=== PATIENT | male | born 1945 | race Caucasian/White ===

== ENCOUNTER → 2017-01-26 | Outpatient (CLI) | payer OTHER ==
--- NOTE | 2017-01-26 08:25 | DIAGNOSTIC IMAGING REPORT ---
(BARIUM SWALLOW) ESOPHAGUS CLINICAL HISTORY: Dysphagia. COMPARISON STUDY: None. FLUOROSCOPY TIME: 0.6 minutes. FINDINGS: 14 fluoroscopic images were obtained. This study was not completed due to a small amount of silent tracheal aspiration during this exam. No barium tablet was administered. Evaluation of the esophagus was mildly compromised but no esophageal mass or stricture was identified. No hiatal hernia was identified. Gastroesophageal reflux could not be evaluated for on this examination. IMPRESSION: 1. Incomplete exam due to a small amount of silent tracheal aspiration. A modified barium swallow could be obtained to evaluate the swallowing mechanism. 2. Suboptimal evaluation of the esophagus but no significant abnormality identified. Electronically signed by: Javad Rubalcava M.D. 01/26/2017 8:24 AM Dictated Date/Time: 01/26/2017 8:20 AM
== END | disposition home or self-care (01) ==
LOC: C.RAD 07:35
PROVIDERS: ATTEND Physician Assistant Medical
DX: R13.10 Dysphagia, unspecified (principal)

== ENCOUNTER → 2017-01-29 | Outpatient (CLI) | payer OTHER ==
--- NOTE | 2017-01-29 13:27 | DIAGNOSTIC IMAGING REPORT ---
MODIFIED BARIUM SWALLOW CLINICAL HISTORY: Dyspnea. COMPARISON STUDY: Barium swallow January 26, 2017. Fluoroscopy time: 2 minutes. FINDINGS: No tracheal aspiration was identified within liquids, nectar thick liquids, pudding or crackers with paste. There were residuals within the vallecula and piriform sinuses. IMPRESSION: 1. Intact swallowing mechanism. No tracheal aspiration identified. 2. Mild residuals within the vallecula and piriform sinuses. 3. Full recommendations by speech pathology to follow. Electronically signed by: Javad Rubalcava M.D. 01/29/2017 1:26 PM Dictated Date/Time: 01/29/2017 1:20 PM
--- NOTE | 2017-01-29 18:43 | SWALLOWING EVALUATION ---
REFERRING SPEECH PATHOLOGIST: n/a HISTORY: This 71 year-old man was referred for a VFSS at [facility] in order to follow-up after an episode of aspiration during a Barium Swallow Study on 01/26/17. The patient has a PMH significant for acoustic schwannoma, decreased balance, and cardiac stent placement. He denies GERD, but reports globus sensation and increased mucous production occurring at night when he is reclined. He also reports increased hoarseness/dysphonia. Currently the patient's diet level is regular. PROCEDURE: The patient was seen in the Radiology Department of [facility] for the VFSS. Cursory examination of the oral cavity revealed adequate dentition. Movement of the articulators was WNL. The patient was seated on a stool and was viewed in both the Anterior-Posterior (A-P) and Lateral planes. Volitional phonation exercises completed in the A-P plane revealed bilateral vocal fold movement and vocal intensity within functional limits, but with raspy quality. In the lateral plane, the patient was given the following boluses: 1 tsp. thin liquid barium x 2, single swallow thin liquid barium self-presented from a cup, sequential swallows of thin liquid barium self-presented from a cup, 1 tsp. nectar-thick liquid barium, single swallow nectar-thick liquid barium self-presented from a cup, 1 tsp. barium pudding, and 1 club cracker with barium pudding. The patient was then repositioned into the A-P plane and given 1 tsp. barium pudding. RESULTS: Oral Stage: Labial seal was complete. Cohesive bolus between tongue and palate during oral bolus hold. Timely and efficient mastication. Brisk tongue motion for bolus transport. Majority of solid bolus remaining after initial swallow and cleared with a second swallow. Initiation of pharyngeal swallow when bolus head in the valleculae. The patient demonstrates piecemeal bolus transport of solids to the pharynx. Otherwise, oral stage is WNL. Pharyngeal Stage: No bolus between soft palate and pharyngeal wall. Lingual elevation, anterior hyoid excursion, epiglottic inversion and laryngeal vestibular closure were complete. Diminished pharyngeal stripping wave. Incomplete pharyngeal contraction with presence of bilateral pseudodiverticulae. Minimal distention and duration of PES opening with marked obstruction of bolus flow. Wide column of contrast between tongue base and pharyngeal wall. Majority of solid bolus remained in valleculae and pyriform sinuses after initial swallow. There was no penetration or aspiration during this study. The patient demonstrated pharyngeal weakness and c-spine curvature that minimized pharyngeal clearance and PES opening. Multiple swallows were needed to clear solids from the pharynx. Esophageal Stage: A pudding bolus transited the esophagus without retention. SUMMARY/RECOMMENDATIONS: This patient presents with mild-moderate oral-pharyngeal dysphagia. He has several s/s LPR (laryngo-pharyngeal reflux). The following is recommended: 1. Diet as tolerated 2. Compensatory Strategies: avoid icy cold liquids, alternate solids and liquids frequently during meals, use fully upright positioning for all oral intake, keep head of bed elevated at least 30-degrees at all times 3. Pt already has f/u scheduled with ENT. 4. 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 A summary of the results and recommendations was discussed with the patient and his immediately following the study. They are anticipating f/u with ENT next week. Thank you for referral of this patient. Please contact me at if any additional information is needed.
== END | disposition home or self-care (01) ==
LOC: C.RAD 12:25
PROVIDERS: ATTEND Physician Assistant Medical
DX: R13.10 Dysphagia, unspecified (principal)

== ENCOUNTER 2022-01-26 09:21 | Inpatient (IN) ==
--- NOTE | 2022-01-26 09:41 | Emergency Department Note ---
Impression & Plan Syncope, Presence of indwelling Ferro catheter, Elevated troponin ED Provider Note Name: DANIEL HO Age: 76 Sex: M Arrives Via: Ambulance Informant: Patient, , ems ED Provider: Aly Nguyen MD Chief Complaint: syncope Impression: As per impressions above Medical Decision Makin-year-old gentleman with a history of CAD status post stent placement last week since BPH, hypertension and Parkinson's. Patient had an episode yesterday of lightheadedness and near syncope was evaluated in the ER had a cardiac rule out in the ER and was discharged home in good condition. Today patient was noted to have blood pressure in the 60s at home with an irregular heartbeat which was followed by a 15-minute episode of syncope and unresponsiveness. Thro ughout this he apparently was breathing and did have a pulse. EMS had arrived and found him unresponsive did not require CPR and he eventually came to. On arrival patient states he feels fine with no complaints. EKG is similar to yesterday's. Chest x-ray is unremarkable. He did have signs of legs yesterday which are negative, CT abdomen pelvis which is negative, and a CT of the head which is negative. He has no evidence of stroke on examination and he has no current complaints. His arrived to confirm the story. He has had an indwelling Ferro which had a little bit of blood in it sometimes is cleared and it clear yellow urine in the Ferro. His abdomen is soft nontender and repeat CT is not indicated. Labs revealed mildly elevated troponin which is trending down from yesterday. He has no shortness of breath, chest pain and I feel repeat he at this time is unnecessary and there is no clear indication of a CTA being required at this time either. His prolonged syncope a recent cardiac procedure and is multiple comorbidities hospitalization is indicated at this time. He and are on board with this plan. Prior Medical Record and Triage/Nursing Notes reviewed by Me Additional history obtained from chart Differentials:Vasovagal event, dehydration, infection, hypoglycemia, electrolyte abnormalities, cardiac sources, intracerebral event, pulmonary embolism, seizure, toxicologic, neurologic, as well as other pathologies. Vital Signs: reviewed and remarkable for no significant abnormalities Labs:Reviewed and remarkable for mildly elevated troponin improving from yesterday Imagin view chest x-ray unremarkable EKG:Per My Interpretation: Indication Syncope: NSR 78 bpm, qtc 497. No Ectopy. There are deep T wave inversions ant/lat mildly improved form EKG yesterday.. Compared to EKG 01/25/22, no significant changes. Cardiac/Tele Monitoring: Cardiac Monitoring: An Order was placed for continuous cardiac monitoring. The monitor shows a rate of 70 with a normal sinus rhythm. Consults:Dr Charis Segura Hospitalist Plan: Disposition:Hospitalization. Condition: Fair History of Present Illness: 76-year-old male arrives for evaluation following syncope. Patient with a cardiac stent placed 5 days ago at [facility]. He notes he has been tired after that and had some urinary issues thus Ferro was placed. He states has had some blood in it but denies any significant pain. He is also had some bloody noses on and off without any issues. Yesterday he had an episode of lightheadedness and near syncope and was evaluated in ER feeling well after several hours and went home. Today he went to the bathroom started getting lightheaded and called his . She got him out of the bathroom and to the kitchen. He was sitting. He became diaphoretic and decreased breathing and then went unresponsive. EMS they arrived and found patient unresponsive pale diaphoretic with a weak pulse. He was breathing some with some wheezing/crackles. No CPR was administered and after about 5 minutes patient started to come to. It was believed the patient was unresponsive for somewhere between 10 to 15 minutes. Patient was slightly confused as he came to and is now returned to baseline. Patient states he feels well and is in no distress. He denies headache, neck pain, chest pain, shortness of breath, [place] pain, back pain, leg pain or other symptoms. He has bruising on his right wrist from the catheter placement. He notes some blood in his urine. Patient had no med ications prior to arrival. He states he is on a blood thinner but does not recall what it is. Per his chart it appears he is on 81 mg of aspirin and Brilinta daily. ROS: See above HPI for pertinent positives & negatives. A total of 10 systems reviewed and were otherwise negative. Past Medical History:Parkinson's, CAD, BPH Past Surgical History:Cardiac cath with stenting Family History:See Below Social History:See Below Home Medications:See Below Allergies:See Below Vitals:Blood Pressure: 183/89, Pulse 76, RR 20, T 36.9C, O2 93% on RA Physical Exam: GENERAL: Patient is elderly and unwell appearing and in minimal distress. EYES: No scleral icterus, unremarkable pupils. Pale conjunctiva ENT: Mucous membranes moist, no nasal congestion. NECK: No masses appreciated, nomeningismus, trachea is midline. RESPIRATORY: No dyspnea. Clear to auscultation and equal bilaterally. No wheeze, no rhonchi. CARDIOVASCULAR: Regular rate and rhythm.No murmurs, rubs, gallops appreciated. GASTROINTESTINAL: Abdomen soft, non-tender, no peritonitis.Bowel sounds positive.No masses appreciated. BACK: No midline tenderness, no CVA tenderness EXTREMITIES: Normal motion all extremities, no cyanosis, no edema. NEUROLOGIC: Alert and oriented, no acute motor or sensory deficits, no focal weakness, cranial nerves grossly intact. SKIN: Bruising right wrist with good pulse. No rash, no jaundice, no diaphoresis. PSYCH: Appropriate GCS: 15 ED Course: Times/Reassessments: Patient stable admit multiple repeat evaluations no complaints. No further abnormalities on cardiac rn Aly Nguyen MD Past Med/Surg History Medical History BPH (benign prostatic hyperplasia) Coronary artery disease Hypertension Parkinsons disease Surgical History S/P coronary artery stent placement Family History Other Heart disease Social History Smoking Status: Never smoker Hx Alcohol Use: No Preferred Language: Armenian Communication Ability: Effective Small Products I Assembler Required: No Beliefs That Will Affect Care: None Current Living Situation: Spouse Other Information That Helps Us Care for You: No Feels Safe at Home: Yes Safety Concerns: Feels Safe At This Time Assistive Devices: Cane and Walker Allergies Allergies Allergy/AdvReac Type Severity Reaction Status Date / Time adhesive tape Allergy Intermediate red welps Unverified 01/26/22 10:41 codeine Allergy Intermediate shortness Unverified 01/26/22 10:41 of breath ~ nervous bacitracin AdvReac Intermediate blisters Unverified 01/26/22 10:41 [From Neosporin ([id number])] neomycin AdvReac Intermediate blisters Unverified 01/26/22 10:41 [From Neosporin ([id number])] polymyxin B AdvReac Intermediate blisters Unverified 01/26/22 10:41 [From Neosporin ([id number])] Home Meds Home Medications Medication Instructions Recorded Confirmed aspirin 81 mg tablet,delayed 81 mg PO HS 01/25/22 01/26/22 release atenolol 25 mg tablet 25 mg PO HS 01/25/22 01/26/22 carbidopa 25 mg-levodopa 100 mg 1 tab PO TID 01/25/22 01/26/22 tablet (Sinemet) carboxymethylcellulose sodium 1 % 1 drp OPHTHALMIC (EYE) QID 01/25/22 01/26/22 eye liquid gel drops desonide 0.05 % topical gel 1 applic TOPICAL 01/25/22 01/26/22 doxazosin 8 mg tablet 8 mg PO HS 01/25/22 01/26/22 gemfibrozil 600 mg tablet (Lopid) 600 mg PO BID 01/25/22 01/26/22 losartan 25 mg tablet 25 mg PO [facility] 01/25/22 01/26/22 metronidazole 0.75 % topical cream 1 applic TOPICAL [facility] 01/25/22 01/26/22 (MetroCream) multivitamin 1 tab PO QAM 01/25/22 01/26/22 ticagrelor 90 mg tablet (Brilinta) 90 mg PO BID 01/25/22 01/26/22 vit C 250 mg-vit E 90 mg-zinc 40 1 tab PO BID 01/25/22 01/26/22 mg-copper 1 [id number]-[id number]-ygylic capsule (PreserVision AREDS-2) atorvastatin 40 mg tablet 40 mg PO DAILY 01/26/22 01/26/22 inulin 2 gram chewable tablet 6 g PO DAILY 01/26/22 01/26/22 (Fiber Gummies) ketotifen fumarate 0.025 % (0.035 1 drp OPHTHALMIC (EYE) BID PRN 01/26/22 01/26/22 %) eye drops (Zaditor) loteprednol etabonate 0.2 % eye 1 drp OPHTHALMIC (EYE) QID PRN 01/26/22 01/26/22 drops,suspension (Alrex) Results & Data (ED) Vital Signs Vital Signs - 24 hr 01/26/22 09:21 01/26/22 09:30 01/26/22 10:00 Temperature 36.6 C Temperature Source Oral Pulse Rate 81 90 65 Pulse Rate from SpO2 Sensor 63 65 Respiratory Rate 18 20 20 Respiratory Effort / Characteristics Non-Labored Respiratory Depth Normal Respiratory Pattern Regular Blood Pressure 168/77 H 168/77 H Blood Pressure Mean 107 107 Pulse Oximetry 97 97 90 Oxygen Delivery Method Room Air Sepsis Recent Fever Within 48 Hours No Sepsis New/Unexplained Change in Mental Status No Sepsis Action Taken by Nursing No Action Required 01/26/22 10:30 01/26/22 11:00 Temperature Temperature Source Pulse Rate 66 68 Pulse Rate from SpO2 Sensor 58 L 65 Respiratory Rate 20 19 Respiratory Effort / Characteristics Respiratory Depth Respiratory Pattern Blood Pressure 172/82 H Blood Pressure Mean 112 Pulse Oximetry 95 95 Oxygen Delivery Method Sepsis Recent Fever Within 48 Hours Sepsis New/Unexplained Change in Mental Status Sepsis Action Taken by Nursing Laboratory Data Result diagrams: 01/26/22 09:39 01/26/22 09:39 Lab Results 01/26/22 01/26/22 01/26/22 Range/Units 09:39 09:39 09:39 WBC 4.58 L (4.8-10.8) K/uL RBC 4.02 L (4.7-6.1) M/uL Hgb 12.2 L (14.0-18.0) g/dL Hct 36.8 L (42-52) % MCV 91.5 (80-100) fL MCH 30.3 (25-34) pg MCHC 33.2 (32-36) g/dL RDW Std Deviation 44.2 (36.4-46.3) fL RDW Coeff of Boaz 13.4 (11.5-14.5) % Plt Count 212 (130-400) K/uL MPV 10.6 H (7.4-10.4) fL Immature Gran % (Auto) 0.2 % Neut % (Auto) 77.8 % Lymph % (Auto) 12.0 % [place]oke % (Auto) 7.0 % Eos % (Auto) 2.8 % Baso % (Auto) 0.2 % Neut # (Auto) 3.56 (1.4-6.5) K/uL Lymph # (Auto) 0.55 L (1.2-3.4) K/uL [place] # (Auto) 0.32 (0.11-0.59) K/uL Eos # (Auto) 0.13 (0-0.5) K/uL Baso # (Auto) 0.01 (0-0.2) K/uL Immature Gran # (Auto) 0.01 (0.00-0.02) K/uL PT 11.6 (9.0-12.0) Seconds INR 1.1 (0.9-1.1) APTT 28.1 (21.0-31.0) Seconds PTT Ratio 1.0 Sodium 140 (136-145) mmol/L Potassium 3.3 L (3.5-5.1) mmol/L Chloride 111 H (98-107) mmol/L Carbon Dioxide 21 (21-32) mmol/L Anion Gap 8 (3-11) BUN 21 (6-23) mg/dl Creatinine 1.11 (0.6-1.4) mg/dl Est Cr Clr Drug Dosing 47.7 ml/min Est GFR ( Amer) 73.3 ml/min Est GFR (Non-Af Amer) 63.3 ml/min BUN/Creatinine Ratio 18.9 (10-20) Glucose 90 (70-99(Fasting)) mg/dl Calcium 8.5 (8.5-10.1) mg/dl Magnesium 1.8 (1.7-2.4) mg/dl Total Bilirubin 1.0 (0.2-1.0) mg/dl Direct Bilirubin 0.2 (0-0.2) mg/dl AST 13 (13-39) U/L ALT 3 L (7-52) U/L Alkaline Phosphatase 80 (34-104) U/L Troponin I 0.14 H* (0-0.04) ng/ml Total Protein 6.1 (6.0-8.3) gm/dl Albumin 3.3 L (3.4-5.0) gm/dl Urine Color Urine Appearance (Clear) Urine pH (4.5-7.5) Ur Specific [place] (1.000-1.030) Urine Protein (Negative) Urine Glucose (UA) (Negative) Urine Ketones (Negative) Urine Blood (Negative) Urine Nitrite (Negative) Urine Bilirubin (Negative) Urine Urobilinogen (Negative) Ur Leukocyte Esterase (Negative) Urine WBC (Auto) (0-5) /hpf Urine RBC (Auto) (0-4) /hpf U Hyaline Cast (Auto) (0-5) /lpf U Epithel Cells (Auto) (0-5) /lpf Urine Bacteria (Auto) (Negative) SARS-CoV-2, RNA, NAAT (NEGATIVE) 01/26/22 01/26/22 Range/Units 09:52 10:22 WBC (4.8-10.8) K/uL RBC (4.7-6.1) M/uL Hgb (14.0-18.0) g/dL Hct (42-52) % MCV (80-100) fL MCH (25-34) pg MCHC (32-36) g/dL RDW Std Deviation (36.4-46.3) fL RDW Coeff of Boaz (11.5-14.5) % Plt Count (130-400) K/uL MPV (7.4-10.4) fL Immature Gran % (Auto) % Neut % (Auto) % Lymph % (Auto) % [place] % (Auto) % Eos % (Auto) % Baso % (Auto) % Neut # (Auto) (1.4-6.5) K/uL Lymph # (Auto) (1.2-3.4) K/uL [place] # (Auto) (0.11-0.59) K/uL Eos # (Auto) (0-0.5) K/uL Baso # (Auto) (0-0.2) K/uL Immature Gran # (Auto) (0.00-0.02) K/uL PT (9.0-12.0) Seconds INR (0.9-1.1) APTT (21.0-31.0) Seconds PTT Ratio Sodium (136-145) mmol/L Potassium (3.5-5.1) mmol/L Chloride (98-107) mmol/L Carbon Dioxide (21-32) mmol/L Anion Gap (3-11) BUN (6-23) mg/dl Creatinine (0.6-1.4) mg/dl Est Cr Clr Drug Dosing ml/min Est GFR ( Amer) ml/min Est GFR (Non-Af Amer) ml/min BUN/Creatinine Ratio (10-20) Glucose (70-99(Fasting)) mg/dl Calcium (8.5-10.1) mg/dl Magnesium (1.7-2.4) mg/dl Total Bilirubin (0.2-1.0) mg/dl Direct Bilirubin (0-0.2) mg/dl AST (13-39) U/L ALT (7-52) U/L Alkaline Phosphatase (34-104) U/L Troponin I (0-0.04) ng/ml Total Protein (6.0-8.3) gm/dl Albumin (3.4-5.0) gm/dl Urine Color Yellow Urine Appearance Clear (Clear) Urine pH 5.5 (4.5-7.5) Ur Specific [place] 1.013 (1.000-1.030) Urine Protein 1+ H (Negative) Urine Glucose (UA) Negative (Negative) Urine Ketones Negative (Negative) Urine Blood 3+ H (Negative) Urine Nitrite Negative (Negative) Urine Bilirubin Negative (Negative) Urine Urobilinogen Negative (Negative) Ur Leukocyte Esterase Trace H (Negative) Urine WBC (Auto) 1-5 (0-5) /hpf Urine RBC (Auto) >30 H (0-4) /hpf U Hyaline Cast (Auto) 1-5 (0-5) /lpf U Epithel Cells (Auto) 10-20 H (0-5) /lpf Urine Bacteria (Auto) Negative (Negative) SARS-CoV-2, RNA, NAAT NEGATIVE (NEGATIVE) Administered Medications Carbidopa/Levodopa (Carbidopa/Levodopa 25/100mg Tab) 1 tab PO TID IMMANUEL Stop: 02/25/22 13:59 Last Admin: 01/26/22 14:42 Dose: 1 tab Documented by: [id number] Discontinued Medications Influenza Virus Vaccine (Influenza Vaccine High Dose Pf 65+ 0.7 Ml Syr) 0.7 ml IM .ONCE ONE Stop: 01/26/22 13:06 Last Admin: 01/26/22 14:42 Dose: Not Given Documented by: [id number] Pneumococcal Polyvalent Vaccine (Pneumococcal Polysaccharides 25 Mcg/0.5 Ml Vial/Syr) 25 mcg IM .ONCE ONE Stop: 01/26/22 13:06 Last Admin: 01/26/22 14:42 Dose: Not Given Documented by: [id number] Potassium Chloride (Potassium Chloride Crtab 20 Meq Tabcr) 40 meq PO NOW STA Stop: 01/26/22 12:14 Last Admin: 01/26/22 12:27 Dose: 40 meq Documented by: [id number] Imaging Data Radiologist's Impression: Chest X-Ray 01/26/22 09:31 XR chest 1V portable CLINICAL HISTORY: syncope. Evaluate cardiopulmonary status COMPARISON STUDY: 01/25/2022 TECHNIQUE: 1 view of the chest FINDINGS: Single frontal view of the chest demonstrates the cardiomediastinal silhouette to be within normal limits. Compared to the previous study, there is a decreased inspiratory effort with interval development of left basilar atelectasis. The lungs are clear of alveolar opacities. There is no evidence for pleural effusion. There is no evidence for vascular congestion. There is no acute osseous pathology. IMPRESSION: 1. Decreased inspiration with interval development of left basilar atelectasis. ACT 112: Negative or not required by law. Electronically signed by: Tyrel Bronson M.D. 01/26/2022 10:00 AM Discharge Plan Visit Data Chief Complaint: Syncope Stated Complaint: SYNCOPE ED Provider: Aly Nguyen Discharge Problem: Syncope, Presence of indwelling Ferro catheter, Elevated troponin Patient Disposition: Admitted As Inpatient Discharge Instructions Interventions: ED Discharge Assessment Last Done: 01/26/22 12:29
[2022-01-26 09:46] LABS: Basophils # (auto) 0.01 K/uL (0-0.2); Basophils % (auto) 0.2 %; Eosinophils # (auto) 0.13 K/uL (0-0.5); Eosinophils % (auto) 2.8 %; Hematocrit (blood only) 36.8 % (42-52); Hemoglobin 12.2 g/dL (14.0-18.0); Immature Granulocytes # (auto) 0.01 K/uL (0.00-0.02); Immature Granulocytes % (auto) 0.2 %; Lymphocytes # (auto) 0.55 K/uL (1.2-3.4); Mean Corpuscular Hemoglobin 30.3 pg (25-34); Mean Corpuscular Hgb Conc 33.2 g/dL (32-36); Mean Corpuscular Volume 91.5 fL (80-100); Mean Platelet Volume 10.6 fL (7.4-10.4); Monocytes # (auto) 0.32 K/uL (0.11-0.59); Neutrophils # (auto) 3.56 K/uL (1.4-6.5); Neutrophils % (auto) 77.8 %; Platelet Count 212 K/uL (130-400); RDW Coefficient of Variation 13.4 % (11.5-14.5); RDW Standard Deviation 44.2 fL (36.4-46.3); Red Blood Count 4.02 M/uL (4.7-6.1); White Blood Count 4.58 K/uL (4.8-10.8)
--- NOTE | 2022-01-26 10:01 | XRay Report ---
XR chest 1V portable CLINICAL HISTORY: syncope. Evaluate cardiopulmonary status COMPARISON STUDY: 01/25/2022 TECHNIQUE: 1 view of the chest FINDINGS: Single frontal view of the chest demonstrates the cardiomediastinal silhouette to be within normal li mits. Compared to the previous study, there is a decreased inspiratory effort with interval developme nt of left basilar atelectasis. The lungs are clear of alveolar opacities. There is no evidence for p leural effusion. There is no evidence for vascular congestion. There is no acute osseous pathology. IMPRESSION: 1. Decreased inspiration with interval development of left basilar atelectasis. ACT 112: Negative or not required by law. Electronically signed by: Tyrel Bronson M.D. 01/26/2022 10:00 AM
[2022-01-26 10:03] LABS: INR 1.1 (0.9-1.1); Partial Thromboplastin Time 28.1 Seconds (21.0-31.0); Prothrombin Time 11.6 Seconds (9.0-12.0)
[2022-01-26 10:16] LABS: Troponin I 0.14 ng/ml (0-0.04)
[2022-01-26 10:26] LABS: Albumin Level 3.3 gm/dl (3.4-5.0); BUN Creatinine Ratio 18.9 (10-20); Bilirubin Direct 0.2 mg/dl (0-0.2); Calcium 8.5 mg/dl (8.5-10.1); Creatinine Clr Calc Pharmacy 47.7 ml/min; Est GFR (African American) 73.3 ml/min; Est GFR (Non-African American) 63.3 ml/min; Magnesium 1.8 mg/dl (1.7-2.4); Potassium 3.3 mmol/L (3.5-5.1); Total Protein 6.1 gm/dl (6.0-8.3)
[2022-01-26 10:43] LABS: Appearance Urine Clear (Clear); Bacteria Urine Automated Negative (Negative); Bilirubin Urine Negative (Negative); Blood Urine 3+ (Negative); Color Urine Yellow; Glucose Urine UA Negative (Negative); Ketones Urine Negative (Negative); Leukocyte Esterase Urine Trace (Negative); Nitrite Urine Negative (Negative); Protein Urine 1+ (Negative); RBC Urine Automated >30 /hpf (0-4); Specific Gravity Urine 1.013 (1.000-1.030); Urobilinogen Urine Negative (Negative); pH Urine 5.5 (4.5-7.5)
[2022-01-26] MEDS ORDERED: POTASSIUM CHLORIDE CRTAB 20 MEQ TABCR PO STA (12:13)
--- NOTE | 2022-01-26 12:34 | Electrocardiogram Report ---
Test Reason : Blood Pressure : / mmHG Vent. Rate : 078 BPM Atrial Rate : 078 BPM P-R Int : 160 ms QRS Dur : 086 ms QT Int : 436 ms P-R-T Axes : 002 052 013 degrees QTc Int : 497 ms Poor data quality, interpretation may be adversely affected Normal sinus rhythm T wave abnormality, consider anterolateral ischemia Prolonged QT Abnormal ECG When compared with ECG of 25-JAN-2022 10:28, (unconfirmed) T wave inversion less evident in Lateral leads QT has lengthened Confirmed by Phuc Ferrera ([id number]) on 01/26/2022 12:34:18 PM Referred By: Confirmed By:Phuc Ferrera
[2022-01-26] MEDS ORDERED: INFLUENZA VACCINE HIGH DOSE PF 65+ 0.7 ML SYR IM ONE (13:05)
[2022-01-26] MEDS ORDERED: PNEUMOCOCCAL POLYSACCHARIDES 25 MCG/0.5 ML VIAL/SYR IM ONE (13:05)
[2022-01-26] MEDS ORDERED: ACETAMINOPHEN 325 MG TAB PO PRN (13:49)
[2022-01-26] MEDS ORDERED: NITROGLYCERIN SL 0.4 MG/TAB TAB SL PRN (13:49)
--- NOTE | 2022-01-26 14:27 | Cardiology Consultation ---
Date of Consultation January 26, 2022 Assessment & Plan (1) Syncope: (2) S/P coronary artery stent placement: (3) Elevated troponin: (4) Presence of indwelling Ferro catheter: (5) Hypokalemia: 76-year-old patient status post recent drug-eluting stent implantation to left anterior descending artery presents for recurrent sympathy after straining to defecate. I suspect vasovagal etiology, however, dehydration and symptomatic hypotension related to current medications contributing. I do not believe there is evidence of acute coronary syndrome with low-level troponin elevation trending downward and stable abnormal ECG when compared to prior study. Patient currently without anginal symptoms which prompted recent cardiac catheterization. Recommend holding losartan (added during recent hospitalization) with close follow-up of blood pressure over the next 24 hours. Encourage oral hydration. Monitor telemetry during hospitalization with consideration for reduction of atenolol pending review. If inpatient telemetry is unrevealing, I will order a 14-day outpatient ZIO monitor for further assessment. 2D transthoracic echocardiogram ordered with results pending at this time. Patient is requesting transfer of care to [facility] physicians. Thank you for allow me to participate in the care of your patient. History of Present Illness Reason for Consultation: Syncope, recent PCI Requesting Physician: Dr. Vizcaino Attending Physician: Leann Vizcaino MD History of Present Illness 76-year-old patient present to the emergency department on consecutive days due to syncope. Describes straining to defecate followed by 2 episodes of syncope. The most recent episode occurring yesterday occurred after he had walked out of the bathroom and sat down. The states he could not be aroused despite verbal or tactile stimuli. EMS was summoned who attempted a sternal rub. The patient was breathing according to his . No CPR was performed. Cardiac catheterization performed 01/21/2022 secondary to anginal symptoms and abnormal ECG demonstrating anterolateral T wave inversions. Cardiac catheterization demonstrating a 50% proximal stenosis followed by a 90% mid vessel stenosis distal to a previously implanted stent. Left circumflex demonstrated luminal irregularities. There was a 90% mid RCA stenosis although this was a nondominant vessel. Patient treated with 2.75 x 28 mm Xience drug- eluting stent. The stent could not be postdilated due to difficulty passing the balloon. He was subsequently loaded with Brilinta and discharged home. Troponins minimally elevated, however, trending down over the past 2 days. His ECG demonstrates anterior lateral T wave inversions which are unchanged from previous. Bedside 2D transthoracic echocardiogram is pending. Patient denies any chest discomfort or heaviness which prompted his recent cardiac catheterization. No anginal symptoms. Denies orthopnea, PND, or lower extremity edema. A Ferro catheter was inserted during recent hospitalization due to urinary retention. Losartan was also added to his medications in addition to Brilinta. reports symptomatic hypotension per his home blood pressure cuff yesterday with a systolic blood pressure in the 60s. This was recorded prior to patient using the bathroom and subsequent syncopal episode. Denies any signs/symptoms of GI/ blood loss. No fever, chills, cough, or sick contacts. Hypertensive since admission. Allergies Allergy/AdvReac Type Severity Reaction Status Date / Time adhesive tape Allergy Intermediate red welps Unverified 01/26/22 10:41 codeine Allergy Intermediate shortness Unverified 01/26/22 10:41 of breath ~ nervous bacitracin AdvReac Intermediate blisters Unverified 01/26/22 10:41 [From Neosporin ([id number])] neomycin AdvReac Intermediate blisters Unverified 01/26/22 10:41 [From Neosporin ([id number])] polymyxin B AdvReac Intermediate blisters Unverified 01/26/22 10:41 [From Neosporin ([id number])] Home Medications Medication Instructions Recorded Confirmed Type aspirin 81 mg tablet,delayed 81 mg PO HS 01/25/22 01/26/22 History release atenolol 25 mg tablet 25 mg PO HS 01/25/22 01/26/22 History carbidopa 25 mg-levodopa 100 mg 1 tab PO TID 01/25/22 01/26/22 History tablet (Sinemet) carboxymethylcellulose sodium 1 % 1 drp OPHTHALMIC (EYE) QID 01/25/22 01/26/22 History eye liquid gel drops desonide 0.05 % topical gel 1 applic TOPICAL HS 01/25/22 01/26/22 History doxazosin 8 mg tablet 8 mg PO HS 01/25/22 01/26/22 History gemfibrozil 600 mg tablet (Lopid) 600 mg PO BID 01/25/22 01/26/22 History losartan 25 mg tablet 25 mg PO QAM 01/25/22 01/26/22 History metronidazole 0.75 % topical cream 1 applic TOPICAL QAM 01/25/22 01/26/22 History (MetroCream) multivitamin 1 tab PO QAM 01/25/22 01/26/22 History ticagrelor 90 mg tablet (Brilinta) 90 mg PO BID 01/25/22 01/26/22 History vit C 250 mg-vit E 90 mg-zinc 40 1 tab PO BID 01/25/22 01/26/22 History mg-copper 1 [id number] capsule (PreserVision AREDS-2) atorvastatin 40 mg tablet 40 mg PO DAILY 01/26/22 01/26/22 History inulin 2 gram chewable tablet 6 g PO DAILY 01/26/22 01/26/22 History (Fiber Gummies) ketotifen fumarate 0.025 % (0.035 1 drp OPHTHALMIC (EYE) BID PRN 01/26/22 01/26/22 History %) eye drops (Zaditor) loteprednol etabonate 0.2 % eye 1 drp OPHTHALMIC (EYE) QID PRN 01/26/22 01/26/22 History drops,suspension (Alrex) Patient History Medical History (Updated 01/26/22 @ 17:33 by GINNY Montez) Acoustic neuroma s/p gamma knife treatment BPH (benign prostatic hyperplasia) CKD (chronic kidney disease), stage III Coronary artery disease 2006 - BMS to LAD 01/21/22 - BETH to LAD Hypertension Parkinsons disease Surgical History History of cataract surgery History of cholecystectomy History of partial colectomy Hx of appendectomy S/P coronary artery stent placement Family History Other Heart disease Social History Smoking Status: Never smoker Hx Alcohol Use: No Preferred Language: Croatian Communication Ability: Effective 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 Required: No Beliefs That Will Affect Care: None Current Living Situation: Spouse Other Information That Helps Us Care for You: No Feels Safe at Home: Yes Safety Concerns: Feels Safe At This Time Assistive Devices: Glasses and Walker Review of Systems Review of Systems: All systems reviewed & are unremarkable except as noted in Subjective Physical Exam Constitutional: well developed and well nourished; no acute distress Respiratory: normal respiratory effort; no respiratory distress, no labored breathing and no retractions Auscultation: lungs clear to auscultation bilaterally; no crackles, no rales, no rhonchi and no wheezes Cardiovascular: Rate/Rhythm: regular rate and regular rhythm Heart Sounds: normal S1 and normal S2; no murmur Vessels: radial pulses present; no JVD and no carotid bruit Gastrointestinal (Abdomen): Inspection/Auscultation: abdomen normal to inspection and normal bowel sounds; abdomen not distended Percussion/Palpation: abdomen soft; abdomen nontender, no guarding and abdomen not rigid Neurologic: CN's II-XI intact bilaterally and moves all extremities; no focal motor deficits Psychiatric: A+Ox3, euthymic affect Results & Data ([facility]) Vital Signs (Past 12 Hours) Vital Signs Temp Pulse Pulse Resp BP BP Pulse Ox 01/26/22 12:53 36.9 C 76 20 183/89 H 93 01/26/22 12:29 67 18 179/95 H 98 01/26/22 12:00 67 18 179/95 H 98 01/26/22 11:30 64 19 165/88 H 96 01/26/22 11:00 68 19 172/82 H 95 01/26/22 10:30 66 20 95 01/26/22 10:00 65 20 90 01/26/22 09:30 90 20 168/77 H 97 01/26/22 09:21 36.6 C 81 18 168/77 H 97 (1) Syncope Syncope type: unspecified Qualified Code(s): R55 - Syncope and collapse
[2022-01-26] MEDS: CARBIDOPA/LEVODOPA 25/100MG TAB PO SCH (14:42)
--- NOTE | 2022-01-26 16:05 | Hospitalist Progress Note ---
Date of Service January 26, 2022 Assessment & Plan Admission and Anticipated Discharge Date Admission Date: January 26, 2022 Subjective Patient was seen and examined independently. Chart reviewed. Case discussed with SHAHRZAD Mr Hunter is here for recurrent syncope (LOC preceded by light headedness), this most recent episode was also associated with hypotension (SBP 60s) for which his with held his blood pressure medications. They both deny prior episodes of syncope. Recently admitted for [facility] (stent to LAD) and started on losartan in addition to atenolol which he was already on previously. Will observe overnight on telemetry. Hold losartan. Repeat TTE. Cardiology consult Results & Data Results & Data ([facility]) Vital Signs (Past 12 Hours) Vital Signs Temp Pulse Pulse Resp BP BP Pulse Ox 01/26/22 15:48 36.4 C L 87 16 168/88 H 99 01/26/22 12:53 36.9 C 76 20 183/89 H 93 01/26/22 12:29 67 18 179/95 H 98 01/26/22 12:00 67 18 179/95 H 98 01/26/22 11:30 64 19 165/88 H 96 01/26/22 11:00 68 19 172/82 H 95 01/26/22 10:30 66 20 95 01/26/22 10:00 65 20 90 01/26/22 09:30 90 20 168/77 H 97 01/26/22 09:21 36.6 C 81 18 168/77 H 97
--- NOTE | 2022-01-26 17:40 | History & Physical Report ---
Date of Service January 26, 2022 Assessment & Plan (1) Syncope: (2) Coronary artery disease: (3) S/P coronary artery stent placement: (4) Elevated troponin: Plan: Admit to telemetry Patient presenting from home for evaluation after syncopal event. Noted similar episode yesterday and had ED evaluation. Episodes occurred after patient returned from the bathroom after straining to have a bowel movement. Recent admission to [facility] for cardiac cath and BETH to LAD. Patient started on atorvastatin, losartan, Brilinta. Troponin yesterday 0.31 --> 0.14 today No reports of chest pain, EKG shows unchanged T wave inversions in the anterior leads ?? Vasovagal due to straining Cardiology consult, case discussed with Dr. Mckeon Check echo Continue Brilinta, ASA, statin, beta-ravinder Noted the patient wishes to establish care as an outpatient with [facility] cardiology (5) Hypokalemia: Plan: K+ 3.3 Replace, follow electrolytes (6) Hypertension: Plan: On atenolol and losartan (7) Parkinsons disease: Plan: Continue carbidopa-levodopa (8) Presence of indwelling Ferro catheter: Plan: Placed during recent admission at outside hospital due to urinary retention/hematuria Patient wishes to establish care with [facility] urology as an outpatient -please make appointment at discharge (9) DVT prophylaxis: Plan: SCDs due to recent hematuria, DAPT therapy Admission and Anticipated Discharge Date Admission Date: January 26, 2022 History of Present Illness Chief Complaint: Unresponsive episode Primary Care Provider: Edilia George MD 76-year-old male with PMH CAD (s/p BMS to LAD in 2006 and recent BETH to LAD on 01/21/2022 at [facility]), Parkinson's, HTN, BPH, CKD stage III, history of acoustic neuroma s/p gamma knife treatment, and the problems listed below who presents the ED for evaluation after an unresponsive/syncopal event at home. Patient was discharged on 01/23 after cardiac cath and stent placement. Patient reports he had been feeling well. Yesterday, after patient had gone to the bathroom and was straining to have a bowel movement, when he got back to his chair he had a brief episode of unresponsiveness per the . Patient was brought to the ED. Troponin was 0.31 --> 0.22. EKG was unchanged. Patient was discharged home. This morning, patient had a very similar episode again after returning from going to the bathroom. reports that patient was unresponsive for about 15 minutes. BP was reportedly 60/40. EMS was called and patient was brought back to the ED for further evaluation. Currently, patient is asymptomatic. He denies any associated chest pain, palpitations, shortness of breath. No other recent illnesses, fevers, chills. Denies abdominal pain, nausea, vomiting, diarrhea. No urinary symptoms. In the ED today, troponin is 0.14. EKG shows T wave inversions in the anterior leads, unchanged from post cath EKG. Allergies Allergy/AdvReac Type Severity Reaction Status Date / Time adhesive tape Allergy Intermediate red welps Unverified 01/26/22 10:41 codeine Allergy Intermediate shortness Unverified 01/26/22 10:41 of breath ~ nervous bacitracin AdvReac Intermediate blisters Unverified 01/26/22 10:41 [From Neosporin ([id number])] neomycin AdvReac Intermediate blisters Unverified 01/26/22 10:41 [From Neosporin ([id number])] polymyxin B AdvReac Intermediate blisters Unverified 01/26/22 10:41 [From Neosporin ([id number])] Home Medications Medication Instructions Recorded Confirmed Type aspirin 81 mg tablet,delayed 81 mg PO HS 01/25/22 01/26/22 History release atenolol 25 mg tablet 25 mg PO HS 01/25/22 01/26/22 History carbidopa 25 mg-levodopa 100 mg 1 tab PO TID 01/25/22 01/26/22 History tablet (Sinemet) carboxymethylcellulose sodium 1 % 1 drp OPHTHALMIC (EYE) QID 01/25/22 01/26/22 History eye liquid gel drops desonide 0.05 % topical gel 1 applic TOPICAL HS 01/25/22 01/26/22 History doxazosin 8 mg tablet 8 mg PO HS 01/25/22 01/26/22 History gemfibrozil 600 mg tablet (Lopid) 600 mg PO BID 01/25/22 01/26/22 History losartan 25 mg tablet 25 mg PO QAM 01/25/22 01/26/22 History metronidazole 0.75 % topical cream 1 applic TOPICAL QAM 01/25/22 01/26/22 History (MetroCream) multivitamin 1 tab PO QAM 01/25/22 01/26/22 History ticagrelor 90 mg tablet (Brilinta) 90 mg PO BID 01/25/22 01/26/22 History vit C 250 mg-vit E 90 mg-zinc 40 1 tab PO BID 01/25/22 01/26/22 History mg-copper 1 [id number] capsule (PreserVision AREDS-2) atorvastatin 40 mg tablet 40 mg PO DAILY 01/26/22 01/26/22 History inulin 2 gram chewable tablet 6 g PO DAILY 01/26/22 01/26/22 History (Fiber Gummies) ketotifen fumarate 0.025 % (0.035 1 drp OPHTHALMIC (EYE) BID PRN 01/26/22 01/26/22 History %) eye drops (Zaditor) loteprednol etabonate 0.2 % eye 1 drp OPHTHALMIC (EYE) QID PRN 01/26/22 01/26/22 History drops,suspension (Alrex) Past Med/Surg History Medical History (Updated 01/26/22 @ 17:33 by GINNY Montez) Acoustic neuroma s/p gamma knife treatment BPH (benign prostatic hyperplasia) CKD (chronic kidney disease), stage III Coronary artery disease 2006 - BMS to LAD 01/21/22 - EBTH to LAD Hypertension Parkinsons disease Surgical History History of cataract surgery History of cholecystectomy History of partial colectomy Hx of appendectomy S/P coronary artery stent placement Family History Other Heart disease Social History Smoking Status: Never smoker Hx Alcohol Use: No Preferred Language: Serbian Communication Ability: Effective Operations And Maintenance Manager Required: No Beliefs That Will Affect Care: None Current Living Situation: Spouse Other Information That Helps Us Care for You: No Feels Safe at Home: Yes Safety Concerns: Feels Safe At This Time Assistive Devices: Glasses and Walker Review of Systems Review of Systems: ROS per HPI, all other systems reviewed and negative Physical Exam Constitutional: WD/WN, vitals as above Eyes: PERRL, conjunctivae normal, anicteric sclerae ENMT: external ear and nose normal, oropharynx normal Respiratory: normal respiratory effort, lungs clear to auscultation Cardiovascular: Rate/Rhythm: regular rate and regular rhythm Vessels: normal peripheral pulses Extremities: no edema Gastrointestinal (Abdomen): normal bowel sounds, soft, nontender, no hepatosplenomegaly Musculoskeletal: no cyanosis or clubbing, extremities motor strength 5/5 Skin: no rashes, warm and dry Neurologic: PERRL, EOMI, accommodation nl, no face palsy, no dysarthria Psychiatric: A+Ox3, euthymic affect Genitourinary: Ferro catheter in place Results & Data Results & Data ([facility]) Vital Signs (Past 12 Hours) Vital Signs Temp Pulse Pulse Resp BP BP Pulse Ox 01/26/22 15:48 36.4 C L 87 16 168/88 H 99 01/26/22 12:53 36.9 C 76 20 183/89 H 93 01/26/22 12:29 67 18 179/95 H 98 01/26/22 12:00 67 18 179/95 H 98 01/26/22 11:30 64 19 165/88 H 96 01/26/22 11:00 68 19 172/82 H 95 01/26/22 10:30 66 20 95 01/26/22 10:00 65 20 90 01/26/22 09:30 90 20 168/77 H 97 01/26/22 09:21 36.6 C 81 18 168/77 H 97 Laboratory Results Short CBC 01/26/22 Range/Units 09:39 WBC 4.58 L (4.8-10.8) K/uL Hgb 12.2 L (14.0-18.0) g/dL Hct 36.8 L (42-52) % Plt Count 212 (130-400) K/uL BMP 01/26/22 09:39 Sodium 140 Potassium 3.3 L Chloride 111 H Carbon Dioxide 21 BUN 21 Creatinine 1.11 Glucose 90 Calcium 8.5 Cardiac Enzymes 01/26/22 01/26/22 Range/Units 09:39 15:57 Troponin I 0.14 H* 0.12 H* (0-0.04) ng/ml Liver Function 01/26/22 Range/Units 09:39 Total Bilirubin 1.0 (0.2-1.0) mg/dl Direct Bilirubin 0.2 (0-0.2) mg/dl AST 13 (13-39) U/L ALT 3 L (7-52) U/L Alkaline Phosphatase 80 (34-104) U/L Albumin 3.3 L (3.4-5.0) gm/dl Urine 01/26/22 Range/Units 10:22 Urine Color Yellow Urine Appearance Clear (Clear) Urine pH 5.5 (4.5-7.5) Ur Specific [place] 1.013 (1.000-1.030) Urine Protein 1+ H (Negative) Urine Glucose (UA) Negative (Negative) Code Status & VTE Plan Code Status Patient is a DNR as per my discussion with him. Patient states that his , Marie, would be his decision-maker in the event he were to be unable to. VTE Prophylaxis Plan VTE Prophylaxis will be ordered: Yes Supervising Physician Co-Signing Physician Notes Patient evaluated independently. Chart reviewed. Case discussed with SHAHRZAD. Here with syncope x 2. Likely due to hypotension, recently started on losartan. Will hold losartan, repeat TTE and trend CE. Cardiology consulted (1) Syncope Syncope type: unspecified Qualified Code(s): R55 - Syncope and collapse
[2022-01-27] MEDS: CARBIDOPA/LEVODOPA 25/100MG TAB PO SCH ×4 (00:18→20:24)
[2022-01-27] MEDS: ATENOLOL 25 MG TABLET PO SCH ×2 (00:18→20:24)
[2022-01-27] MEDS: ASPIRIN 81 MG ECTAB PO SCH ×2 (00:18→20:24)
[2022-01-27] MEDS: TICAGRELOR 90 MG TAB PO SCH ×3 (00:18→20:24)
[2022-01-27] MEDS: DOXAZosin MESYLATE 4 MG TAB PO SCH ×2 (00:18→20:24)
[2022-01-27] MEDS: gemfibroziL 600 MG TAB PO SCH ×3 (00:18→20:24)
[2022-01-27 05:58] LABS: Hematocrit (blood only) 35.2 % (42-52); Hemoglobin 11.7 g/dL (14.0-18.0); Mean Corpuscular Hemoglobin 30.4 pg (25-34); Mean Corpuscular Hgb Conc 33.2 g/dL (32-36); Mean Corpuscular Volume 91.4 fL (80-100); Mean Platelet Volume 10.2 fL (7.4-10.4); Platelet Count 232 K/uL (130-400); RDW Coefficient of Variation 13.2 % (11.5-14.5); Red Blood Count 3.85 M/uL (4.7-6.1); White Blood Count 5.38 K/uL (4.8-10.8)
[2022-01-27 06:20] LABS: BUN Creatinine Ratio 23.9 (10-20); Calcium 8.4 mg/dl (8.5-10.1); Creatinine Clr Calc Pharmacy 46.9 ml/min; Est GFR (African American) 71.8 ml/min; Est GFR (Non-African American) 61.9 ml/min; Potassium 3.3 mmol/L (3.5-5.1)
[2022-01-27] MEDS ORDERED: LOSARTAN POTASSIUM 25 MG TAB PO SCH (09:00)
[2022-01-27] MEDS: ATORVASTATIN 40 MG TAB PO SCH (11:02)
[2022-01-27] MEDS: POTASSIUM CHLORIDE CRTAB 20 MEQ TABCR PO SCH ×3 (11:04→20:25)
--- NOTE | 2022-01-27 12:34 | Electrocardiogram Report ---
Test Reason : Blood Pressure : / mmHG Vent. Rate : 060 BPM Atrial Rate : 060 BPM P-R Int : 160 ms QRS Dur : 080 ms QT Int : 450 ms P-R-T Axes : 037 043 084 degrees QTc Int : 450 ms Normal sinus rhythm T wave abnormality, consider anterior ischemia Abnormal ECG When compared with ECG of 26-JAN-2022 09:30, Nonspecific T wave abnormality has replaced inverted T waves in Lateral leads Confirmed by Phuc Ferrera ([id number]) on 01/27/2022 12:34:03 PM Referred By: REFERRED SELF Confirmed By:Phuc Ferrera
--- NOTE | 2022-01-27 15:10 | Cardiology Progress Note ---
Date of Service January 27, 2022 Assessment & Plan (1) Syncope: (2) S/P coronary artery stent placement: (3) Elevated troponin: (4) Presence of indwelling Ferro catheter: (5) Hypokalemia: Plan: 76-year-old patient status post recent drug-eluting stent implantation to left anterior descending artery presents for recurrent sympathy after straining to defecate. Vasovagal etiology suspected. Losartan placed on hold. No evidence of acute coronary syndrome with stable echocardiogram and ECG. No anginal symptoms. No further inpatient cardiac testing at this time. Recommend discontinuation of losartan. 14-day outpatient ZIO monitor ordered. Patient will have monitor placed at [facility]. Cardiology follow-up in 4-6 weeks. Thank you for allowing to participate in the care of your patient. Admission and Anticipated Discharge Date Admission Date: January 26, 2022 Subjective Patient seen and examined at the bedside. Feeling well overnight. No recurrent lightheadedness or dizziness. Ferro catheter removed. Telemetry reveals sinus rhythm. 2 short bursts of PSVT recorded. Denies palpitations, orthopnea, PND, or edema. is present. She offers no additional concerns/complaints. Review of Systems Review of Systems: All systems reviewed & are unremarkable except as noted in Subjective Physical Exam Constitutional: well developed and well nourished; no acute distress Respiratory: normal respiratory effort; no respiratory distress, no labored breathing and no retractions Auscultation: lungs clear to auscultation bilaterally; no crackles, no rales, no rhonchi and no wheezes Cardiovascular: Rate/Rhythm: regular rate and regular rhythm Heart Sounds: normal S1 and normal S2; no murmur Vessels: radial pulses present; no JVD and no carotid bruit Gastrointestinal (Abdomen): Inspection/Auscultation: abdomen normal to inspection and normal bowel sounds; abdomen not distended Percussion/Palpation: abdomen soft; abdomen nontender, no guarding and abdomen not rigid Neurologic: CN's II-XI intact bilaterally and moves all extremities; no focal motor deficits Psychiatric: A+Ox3, euthymic affect Results & Data ([facility]) Vital Signs (Past 12 Hours) Vital Signs Temp Pulse Resp BP Pulse Ox 01/27/22 14:48 36.4 C L 61 19 149/81 H 98 01/27/22 11:50 36.5 C 62 18 113/60 97 01/27/22 07:53 36.7 C 59 L 17 145/79 H 95 01/27/22 04:26 36.9 C 62 18 134/79 93 (1) Syncope Syncope type: unspecified Qualified Code(s): R55 - Syncope and collapse
--- NOTE | 2022-01-27 17:42 | Hospitalist Progress Note ---
Date of Service January 27, 2022 Assessment & Plan (1) Syncope: (2) Coronary artery disease: (3) S/P coronary artery stent placement: (4) Elevated troponin: Plan: Admit to telemetry (5) Hypokalemia: (6) Hypertension: (7) Parkinsons disease: (8) Presence of indwelling Us catheter: (9) DVT prophylaxis: Plan: Syncope -Likely vasovagal versus hypotension in setting of recently being started on losartan -BP is noted to be labile (SBP 170s--> 130s without any intervention). He likely has a component of autonomic insufficiency related to his Parkinsons -Appreciate Cardiology input, plan for outpatient telemetry monitor -TTE noted, no changes compared to previous Recent NSTEMI and LAD stent -continue aspirin and Brilinta -EKG unchanged Acute urinary retention -Diagnosed on admission last week at OSH. Us placed and patient discharged with instructions to follow up with Urology - insisted on void trial here which is unsuccessful. Patient with recurrent retention and also hematuria -will ask for Urology evaluation Parkinsons -continue home medications Disposition -Likely discharge home tomorrow with home care services once evaluated by Urology Admission and Anticipated Discharge Date Admission Date: January 26, 2022 Subjective BP remains stable off losartan. It was noted to be labile No further syncopal episodes Feels well overall requested for us to be removed (it was placed at OSH due to urinary retention) and post us removal, patient unable to urinate and now with hematuria. Upon further questioning, apparently it was placed with much difficulty at OSH "6 attempts" Physical Exam Physical Exam: Thin, no acute distress, sitting in chair Respiratory: breathing comfortably on room air, no wheezing/rhonchi/rales Cardiovascular: regular rate and rhythm, no murmurs/rubs/gallops Gastrointestinal (Abdomen): soft Musculoskeletal: thin, peripheral muscle wasting Neurologic: hypophonic, hypokinetic Genitourinary: Urinal contains approximately 50 cc bloody urine Results & Data Results & Data ([facility]) Vital Signs (Past 12 Hours) Vital Signs Temp Pulse Resp BP Pulse Ox 01/27/22 14:48 36.4 C L 61 19 149/81 H 98 01/27/22 11:50 36.5 C 62 18 113/60 97 01/27/22 07:53 36.7 C 59 L 17 145/79 H 95 Laboratory Results Short CBC 01/27/22 Range/Units 05:41 WBC 5.38 (4.8-10.8) K/uL Hgb 11.7 L (14.0-18.0) g/dL Hct 35.2 L (42-52) % Plt Count 232 (130-400) K/uL BMP 01/27/22 05:41 Sodium 140 Potassium 3.3 L Chloride 110 H Carbon Dioxide 22 BUN 27 H Creatinine 1.13 Glucose 79 Calcium 8.4 L Cardiac Enzymes 01/26/22 Range/Units 22:25 Troponin I 0.13 H* (0-0.04) ng/ml Medications Administered Current Inpatient Medications Acetaminophen (Acetaminophen 325 Mg Tab) 650 mg PO Q4H PRN PRN Reason: Pain or Fever Stop: 02/25/22 13:48 Aspirin (Aspirin 81 Mg Ectab) 81 mg PO HS [facility] Stop: 02/25/22 20:59 Last Admin: 01/27/22 00:18 Dose: 81 mg Documented by: Atenolol (Atenolol 25 Mg Tablet) 25 mg PO HS [facility] Stop: 02/25/22 20:59 Last Admin: 01/27/22 00:18 Dose: 25 mg Documented by: Atorvastatin Calcium (Atorvastatin 40 Mg Tab) 40 mg PO DAILY [facility] Stop: 02/26/22 08:59 Last Admin: 01/27/22 11:02 Dose: 40 mg Documented by: Carbidopa/Levodopa (Carbidopa/Levodopa 25/100mg Tab) 1 tab PO TID [facility] Stop: 02/25/22 13:59 Last Admin: 01/27/22 14:05 Dose: 1 tab Documented by: Doxazosin Mesylate (Doxazosin Mesylate 4 Mg Tab) 8 mg PO HS [facility] Stop: 02/25/22 20:59 Last Admin: 01/27/22 00:18 Dose: 8 mg Documented by: Gemfibrozil (Gemfibrozil 600 Mg Tab) 600 mg PO BID [facility] Stop: 02/25/22 20:59 Last Admin: 01/27/22 11:02 Dose: 600 mg Documented by: Losartan Potassium (Losartan Potassium 25 Mg Tab) 25 mg PO QAM [facility] Stop: 02/26/22 08:59 Nitroglycerin (Nitroglycerin Sl 0.4 Mg/Tab Tab) 0.4 mg SL UD PRN PRN Reason: Chest Pain Stop: 02/25/22 13:48 Potassium Chloride (Potassium Chloride Crtab 20 Meq Tabcr) 20 meq PO TID [facility] Stop: 01/27/22 21:01 Last Admin: 01/27/22 14:20 Dose: 20 meq Documented by: Ticagrelor (Ticagrelor 90 Mg Tab) 90 mg PO BID [facility] Stop: 02/25/22 20:59 Last Admin: 01/27/22 11:02 Dose: 90 mg Documented by: (1) Syncope Syncope type: unspecified Qualified Code(s): R55 - Syncope and collapse
[2022-01-27] MEDS: OXYBUTYNIN CHLORIDE XL 5 MG TABCR PO SCH (20:24)
--- NOTE | 2022-01-27 20:27 | Urology Consultation ---
Date of Consultation January 27, 2022 Assessment & Plan (1) Benign prostatic hyperplasia with urinary obstruction: (2) Urinary retention: Urinary retention - reviewed his history and the difficulties with prior catheter placement - a 22F coude catheter was inserted with aseptic technique and minimal resistance - initially, his urine was clear, but became bloody as more volume drained - the catheter was irrigated and he does not seem to have any significant clot - he will likely have intermittent hematuria as long as the catheter is in place - I will add finasteride to his meds to maximally treat BPH - we will plan for an outpt voiding trial early next week - ok for d/c home with the catheter from a standpoint History of Present Illness Attending Physician: Leann Vizcaino MD History of Present Illness 76-year-old gentleman admitted to the hospital secondary to a cardiac issuenow status post coronary stent placement Currently on Brilinta Also had urinary retention and a difficult catheter placement at [facility] He attempted a voiding trial today but was unsuccessful and staff was unable to replace the catheter We are consulted for assistance He denies any prior urological surgeries No prior hematuria or difficult catheters Currently on doxazosin 8 mgpresumably for BP related issues rather than BPH related issues No finasteride or dutasteride During catheter placement by nursing 16 [place] catheter was advanced to the hub but did not irrigate or drain sufficiently Allergies Allergy/AdvReac Type Severity Reaction Status Date / Time adhesive tape Allergy Intermediate red welps Unverified 01/26/22 10:41 codeine Allergy Intermediate shortness Unverified 01/26/22 10:41 of breath ~ nervous bacitracin AdvReac Intermediate blisters Unverified 01/26/22 10:41 [From Neosporin ([id number])] neomycin AdvReac Intermediate blisters Unverified 01/26/22 10:41 [From Neosporin ([id number])] polymyxin B AdvReac Intermediate blisters Unverified 01/26/22 10:41 [From Neosporin ([id number])] Home Medications Medication Instructions Recorded Confirmed Type aspirin 81 mg tablet,delayed 81 mg PO HS 01/25/22 01/26/22 History release atenolol 25 mg tablet 25 mg PO HS 01/25/22 01/26/22 History carbidopa 25 mg-levodopa 100 mg 1 tab PO TID 01/25/22 01/26/22 History tablet (Sinemet) carboxymethylcellulose sodium 1 % 1 drp OPHTHALMIC (EYE) QID 01/25/22 01/26/22 History eye liquid gel drops desonide 0.05 % topical gel 1 applic TOPICAL HS 01/25/22 01/26/22 History doxazosin 8 mg tablet 8 mg PO HS 01/25/22 01/26/22 History gemfibrozil 600 mg tablet (Lopid) 600 mg PO BID 01/25/22 01/26/22 History losartan 25 mg tablet 25 mg PO QAM 01/25/22 01/26/22 History metronidazole 0.75 % topical cream 1 applic TOPICAL QAM 01/25/22 01/26/22 History (MetroCream) multivitamin 1 tab PO QAM 01/25/22 01/26/22 History ticagrelor 90 mg tablet (Brilinta) 90 mg PO BID 01/25/22 01/26/22 History vit C 250 mg-vit E 90 mg-zinc 40 1 tab PO BID 01/25/22 01/26/22 History mg-copper 1 [id number] capsule (PreserVision AREDS-2) atorvastatin 40 mg tablet 40 mg PO DAILY 01/26/22 01/26/22 History inulin 2 gram chewable tablet 6 g PO DAILY 01/26/22 01/26/22 History (Fiber Gummies) ketotifen fumarate 0.025 % (0.035 1 drp OPHTHALMIC (EYE) BID PRN 01/26/22 01/26/22 History %) eye drops (Zaditor) loteprednol etabonate 0.2 % eye 1 drp OPHTHALMIC (EYE) QID PRN 01/26/22 01/26/22 History drops,suspension (Alrex) Patient History Medical History Acoustic neuroma s/p gamma knife treatment BPH (benign prostatic hyperplasia) CKD (chronic kidney disease), stage III Coronary artery disease 2006 - BMS to LAD 01/21/22 - BETH to LAD Hypertension Parkinsons disease Surgical History History of cataract surgery History of cholecystectomy History of partial colectomy Hx of appendectomy S/P coronary artery stent placement Family History Other Heart disease Social History Smoking Status: Never smoker Hx Alcohol Use: No Preferred Language: [place] Communication Ability: Effective Silver Steward Required: No Beliefs That Will Affect Care: None Current Living Situation: Spouse Other Information That Helps Us Care for You: No Feels Safe at Home: Yes Safety Concerns: Feels Safe At This Time Assistive Devices: Glasses and Walker Review of Systems Constitutional: no fever, no chills and no fatigue Eyes: no worsening vision Ear, Nose, Mouth, Throat: no facial pain and no pain with swallowing Respiratory: no cough and no dyspnea Cardiovascular: no chest pain and no palpitations Gastrointestinal: no abdominal pain, no nausea and no vomiting Genitourinary: + hematuria and + problem reported Musculoskeletal: no back pain Integumentary: no rash and no urticaria Neurologic: no gait abnormality and no unsteadiness Psychiatric: no behavioral changes and no depression Endocrine: no fatigue Physical Exam Physical Exam: Small amount of blood around the meatus but no other catheters in place on evaluation No testicular tenderness Suprapubic area is full and tender consistent with a distended bladder Constitutional: well developed and well nourished Respiratory: no respiratory distress Cardiovascular: Extremities: no pedal edema Results & Data ([facility]) Vital Signs (Past 12 Hours) Vital Signs Temp Pulse Resp BP Pulse Ox 01/27/22 14:48 36.4 C L 61 19 149/81 H 98 01/27/22 11:50 36.5 C 62 18 113/60 97 PG Care Time/CCT Total # of Minutes Spent Total Time Spent with Patient: Total time spent is greater than 50% in coordination of care (as documented) at patient's floor/unit and/or counseling patient: Coding Level of Care Code 09655 Inpt Consult Level 3 Diagnoses Benign prostatic hyperplasia with urinary obstruction N40.1; N13.8 Urinary retention R33.9
[2022-01-28 02:52] LABS: Basophils # (auto) 0.02 K/uL (0-0.2); Basophils % (auto) 0.3 %; Eosinophils # (auto) 0.13 K/uL (0-0.5); Hematocrit (blood only) 35.3 % (42-52); Hemoglobin 11.8 g/dL (14.0-18.0); Immature Granulocytes # (auto) 0.03 K/uL (0.00-0.02); Immature Granulocytes % (auto) 0.5 %; Lymphocytes # (auto) 0.83 K/uL (1.2-3.4); Lymphocytes % (auto) 12.5 %; Mean Corpuscular Hemoglobin 30.3 pg (25-34); Mean Corpuscular Hgb Conc 33.4 g/dL (32-36); Mean Corpuscular Volume 90.5 fL (80-100); Mean Platelet Volume 10.1 fL (7.4-10.4); Neutrophils # (auto) 5.04 K/uL (1.4-6.5); Neutrophils % (auto) 75.7 %; Platelet Count 252 K/uL (130-400); RDW Coefficient of Variation 13.2 % (11.5-14.5); RDW Standard Deviation 42.9 fL (36.4-46.3); White Blood Count 6.65 K/uL (4.8-10.8)
[2022-01-28] MEDS: PHENAZOPYRIDINE HCL 100 MG TAB PO PRN ×2 (03:02→09:17)
[2022-01-28 03:13] LABS: BUN Creatinine Ratio 27.6 (10-20); Calcium 8.4 mg/dl (8.5-10.1); Est GFR (African American) 85.2 ml/min; Est GFR (Non-African American) 73.6 ml/min; Potassium 3.8 mmol/L (3.5-5.1)
[2022-01-28] MEDS: OXYBUTYNIN CHLORIDE XL 5 MG TABCR PO SCH (09:17)
[2022-01-28] MEDS: gemfibroziL 600 MG TAB PO SCH ×2 (09:17→19:48)
[2022-01-28] MEDS: CARBIDOPA/LEVODOPA 25/100MG TAB PO SCH ×3 (09:18→19:49)
[2022-01-28] MEDS: ATORVASTATIN 40 MG TAB PO SCH (09:18)
[2022-01-28] MEDS: TICAGRELOR 90 MG TAB PO SCH ×2 (09:18→19:49)
--- NOTE | 2022-01-28 11:40 | Electrocardiogram Report ---
Test Reason : Blood Pressure : / mmHG Vent. Rate : 059 BPM Atrial Rate : 059 BPM P-R Int : 150 ms QRS Dur : 080 ms QT Int : 452 ms P-R-T Axes : 031 034 073 degrees QTc Int : 447 ms Sinus bradycardia Abnormal ECG When compared with ECG of 27-JAN-2022 06:14, No significant change was found Confirmed by Phuc Ferrera ([id number]) on 01/28/2022 11:40:33 AM Referred By: REFERRED SELF Confirmed By:Phuc Ferrera
--- NOTE | 2022-01-28 12:53 | Hospitalist Progress Note ---
Date of Service January 28, 2022 Assessment & Plan (1) Syncope: Plan: -Likely vasovagal versus hypotension in setting of recently being started on losartan -BP is noted to be labile (SBP 170s--> 130s without any intervention). He likely has a component of autonomic insufficiency related to his Parkinsons -Appreciate Cardiology input, plan for outpatient campus monitor -TTE noted, no changes compared to previous: EF 55 to 60%, mild concentric LVH, small to moderate wall motion abnormality with hypokinesis to akinesis of the apical segment, mild tricuspid regurgitation, Doppler findings do not suggest pulmonary hypertension -Recommended discontinuation of losartan (2) Benign prostatic hyperplasia with urinary obstruction: Plan: Acute urinary retention -Diagnosed on admission last week at OSH. Ferro placed and patient discharged with instructions to follow up with Urology - insisted on void trial here which is unsuccessful. Patient with recurrent retention and also hematuria -Appreciate urology input and recommendation -Catheter has been in situ and is still draining bloody urine -Advised to irrigate -Likely home tomorrow -We will have you lose outpatient appointment (3) Coronary artery disease: Plan: Recent NSTEMI and LAD DE stent -continue aspirin and Brilinta -EKG unchanged (4) S/P coronary artery stent placement: Plan: As above (5) Elevated troponin: Plan: Admit to telemetry Appreciate cardiology input and recommendation No evidence of ACS (6) Hypokalemia: (7) Hypertension: (8) Parkinsons disease: (9) Presence of indwelling Ferro catheter: (10) DVT prophylaxis: Plan: Parkinsons -continue home medications Disposition -Likely discharge home tomorrow with home care services once evaluated by Urology Likely discharge tomorrow Admission and Anticipated Discharge Date Admission Date: January 26, 2022 Subjective 01/28/2022 The patient was seen and examined in telemetry unit He has been complaining of ongoing bladder spasm and hematuria Complains to have stiffness secondary to parkinsons disease Denies any chest pain, palpitation or shortness of breath Review of Systems Review of Systems: All systems reviewed and are unremarkable except as noted below Genitourinary: + hematuria Physical Exam Physical Exam: Sitting on a chair without any acute distress Constitutional: + ill appearing and average body habitus Eyes: PERRL, conjunctivae normal, anicteric sclerae ENMT: external ear and nose normal, oropharynx normal Neck: trachea midline, no thyromegaly Respiratory: no respiratory distress Auscultation: lungs clear to auscultation bilaterally Cardiovascular: Rate/Rhythm: regular rate and regular rhythm; not tachycardic Heart Sounds: normal S1 and normal S2; no murmur Extremities: no edema Gastrointestinal (Abdomen): Inspection/Auscultation: normal bowel sounds; abdomen not distended Percussion/Palpation: abdomen soft; abdomen nontender Musculoskeletal: No acute arthritis in any joint Neurologic: Alert, awake and oriented x3. No focal sensory and motor deficit appreciated Results & Data Results & Data ([facility]) Vital Signs (Past 12 Hours) Vital Signs Temp Pulse Resp BP Pulse Ox 01/28/22 07:40 36.7 C 63 18 130/77 95 01/28/22 03:17 36.4 C L 68 18 148/87 H 93 Laboratory Results Short CBC 01/28/22 Range/Units 02:41 WBC 6.65 (4.8-10.8) K/uL Hgb 11.8 L (14.0-18.0) g/dL Hct 35.3 L (42-52) % Plt Count 252 (130-400) K/uL BMP 01/28/22 02:40 Sodium 138 Potassium 3.8 Chloride 111 H Carbon Dioxide 19 L BUN 27 H Creatinine 0.98 Glucose 82 Calcium 8.4 L Medications Administered Current Inpatient Medications Acetaminophen (Acetaminophen 325 Mg Tab) 650 mg PO Q4H PRN PRN Reason: Pain or Fever Stop: 02/25/22 13:48 Aspirin (Aspirin 81 Mg Ectab) 81 mg PO HS [facility] Stop: 02/25/22 20:59 Last Admin: 01/27/22 20:24 Dose: 81 mg Documented by: Atenolol (Atenolol 25 Mg Tablet) 25 mg PO HS [facility] Stop: 02/25/22 20:59 Last Admin: 01/27/22 20:24 Dose: 25 mg Documented by: Atorvastatin Calcium (Atorvastatin 40 Mg Tab) 40 mg PO DAILY [facility] Stop: 02/26/22 08:59 Last Admin: 01/28/22 09:18 Dose: 40 mg Documented by: Carbidopa/Levodopa (Carbidopa/Levodopa 25/100mg Tab) 1 tab PO TID [facility] Stop: 02/25/22 13:59 Last Admin: 01/28/22 09:18 Dose: 1 tab Documented by: Doxazosin Mesylate (Doxazosin Mesylate 4 Mg Tab) 8 mg PO HS [facility] Stop: 02/25/22 20:59 Last Admin: 01/27/22 20:24 Dose: 8 mg Documented by: Gemfibrozil (Gemfibrozil 600 Mg Tab) 600 mg PO BID [facility] Stop: 02/25/22 20:59 Last Admin: 01/28/22 09:17 Dose: 600 mg Documented by: Losartan Potassium (Losartan Potassium 25 Mg Tab) 25 mg PO QAM [facility] Stop: 02/26/22 08:59 Nitroglycerin (Nitroglycerin Sl 0.4 Mg/Tab Tab) 0.4 mg SL UD PRN PRN Reason: Chest Pain Stop: 02/25/22 13:48 Oxybutynin Chloride (Oxybutynin Chloride Xl 5 Mg Tabcr) 5 mg PO QAM [facility] Stop: 02/26/22 18:14 Last Admin: 01/28/22 09:17 Dose: 5 mg Documented by: Phenazopyridine HCl (Phenazopyridine Hcl 100 Mg Tab) 100 mg PO TID PRN PRN Reason: Bladder pain Stop: 02/27/22 02:27 Last Admin: 01/28/22 09:17 Dose: 100 mg Documented by: Ticagrelor (Ticagrelor 90 Mg Tab) 90 mg PO BID [facility] Stop: 02/25/22 20:59 Last Admin: 01/28/22 09:18 Dose: 90 mg Documented by: (1) Syncope Syncope type: unspecified Qualified Code(s): R55 - Syncope and collapse
[2022-01-28 19:08] LABS: Appearance Urine Cloudy (Clear); Color Urine Amber
[2022-01-28 19:14] LABS: Epithelial Cell Urine 0-5 /lpf (0-5); RBC Urine >30 /hpf (0-4)
[2022-01-28 19:15] LABS: Amorphous Sediment Urine Present (None Prsent); Bacteria Urine Negative (Negative); WBC Urine 0-5 /hpf (0-5)
[2022-01-28] MEDS: ATENOLOL 25 MG TABLET PO SCH (19:48)
[2022-01-28] MEDS: ASPIRIN 81 MG ECTAB PO SCH (19:49)
[2022-01-28] MEDS: DOXAZosin MESYLATE 4 MG TAB PO SCH (19:49)
[2022-01-29] MEDS: CARBIDOPA/LEVODOPA 25/100MG TAB PO SCH ×3 (07:40→20:09)
[2022-01-29] MEDS: TICAGRELOR 90 MG TAB PO SCH ×2 (07:40→20:08)
[2022-01-29] MEDS: ATORVASTATIN 40 MG TAB PO SCH (07:40)
[2022-01-29] MEDS: OXYBUTYNIN CHLORIDE XL 5 MG TABCR PO SCH (07:41)
[2022-01-29] MEDS: gemfibroziL 600 MG TAB PO SCH ×2 (07:41→20:09)
[2022-01-29 08:13] LABS: Basophils # (auto) 0.02 K/uL (0-0.2); Basophils % (auto) 0.4 %; Eosinophils # (auto) 0.27 K/uL (0-0.5); Eosinophils % (auto) 4.8 %; Hematocrit (blood only) 34.4 % (42-52); Hemoglobin 11.8 g/dL (14.0-18.0); Immature Granulocytes # (auto) 0.03 K/uL (0.00-0.02); Immature Granulocytes % (auto) 0.5 %; Lymphocytes # (auto) 0.82 K/uL (1.2-3.4); Lymphocytes % (auto) 14.6 %; Mean Corpuscular Hemoglobin 30.8 pg (25-34); Mean Corpuscular Hgb Conc 34.3 g/dL (32-36); Mean Corpuscular Volume 89.8 fL (80-100); Mean Platelet Volume 10.1 fL (7.4-10.4); Monocytes # (auto) 0.52 K/uL (0.11-0.59); Monocytes % (auto) 9.3 %; Neutrophils # (auto) 3.96 K/uL (1.4-6.5); Neutrophils % (auto) 70.4 %; Platelet Count 273 K/uL (130-400); RDW Coefficient of Variation 13.4 % (11.5-14.5); RDW Standard Deviation 43.4 fL (36.4-46.3); Red Blood Count 3.83 M/uL (4.7-6.1); White Blood Count 5.62 K/uL (4.8-10.8)
[2022-01-29 08:36] LABS: BUN Creatinine Ratio 21.1 (10-20); Calcium 8.8 mg/dl (8.5-10.1); Creatinine Clr Calc Pharmacy 46.5 ml/min; Est GFR (Non-African American) 61.3 ml/min; Potassium 3.1 mmol/L (3.5-5.1)
[2022-01-29] MEDS ORDERED: POTASSIUM CHLORIDE CRTAB 20 MEQ TABCR PO STA (08:54)
[2022-01-29] MEDS ORDERED: SODIUM CHLORIDE 0.9% 500 ML IV ONE (09:30)
--- NOTE | 2022-01-29 14:50 | Hospitalist Progress Note ---
Date of Service January 29, 2022 Assessment & Plan (1) Syncope: Plan: -Likely vasovagal versus hypotension in setting of recently being started on losartan -BP is noted to be labile (SBP 170s--> 130s without any intervention). He likely has a component of autonomic insufficiency related to his Parkinsons -Appreciate Cardiology input, plan for outpatient visualization developer -TTE noted, no changes compared to previous: EF 55 to 60%, mild concentric LVH, small to moderate wall motion abnormality with hypokinesis to akinesis of the apical segment, mild tricuspid regurgitation, Doppler findings do not suggest pulmonary hypertension -Recommended discontinuation of losartan -Remains weak but no more episode of syncope (2) Benign prostatic hyperplasia with urinary obstruction: Plan: Acute urinary retention -Diagnosed on admission last week at OSH. Ferro placed and patient discharged with instructions to follow up with Urology - insisted on void trial here which is unsuccessful. Patient with recurrent retention and also hematuria -Appreciate urology input and recommendation -Catheter has been in situ and is still draining bloody urine -Advised to irrigate -Likely home tomorrow -We will have you lose outpatient appointment Willem hematuria Started following difficult catheterization Complicated by use of aspirin and Brilinta Aspirin and Brilinta cannot be stopped Await allergy clearance of the hematuria before the patient can be discharged (3) Coronary artery disease: Plan: Recent NSTEMI and LAD DE stent -continue aspirin and Brilinta -EKG unchanged (4) S/P coronary artery stent placement: Plan: As above (5) Elevated troponin: Plan: Admit to telemetry Appreciate cardiology input and recommendation No evidence of ACS (6) Hypokalemia: (7) Hypertension: (8) Parkinsons disease: (9) Presence of indwelling Ferro catheter: (10) DVT prophylaxis: Plan: Parkinsons -continue home medications Disposition -Likely discharge home tomorrow with home care services once evaluated by Urology Likely discharge tomorrow Admission and Anticipated Discharge Date Admission Date: January 28, 2022 Subjective 01/28/2022 The patient was seen and examined in telemetry unit He has been complaining of ongoing bladder spasm and hematuria Complains to have stiffness secondary to parkinsons disease Denies any chest pain, palpitation or shortness of breath 01/29/2022 The patient was seen and examined in telemetry unit He continues to have willem hematuria and he still has some dizziness with ambulation Denies any other symptoms Review of Systems Review of Systems: All systems reviewed and are unremarkable except as noted below Genitourinary: + hematuria Physical Exam Physical Exam: Sitting on a chair without any acute distress Constitutional: + ill appearing and average body habitus Eyes: PERRL, conjunctivae normal, anicteric sclerae ENMT: external ear and nose normal, oropharynx normal Neck: trachea midline, no thyromegaly Respiratory: no respiratory distress Auscultation: lungs clear to auscultation bilaterally Cardiovascular: Rate/Rhythm: regular rate and regular rhythm; not tachycardic Heart Sounds: normal S1 and normal S2; no murmur Extremities: no edema Gastrointestinal (Abdomen): Inspection/Auscultation: normal bowel sounds; abdomen not distended Percussion/Palpation: abdomen soft; abdomen nontender Musculoskeletal: No acute arthritis in any joint Neurologic: normal touch/pain/proprioception, CN's II-XI intact bilaterally and moves all extremities Results & Data Results & Data ([facility]) Vital Signs (Past 12 Hours) Vital Signs Temp Pulse Pulse Resp BP Pulse Ox 01/29/22 11:39 36.7 C 59 L 18 151/74 H 97 01/29/22 09:23 65 97/57 L 01/29/22 08:00 58 L 01/29/22 07:41 36.8 C 60 18 136/74 94 01/29/22 03:24 36.6 C 64 18 138/76 93 Laboratory Results Short CBC 01/29/22 Range/Units 08:01 WBC 5.62 (4.8-10.8) K/uL Hgb 11.8 L (14.0-18.0) g/dL Hct 34.4 L (42-52) % Plt Count 273 (130-400) K/uL BMP 01/29/22 08:01 Sodium 140 Potassium 3.1 L Chloride 111 H Carbon Dioxide 23 BUN 24 H Creatinine 1.14 Glucose 104 H Calcium 8.8 Urine 01/28/22 Range/Units 17:35 Urine Color Anabel Urine Appearance Cloudy A (Clear) Urine pH (4.5-7.5) Ur Specific B[place]y 1.020 (1.000-1.030) Urine Protein (Negative) Urine Glucose (UA) (Negative) Medications Administered Current Inpatient Medications Acetaminophen (Acetaminophen 325 Mg Tab) 650 mg PO Q4H PRN PRN Reason: Pain or Fever Stop: 04/27/22 13:48 Aspirin (Aspirin 81 Mg Ectab) 81 mg PO HS [facility] Stop: 02/25/22 20:59 Last Admin: 01/28/22 19:49 Dose: 81 mg Documented by: Atenolol (Atenolol 25 Mg Tablet) 25 mg PO HS [facility] Stop: 02/25/22 20:59 Last Admin: 01/28/22 19:48 Dose: 25 mg Documented by: Atorvastatin Calcium (Atorvastatin 40 Mg Tab) 40 mg PO DAILY [facility] Stop: 02/26/22 08:59 Last Admin: 01/29/22 07:40 Dose: 40 mg Documented by: Carbidopa/Levodopa (Carbidopa/Levodopa 25/100mg Tab) 1 tab PO TID [facility] Stop: 02/25/22 13:59 Last Admin: 01/29/22 13:50 Dose: 1 tab Documented by: Doxazosin Mesylate (Doxazosin Mesylate 4 Mg Tab) 8 mg PO [facility] Stop: 02/25/22 20:59 Last Admin: 01/28/22 19:49 Dose: 8 mg Documented by: Gemfibrozil (Gemfibrozil 600 Mg Tab) 600 mg PO BID [facility] Stop: 02/25/22 20:59 Last Admin: 01/29/22 07:41 Dose: 600 mg Documented by: Losartan Potassium (Losartan Potassium 25 Mg Tab) 25 mg PO QAM [facility] Stop: 02/26/22 08:59 Nitroglycerin (Nitroglycerin Sl 0.4 Mg/Tab Tab) 0.4 mg SL UD PRN PRN Reason: Chest Pain Stop: 02/25/22 13:48 Oxybutynin Chloride (Oxybutynin Chloride Xl 5 Mg Tabcr) 5 mg PO QAM [facility] Stop: 02/26/22 18:14 Last Admin: 01/29/22 07:41 Dose: 5 mg Documented by: Phenazopyridine HCl (Phenazopyridine Hcl 100 Mg Tab) 100 mg PO TID PRN PRN Reason: Bladder pain Stop: 02/27/22 02:27 Last Admin: 01/28/22 09:17 Dose: 100 mg Documented by: Ticagrelor (Ticagrelor 90 Mg Tab) 90 mg PO BID [facility] Stop: 02/25/22 20:59 Last Admin: 01/29/22 07:40 Dose: 90 mg Documented by: (1) Syncope Syncope type: unspecified Qualified Code(s): R55 - Syncope and collapse
[2022-01-29] MEDS: ASPIRIN 81 MG ECTAB PO SCH (20:09)
[2022-01-29] MEDS: ATENOLOL 25 MG TABLET PO SCH (20:09)
[2022-01-29] MEDS: DOXAZosin MESYLATE 4 MG TAB PO SCH (20:10)
[2022-01-30] MEDS: gemfibroziL 600 MG TAB PO SCH (07:29)
[2022-01-30] MEDS: CARBIDOPA/LEVODOPA 25/100MG TAB PO SCH ×2 (07:29→13:09)
[2022-01-30] MEDS: ATORVASTATIN 40 MG TAB PO SCH (07:30)
[2022-01-30] MEDS: TICAGRELOR 90 MG TAB PO SCH (07:30)
[2022-01-30] MEDS: OXYBUTYNIN CHLORIDE XL 5 MG TABCR PO SCH (07:30)
[2022-01-30 07:45] LABS: Basophils # (auto) 0.01 K/uL (0-0.2); Basophils % (auto) 0.2 %; Eosinophils # (auto) 0.26 K/uL (0-0.5); Eosinophils % (auto) 4.8 %; Hematocrit (blood only) 34.6 % (42-52); Hemoglobin 11.4 g/dL (14.0-18.0); Immature Granulocytes # (auto) 0.03 K/uL (0.00-0.02); Immature Granulocytes % (auto) 0.6 %; Lymphocytes # (auto) 1.21 K/uL (1.2-3.4); Lymphocytes % (auto) 22.4 %; Mean Corpuscular Hemoglobin 30.2 pg (25-34); Mean Corpuscular Hgb Conc 32.9 g/dL (32-36); Mean Corpuscular Volume 91.5 fL (80-100); Mean Platelet Volume 10.4 fL (7.4-10.4); Monocytes # (auto) 0.56 K/uL (0.11-0.59); Monocytes % (auto) 10.4 %; Neutrophils # (auto) 3.34 K/uL (1.4-6.5); Neutrophils % (auto) 61.6 %; Platelet Count 287 K/uL (130-400); RDW Coefficient of Variation 13.4 % (11.5-14.5); RDW Standard Deviation 44.5 fL (36.4-46.3); Red Blood Count 3.78 M/uL (4.7-6.1); White Blood Count 5.41 K/uL (4.8-10.8)
--- NOTE | 2022-01-30 12:17 | Hospitalist Progress Note ---
Date of Service January 30, 2022 Assessment & Plan (1) Syncope: Plan: -Likely vasovagal versus hypotension in setting of recently being started on losartan -BP is noted to be labile (SBP 170s--> 130s without any intervention). He likely has a component of autonomic insufficiency related to his Parkinsons -Appreciate Cardiology input, plan for outpatient plant pathologist -TTE noted, no changes compared to previous: EF 55 to 60%, mild concentric LVH, small to moderate wall motion abnormality with hypokinesis to akinesis of the apical segment, mild tricuspid regurgitation, Doppler findings do not suggest pulmonary hypertension -Recommended discontinuation of losartan -Remains weak but no more episode of syncope -Remains medically stable to be discharged (2) Benign prostatic hyperplasia with urinary obstruction: Plan: Acute urinary retention -Diagnosed on admission last week at OSH. Ferro placed and patient discharged with instructions to follow up with Urology - insisted on void trial here which is unsuccessful. Patient with recurrent retention and also hematuria -Appreciate urology input and recommendation -Catheter has been in situ and is still draining bloody urine -Advised to irrigate -Likely home tomorrow -We will have you lose outpatient appointment Willem hematuria Started following difficult catheterization Complicated by use of aspirin and Brilinta Aspirin and Brilinta cannot be stopped Await allergy clearance of the hematuria before the patient can be discharged Hematuria seems to be clearing up in the urine color is almost normal We will discharge home this afternoon and was advised to keep appointment with urologist as an outpatient (3) Coronary artery disease: Plan: Recent NSTEMI and LAD DE stent -continue aspirin and Brilinta -EKG unchanged (4) S/P coronary artery stent placement: Plan: As above (5) Elevated troponin: Plan: Admit to telemetry Appreciate cardiology input and recommendation No evidence of ACS (6) Hypokalemia: (7) Hypertension: Plan: Will discontinue losartan (8) Parkinsons disease: Plan: No significant parkinsonian tremor (9) Presence of indwelling Ferro catheter: (10) DVT prophylaxis: Plan: Parkinsons -continue home medications Disposition -Likely discharge home tomorrow with home care services once evaluated by Urology Discharge this afternoon Admission and Anticipated Discharge Date Admission Date: January 28, 2022 Subjective 01/28/2022 The patient was seen and examined in telemetry unit He has been complaining of ongoing bladder spasm and hematuria Complains to have stiffness secondary to parkinsons disease Denies any chest pain, palpitation or shortness of breath 01/29/2022 The patient was seen and examined in telemetry unit He continues to have willem hematuria and he still has some dizziness with ambulation Denies any other symptoms 01/30/2022 The patient was seen and examined in telemetry unit He has been stable today with only complaints of weakness His hematuria seems to be clearing up No chest pain and/or palpitation, no shortness of breath, no abdominal pain naus ea no vomiting He will be discharged home this afternoon Review of Systems Review of Systems: All systems reviewed and are unremarkable except as noted below Genitourinary: + hematuria Physical Exam Physical Exam: Sitting on a chair without any acute distress Constitutional: + ill appearing and average body habitus Eyes: PERRL, conjunctivae normal, anicteric sclerae ENMT: external ear and nose normal, oropharynx normal Neck: trachea midline, no thyromegaly Respiratory: no respiratory distress Auscultation: lungs clear to auscultation bilaterally Cardiovascular: Rate/Rhythm: regular rate and regular rhythm; not tachycardic Heart Sounds: normal S1 and normal S2; no murmur Extremities: no edema Gastrointestinal (Abdomen): Inspection/Auscultation: normal bowel sounds; abdomen not distended Percussion/Palpation: abdomen soft; abdomen nontender Musculoskeletal: No acute arthritis in any joint Neurologic: normal touch/pain/proprioception, CN's II-XI intact bilaterally and moves all extremities No parkinsonian tremor at rest Results & Data Results & Data ([facility]) Vital Signs (Past 12 Hours) Vital Signs Temp Pulse Pulse Resp BP Pulse Ox 01/30/22 11:03 37 C 60 18 120/68 94 01/30/22 08:00 54 L 01/30/22 07:22 36.9 C 61 18 166/79 H 93 01/30/22 04:22 36.6 C 62 16 147/80 H 93 Laboratory Results Short CBC 01/30/22 Range/Units 07:10 WBC 5.41 (4.8-10.8) K/uL Hgb 11.4 L (14.0-18.0) g/dL Hct 34.6 L (42-52) % Plt Count 287 (130-400) K/uL Medications Administered Current Inpatient Medications Acetaminophen (Acetaminophen 325 Mg Tab) 650 mg PO Q4H PRN PRN Reason: Pain or Fever Stop: 02/25/22 13:48 Aspirin (Aspirin 81 Mg Ectab) 81 mg PO HS [facility] Stop: 02/25/22 20:59 Last Admin: 01/29/22 20:09 Dose: 81 mg Documented by: Atenolol (Atenolol 25 Mg Tablet) 25 mg PO HS [facility] Stop: 02/25/22 20:59 Last Admin: 01/29/22 20:09 Dose: 25 mg Documented by: Atorvastatin Calcium (Atorvastatin 40 Mg Tab) 40 mg PO DAILY [facility] Stop: 02/26/22 08:59 Last Admin: 01/30/22 07:30 Dose: 40 mg Documented by: Carbidopa/Levodopa (Carbidopa/Levodopa 25/100mg Tab) 1 tab PO TID [facility] Stop: 02/25/22 13:59 Last Admin: 01/30/22 07:29 Dose: 1 tab Documented by: Doxazosin Mesylate (Doxazosin Mesylate 4 Mg Tab) 8 mg PO [facility] Stop: 02/25/22 20:59 Last Admin: 01/29/22 20:10 Dose: 8 mg Documented by: Gemfibrozil (Gemfibrozil 600 Mg Tab) 600 mg PO BID [facility] Stop: 02/25/22 20:59 Last Admin: 01/30/22 07:29 Dose: 600 mg Documented by: Losartan Potassium (Losartan Potassium 25 Mg Tab) 25 mg PO QAM [facility] Stop: 02/26/22 08:59 Nitroglycerin (Nitroglycerin Sl 0.4 Mg/Tab Tab) 0.4 mg SL UD PRN PRN Reason: Chest Pain Stop: 02/25/22 13:48 Oxybutynin Chloride (Oxybutynin Chloride Xl 5 Mg Tabcr) [facility] Stop: 02/26/22 18:14 Last Admin: 01/30/22 07:30 Dose: 5 mg Documented by: Phenazopyridine HCl (Phenazopyridine Hcl 100 Mg Tab) 100 mg PO TID PRN PRN Reason: Bladder pain Stop: 02/27/22 02:27 Last Admin: 01/28/22 09:17 Dose: 100 mg Documented by: Ticagrelor (Ticagrelor 90 Mg Tab) 90 mg PO BID [facility] Stop: 02/25/22 20:59 Last Admin: 01/30/22 07:30 Dose: 90 mg Documented by: (1) Syncope Syncope type: unspecified Qualified Code(s): R55 - Syncope and collapse
--- NOTE | 2022-01-31 08:13 | Discharge Summary ---
Date of Service January 31, 2022 Admission HPI Per Admitting Provider 76-year-old male with PMH CAD (s/p BMS to LAD in 2006 and recent BETH to LAD on 01/21/2022 at [facility]), Parkinson's, HTN, BPH, CKD stage III, history of acoustic neuroma s/p gamma knife treatment, and the problems listed below who presents the ED for evaluation after an unresponsive/syncopal event at home. Patient was discharged on 01/23 after cardiac cath and stent placement. Patient reports he had been feeling well. Yesterday, after patient had gone to the bathroom and was straining to have a bowel movement, when he got back to his chair he had a brief episode of unresponsiveness per the . Patient was brought to the ED. Troponin was 0.31 --> 0.22. EKG was unchanged. Patient was discharged home. This morning, patient had a very similar episode again after returning from going to the bathroom. reports that patient was unresponsive for about 15 minutes. BP was reportedly 60/40. EMS was called and patient was brought back to the ED for further evaluation. Currently, patient i s asymptomatic. He denies any associated chest pain, palpitations, shortness of breath. No other recent illnesses, fevers, chills. Denies abdominal pain, nausea, vomiting, diarrhea. No urinary symptoms. In the ED today, troponin is 0.14. EKG shows T wave inversions in the anterior leads, unchanged from post cath EKG. Admission Exam Per Admitting Provider Constitutional: WD/WN, vitals as above Eyes: PERRL, conjunctivae normal, anicteric sclerae ENMT: external ear and nose normal, oropharynx normal Respiratory: normal respiratory effort, lungs clear to auscultation Cardiovascular: Rate/Rhythm: regular rate and regular rhythm Vessels: normal peripheral pulses Extremities: no edema Gastrointestinal (Abdomen): normal bowel sounds, soft, nontender, no hepatosplenomegaly Musculoskeletal: no cyanosis or clubbing, extremities motor strength 5/5 Skin: no rashes, warm and dry Neurologic: PERRL, EOMI, accommodation nl, no face palsy, no dysarthria Psychiatric: A+Ox3, euthymic affect Genitourinary: Ferro catheter in place Principal Diagnosis Syncope likely vasovagal, BPH with urinary obstruction, status post Ferro insertion, hematuria, Parkinson disease, hypertension Discharge Exam Sitting on a chair without any acute distress Constitutional + ill appearing and average body habitus Eyes PERRL, conjunctivae normal, anicteric sclerae ENMT external ear and nose normal, oropharynx normal Neck trachea midline, no thyromegaly Respiratory no respiratory distress Auscultation: lungs clear to auscultation bilaterally Cardiovascular Rate/Rhythm: regular rate and regular rhythm; not tachycardic Heart Sounds: normal S1 and normal S2; no murmur Extremities: no edema Gastrointestinal (Abdomen) Inspection/Auscultation: normal bowel sounds; abdomen not distended Percussion/Palpation: abdomen soft; abdomen nontender Neurologic normal touch/pain/proprioception, CN's II-XI intact bilaterally and moves all extremities Discharge Data Allergies Allergy/AdvReac Type Severity Reaction Status Date / Time adhesive tape Allergy Intermediate red welps Unverified 01/26/22 10:41 codeine Allergy Intermediate shortness Unverified 01/26/22 10:41 of breath ~ nervous bacitracin AdvReac Intermediate blisters Unverified 01/26/22 10:41 [From Neosporin ([id number])] neomycin AdvReac Intermediate blisters Unverified 01/26/22 10:41 [From Neosporin ([id number])] polymyxin B AdvReac Intermediate blisters Unverified 01/26/22 10:41 [From Neosporin ([id number])] Consultations 01/26/22 11:04 ED Decision to Admit Stat 01/26/22 12:12 Consult Cardiology Routine 01/26/22 12:48 Consult Health Information Management Stat 01/27/22 17:43 Consult Urology Routine Hospital Course (1) Syncope: -Likely vasovagal versus hypotension in setting of recently being started on losartan -BP is noted to be labile (SBP 170s--> 130s without any intervention). He likely has a component of autonomic insufficiency related to his Parkinsons -Appreciate Cardiology input, plan for outpatient machine fastener -TTE noted, no changes compared to previous: EF 55 to 60%, mild concentric LVH, small to moderate wall motion abnormality with hypokinesis to akinesis of the apical segment, mild tricuspid regurgitation, Doppler findings do not suggest pulmonary hypertension -Recommended discontinuation of losartan -Remains weak but no more episode of syncope -Remains medically stable to be discharged (2) Benign prostatic hyperplasia with urinary obstruction: Acute urinary retention -Diagnosed on admission last week at OSH. Ferro placed and patient discharged with instructions to follow up with Urology - insisted on void trial here which is unsuccessful. Patient with recurrent retention and also hematuria -Appreciate urology input and recommendation -Catheter has been in situ and is still draining bloody urine -Advised to irrigate -Likely home tomorrow -We will have you lose outpatient appointment Benjamin hematuria Started following difficult catheterization Complicated by use of aspirin and Brilinta Aspirin and Brilinta cannot be stopped Await allergy clearance of the hematuria before the patient can be discharged Hematuria seems to be clearing up in the urine color is almost normal We will discharge home this afternoon and was advised to keep appointment with urologist as an outpatient (3) Coronary artery disease: Recent NSTEMI and LAD DE stent -continue aspirin and Brilinta -EKG unchanged (4) S/P coronary artery stent placement: As above (5) Elevated troponin: Admit to telemetry Appreciate cardiology input and recommendation No evidence of ACS (6) Hypokalemia: (7) Hypertension: Will discontinue losartan (8) Parkinsons disease: No significant parkinsonian tremor (9) Presence of indwelling Ferro catheter: (10) DVT prophylaxis: Parkinsons -continue home medications Disposition -Likely discharge home tomorrow with home care services once evaluated by Urology Discharge this afternoon Total Time Total Time Spent Total Time Spent (In Minutes): 30 minutes Discharge Plan Discharge Items Patient Disposition: Home - Home Health Services Reason For Visit: SYNCOPE Discharge Diagnosis: Syncope likely vasovagal, BPH with urinary obstruction, status post Ferro insertion, hematuria, Parkinson disease, hypertension Condition on Discharge: Fair Activity: Resume your previous activity Non-emergency contact: Primary Care Provider Call non-emergency contact if: you have any medication questions and your symptoms worsen Follow-up/Referrals: Edilia George MD [Primary Care Provider] - (Date & Time 02/02/2022 5:00 PM Provider Edilia George MD Department Family Medicine [facility] ) Diet: Heart Healthy Addtl Attending Provider Instructions: Please take precautions to avoid fall Your losartan has been discontinued due to low blood pressure Please give follow-up appointment with your urologist for management of your catheter and blood in the urine Please give appointment with your healthcare providers Pending Studies at Discharge: No Stand-Alone Forms: [facility], Smoking Cessation Medications and DC Order Prescriptions: New phenazopyridine [Pyridium] 100 mg Tablet 100 mg PO TID PRN (Reason: pain) 3 Days Qty: 9 RF: 0 oxybutynin chloride 5 mg Tablet Extended Release 24 Hr 5 mg PO QAM 30 Days Qty: 30 RF: 0 Continued multivitamin Tablet 1 tab PO QAM RF: 0 atenolol 25 mg tablet 25 mg PO HS RF: 0 aspirin 81 mg tablet,delayed release (DR/EC) 81 mg PO HS RF: 0 doxazosin 8 mg tablet 8 mg PO HS RF: 0 gemfibrozil [Lopid] 600 mg tablet 600 mg PO BID RF: 0 metronidazole [MetroCream] 0.75 % cream 1 applic TOPICAL QAM RF: 0 carbidopa-levodopa [Sinemet] 25-100 mg tablet 1 tab PO TID RF: 0 carboxymethylcellulose sodium 1 % Drops, Liquid Gel 1 drp OPHTHALMIC (EYE) QID RF: 0 desonide 0.05 % Gel 1 applic TOPICAL HS RF: 0 Brilinta 90 mg tablet 90 mg PO BID RF: 0 PreserVision AREDS-2 250-90-40-1 mg Capsule 1 tab PO BID RF: 0 atorvastatin 40 mg tablet 40 mg PO DAILY RF: 0 ketotifen fumarate [Zaditor] 0.025 % (0.035 %) Drops 1 drp OPHTHALMIC (EYE) BID PRN (Reason: Dry Eyes) RF: 0 Alrex 0.2 % Drops,Suspension 1 drp OPHTHALMIC (EYE) QID PRN (Reason: Dry Eye(S)) RF: 0 Fiber Gummies 2 gram Tablet,Chewable 6 g PO DAILY RF: 0 Discontinued losartan 25 mg tablet 25 mg PO QAM RF: 0 Discharge Orders: Discharge Order (Routine); Ordered 01/30/22 Ordered By: Chrissy Mccarthy/Other Patient Handouts: What Is Syncope?, Indwelling Urinary Catheter Dc Admission Data Admit Date/Time: 01/28/22 16:14 Attending Provider: Chrissy Morgan Admit Provider: Leann Vizcaino Primary Care Provider: Edilia George Other Providers: Ernie Mckeon ; Leann Vizcaino ; [facility] ; Pankaj Rasheed Other Interventions: Discharge Summary Assessment (RN) Last Done: 01/30/22 15:53
--- NOTE | 2022-03-12 08:46 | Coding Query ---
CODING QUERY To promote full compliance with coding requirements relating to patient care, provider participation is requested in all cases of senior underwriter uncertainty. Please assist us with the question(s) below: Coding Question(s): DOCUMENTATION SHOWS: H&P - "BETH to LAD 01/21" 01/27 Progress Note - "Recent NSTEMI and LAD stent" Can you please indicate the exact date of the recent NSTEMI, if known? Thank you. 01/21/22 Physician's Response(s): Thank you Beverley Roy Principal Diagnosis: "that condition established after study, to be chiefly responsible for occasioning the admission of the patient to the hospital for care." Co-Existing Principal Diagnosis: "when two or more diagnoses equally meet the criteria for principal diagnosis as determined by the circumstances of admission, diagnostic work up, and/or therapy provided, and the Alphabetic Index, Tabular List, or another coding guideline does not provide sequencing direction, any one of the diagnoses may be sequenced first." "When the physician has documented what appears to be a current diagnosis in the body of the record, but has not included the diagnosis in the final diagnostic statement, the physician should be asked whether the diagnosis should be added." (Source Coding Clinic 2 QTR90. p3-4) BEATRICE
== END 2022-01-30 17:41 | disposition home health service (06) | DRG 281 ==
LOC: 2S 09:21 → ED 09:21 → SUATTDRO 11:28

== ENCOUNTER 2023-05-23 17:54 | Inpatient (IN) ==
[2023-05-23] MEDS ORDERED: SODIUM CHLORIDE 0.9% 500 ML IV ONE (17:59)
--- NOTE | 2023-05-23 18:01 | Emergency Department Note ---
Impression & Plan Syncope, Chest pain, Parkinsons disease, Coronary artery disease ED Provider Note NAME: DANIEL HO AGE: 77 SEX: M ARRIVES VIA: Ambulance INFORMANT: Patient ED PROVIDER(S): Vasile Malik MD CHIEF COMPLAINT: Chest pain PLAN: Disposition: Admit MEDICAL DECISION MAKING: The patient is a pleasant 77-year-old gentleman with a past medical history of Parkinson disease, CKD, hypertension, CAD with history of PCI who presents to the emergency department via EMS for evaluation of chest pain that he experienced approximately an hour and occurred around 3 PM in the setting of having a syncopal episode this morning where his reports that they were at the breakfast table where suddenly he was not responding for approximately 3 minutes. She reports she was able to keep him up on the chair without falling until she was able to get him onto a lift chair that was more stable and then was responding. She reports that his blood pressure was low when this happened and then upon awakening his blood pressure improved to the 140s. Patient's reports that he has been healthy otherwise and they deny any recent fevers, chills, cough congestion, GI or symptoms. On arrival to the emergency department the patient is fatigued appearing but no distress, afebrile blood pressure 200/100 and vital signs otherwise stable. He appears clinically dry. EKG without overt acute ischemia. Chest x-ray negative for acute cardiopulmonary process. WBC and platelets within normal limits. H/H similar to and improved from prior. Chemistry without metabolic acidosis. BUNs/creatinine> 20 consistent with the patient's clinical dry appearance. AST 43, nonspecific. LFTs otherwise unremarkable. Electrolytes unremarkable. Initial high-sensitivity troponin 1 0.0, within normal limits. Lipase is not elevated. UA without convincing evidence of infection. Bladder scan performed by RN did not demonstrate significant urinary retention. COVID-19 RNA, LAZARO test was negative. Upon reevaluation patient continued to deny any recurrence of chest pain. However, given the patient's syncopal episode today which is suspected to be related to dehydration in the setting of his history of autonomic dysfunction but also then the development of chest pain patient and his agree with plan for admission for further management. Case was discussed with Dr. Hernandez, [facility] hospitalist, who will evaluate the patient for admission. Further management per admitting team including blood pressure control. Triage Nursing notes reviewed and agree them. Prior/outside medical records reviewed Vital Signs: reviewed Differential diagnosis: Cardiac ischemia, aortic dissection, pulmonary embolism, pneumothorax, pneumonia, pericarditis, myocarditis, esophageal rupture, GERD, cholecystitis, pancreatitis, musculoskeletal, as well as other pathologies. ER treatment provided: See below. Diagnostics interpreted by me: ECG: Sinus rhythm, 71 bpm, non-specific ST abnormality, no overt ST elevation or depression, QTc 495, QRS 80. Cardiac Monitoring: An order for continuous cardiac monitoring was placed and demonstrated Sinus rhythm, 71 bpm, no ectopy Laboratory studies: See below Imaging studies: See below Consultation(s): Case was discussed with Dr. Hernandez, [facility] hospitalist, who will evaluate the patient for admission. HPI: The patient is a pleasant 77-year-old gentleman with a past medical history of Parkinson disease, CKD, hypertension, CAD with history of PCI who presents to the emergency department via EMS for evaluation of chest pain that he experienced approximately an hour and occurred around 3 PM in the setting of having a syncopal episode this morning where his reports that they were at the breakfast table where suddenly he was not responding for approximately 3 minutes. She reports she was able to keep him up on the chair without falling until she was able to get him onto a lift chair that was more stable and then was responding. She reports that his blood pressure was low when this happened and then upon awakening his blood pressure improved to the 140s. ROS: See above HPI for pertinent positives & negatives. A total of 10 systems reviewed and were otherwise negative. VITALS:See Below PHYSICAL EXAMINATION: GENERAL: Awake, alert, fatigued-appearing, in no distress HENT: Normocephalic, atraumatic. Oropharynx with dry mucous membranes and otherwise unremarkable. EYES: Normal conjunctiva. Sclera non-icteric. NECK: Supple. No nuchal rigidity. FROM. No JVD. RESPIRATORY: Clear to auscultation. CARDIAC: Regular rate, normal rhythm. Extremities warm and well perfused. Pulses equal. ABDOMEN: Soft, non-distended. No tenderness to palpation. No rebound or guard ing. No masses. RECTAL: Deferred. MUSCULOSKELETAL: Chest examination reveals no tenderness. The back is symmetrical on inspection without obvious abnormality. There is no CVA tenderness to palpation. No joint edema. LOWER EXTREMITIES: Calves are equal size bilaterally and non-tender. No edema. No discoloration. NEURO: No focal sensory or motor deficits noted. At baseline for Parkinson's with maxed facies, mild cogwheel rigidity. SKIN: No rash or jaundice noted. Vasile Malik MD Past Med/Surg History Medical History Acoustic neuroma s/p gamma knife treatment BPH (benign prostatic hyperplasia) CKD (chronic kidney disease), stage III Coronary artery disease 2006 - [facility] to LAD 01/21/22 - [facility] to LAD Hypertension Parkinsons disease Surgical History History of cataract surgery History of cholecystectomy History of partial colectomy Hx of appendectomy S/P coronary artery stent placement Family History Father Hypertension Heart disease Brother Lung cancer Mother Cancer Social History Smoking Status: Never smoker Second Hand Exposure: No; Do You Dip or Chew Tobacco: No; Hx Alcohol Use: No Hx Substance Use: No Preferred Language: Kazakh Communication Ability: Effective Net Web Developer Required: No Beliefs That Will Affect Care: Advent Advent Beliefs: Pentecostalism Current Living Situation: Spouse Other Information That Helps Us Care for You: No Feels Safe at Home: Yes Safety Concerns: Feels Safe At This Time Assistive Devices: Glasses, Hearing Aid - Bilateral and Walker Allergies Allergies Allergy/AdvReac Type Severity Reaction Status Date / Time adhesive tape Allergy Intermediate red welps Unverified 05/23/23 19:28 codeine Allergy Intermediate shortness Unverified 05/23/23 19:28 of breath ~ nervous bacitracin AdvReac Intermediate blisters Unverified 05/23/23 19:28 [From Neosporin ([id number])] neomycin AdvReac Intermediate blisters Unverified 05/23/23 19:28 [From Neosporin ([id number])] polymyxin B AdvReac Intermediate blisters Unverified 05/23/23 19:28 [From Neosporin ([id number])] Home Meds Home Medications Medication Instructions Recorded Confirmed aspirin 81 mg tablet,delayed 81 mg PO HS 01/25/22 05/23/23 release carbidopa 25 mg-levodopa 100 mg 1 tab PO QID 01/25/22 05/23/23 tablet (Sinemet) carboxymethylcellulose sodium 1 % 1 drp ophthalmic (eye) QID 01/25/22 05/23/23 eye liquid gel drops desonide 0.05 % topical gel 1 applic topical HS 01/25/22 05/23/23 metronidazole 0.75 % topical cream 1 applic topical QAM 01/25/22 05/23/23 (MetroCream) multivitamin 1 tab PO QAM 01/25/22 05/23/23 vit C 250 mg-vit E 90 mg-zinc 40 1 tab PO DAILY 01/25/22 05/23/23 mg-copper 1 [id number] capsule (PreserVision AREDS-2) atorvastatin 40 mg tablet 40 mg PO QAM 01/26/22 05/23/23 ketotifen fumarate 0.025 % (0.035 1 drp ophthalmic (eye) BID PRN Dry 01/26/22 05/23/23 %) eye drops (Zaditor) Eyes loteprednol etabonate 0.2 % eye 1 drp ophthalmic (eye) QID PRN Dry 01/26/22 05/23/23 drops,suspension (Alrex) Eye(S) clopidogrel 75 mg tablet (Plavix) 75 mg PO DAILY 03/25/23 05/23/23 doxazosin 2 mg tablet 2 mg PO HS 05/23/23 05/23/23 eplerenone 25 mg tablet 12.5 mg PO QAM 05/23/23 05/23/23 metoprolol succinate 25 mg 12.5 mg PO QPM 05/23/23 05/23/23 tablet,extended release 24 hr metoprolol succinate 25 mg 25 mg PO QAM 05/23/23 05/23/23 tablet,extended release 24 hr polyethylene glycol 3350 17 gram 17 g PO DAILY PRN Constipation 05/23/23 05/23/23 oral powder packet (Miralax) triamcinolone acetonide 0.1 % 1 applic topical BID PRN flare ups 05/23/23 05/23/23 topical cream Previous Rx's Medication Instructions Recorded dutasteride 0.5 mg capsule 0.5 mg PO DAILY #90 caps 03/25/23 (Avodart) Results & Data (ED) Vital Signs Vital Signs - 24 hr 05/23/23 18:16 05/23/23 18:16 05/23/23 18:19 Temperature 36.7 C Temperature Source Oral Pulse Rate 70 72 Pulse Rate [Apical] Pulse Strength Normal Respiratory Rate 18 Respiratory Effort / Characteristics Non-Labored Spontaneous Respiratory Depth Normal Respiratory Pattern Regular Blood Pressure 209/104 H Blood Pressure [Left Arm] Blood Pressure Mean 139 Blood Pressure Mean [Left Arm] Blood Pressure Position Lying Pulse Oximetry 98 98 Oxygen Delivery Method Room Air Room Air Sepsis Recent Fever Within 48 Hours No Sepsis New/Unexplained Change in Mental Status No Sepsis Action Taken by Nursing No Action Required 05/23/23 19:31 05/23/23 21:28 05/23/23 21:33 Temperature Temperature Source Pulse Rate 76 Pulse Rate [Apical] 77 80 Pulse Strength Respiratory Rate 18 Respiratory Effort / Characteristics Respiratory Depth Respiratory Pattern Blood Pressure 200/111 H Blood Pressure [Left Arm] 202/104 H 178/90 H Blood Pressure Mean Blood Pressure Mean [Left Arm] 136 119 Blood Pressure Position Pulse Oximetry 96 Oxygen Delivery Method Room Air Sepsis Recent Fever Within 48 Hours Sepsis New/Unexplained Change in Mental Status Sepsis Action Taken by Nursing Laboratory Data Attestation: I reviewed the patient's lab results. 05/23/23 18:15 05/23/23 18:15 Lab Results 05/23/23 05/23/23 05/23/23 Range/Units 18:15 18:15 18:33 WBC 7.54 (4.8-10.8) K/ul RBC 4.88 (4.70-6.10) M/uL Hgb 13.2 L (14.0-18.0) g/dl Hct 42.1 (42.0-52.0) % MCV 86.3 (80.0-100.0) fL MCH 27.0 (25.0-34.0) pg MCHC 31.4 L (32.0-36.0) g/dL RDW Std Deviation 44.8 (36.4-46.3) fL RDW Coeff of [place] 14.1 (11.5-14.5) % Plt Count 217 (130-400) K/uL MPV 10.4 (9.4-12.4) fL Immature Gran % (Auto) 0.4 % Neut % (Auto) 70.0 % Lymph % (Auto) 18.7 % [place] % (Auto) 8.9 % Eos % (Auto) 1.3 % Baso % (Auto) 0.7 % Neut # (Auto) 5.28 (1.40-6.50) K/uL Lymph # (Auto) 1.41 (1.2-3.4) K/uL [place] # (Auto) 0.67 H (0.11-0.59) K/uL Eos # (Auto) 0.10 (0-0.50) K/uL Baso # (Auto) 0.05 (0-0.2) K/uL Immature Gran # (Auto) 0.03 (0.01-0.20) K/uL Sodium 139 (136-145) mmol/L Potassium 4.0 (3.5-5.1) mmol/L Chloride 105 (98-107) mmol/L Carbon Dioxide 28 (21-32) mmol/L Anion Gap 6 (3-11) BUN 28 H (6-23) mg/dl Creatinine 1.33 (0.6-1.4) mg/dl Est Cr Clr Drug Dosing 39.2 ml/min Est GFR ( Amer) 58.5 ml/min Est GFR (Non-Af Amer) 50.5 ml/min BUN/Creatinine Ratio 21.1 H (10-20) Glucose 94 (70-99(Fasting)) mg/dl Calcium 8.7 (8.6-10.3) mg/dl Phosphorus 2.9 (2.5-4.9) mg/dl Magnesium 2.3 (1.7-2.4) mg/dl Total Bilirubin 0.8 (0.2-1.0) mg/dl AST 43 H (13-39) U/L ALT 33 (7-52) U/L Alkaline Phosphatase 147 H (34-104) U/L Troponin I High Sens 10.0 (0-20) pg/ml Total Protein 7.0 (6.0-8.3) gm/dl Albumin 3.9 (3.4-5.0) gm/dl Globulin 3.1 (2.5-4.0) gm/dl Albumin/Globulin Ratio 1.3 (0.9-2) Lipase 33 (11-82) U/L Urine Color Yellow Urine Appearance Clear (Clear) Urine pH 6.5 (4.5-7.5) Ur Specific [place] 1.013 (1.000-1.030) Urine Protein Negative (Negative) Urine Glucose (UA) Negative (Negative) Urine Ketones Negative (Negative) Urine Blood Negative (Negative) Urine Nitrite Negative (Negative) Urine Bilirubin Negative (Negative) Urine Urobilinogen Negative (Negative) Ur Leukocyte Esterase Negative (Negative) SARS-CoV-2, RNA, NAAT (NEGATIVE) 05/23/23 Range/Units 18:57 WBC (4.8-10.8) K/ul RBC (4.70-6.10) M/uL Hgb (14.0-18.0) g/dl Hct (42.0-52.0) % MCV (80.0-100.0) fL MCH (25.0-34.0) pg MCHC (32.0-36.0) g/dL RDW Std Deviation (36.4-46.3) fL RDW Coeff of [place]az (11.5-14.5) % Plt Count (130-400) K/uL MPV (9.4-12.4) fL Immature Gran % (Auto) % Neut % (Auto) % Lymph % (Auto) % [place] % (Auto) % Eos % (Auto) % Baso % (Auto) % Neut # (Auto) (1.40-6.50) K/uL Lymph # (Auto) (1.2-3.4) K/uL [place] # (Auto) (0.11-0.59) K/uL Eos # (Auto) (0-0.50) K/uL Baso # (Auto) (0-0.2) K/uL Immature Gran # (Auto) (0.01-0.20) K/uL Sodium (136-145) mmol/L Potassium (3.5-5.1) mmol/L Chloride (98-107) mmol/L Carbon Dioxide (21-32) mmol/L Anion Gap (3-11) BUN (6-23) mg/dl Creatinine (0.6-1.4) mg/dl Est Cr Clr Drug Dosing ml/min Est GFR ( Amer) ml/min Est GFR (Non-Af Amer) ml/min BUN/Creatinine Ratio (10-20) Glucose (70-99(Fasting)) mg/dl Calcium (8.6-10.3) mg/dl Phosphorus (2.5-4.9) mg/dl Magnesium (1.7-2.4) mg/dl Total Bilirubin (0.2-1.0) mg/dl AST (13-39) U/L ALT (7-52) U/L Alkaline Phosphatase (34-104) U/L Troponin I High Sens (0-20) pg/ml Total Protein (6.0-8.3) gm/dl Albumin (3.4-5.0) gm/dl Globulin (2.5-4.0) gm/dl Albumin/Globulin Ratio (0.9-2) Lipase (11-82) U/L Urine Color Urine Appearance (Clear) Urine pH (4.5-7.5) Ur Specific [place] (1.000-1.030) Urine Protein (Negative) Urine Glucose (UA) (Negative) Urine Ketones (Negative) Urine Blood (Negative) Urine Nitrite (Negative) Urine Bilirubin (Negative) Urine Urobilinogen (Negative) Ur Leukocyte Esterase (Negative) SARS-CoV-2, RNA, NAAT NEGATIVE (NEGATIVE) Administered Medications Aspirin (Aspirin 81 Mg Ectab) 81 mg PO [facility] Stop: 06/22/23 23:00 Last Admin: 05/23/23 23:48 Dose: Not Given Documented By: RAFAELA Doxazosin Mesylate (Doxazosin Mesylate Tab 2 Mg Tab) 2 mg PO [facility] Stop: 06/22/23 23:00 Last Admin: 05/24/23 00:02 Dose: 2 mg Documented By: RAFAELA Metoprolol Succinate (Metoprolol Succ 25mg Ext Rel Tab) 12.5 mg PO QPM [facility] Stop: 06/22/23 23:00 Last Admin: 05/24/23 00:02 Dose: 12.5 mg Documented By: RAFAELA Miscellaneous (Eplerenone - Order Awaiting Action) 1 each N/A QS [facility] Stop: 06/23/23 00:00 Last Admin: 05/24/23 00:47 Dose: Not Given Documented By: RAFAELA Nelsoncellaneous (Desonide 0.05 % Gel - Order Awaiting Action) 1 each N/A QS [facility] Stop: 06/23/23 00:00 Last Admin: 05/24/23 00:47 Dose: Not Given Documented By: ALH Miscellaneous (Zaditor 0.025 % - Order Awaiting Action) 1 each N/A QS [facility] Stop: 06/23/23 00:00 Last Admin: 05/24/23 00:47 Dose: Not Given Documented By: RAFAELA Miscellaneous (Alrex 0.2% - Order Awaiting Action) 1 each N/A QS [facility] Stop: 06/23/23 00:00 Last Admin: 05/24/23 00:47 Dose: Not Given Documented By: RAFAELA Schultz (Metrocream - Order Awaiting Action) 1 each N/A QS [facility] Stop: 06/23/23 00:00 Last Admin: 05/24/23 00:47 Dose: Not Given Documented By: RAFAELA Nitroglycerin (Nitroglycerin 2% Ointment 30gm Tube) 0.5 inch EXT Q6 [facility] Stop: 06/23/23 00:00 Last Admin: 05/24/23 05:43 Dose: 0.5 inch Documented By: Admin: 05/24/23 00:05 Dose: 0.5 inch Documented By: RAFAELA Discontinued Medications Carbidopa/Levodopa (Carbidopa/Levodopa 25/100mg Tab) 1 tab PO NOW STA Stop: 05/23/23 20:30 Last Admin: 05/23/23 20:51 Dose: 1 tab Documented By: FRANCINE Sodium Chloride (Nss) 500 mls @ 999 mls/hr IV .Q31M ONE Stop: 05/23/23 18:29 Last Infusion: 05/23/23 19:31 Dose: 0 mls/hr Documented By: Admin: 05/23/23 18:59 Dose: 999 mls/hr Documented By: YAMILET Labetalol HCl (Labetalol Hcl Iv 5 Mg/Ml 20ml) 5 mg IV NOW STA Stop: 05/23/23 21:02 Last Admin: 05/23/23 21:28 Dose: 5 mg Documented By: FRANCINE Co-signed By: SUNNY Imaging Data Radiologist's Impression: Chest X-Ray 05/23/23 17:59 XR chest 1V portable CLINICAL HISTORY: Chest pain, nonspecific COMPARISON STUDY: Chest radiograph January 31, 2022. FINDINGS: Lung volumes are normal. Lungs are clear. There is no pneumothorax or pleural effusion. Cardiomegaly is unchanged. Linear left basilar opacity is unchanged and favors atelectasis or scarring. Mediastinal contours are normal. There is no evidence for pulmonary edema. Nipple shadow projects over the right lower chest. IMPRESSION: No acute cardiopulmonary findings. No change in appearance of the chest. ACT 112: Negative or not required by law. Electronically signed by: Javad Rubalcava M.D. 05/23/2023 6:46 PM Discharge Plan Visit Data Chief Complaint: Chest Pain Stated Complaint: CHEST PAIN ED Provider: Vasile Malik Discharge Problem: Syncope, Chest pain, Parkinsons disease, Coronary artery disease Patient Disposition: Admitted As Inpatient Discharge Instructions Interventions: ED Discharge Assessment Last Done: 05/23/23 22:22 Syncope Qualifiers: Syncope type: unspecified Qualified Code(s): R55 - Syncope and collapse Coronary artery disease Qualifiers: Coronary Disease-Associated Artery/Lesion type: unspecified vessel or lesion type [place] vs. transplanted heart: [place] heart
[2023-05-23 18:37] LABS: Basophils # (auto) 0.05 K/uL (0-0.2); Basophils % (auto) 0.7 %; Eosinophils % (auto) 1.3 %; Hematocrit (blood only) 42.1 % (42.0-52.0); Hemoglobin 13.2 g/dl (14.0-18.0); Immature Granulocytes # (auto) 0.03 K/uL (0.01-0.20); Immature Granulocytes % (auto) 0.4 %; Lymphocytes # (auto) 1.41 K/uL (1.2-3.4); Lymphocytes % (auto) 18.7 %; Mean Corpuscular Hgb Conc 31.4 g/dL (32.0-36.0); Mean Corpuscular Volume 86.3 fL (80.0-100.0); Mean Platelet Volume 10.4 fL (9.4-12.4); Monocytes # (auto) 0.67 K/uL (0.11-0.59); Monocytes % (auto) 8.9 %; Neutrophils # (auto) 5.28 K/uL (1.40-6.50); Platelet Count 217 K/uL (130-400); RDW Coefficient of Variation 14.1 % (11.5-14.5); RDW Standard Deviation 44.8 fL (36.4-46.3); Red Blood Count 4.88 M/uL (4.70-6.10); White Blood Count 7.54 K/ul (4.8-10.8)
--- NOTE | 2023-05-23 18:48 | XRay Report ---
XR chest 1V portable CLINICAL HISTORY: Chest pain, nonspecific COMPARISON STUDY: Chest radiograph January 31, 2022. FINDINGS: Lung volumes are normal. Lungs are clear. There is no pneumothorax or pleural effusion. Car diomegaly is unchanged. Linear left basilar opacity is unchanged and favors atelectasis or scarring. Mediastinal contours are normal. There is no evidence for pulmonary edema. Nipple shadow projects ove r the right lower chest. IMPRESSION: No acute cardiopulmonary findings. No change in appearance of the chest. ACT 112: Negative or not required by law. Electronically signed by: Javad Rubalcava M.D. 05/23/2023 6:46 PM
[2023-05-23 18:56] LABS: Albumin Globulin Ratio 1.3 (0.9-2); Albumin Level 3.9 gm/dl (3.4-5.0); BUN Creatinine Ratio 21.1 (10-20); Bilirubin,Total 0.8 mg/dl (0.2-1.0); Calcium 8.7 mg/dl (8.6-10.3); Creatinine Clr Calc Pharmacy 39.2 ml/min; Est GFR (African American) 58.5 ml/min; Est GFR (Non-African American) 50.5 ml/min; Globulin 3.1 gm/dl (2.5-4.0); Magnesium 2.3 mg/dl (1.7-2.4); Phosphorus 2.9 mg/dl (2.5-4.9)
[2023-05-23] MEDS ORDERED: CARBIDOPA/LEVODOPA 25/100MG TAB PO STA (20:29)
[2023-05-23 20:50] LABS: Appearance Urine Clear (Clear); Bilirubin Urine Negative (Negative); Blood Urine Negative (Negative); Color Urine Yellow; Glucose Urine UA Negative (Negative); Ketones Urine Negative (Negative); Leukocyte Esterase Urine Negative (Negative); Nitrite Urine Negative (Negative); Protein Urine Negative (Negative); Specific Gravity Urine 1.013 (1.000-1.030); Urobilinogen Urine Negative (Negative); pH Urine 6.5 (4.5-7.5)
[2023-05-23] MEDS ORDERED: LABETALOL HCL IV 5 MG/ML 20ML IV STA (21:01)
--- NOTE | 2023-05-23 22:04 | History & Physical Report ---
Date of Service May 23, 2023 Assessment & Plan (1) Chest pain: Plan: 77-year-old male with past medical significant for hyperlipidemia, CAD s/p stent, history of non-ST elevated RI hypertension, macular degeneration, Meckel's diverticulum, BPH, chronic kidney stage III, bilateral lower extremity edema, Parkinson's disease, right acoustic neuroma who lives at home with his was brought in because of chest pains and also an episode of syncope. Chest pain Initial work-up is negative Currently chest pain-free History of CAD s/p stent Will monitor on telemetry floor Serial cardiac enzymes and echocardiogram Consult cardiology in a.m. n.p.o. for now Syncope History of syncope in the past Patient blood pressure was low in the morning as per the History of Parkinson's We will follow echo [employer] his blood pressure Consult cardiology History of Parkinson's Continue his home medications CAD s/p stent On aspirin statin and beta-ravinder and Plavix will follow echo BPH On doxazosin and dutasteride Hypertension On metoprolol succinate, doxazosin, and eplerenone We will monitor the blood pressure Chronic kidney disease stage III Presented with creatinine of 1.3 We will follow the labs DVT prophylaxis SCDs for now Disposition telemetry floor Full code (2) Syncope: History of Present Illness Chief Complaint: Chest pain and syncope Primary Care Provider: Edilia George MD 77-year-old male with past medical significant for hyperlipidemia, CAD s/p stent, history of non-ST elevated RI hypertension, macular degeneration, Meckel's diverticulum, BPH, chronic kidney stage III, bilateral lower extremity edema, Parkinson's disease, right acoustic neuroma who lives at home with his was brought in because of chest pains and also an episode of syncope. As per in the morning his systolic blood pressure was in 70s.Seems in the morning during breakfast time patient was sitting on a stool and seems nonresponsive with just staring is worried that he may fall down she helped him to the chair. It lasted about 3 minutes and he was back to his usual self as per . Patient checked his blood pressure after the episode and the systolic blood pressure was in 114 range. Patient states in the left chest pain around 2 PM achy kind of pain radiating to his left arm about 2/10 by severity. He notified his around 4 PM. He took 4 aspirins. By time EMS came pain subsided. Currently chest pain-free. Blood pressure is somewhat high in the ER. is worried that blood pressure may drop lower and request to be gentle with blood pressure medications. Patient denies any headache or dizziness. No earache or runny nose or sore throat. Currently no cough. No shortness of breath. Says he always sweats from his Parkinson's. No nausea or abdominal pain. Normal bowel and bladder movements. Currently resting comfortably and hemodynamically stable Allergies Allergy/AdvReac Type Severity Reaction Status Date / Time adhesive tape Allergy Intermediate red welps Unverified 05/23/23 19:28 codeine Allergy Intermediate shortness Unverified 05/23/23 19:28 of breath ~ nervous bacitracin AdvReac Intermediate blisters Unverified 05/23/23 19:28 [From Neosporin ([id number])] neomycin AdvReac Intermediate blisters Unverified 05/23/23 19:28 [From Neosporin ([id number])] polymyxin B AdvReac Intermediate blisters Unverified 05/23/23 19:28 [From Neosporin ([id number])] Home Medications Medication Instructions Recorded Confirmed Type aspirin 81 mg tablet,delayed 81 mg PO HS 01/25/22 05/23/23 History release carbidopa 25 mg-levodopa 100 mg 1 tab PO QID 01/25/22 05/23/23 History tablet (Sinemet) carboxymethylcellulose sodium 1 % 1 drp ophthalmic (eye) QID 01/25/22 05/23/23 History eye liquid gel drops desonide 0.05 % topical gel 1 applic topical HS 01/25/22 05/23/23 History metronidazole 0.75 % topical cream 1 applic topical QAM 01/25/22 05/23/23 History (MetroCream) multivitamin 1 tab PO QAM 01/25/22 05/23/23 History vit C 250 mg-vit E 90 mg-zinc 40 1 tab PO DAILY 01/25/22 05/23/23 History mg-copper 1 [id number] capsule (PreserVision AREDS-2) atorvastatin 40 mg tablet 40 mg PO QAM 01/26/22 05/23/23 History ketotifen fumarate 0.025 % (0.035 1 drp ophthalmic (eye) BID PRN Dry 01/26/22 History %) eye drops (Zaditor) Eyes loteprednol etabonate 0.2 % eye 1 drp ophthalmic (eye) QID PRN Dry 01/26/22 05/23/23 History drops,suspension (Alrex) Eye(S) clopidogrel 75 mg tablet (Plavix) 75 mg PO DAILY 03/25/23 05/23/23 History dutasteride 0.5 mg capsule 0.5 mg PO DAILY #90 caps 03/25/23 05/23/23 Rx (Avodart) doxazosin 2 mg tablet 2 mg PO HS 05/23/23 05/23/23 History eplerenone 25 mg tablet 12.5 mg PO QAM 05/23/23 05/23/23 History metoprolol succinate 25 mg 12.5 mg PO QPM 05/23/23 05/23/23 History tablet,extended release 24 hr metoprolol succinate 25 mg 25 mg PO QAM 05/23/23 05/23/23 History tablet,extended release 24 hr polyethylene glycol 3350 17 gram 17 g PO DAILY PRN Constipation 05/23/23 05/23/23 History oral powder packet (Miralax) triamcinolone acetonide 0.1 % 1 applic topical BID PRN flare ups 05/23/23 05/23/23 History topical cream Past Med/Surg History Medical History Acoustic neuroma s/p gamma knife treatment BPH (benign prostatic hyperplasia) CKD (chronic kidney disease), stage III Coronary artery disease 2006 - [facility] to LAD 01/21/22 - [facility] to LAD Hypertension Parkinsons disease Surgical History History of cataract surgery History of cholecystectomy History of partial colectomy Hx of appendectomy S/P coronary artery stent placement Family History (Updated 05/23/23 @ 22:12 by Joseph Hernandez MD) Father Hypertension Heart disease Brother Lung cancer Mother Cancer Social History Smoking Status: Never smoker Second Hand Exposure: No; Do You Dip or Chew Tobacco: No; Hx Alcohol Use: No Hx Substance Use: No Preferred Language: Dominican Communication Ability: Effective Threat Monitoring Analyst Required: No Beliefs That Will Affect Care: None Current Living Situation: Spouse Feels Safe at Home: Yes Assistive Devices: Walker Review of Systems Review of Systems: All systems reviewed & are unremarkable except as noted in Subjective Physical Exam Physical Exam: General- Not in distress Head- atraumatic Eyes- PERRL ENT- oropharynx clear Neck- supple, no JVD Lungs- clear to auscultation and percussion Heart- regular rhythm; no murmur, no gallop, no rub appreciated Abdomen- normal bowel sounds, soft, nontender, no distension Extremities-mild pedal edema present. left leg shorter than right.. Neuro- alert, oriented x 3; PERRL, no facial palsy; no dysarthria;moves extremities, obeys commands. Skin- warm & dry Results & Data Results & Data Vital Signs (Past 12 Hours) Vital Signs Temp Pulse Pulse Resp BP BP Pulse Ox 05/23/23 21:33 80 18 178/90 H 96 05/23/23 21:28 76 200/111 H 05/23/23 19:31 77 202/104 H 05/23/23 18:19 72 05/23/23 18:16 98 05/23/23 18:16 36.7 C 70 18 209/104 H 98 O2 Del Method 05/23/23 21:33 Room Air 05/23/23 21:28 05/23/23 19:31 05/23/23 18:19 05/23/23 18:16 Room Air 05/23/23 18:16 Room Air Diagnostic Findings Laboratory Results WBC 7.54 K/ul (4.8-10.8) 05/23/23 18:15 RBC 4.88 M/uL (4.70-6.10) 05/23/23 18:15 Hgb 13.2 g/dl (14.0-18.0) L 05/23/23 18:15 Hct 42.1 % (42.0-52.0) 05/23/23 18:15 MCV 86.3 fL (80.0-100.0) 05/23/23 18:15 MCH 27.0 pg (25.0-34.0) 05/23/23 18:15 MCHC 31.4 g/dL (32.0-36.0) L 05/23/23 18:15 RDW Std Deviation 44.8 fL (36.4-46.3) 05/23/23 18:15 RDW Coeff of Boaz 14.1 % (11.5-14.5) 05/23/23 18:15 Plt Count 217 K/uL (130-400) 05/23/23 18:15 MPV 10.4 fL (9.4-12.4) 05/23/23 18:15 Immature Gran % (Auto) 0.4 % 05/23/23 18:15 Neut % (Auto) 70.0 % 05/23/23 18:15 Lymph % (Auto) 18.7 % 05/23/23 18:15 [place] % (Auto) 8.9 % 05/23/23 18:15 Eos % (Auto) 1.3 % 05/23/23 18:15 Baso % (Auto) 0.7 % 05/23/23 18:15 Neut # (Auto) 5.28 K/uL (1.40-6.50) 05/23/23 18:15 Lymph # (Auto) 1.41 K/uL (1.2-3.4) 05/23/23 18:15 [place] # (Auto) 0.67 K/uL (0.11-0.59) H 05/23/23 18:15 Eos # (Auto) 0.10 K/uL (0-0.50) 05/23/23 18:15 Baso # (Auto) 0.05 K/uL (0-0.2) 05/23/23 18:15 Immature Gran # (Auto) 0.03 K/uL (0.01-0.20) 05/23/23 18:15 Sodium 139 mmol/L (136-145) 05/23/23 18:15 Potassium 4.0 mmol/L (3.5-5.1) 05/23/23 18:15 Chloride 105 mmol/L (98-107) 05/23/23 18:15 Carbon Dioxide 28 mmol/L (21-32) 05/23/23 18:15 Anion Gap 6 (3-11) 05/23/23 18:15 BUN 28 mg/dl (6-23) H 05/23/23 18:15 Creatinine 1.33 mg/dl (0.6-1.4) 05/23/23 18:15 Est Cr Clr Drug Dosing 39.2 ml/min 05/23/23 18:15 Est GFR ( Amer) 58.5 ml/min 05/23/23 18:15 Est GFR (Non-Af Amer) 50.5 ml/min 05/23/23 18:15 BUN/Creatinine Ratio 21.1 (10-20) H 05/23/23 18:15 Glucose 94 mg/dl (70-99(Fasting)) 05/23/23 18:15 Calcium 8.7 mg/dl (8.6-10.3) 05/23/23 18:15 Phosphorus 2.9 mg/dl (2.5-4.9) 05/23/23 18:15 Magnesium 2.3 mg/dl (1.7-2.4) 05/23/23 18:15 Total Bilirubin 0.8 mg/dl (0.2-1.0) 05/23/23 18:15 AST 43 U/L (13-39) H 05/23/23 18:15 ALT 33 U/L (7-52) 05/23/23 18:15 Alkaline Phosphatase 147 U/L (34-104) H 05/23/23 18:15 Troponin I High Sens 10.0 pg/ml (0-20) 05/23/23 18:15 Total Protein 7.0 gm/dl (6.0-8.3) 05/23/23 18:15 Albumin 3.9 gm/dl (3.4-5.0) 05/23/23 18:15 Globulin 3.1 gm/dl (2.5-4.0) 05/23/23 18:15 Albumin/Globulin Ratio 1.3 (0.9-2) 05/23/23 18:15 Lipase 33 U/L (11-82) 05/23/23 18:15 Urine Color Yellow 05/23/23 18:33 Urine Appearance Clear (Clear) 05/23/23 18:33 Urine pH 6.5 (4.5-7.5) 05/23/23 18:33 Ur Specific [place] 1.013 (1.000-1.030) 05/23/23 18:33 Urine Protein Negative (Negative) 05/23/23 18:33 Urine Glucose (UA) Negative (Negative) 05/23/23 18:33 Urine Ketones Negative (Negative) 05/23/23 18:33 Urine Blood Negative (Negative) 05/23/23 18:33 Urine Nitrite Negative (Negative) 05/23/23 18:33 Urine Bilirubin Negative (Negative) 05/23/23 18:33 Urine Urobilinogen Negative (Negative) 05/23/23 18:33 Ur Leukocyte Esterase Negative (Negative) 05/23/23 18:33 SARS-CoV-2, RNA, NAAT NEGATIVE (NEGATIVE) 05/23/23 18:57 Impressions Chest X-Ray 05/23/23 17:59 XR chest 1V portable CLINICAL HISTORY: Chest pain, nonspecific COMPARISON STUDY: Chest radiograph January 31, 2022. FINDINGS: Lung volumes are normal. Lungs are clear. There is no pneumothorax or pleural effusion. Cardiomegaly is unchanged. Linear left basilar opacity is unchanged and favors atelectasis or scarring. Mediastinal contours are normal. There is no evidence for pulmonary edema. Nipple shadow projects over the right lower chest. IMPRESSION: No acute cardiopulmonary findings. No change in appearance of the chest. ACT 112: Negative or not required by law. Electronically signed by: Javad Rubalcava M.D. 05/23/2023 6:46 PM Code Status & VTE Plan VTE Prophylaxis Plan VTE Prophylaxis will be ordered: Yes (2) Syncope Syncope type: unspecified Qualified Code(s): R55 - Syncope and collapse
[2023-05-23] MEDS ORDERED: ACETAMINOPHEN 325 MG TAB PO PRN (23:01)
[2023-05-23] MEDS ORDERED: NITROGLYCERIN SL 0.4 MG/TAB TAB SL PRN (23:01)
[2023-05-23] MEDS ORDERED: TRIAMCINOLONE ACET 0.1% CR 15 GM TUBE TOP PRN (23:01)
[2023-05-23] MEDS ORDERED: POLYETHYLENE (MIRALAX) 17 GM PACK PO PRN ×2 (23:01)
[2023-05-23] MEDS: ASPIRIN 81 MG ECTAB PO SCH (23:48)
[2023-05-24] MEDS: DOXAZosin MESYLATE TAB 2 MG TAB PO SCH ×2 (00:02→20:19)
[2023-05-24] MEDS: METOPROLOL SUCC 25MG EXT REL TAB PO SCH ×3 (00:02→20:20)
[2023-05-24] MEDS: NITROGLYCERIN 2% OINTMENT 30GM TUBE EXT SCH ×3 (00:05→11:34)
[2023-05-24 05:49] LABS: Basophils # (auto) 0.04 K/uL (0-0.2); Basophils % (auto) 0.6 %; Eosinophils # (auto) 0.12 K/uL (0-0.50); Eosinophils % (auto) 1.7 %; Hematocrit (blood only) 38.8 % (42.0-52.0); Hemoglobin 12.2 g/dl (14.0-18.0); Immature Granulocytes # (auto) 0.02 K/uL (0.01-0.20); Immature Granulocytes % (auto) 0.3 %; Lymphocytes % (auto) 23.3 %; Mean Corpuscular Hemoglobin 27.1 pg (25.0-34.0); Mean Corpuscular Hgb Conc 31.4 g/dL (32.0-36.0); Mean Corpuscular Volume 86.2 fL (80.0-100.0); Mean Platelet Volume 10.4 fL (9.4-12.4); Monocytes # (auto) 0.62 K/uL (0.11-0.59); Neutrophils # (auto) 4.46 K/uL (1.40-6.50); Neutrophils % (auto) 65.1 %; Platelet Count 200 K/uL (130-400); RDW Coefficient of Variation 14.2 % (11.5-14.5); White Blood Count 6.86 K/ul (4.8-10.8)
[2023-05-24 06:07] LABS: BUN Creatinine Ratio 20.8 (10-20); Calcium 8.3 mg/dl (8.6-10.3); Creatinine Clr Calc Pharmacy 43.4 ml/min; Est GFR (African American) 66.3 ml/min; Est GFR (Non-African American) 57.2 ml/min; Magnesium 2.2 mg/dl (1.7-2.4); Potassium 3.8 mmol/L (3.5-5.1)
[2023-05-24] MEDS: CARBIDOPA/LEVODOPA 25/100MG TAB PO SCH ×4 (08:09→20:19)
[2023-05-24] MEDS: FINASTERIDE 5 MG TAB PO SCH (08:09)
[2023-05-24] MEDS: MULTIVITAMIN TAB PO SCH (08:09)
[2023-05-24] MEDS: CLOPIDOGREL BISULFATE 75 MG TAB PO SCH (08:09)
[2023-05-24] MEDS: ATORVASTATIN 40 MG TAB PO SCH (08:09)
[2023-05-24] MEDS: ARTIFICIAL TEARS OP SCH ×2 (08:10→11:06)
--- NOTE | 2023-05-24 08:40 | Electrocardiogram Report ---
Test Reason : Blood Pressure : / mmHG Vent. Rate : 071 BPM Atrial Rate : 071 BPM P-R Int : 106 ms QRS Dur : 080 ms QT Int : 456 ms P-R-T Axes : 019 028 049 degrees QTc Int : 495 ms Poor data quality, interpretation may be adversely affected Sinus rhythm with short NC Abnormal ECG When compared with ECG of 05-FEB-2022 05:01, Premature supraventricular complexes are no longer Present T wave inversion no longer evident in Anterior leads Confirmed by Catarino Roberts ([id number] on 05/24/2023 8:39:47 AM Referred By: REFERRED SELF Confirmed By:Catarino Roberts
--- NOTE | 2023-05-24 08:41 | Cardiology Consultation ---
Date of Consultation May 24, 2023 Assessment & Plan (1) Hypertensive urgency: (2) Chest pain: (3) Coronary artery disease: (4) Syncope: (5) Parkinsons disease: Plan Patient admitted with episode of chest pain, lasting approx 30 min, resolved by the time he got to the ER. Apparently he also had syncopal event at home as well, while sitting in chair. Patient not able to recall events surrounding this. Upon arrival to ER, uncontrolled hypertension noted. Treated with IV labetalol. Home dose metoprolol continued at 25 mg in AM and 12.5 mg in PM. Doxazosin continued (for BPH) Nitro ointment added for BP support. HS troponin negative x3. Echo demonstrating preserved LVEF without wall motion abnormalities. No recurrent chest pain since admission. At this time, will continue to make adjustments for uncontrolled hypertension. Benefits to nitro oint/paste, as if he becomes hypotensive given labile readings at times, will be able to remove easily. will recheck BP in 2 hours, after AM meds. No need for stress testing at this time. Case discussed with Dr. Rae I spent a total of 60 minutes on the date of service in preparation, delivery, and documentation of the care provided to this patient, excluding any time spent in the performance of separately billed services. Teresa Christianson PA-C Department of Cardiology, [facility] This chart was completed in part utilizing Speech Voice Recognition Software. Grammatical errors, random word insertions, pronoun errors, and incomplete sentences are an occasional consequence of this system due to software limitations, ambient noise, and hardware issues. Any formal questions or concerns about the content, text, or information contained within the body of this dictation should be directly addressed to the provider for clarification. Supervising Physician Co-Signing Physician Notes Supervising Physician Attestation: I have personally performed a history and physical examination on the patient. I agree with the physician restaurant assistant manager's findings and plan as documented with the following additions. Subjective: Patient without cardiac complaints at the time of my visit, eating his breakfast meal. Telemetry reveals sinus rhythm in the 70s. Exam: Cardiovascular: Regular rhythm, no murmurs, no edema Data: Echocardiogram revealed normal wall motion LVEF 55 to 60%, mild aortic valve sclerosis without stenosis High-sensitivity troponin negative x4 measurements EKG improved compared to previous with resolution of the previously noted anterior T wave inversions that been present in January, Assessment and Plan: Chest pain Syncope Parkinson's disease Labile hypertension The patient's EKG, echocardiogram, and troponin levels are reassuring. No further ischemic work-up felt to be indicated at this time. We will transition from topical nitroglycerin to a nitroglycerin patch which is often times a useful strategy and such patients with labile hypertension and Parkinson's. It is a potent antihypertensive for the high blood pressure, but if he has symptomatic low blood pressure can be removed as needed at home. Continue lifelong dual antiplatelet therapy with aspirin clopidogrel. Continue remaining cardiac medications DVT prophylaxis: Depending on his length of stay, consider pharmacologic DVT prophylaxis I spent a total of 20 minutes on the date of service in preparation, delivery, and documentation of the care provided to this patient, excluding any time spent in the performance of separately billed services. Romulo Rae, History of Present Illness Reason for Consultation: HTN urgency; CP; Possible syncope Requesting Physician: Dr. Hernandez Attending Physician: Dr. Rae History of Present Illness Patient is a 77 year old male known to [facility], Dr. Castillo/Bulmaro Cavazos PA-C for complex history includin.Atherosclerotic coronary disease status post coronary intervention with bare metal stent to the left anterior descending in 2006 and presentation in December 2021 with unstable angina. Catheterization, per documentation, in December 2021 revealed a dominant left circumflex with mild luminal irregularities, non dominant RCA with mid 90% stenosis, and a diffusely disease and ectatic LAD with a 50% proximal lesion, 90 and 99% mid vessel lesions sequentially, and a 60% distal LAD lesion, undergoing cutting balloon angioplasty and stenting of the mid LAD lesions at that time. Recommendations at [facility] included utilization of aspirin and Brilinta without interruption x1 year, lifelong dual anti-platelet therapy 2.Hypertension 3.Hyperlipidemia 4.CKD stage 3 5.BPH 6.Chronic parkinsonism 7.Hospitalization in January 2022 with multifactorial orthostatic syncope, after being prescribed alpha-ravinder therapy, in addition to his antiparkinson medications 8.Episodes of paroxysmal SVT and paroxysmal VT, treated with beta ravinder. Patient somewhat poor historian. Family not present. He reports sitting in his chair yesterday and having left sided chest pain radiating to his left arm. Symptoms lasted about 15 minutes. Apparently before or after this episode he had a syncopal episode in his chair. Patient does not recall what happened with this episode. He reports they monitor BP at home and BP is historically low. He has a long history of labile hypertension, likely related to his Parkinsons disease and alpha blockers for urinary issues. Upon arrival to ER, his chest pain had resolved. His BP was significantly elevated. EKG demonstrated NSR, no acute findings and previously noted T wave inversions in anterior and lateral leads in January 2022, now resolved. He was mildly dehydrated on arrival and Eplerenone was held. Metoprolol continued. AT time of visit, patient resting in chair feeling well. He denies recurrent chest pain. no SOB. No dizziness, syncope or near syncope. BP remains high but he just took AM meds. Tolerating nitro ointment. no headaches or vision changes. Allergies Allergy/AdvReac Type Severity Reaction Status Date / Time adhesive tape Allergy Intermediate red welps Unverified 05/23/23 19:28 codeine Allergy Intermediate shortness Unverified 05/23/23 19:28 of breath ~ nervous bacitracin AdvReac Intermediate blisters Unverified 05/23/23 19:28 [From Neosporin ([id number])] neomycin AdvReac Intermediate blisters Unverified 05/23/23 19:28 [From Neosporin ([id number])] polymyxin B AdvReac Intermediate blisters Unverified 05/23/23 19:28 [From Neosporin ([id number])] Home Medications Medication Instructions Recorded Confirmed Type aspirin 81 mg tablet,delayed 81 mg PO HS 01/25/22 05/23/23 History release carbidopa 25 mg-levodopa 100 mg 1 tab PO QID 01/25/22 05/23/23 History tablet (Sinemet) carboxymethylcellulose sodium 1 % 1 drp ophthalmic (eye) QID 01/25/22 05/23/23 History eye liquid gel drops desonide 0.05 % topical gel 1 applic topical HS 01/25/22 05/23/23 History metronidazole 0.75 % topical cream 1 applic topical QAM 01/25/22 05/23/23 History (MetroCream) multivitamin 1 tab PO QAM 01/25/22 05/23/23 History vit C 250 mg-vit E 90 mg-zinc 40 1 tab PO DAILY 01/25/22 05/23/23 History mg-copper 1 [id number] capsule (PreserVision AREDS-2) atorvastatin 40 mg tablet 40 mg PO QAM 01/26/22 05/23/23 History ketotifen fumarate 0.025 % (0.035 1 drp ophthalmic (eye) BID PRN Dry 01/26/22 05/23/23 History %) eye drops (Zaditor) Eyes loteprednol etabonate 0.2 % eye 1 drp ophthalmic (eye) QID PRN Dry 01/26/22 05/23/23 History drops,suspension (Alrex) Eye(S) clopidogrel 75 mg tablet (Plavix) 75 mg PO DAILY 03/25/23 05/23/23 History dutasteride 0.5 mg capsule 0.5 mg PO DAILY #90 caps 03/25/23 05/23/23 Rx (Avodart) doxazosin 2 mg tablet 2 mg PO HS 05/23/23 05/23/23 History eplerenone 25 mg tablet 12.5 mg PO QAM 05/23/23 05/23/23 History metoprolol succinate 25 mg 12.5 mg PO QPM 05/23/23 05/23/23 History tablet,extended release 24 hr metoprolol succinate 25 mg 25 mg PO QAM 05/23/23 05/23/23 History tablet,extended release 24 hr polyethylene glycol 3350 17 gram 17 g PO DAILY PRN Constipation 05/23/23 05/23/23 History oral powder packet (Miralax) triamcinolone acetonide 0.1 % 1 applic topical BID PRN flare ups 05/23/23 05/23/23 History topical cream Patient History Medical History Acoustic neuroma s/p gamma knife treatment BPH (benign prostatic hyperplasia) CKD (chronic kidney disease), stage III Coronary artery disease 2006 - BMS to LAD 01/21/22 - BETH to LAD Hypertension Parkinsons disease Surgical History History of cataract surgery History of cholecystectomy History of partial colectomy Hx of appendectomy S/P coronary artery stent placement Family History Father Hypertension Heart disease Brother Lung cancer Mother Cancer Social History Smoking Status: Never smoker Second Hand Exposure: No; Do You Dip or Chew Tobacco: No; Hx Alcohol Use: No Hx Substance Use: No Preferred Language: [place]an Communication Ability: Effective Taker Off Required: No Beliefs That Will Affect Care: Latter-Day Latter-Day Beliefs: Anabaptism Current Living Situation: Spouse Other Information That Helps Us Care for You: No Feels Safe at Home: Yes Safety Concerns: Feels Safe At This Time Assistive Devices: Cane, Walker and Other Review of Systems Review of Systems: All systems reviewed & are unremarkable except as noted in HPI & below Physical Exam Constitutional: WD/WN, vitals as above + thin and + frail appearing; no acute distress Neck: trachea midline, no thyromegaly Respiratory: normal respiratory effort Auscultation: lungs clear to auscultation bilaterally Cardiovascular: Rate/Rhythm: regular rate and regular rhythm Heart Sounds: normal S1 and normal S2; no murmur Vessels: no JVD Extremities: no edema Gastrointestinal (Abdomen): normal bowel sounds, soft, nontender, no hepato splenomegaly Neurologic: PERRL, EOMI, accommodation nl, no face palsy, no dysarthria Results & Data Vital Signs (Past 12 Hours) Vital Signs Temp Pulse Pulse Resp BP BP Pulse Ox 05/24/23 07:39 68 05/24/23 07:08 36.4 C L 77 18 169/92 H 95 05/24/23 05:42 156/73 H 05/24/23 02:57 36.7 C 66 20 171/88 H 93 05/24/23 01:05 69 194/83 H 05/24/23 00:01 62 205/114 H 05/23/23 23:17 71 212/71 H 05/23/23 22:45 36.3 C L 67 20 201/89 H 97 05/23/23 22:24 69 05/23/23 22:17 65 20 155/84 H 94 05/23/23 21:33 80 18 178/90 H 96 05/23/23 21:28 76 200/111 H O2 Del Method 05/24/23 07:39 05/24/23 07:08 Room Air 05/24/23 05:42 05/24/23 02:57 Room Air 05/24/23 01:05 05/24/23 00:01 05/23/23 23:17 05/23/23 22:45 Room Air 05/23/23 22:24 05/23/23 22:17 Room Air 05/23/23 21:33 Room Air 05/23/23 21:28 Laboratory Results Cardiac Enzymes 05/23/23 05/23/23 05/24/23 Range/Units 18:15 22:04 05:24 AST 43 H (13-39) U/L Troponin I High Sens 10.0 10.1 11.6 (0-20) pg/ml CBC 05/23/23 05/24/23 Range/Units 18:15 05:24 WBC 7.54 6.86 (4.8-10.8) K/ul RBC 4.88 4.50 L (4.70-6.10) M/uL Hgb 13.2 L 12.2 L (14.0-18.0) g/dl Hct 42.1 38.8 L (42.0-52.0) % Plt Count 217 200 (130-400) K/uL Neut # (Auto) 5.28 4.46 (1.40-6.50) K/uL Lymph # (Auto) 1.41 1.60 (1.2-3.4) K/uL [place] # (Auto) 0.67 H 0.62 H (0.11-0.59) K/uL Eos # (Auto) 0.10 0.12 (0-0.50) K/uL Baso # (Auto) 0.05 0.04 (0-0.2) K/uL Comprehensive Metabolic Panel 05/23/23 05/24/23 Range/Units 18:15 05:24 Sodium 139 140 (136-145) mmol/L Potassium 4.0 3.8 (3.5-5.1) mmol/L Chloride 105 108 H (98-107) mmol/L Carbon Dioxide 28 29 (21-32) mmol/L BUN 28 H 25 H (6-23) mg/dl Creatinine 1.33 1.20 (0.6-1.4) mg/dl Glucose 94 86 (70-99(Fasting)) mg/dl Calcium 8.7 8.3 L (8.6-10.3) mg/dl AST 43 H (13-39) U/L ALT 33 (7-52) U/L Alkaline Phosphatase 147 H (34-104) U/L Total Protein 7.0 (6.0-8.3) gm/dl Albumin 3.9 (3.4-5.0) gm/dl Intake and Output 05/23/23 05/24/23 05/24/23 22:59 06:59 14:59 Intake Total 500 / 500 Output Total 150 / 150 Balance 500 / 350 -150 / 350 Intake: IV 500 / 500 Sodium Chloride 0.9% 500 ml @ 500 / 500 999 mls/hr IV .Q31M ONE Rx#: [id number] Output: Urine 150 / 150 Other: Weight 62 kg 62 kg Weight Measurement Method [facility] Diagnostic Findings Telemetry reviewed: NSR with HR's in the 80's, occ PAC EKG reviewed from 05/23/23: Sinus rhythm with short AL Artifact at baseline. When compared with prior EKG in January 2022 T wave inversion no longer evident in Anterior lead echo report reviewed from today, 05/24/23: Mild concentric LVH No regional wall motion abnormalities noted. LVEF 55-60% RV is normal in size and function Grade I diastolic dysfunction Aortic valve sclerosis mild, without significant aortic valvular stenosis. Chest X-Ray 05/23/23 17:59 XR chest 1V portable CLINICAL HISTORY: Chest pain, nonspecific COMPARISON STUDY: Chest radiograph January 31, 2022. FINDINGS: Lung volumes are normal. Lungs are clear. There is no pneumothorax or pleural effusion. Cardiomegaly is unchanged. Linear left basilar opacity is unchanged and favors atelectasis or scarring. Mediastinal contours are normal. There is no evidence for pulmonary edema. Nipple shadow projects over the right lower chest. IMPRESSION: No acute cardiopulmonary findings. No change in appearance of the chest. ACT 112: Negative or not required by law. Electronically signed by: Javad Rubalcava M.D. 05/23/2023 6:46 PM Echo report reviewed from 1 year ago - December 2021 at [facility]: Compared to prior study, no significant change LVEF 55-60% Mild concentric LVH Small to moderate wall motion abnormalit with hypokinesis ot akinesis of the apical segments Mild TR Doppler findings do not suggest pulm hypertension Medications Administered Cardiac Enzymes 07/23/23 07/23/23 07/24/23 Range/Units 18:15 22:04 05:24 AST 43 H (13-39) U/L Troponin I High Sens 10.0 10.1 11.6 (0-20) pg/ml CBC 05/23/23 05/24/23 Range/Units 18:15 05:24 WBC 7.54 6.86 (4.8-10.8) K/ul RBC 4.88 4.50 L (4.70-6.10) M/uL Hgb 13.2 L 12.2 L (14.0-18.0) g/dl Hct 42.1 38.8 L (42.0-52.0) % Plt Count 217 200 (130-400) K/uL Neut # (Auto) 5.28 4.46 (1.40-6.50) K/uL Lymph # (Auto) 1.41 1.60 (1.2-3.4) K/uL [place] # (Auto) 0.67 H 0.62 H (0.11-0.59) K/uL Eos # (Auto) 0.10 0.12 (0-0.50) K/uL Baso # (Auto) 0.05 0.04 (0-0.2) K/uL Comprehensive Metabolic Panel 05/23/23 05/24/23 Range/Units 18:15 05:24 Sodium 139 140 (136-145) mmol/L Potassium 4.0 3.8 (3.5-5.1) mmol/L Chloride 105 108 H (98-107) mmol/L Carbon Dioxide 28 29 (21-32) mmol/L BUN 28 H 25 H (6-23) mg/dl Creatinine 1.33 1.20 (0.6-1.4) mg/dl Glucose 94 86 (70-99(Fasting)) mg/dl Calcium 8.7 8.3 L (8.6-10.3) mg/dl AST 43 H (13-39) U/L ALT 33 (7-52) U/L Alkaline Phosphatase 147 H (34-104) U/L Total Protein 7.0 (6.0-8.3) gm/dl Albumin 3.9 (3.4-5.0) gm/dl Intake and Output 05/23/23 05/24/23 05/24/23 22:59 06:59 14:59 Intake Total 500 / 500 Output Total 150 / 150 Balance 500 / 350 -150 / 350 Intake: IV 500 / 500 Sodium Chloride 0.9% 500 ml @ 500 / 500 999 mls/hr IV .Q31M ONE Rx#: [id number] Output: Urine 150 / 150 Other: Weight 62 kg 62 kg Weight Measurement Method [facility] Built in [facility] (3) Coronary artery disease Coronary Disease-Associated Artery/Lesion type: unspecified vessel or lesion type [place] vs. transplanted heart: [place] heart (4) Syncope Syncope type: unspecified Qualified Code(s): R55 - Syncope and collapse
[2023-05-24] MEDS ORDERED: NON-FORMULARY MEDICATION (Vit C,E-Zn-Coppr-Lutein-Zeaxan [Preservision Areds-2] 250-90-40- PO SCH (09:00)
--- NOTE | 2023-05-24 11:23 | Electrocardiogram Report ---
Test Reason : Blood Pressure : / mmHG Vent. Rate : 077 BPM Atrial Rate : 077 BPM P-R Int : 124 ms QRS Dur : 082 ms QT Int : 400 ms P-R-T Axes : 021 033 072 degrees QTc Int : 452 ms Normal sinus rhythm with sinus arrhythmia Normal ECG When compared with ECG of 05-FEB-2022 05:01, Premature supraventricular complexes are no longer Present T wave inversion no longer evident in Anterolateral leads Confirmed by Catarino Roberts ([id number]) on 05/24/2023 11:23:20 AM Referred By: REFERRED SELF Confirmed By:Catarino Roberts
[2023-05-24] MEDS: NITROGLYCERIN 0.4 MG/HR PATCH TD SCH (12:56)
--- NOTE | 2023-05-24 16:26 | Hospitalist Progress Note ---
Date of Service May 24, 2023 Assessment & Plan (1) Chest pain: Plan: 77-year-old male with past medical significant for hyperlipidemia, CAD s/p stent, history of non-ST elevated [place] hypertension, macular degeneration, Meckel's diverticulum, BPH, chronic kidney stage III, bilateral lower extremity edema, Parkinson's disease, right acoustic neuroma who lives at home with his was brought in because of chest pains and also an episode of syncope. Chest pain Hypertensive urgency: SBPs in 200s at presentation Labile HTN Initial work-up is negative (trops, ekg). ECHO: EF 55-60%; mild concentric LVH, Gr I diastolic dysfunction. Currently chest pain-free History of CAD s/p stent c/w tele monitoring. cardiology evaled, optimizing bp meds, on nitro patch for bp, no further ischemic w/u for now. Pt is chest pain free. Syncope History of syncope in the past Patient blood pressure was low in the morning [employer] as per the History of Parkinson's echo reviewed, c/w telemetry likely 2/2 labile HTN, no more lightheadedness History of Parkinson's: Continue his home medications CAD s/p stent: On aspirin statin and beta-ravinder and Plavix, continue BPH: On doxazosin and dutasteride Hypertension: On metoprolol succinate, doxazosin, and eplerenone. We will monitor the blood pressure Chronic kidney disease stage III: Presented with creatinine of 1.3. We will follow the labs DVT prophylaxis: hep sc. pt/ot, cm to assit w/ dc plan. Full code (2) Syncope: Admission and Anticipated Discharge Date Admission Date: May 23, 2023 Subjective Patient seen and examined at bedside as a follow-up of chest pain, hypertensive urgency. Patient was sitting up in chair, ready to eat his lunch, NAD, denies headache or dizziness or chest pain, reports feeling better, reports eating okay and moving bowels okay. Physical Exam Physical Exam: GENERAL: Alert and oriented x3. NAD, on RA. HEENT: No pallor, no icterus. Pupils equal, round and reactive to light. Oral mucosa moist. NECK: No JVD, no neck masses. HEART: S1 and S2 heard. Regular rate and rhythm. No murmur, no gallop. RESPIRATORY SYSTEM: Normal AP diameter. No accessory muscle use. No wheezing, no crackles. ABDOMEN: Soft, bowel sounds present, nontender, no distention. CENTRAL NERVOUS SYSTEM: No facial droop. Speech is clear. Obeys simple commands. Moves extremities. EXTREMITIES: No edema, no erythema seen. Results & Data Results & Data Vital Signs (Past 12 Hours) Vital Signs Temp Pulse Pulse Resp BP Pulse Ox O2 Del Method 05/24/23 15:14 36.7 C 68 18 168/89 H 97 Room Air 05/24/23 11:03 36.4 C L 71 81 H 134/74 95 Room Air 05/24/23 09:27 Room Air 05/24/23 07:39 68 05/24/23 07:08 36.4 C L 77 18 169/92 H 95 Room Air 05/24/23 05:42 156/73 H (2) Syncope Syncope type: unspecified Qualified Code(s): R55 - Syncope and collapse
[2023-05-24] MEDS: ASPIRIN 81 MG ECTAB PO SCH (20:19)
[2023-05-24] MEDS: HEPARIN SOD 5,000 UNIT/0.5 ML VIAL SQ SCH (20:24)
[2023-05-25] MEDS ORDERED: LABETALOL HCL IV 5 MG/ML 20ML IV STA ×2 (03:40→23:37)
[2023-05-25] MEDS: NITROGLYCERIN 0.4 MG/HR PATCH TD SCH (07:46)
[2023-05-25] MEDS: MULTIVITAMIN TAB PO SCH (07:47)
[2023-05-25] MEDS: CLOPIDOGREL BISULFATE 75 MG TAB PO SCH (07:47)
[2023-05-25] MEDS: ATORVASTATIN 40 MG TAB PO SCH (07:47)
[2023-05-25] MEDS: CARBIDOPA/LEVODOPA 25/100MG TAB PO SCH ×4 (07:47→20:05)
[2023-05-25] MEDS: ASPIRIN 81 MG ECTAB PO SCH (07:47)
[2023-05-25] MEDS: HEPARIN SOD 5,000 UNIT/0.5 ML VIAL SQ SCH ×2 (07:48→20:06)
[2023-05-25] MEDS: FINASTERIDE 5 MG TAB PO SCH (07:48)
[2023-05-25] MEDS: METOPROLOL SUCC 25MG EXT REL TAB PO SCH ×2 (07:49→20:06)
--- NOTE | 2023-05-25 08:47 | Electrocardiogram Report ---
Test Reason : Blood Pressure : / mmHG Vent. Rate : 078 BPM Atrial Rate : 078 BPM P-R Int : 124 ms QRS Dur : 076 ms QT Int : 414 ms P-R-T Axes : 040 049 057 degrees QTc Int : 471 ms Poor data quality, interpretation may be adversely affected Normal sinus rhythm Normal ECG When compared with ECG of 24-MAY-2023 05:51, No significant change was found Confirmed by Catarino Roberts ([id number]) on 05/25/2023 8:47:22 AM Referred By: REFERRED SELF Confirmed By:Catarino Roberts
[2023-05-25 09:44] LABS: Hematocrit (blood only) 39.7 % (42.0-52.0); Hemoglobin 12.5 g/dl (14.0-18.0); Mean Corpuscular Hemoglobin 26.7 pg (25.0-34.0); Mean Corpuscular Hgb Conc 31.5 g/dL (32.0-36.0); Mean Corpuscular Volume 84.6 fL (80.0-100.0); Mean Platelet Volume 10.7 fL (9.4-12.4); Platelet Count 207 K/uL (130-400); RDW Coefficient of Variation 14.6 % (11.5-14.5); RDW Standard Deviation 44.5 fL (36.4-46.3); Red Blood Count 4.69 M/uL (4.70-6.10); White Blood Count 9.38 K/ul (4.8-10.8)
[2023-05-25 09:55] LABS: BUN Creatinine Ratio 26.5 (10-20); Calcium 8.5 mg/dl (8.6-10.3); Creatinine Clr Calc Pharmacy 46.1 ml/min; Est GFR (African American) 71.3 ml/min; Est GFR (Non-African American) 61.5 ml/min; Potassium 3.6 mmol/L (3.5-5.1)
--- NOTE | 2023-05-25 12:35 | Cardiology Progress Note ---
Date of Service May 25, 2023 Assessment & Plan (1) Hypertensive urgency: (2) Chest pain: (3) Coronary artery disease: (4) Syncope: (5) Parkinsons disease: Plan Patient admitted with episode of chest pain, lasting approx 30 min, resolved by the time he got to the ER. Apparently he also had syncopal event at home as well, while sitting in chair. Patient not able to recall events surrounding this. reports he just 'stares off into space" - [place] true sycnope. Consider neuro eval/follow up. Upon arrival to ER, uncontrolled hypertension noted. Treated with IV labetalol. Home dose metoprolol continued at 25 mg in AM and 12.5 mg in PM. Doxazosin continued (for BPH) Nitro ointment added for BP support. HS troponin negative x3. Echo demonstrating preserved LVEF without wall motion abnormalities. No recurrent chest pain since admission. Nitro ointment changed to nitro patch. BP improved yesterday afternoon with this adjustment and he tolerated without symptoms of ROY or dizziness. BP trended higher overnight when nitro patch was removed. will increase metoprolol to 25 mg BID to aid with PM BP. Nitro patch is often used in patient's with Parkinson's and labile BP, history of orthostasis. If he has symptomatic hypotension at home, Nitro patch could be removed. No further cardiac testing warranted at this time. Recommend PT/OT. If stable and BP remains well controlled this afternoon, consider discharge later today. Patient anxious to go home Case discussed with Dr. Rae I spent a total of 30 minutes on the date of service in preparation, delivery, and documentation of the care provided to this patient, excluding any time spent in the performance of separately billed services. Teresa Christianson PA-C Department of Cardiology, [facility] This chart was completed in part utilizing Speech Voice Recognition Software. Grammatical errors, random word insertions, pronoun errors, and incomplete sentences are an occasional consequence of this system due to software limitations, ambient noise, and hardware issues. Any formal questions or concerns about the content, text, or information contained within the body of this dictation should be directly addressed to the provider for clarification. Admission and Anticipated Discharge Date Admission Date: May 23, 2023 Supervising Physician Co-Signing Physician Notes Cardiology Attending: I agree with Aurea Palomino findings and plans as noted with additions as below. I personally performed a history and physical examination on Mr Hunter. His spouse is at the bedside and offers helpful insight. BP has improved. No low BP readings noted. Exam: CV: regular rhythm, no murmurs, no edema Pulm: CTAB Impression Parkinson's Labile HTN -Improved with nitroglycerin patch. Recommend DC on nitroglycerin patch , to be placed daily in am , removed at bedtime. Remove for symptomatic hypotension. -Pt eager for DC with home PT. Go Rae , Subjective Patient resting in chair at time of evaluation. He had just been ambulating in room without dizziness or exertional chest pain. No recurrent pain since admission. BP improved yesterday with nitro patch. BP trended higher through the night, but improved this morning when nitro patch was replaced. No headaches Review of Systems Review of Systems: All systems reviewed & are unremarkable except as noted in HPI & below Physical Exam Constitutional: WD/WN, vitals as above + thin and + frail appearing; no acute distress Neck: trachea midline, no thyromegaly Respiratory: normal respiratory effort Auscultation: lungs clear to auscultation bilaterally Cardiovascular: Rate/Rhythm: regular rate and regular rhythm Heart Sounds: normal S1 and normal S2; no murmur Vessels: no JVD Extremities: no edema Gastrointestinal (Abdomen): normal bowel sounds, soft, nontender, no hepatosplenomegaly Neurologic: PERRL, EOMI, accommodation nl, no face palsy, no dysarthria Results & Data Vital Signs (Past 12 Hours) Vital Signs Temp Pulse Pulse Resp BP BP Pulse Ox 05/25/23 11:14 36.3 C L 72 20 105/68 94 05/25/23 07:41 36.6 C 80 20 174/88 H 94 05/25/23 07:12 85 05/25/23 04:40 82 168/95 H 05/25/23 04:25 77 185/105 H 05/25/23 03:31 36.4 C L 77 20 180/96 H 93 O2 Del Method 05/25/23 11:14 Room Air 05/25/23 07:41 Room Air 05/25/23 07:12 05/25/23 04:40 05/25/23 04:25 05/25/23 03:31 Room Air Laboratory Results Cardiac Enzymes 05/24/23 Range/Units 16:53 Troponin I High Sens 11.4 (0-20) pg/ml CBC 05/25/23 Range/Units 08:57 WBC 9.38 (4.8-10.8) K/ul RBC 4.69 L (4.70-6.10) M/uL Hgb 12.5 L (14.0-18.0) g/dl Hct 39.7 L (42.0-52.0) % Plt Count 207 (130-400) K/uL Comprehensive Metabolic Panel 05/25/23 Range/Units 08:57 Sodium 138 (136-145) mmol/L Potassium 3.6 (3.5-5.1) mmol/L Chloride 105 (98-107) mmol/L Carbon Dioxide 27 (21-32) mmol/L BUN 30 H (6-23) mg/dl Creatinine 1.13 (0.6-1.4) mg/dl Glucose 108 H (70-99(Fasting)) mg/dl Calcium 8.5 L (8.6-10.3) mg/dl Intake and Output 05/24/23 05/25/23 05/25/23 22:59 06:59 14:59 Intake Total 480 / 480 Output Total 78 / 281 203 / 281 Balance 402 / 199 -203 / 199 Intake: Oral 480 / 480 Output: Urine 75 / 276 201 / 276 # Bowel Movements 3 / 5 2 / 5 Other: # Unmeasured Voids 1 2 Weight 62 kg Weight Measurement Method Built in [facility] Diagnostic Findings Telemetry reviewed: NSR in the 70's. No arrhythmias Echo results reviewed - Mild LVH Normal LVEF 55-60% without wall motion abnormalities. Grade I diastolic dysfunction Aortic valve sclerosis without stenosis Medications Administered Current Inpatient Medications Acetaminophen (Acetaminophen 325 Mg Tab) 650 mg PO Q4H PRN PRN Reason: Pain or Fever Stop: 06/22/23 23:00 Aspirin (Aspirin 81 Mg Ectab) 81 mg PO HS IMMANUEL Stop: 06/22/23 23:00 Last Admin: 05/25/23 07:47 Dose: 81 mg Atorvastatin Calcium (Atorvastatin 40 Mg Tab) 40 mg PO QAM IMMANUEL Stop: 06/23/23 08:59 Last Admin: 05/25/23 07:47 Dose: 40 mg Carbidopa/Levodopa (Carbidopa/Levodopa 25/100mg Tab) 1 tab PO QID IMMANUEL Stop: 06/23/23 08:59 Last Admin: 05/25/23 07:47 Dose: 1 tab Clopidogrel Bisulfate (Clopidogrel Bisulfate 75 Mg Tab) 75 mg PO DAILY [facility] Stop: 06/23/23 08:59 Last Admin: 05/25/23 07:47 Dose: 75 mg Doxazosin Mesylate (Doxazosin Mesylate Tab 2 Mg Tab) 2 mg PO HS [facility] Stop: 06/22/23 23:00 Last Admin: 05/24/23 20:19 Dose: 2 mg Finasteride (Finasteride 5 Mg Tab) 5 mg PO DAILY [facility] Stop: 06/23/23 08:59 Last Admin: 05/25/23 07:48 Dose: 5 mg Heparin Sodium (Porcine) (Heparin Sod 5,000 Unit/0.5 Ml Vial) 5,000 units SQ Q12 [facility] Stop: 06/23/23 20:59 Last Admin: 05/25/23 07:48 Dose: 5,000 units Metoprolol Succinate (Metoprolol Succ 25mg Ext Rel Tab) 25 mg PO BID [facility] Stop: 06/24/23 20:59 Miscellaneous (Remove Nitro-Dur Patch) 1 each N/A DAILY@2100 [facility] Stop: 06/23/23 20:59 Last Admin: 05/24/23 20:24 Dose: 1 each Multivitamins (Multivitamin Tab) 1 tab PO QAM [facility] Stop: 06/23/23 08:59 Last Admin: 05/25/23 07:47 Dose: 1 tab Nitroglycerin (Nitroglycerin Sl 0.4 Mg/Tab Tab) 0.4 mg SL Q5M PRN PRN Reason: Chest Pain Stop: 06/22/23 23:00 Nitroglycerin (Nitroglycerin 0.4 Mg/Hr Patch) 1 patch TD QAM [facility] Stop: 06/23/23 12:14 Last Admin: 05/25/23 07:46 Dose: 1 patch Polyethylene Glycol (Polyethylene (Miralax) 17 Gm Pack) 17 gm PO DAILY PRN PRN Reason: Constipation Stop: 06/22/23 23:00 Triamcinolone Acetonide (Triamcinolone Acet 0.1% Cr 15 Gm Tube) 1 appln TOP BID PRN PRN Reason: flare ups Stop: 06/22/23 23:00 (3) Coronary artery disease Coronary Disease-Associated Artery/Lesion type: unspecified vessel or lesion type [place] vs. transplanted heart: [place] heart (4) Syncope Syncope type: unspecified Qualified Code(s): R55 - Syncope and collapse
--- NOTE | 2023-05-25 18:12 | Hospitalist Progress Note ---
Date of Service May 25, 2023 Assessment & Plan (1) Chest pain: Plan: 77-year-old male with past medical significant for hyperlipidemia, CAD s/p stent, history of non-ST elevated [place] hypertension, macular degeneration, Meckel's diverticulum, BPH, chronic kidney stage III, bilateral lower extremity edema, Parkinson's disease, right acoustic neuroma who lives at home with his was brought in because of chest pains and also an episode of syncope. Chest pain Hypertensive urgency: SBPs in 200s at presentation Labile HTN Initial work-up is negative (trops, ekg). ECHO: EF 55-60%; mild concentric LVH, Gr I diastolic dysfunction. Currently chest pain-free History of CAD s/p stent c/w tele monitoring. cardiology evaled, optimizing bp meds, on nitro patch for bp, no further ischemic w/u for now. Pt is chest pain free. Blood pressure better controlled on Nitropatch. Syncope History of syncope in the past Patient blood pressure was low in the morning CHECKER IN as per the History of Parkinson's echo reviewed, c/w telemetry likely 2/2 labile HTN, no more lightheadedness History of Parkinson's: Continue his home medications CAD s/p stent: On aspirin statin and beta-ravinder and Plavix, continue BPH: On doxazosin and dutasteride Hypertension: On metoprolol succinate, doxazosin, and eplerenone. We will monitor the blood pressure Chronic kidney disease stage III: Presented with creatinine of 1.3. We will follow the labs DVT prophylaxis: hep sc. pt/ot, cm to assit w/ dc plan. Family wants to take him home with home health, CM to arrange. Full code (2) Syncope: Admission and Anticipated Discharge Date Admission Date: May 23, 2023 Subjective Patient seen and examined at bedside as a follow-up of chest pain, hypertensive urgency. Patient was sitting up in chair, On room air, NAD, denies headache /improved blood pressure while on Nitropatch , denies dizziness or chest pain, reports feeling better, reports eating okay and moving bowels okay. patient's at bedside, updated. after PT/OT eval which suggested short-term SNF stay, I was made aware that the patient wanted to go home with home health. I called the patient and his and they wanted the home health to be set up before they leave but they remain unsatisfied because it cannot be done today. We will let the case therapist know first thing in the morning tomorrow. Physical Exam Physical Exam: GENERAL: Alert and oriented x3. NAD, on RA. HEENT: No pallor, no icterus. Pupils equal, round and reactive to light. Oral mucosa moist. NECK: No JVD, no neck masses. HEART: S1 and S2 heard. Regular rate and rhythm. No murmur, no gallop. RESPIRATORY SYSTEM: Normal AP diameter. No accessory muscle use. No wheezing, no crackles. ABDOMEN: Soft, bowel sounds present, nontender, no distention. CENTRAL NERVOUS SYSTEM: No facial droop. Speech is clear. Obeys simple c ommands. Moves extremities. EXTREMITIES: No edema, no erythema seen. Results & Data Results & Data Vital Signs (Past 12 Hours) Vital Signs Temp Pulse Pulse Resp BP Pulse Ox O2 Del Method 05/25/23 17:01 70 05/25/23 15:50 36.4 C L 65 19 138/70 95 Room Air 05/25/23 11:14 36.3 C L 72 20 105/68 94 Room Air 05/25/23 07:41 36.6 C 80 20 174/88 H 94 Room Air 05/25/23 07:12 85 (2) Syncope Syncope type: unspecified Qualified Code(s): R55 - Syncope and collapse
[2023-05-25] MEDS: DOXAZosin MESYLATE TAB 2 MG TAB PO SCH (20:06)
[2023-05-26] MEDS ORDERED: LABETALOL HCL IV 5 MG/ML 20ML IV STA (06:21)
[2023-05-26] MEDS: METOPROLOL SUCC 25MG EXT REL TAB PO SCH (08:09)
[2023-05-26] MEDS: CARBIDOPA/LEVODOPA 25/100MG TAB PO SCH ×2 (08:10→12:29)
[2023-05-26] MEDS: MULTIVITAMIN TAB PO SCH (08:10)
[2023-05-26] MEDS: FINASTERIDE 5 MG TAB PO SCH (08:11)
[2023-05-26] MEDS: HEPARIN SOD 5,000 UNIT/0.5 ML VIAL SQ SCH (08:11)
[2023-05-26] MEDS: ATORVASTATIN 40 MG TAB PO SCH (08:11)
[2023-05-26] MEDS: CLOPIDOGREL BISULFATE 75 MG TAB PO SCH (08:11)
[2023-05-26] MEDS: NITROGLYCERIN 0.4 MG/HR PATCH TD SCH (08:48)
--- NOTE | 2023-05-26 10:30 | Discharge Summary ---
Date of Service May 26, 2023 Admission HPI Per Admitting Provider 77-year-old male with past medical significant for hyperlipidemia, CAD s/p stent, history of non-ST elevated [place] hypertension, macular degeneration, Meckel's diverticulum, BPH, chronic kidney stage III, bilateral lower extremity edema, Parkinson's disease, right acoustic neuroma who lives at home with his was brought in because of chest pains and also an episode of syncope. As per in the morning his systolic blood pressure was in 70s.Seems in the morning during breakfast time patient was sitting on a stool and seems nonresponsive with just staring is worried that he may fall down she helped him to the chair. It lasted about 3 minutes and he was back to his usual self as per . Patient checked his blood pressure after the episode and the systolic blood pressure was in 114 range. Patient states in the left chest pain around 2 PM achy kind of pain radiating to his left arm about 2/10 by severity. He notified his around 4 PM. He took 4 aspirins. By time EMS came pain subsided. Currently chest pain-free. Blood pressure is somewhat high in the ER. is worried that blood pressure may drop lower and request to be gentle with blood pressure medications. Patient denies any headache or dizziness. No earache or runny nose or sore throat. Currently no cough. No shortness of breath. Says he always sweats from his Parkinson's. No nausea or abdominal pain. Normal bowel and bladder movements. Currently resting comfortably and hemodynamically stable Admission Exam Per Admitting Provider General- Not in distress Head- atraumatic Eyes- PERRL ENT- oropharynx clear Neck- supple, no JVD Lungs- clear to auscultation and percussion Heart- regular rhythm; no murmur, no gallop, no rub appreciated Abdomen- normal bowel sounds, soft, nontender, no distension Extremities-mild pedal edema present. left leg shorter than right.. Neuro- alert, oriented x 3; PERRL, no facial palsy; no dysarthria;moves extremities, obeys commands. Skin- warm & dry Principal Diagnosis Chest pain, syncope, labile hypertension, hypertensive urgency Discharge Exam GENERAL: Alert and oriented x3. NAD, on RA. HEENT: No pallor, no icterus. Pupils equal, round and reactive to light. Oral mucosa moist. NECK: No JVD, no neck masses. HEART: S1 and S2 heard. Regular rate and rhythm. No murmur, no gallop. RESPIRATORY SYSTEM: Normal AP diameter. No accessory muscle use. No wheezing, no crackles. ABDOMEN: Soft, bowel sounds present, nontender, no distention. CENTRAL NERVOUS SYSTEM: No facial droop. Speech is clear. Obeys simple commands. Moves extremities. EXTREMITIES: No edema, no erythema seen. Discharge Data Allergies Allergy/AdvReac Type Severity Reaction Status Date / Time adhesive tape Allergy Intermediate red welps Unverified 05/23/23 19:28 codeine Allergy Intermediate shortness Unverified 05/23/23 19:28 of breath ~ nervous bacitracin AdvReac Intermediate blisters Unverified 05/23/23 19:28 [From Neosporin ([id number])] neomycin AdvReac Intermediate blisters Unverified 05/23/23 19:28 [From Neosporin ([id number])] polymyxin B AdvReac Intermediate blisters Unverified 05/23/23 19:28 [From Neosporin ([id number])] Consultations 05/23/23 20:31 ED Decision to Admit Stat 05/24/23 08:00 Consult Cardiology Routine Hospital Course (1) Chest pain: 77-year-old male with past medical significant for hyperlipidemia, CAD s/p stent, history of non-ST elevated [place] hypertension, macular degeneration, Meckel's diverticulum, BPH, chronic kidney stage III, bilateral lower extremity edema, Parkinson's disease, right acoustic neuroma who lives at home with his was brought in because of chest pains and also an episode of syncope. He was managed for the following: Chest pain Hypertensive urgency: SBPs in 200s at presentation Labile HTN Initial work-up is negative (trops, ekg). ECHO: EF 55-60%; mild concentric LVH, Gr I diastolic dysfunction. Currently chest pain-free History of CAD s/p stent cardiology evaled, optimizing bp meds, on nitro patch for bp, no further ischemic w/u for now. Metoprolol increased to 25 mg twice a day. Patient to take home eplerenone daily in the night to help with night blood pressure management Pt is chest pain free. Blood pressure better controlled on Nitropatch. Patient to follow-up with cardiology in 1 to 2 months time upon discharge. Syncope History of syncope in the past Patient blood pressure was low in the morning SPRING TIER as per the History of Parkinson's echo reviewed, c/w telemetry likely 2/2 labile HTN, no more lightheadedness. History of Parkinson's: Continue his home medications CAD s/p stent: On aspirin statin and beta-ravinder and Plavix, continue BPH: On doxazosin and dutasteride Hypertension: On metoprolol succinate, doxazosin, and eplerenone. We will monitor the blood pressure Chronic kidney disease stage III: Presented with creatinine of 1.3. We will follow the labs DVT prophylaxis: hep sc. Full code Patient being discharged home with home health with following instruction at the point of discharge: Follow-up with your primary care physician within a week time and likely you will need labs CBC/CMP/magnesium/phosphorus. Take your home eplerenone daily in the evening to help with your evening blood pressure management. For your labile hypertension, cardiology evaluated you, your metoprolol dose has been increased to 25 mg twice a day, you are started on nitroglycerin patch. Follow-up with your cardiology in 1 to 2 months time. Take your medications as prescribed. Please make sure that you are able to get your medications today by calling your pharmacy before you leave the hospital so that your treatment continuity is not broken. (2) Syncope: Home Health Attestation I certify that this patient is under my care and that I, or a physicians anesthesia assistant working with me, had a face to-face encounter that meets the home health [id number] encounter requirements with this patient. The encounter with the patient was in whole, or in part, for the following medical condition, which is the primary reason for home health care (list medical condition): I certify that, based on my findings, the following services are medically necessary home health services: My clinical findings support the need for the above services because: Further, I certify that my clinical findings support that this patient is homebound (i.e. absences from home require considerable and taxing effort and are for medical reasons or church services or infrequently or of short duration when for other reasons) because: Certification for Home Health Services: Based on the above findings, I certify that this patient is confined to the home and needs intermittent group home care, physical therapy and/or speech therapy or continues to need occupational therapy. The patient is under my care, and I have initiated the establishment of the plan of care. This patient will be followed by a physician who will periodically review the plan of care. Total Time Total Time Spent Total Time Spent (In Minutes): 45 Discharge Plan Discharge Items Patient Disposition: Home - Home Health Services Reason For Visit: CHEST PAIN, SYNCOPE Discharge Diagnosis: Chest pain, syncope, labile hypertension, hypertensive urgency Activity: As commented below Activity Comment: Slow transition between lying to sitting and sitting to standing position. Non-emergency contact: Primary Care Provider Call non-emergency contact if: you have any medication questions, your symptoms worsen, your pain is not controlled and your temperature is above 101 Follow-up/Referrals: Edilia George MD [Primary Care Provider] - (Date & Time 06/01/2023 11:00 AM Provider Edilia George MD Department Family Medicine [facility] ) Diet: Heart Healthy and Low Sodium (2gm) Addtl Attending Provider Instructions: Follow-up with your primary care physician within a week time and likely you will need labs CBC/CMP/magnesium/phosphorus. Take your home eplerenone daily in the evening to help with your evening blood pressure management. For your labile hypertension, cardiology evaluated you, your metoprolol dose has been increased to 25 mg twice a day, you are started on nitroglycerin patch. Follow-up with your cardiology in 1 to 2 months time. Take your medications as prescribed. Please make sure that you are able to get your medications today by calling your pharmacy before you leave the hospital so that your treatment continuity is not broken. Pending Studies at Discharge: No Stand-Alone Forms: [facility] Medications and DC Order Prescriptions: New nitroglycerin [Nitro-Dur] 0.4 mg/hr Patch 24 Hour 1 patch transdermal QAM Qty: 30 0RF Continued clopidogrel [Plavix] 75 mg tablet 75 mg PO DAILY dutasteride [Avodart] 0.5 mg capsule 0.5 mg PO DAILY Qty: 90 3RF multivitamin Tablet 1 tab PO QAM aspirin 81 mg tablet,delayed release (DR/EC) 81 mg PO HS metronidazole [MetroCream] 0.75 % cream 1 applic TOPICAL QAM carbidopa-levodopa [Sinemet] 25-100 mg tablet 1 tab PO QID carboxymethylcellulose sodium 1 % Drops, Liquid Gel 1 drp OPHTHALMIC (EYE) QID desonide 0.05 % Gel 1 applic TOPICAL HS PreserVision AREDS-2 250-90-40-1 mg Capsule 1 tab PO DAILY atorvastatin 40 mg tablet 40 mg PO QAM ketotifen fumarate [Zaditor] 0.025 % (0.035 %) Drops 1 drp OPHTHALMIC (EYE) BID PRN (Reason: Dry Eyes) Alrex 0.2 % Drops,Suspension 1 drp OPHTHALMIC (EYE) QID PRN (Reason: Dry Eye(S)) polyethylene glycol 3350 [Miralax] 17 gram Powder In Packet 17 g PO DAILY PRN (Reason: Constipation) triamcinolone acetonide 0.1 % cream 1 applic TOPICAL BID PRN (Reason: flare ups) doxazosin 2 mg tablet 2 mg PO HS Changed metoprolol succinate 25 mg tablet extended release 24 hr 25 mg PO BID Qty: 60 0RF eplerenone 25 mg tablet 12.5 mg PO HS Qty: 15 0RF Discontinued metoprolol succinate 25 mg tablet extended release 24 hr 12.5 mg PO QPM Discharge Orders: Discharge Order (Routine); Ordered 05/26/23 Ordered By: Josue Lama Admission Data Admit Date/Time: 05/23/23 21:47 Attending Provider: Josue Lama Admit Provider: Joseph Hernandez Primary Care Provider: Edilia George Other Providers: Joseph Hernandez ; Romulo Rae
== END 2023-05-26 12:54 | disposition home health service (06) | DRG 305 ==
LOC: ED 17:54 → SUATTDRO 21:47 → 2S 21:47

== ENCOUNTER 2024-12-13 14:26 | Inpatient (IN) ==
--- NOTE | 2024-12-13 14:48 | Emergency Department Note ---
Impression & Plan Fall from standing, Fracture of femoral neck, left, Acute kidney injury superimposed on chronic kidney disease ED Provider Note HISTORY OF PRESENT ILLNESS: Patient is an 79-year-old male presenting with left hip pain after a fall. [facility] when he states that he just lost his footing and tripped and fell, landing on his left hip. He states that he did not have chest pain, shortness of breath or lightheadedness prior to the fall. He states that he has a history of Parkinson's and often gets tripped up. He denies striking his head or loss of consciousness. He is on Plavix and took it this morning. He is currently complaining of 2 out of 10 pain in his left hip. His left hip leg is chronically shortened as compared to his right. ROS: as above PHYSICAL EXAM: Constitutional: Patient appears in no acute distress. HENT: Head: Normocephalic and atraumatic. Eyes: EOMI, PERRL Mouth/Throat: Mucous membranes moist. Neck: Trachea midline. Neck supple. Cardiovascular: RRR, No murmurs, rubs or gallops. Intact distal pulses. Pulmonary/Chest: No respiratory distress. Breath sounds clear and equal bilaterally. No wheezes or rales. Abdominal: Abdomen soft, no tenderness, rebound or guarding. Musculoskeletal: - LLE: Patient's left lower extremity is shortened and externally rotated. Patient reports that shortening is chronic for him. He does have some reproducible tenderness to palpation of the proximal femur. Intact DP and PT pulses. Skin: Warm and dry. No rash, erythema, pallor or cyanosis Psychiatric: Appropriate mood and affect for situation. Neurological: Alert and keenly responsive. CN II-XII grossly intact, moving all extremities equally and fully. MDM: - Vitals signs showed hypertension - History obtained via patient. History as above. - Chronic conditions affecting care: CKD; HTN; CAD (s/p PCI); Parkinson's disease - Differential diagnoses include, but are not limited to: Pelvic fracture; femur fracture; femur dislocation; contusion - Order placed for continuous cardiac monitoring. At this time, monitor showed rate of 87 bpm with normal sinus rhythm, per my interpretation. - External medical records reviewed. Discharge summary dated 05/26/2023 was reviewed. Patient was admitted at that time for chest pain and hypertensive urgency. - EKG imaged interpreted by myself showed normal sinus rhythm. Rate 82 bpm. QT 416. No acute ischemic changes. - Xray image of pelvis with left hip shows a femoral neck fracture, per my interpretation. - IV was ordered for placement. Laboratory and chest x-ray for preoperative testing was also ordered. - Discussed case with orthopedic surgeon on-call, Dr. Ferrera, at 15:50. He plans to come evaluate the patient. Recommends admission to medicine. - Discussed case with patient and his family at bedside. He is stating that his pain is increasing and was willing to take a dose of Tylenol. 1 g IV Tylenol was ordered. - Laboratory workup interpreted by myself showed normal WBC; stable electrolytes; normal PT/INR; TESSA on CKD (Cr 1.57) - CXR image interpreted by myself is negative for pneumonia, per my interpretation. - Discussion was had with case packer about patient's case and need for admission - Hospitalist consulted for admission - Patient admitted to [facility] for further evaluation and management. ASSESSMENT AND PLAN: Diagnosis: Fall from standing; left femoral neck fracture; TESSA on CKD Plan: Admit Past Med/Surg History Problem List (Updated 12/13/24 @ 16:45 by Stephanie Siddiqui MD) Acute kidney injury superimposed on chronic kidney disease (Acute) Fracture of femoral neck, left (Acute) Fall from standing (Acute) Hypertensive urgency Chest pain (Acute) Urinary retention Benign prostatic hyperplasia with urinary obstruction DVT prophylaxis Parkinsons disease (Acute) Coronary artery disease (Acute) 2006 - [facility] to [facility]AD 01/21/22 - [facility] to LAD Hypertension CKD (chronic kidney disease), stage III Hypokalemia Presence of indwelling Ferro catheter (Acute) Syncope (Acute) Elevated troponin (Acute) Medical History Acoustic neuroma s/p gamma knife treatment BPH (benign prostatic hyperplasia) Surgical History History of cataract surgery History of partial colectomy History of cholecystectomy Hx of appendectomy S/P coronary artery stent placement Family History Father Hypertension Heart disease Brother Lung cancer Mother Cancer Social History Smoking Status: Never smoker Second Hand Exposure: No; Do You Dip or Chew Tobacco: No; Hx Alcohol Use: No Hx Substance Use: No Preferred Language: Nigerian Communication Ability: Effective Radiation Monitor Required: No Beliefs That Will Affect Care: Judaism Judaism Beliefs: Yazidism Current Living Situation: Spouse Feels Safe at Home: Yes Assistive Devices: Cane, Walker and Other Allergies Allergies Allergy/AdvReac Type Severity Reaction Status Date / Time adhesive tape Allergy Intermediate red welps Unverified 05/23/23 19:28 codeine Allergy Intermediate shortness Unverified 05/23/23 19:28 of breath ~ nervous bacitracin AdvReac Intermediate blisters Unverified 05/23/23 19:28 [From Neosporin ([id number])] neomycin AdvReac Intermediate blisters Unverified 05/23/23 19:28 [From Neosporin ([id number])] polymyxin B AdvReac Intermediate blisters Unverified 05/23/23 19:28 [From Neosporin ([id number])] Home Meds Home Medications Medication Instructions Recorded Confirmed aspirin 81 mg tablet,delayed 81 mg PO HS 01/25/22 05/23/23 release carbidopa 25 mg-levodopa 100 mg 1 tab PO QID 01/25/22 12/13/24 tablet (Sinemet) carboxymethylcellulose sodium 1 % 1 drp ophthalmic (eye) QID 01/25/22 05/23/23 eye liquid gel drops desonide 0.05 % topical gel 1 applic topical HS 01/25/22 05/23/23 metronidazole 0.75 % topical cream 1 applic topical QAM 01/25/22 05/23/23 (MetroCream) multivitamin 1 tab PO QAM 01/25/22 12/13/24 vit C 250 mg-vit E 90 mg-zinc 40 1 tab PO DAILY 01/25/22 05/23/23 mg-copper 1 ui-paawyx-gndoph capsule (PreserVision AREDS-2) atorvastatin 40 mg tablet 40 mg PO QAM 01/26/22 05/23/23 ketotifen fumarate 0.025 % (0.035 1 drp ophthalmic (eye) BID PRN Dry 01/26/22 05/23/23 %) eye drops (Zaditor) Eyes loteprednol etabonate 0.2 % eye 1 drp ophthalmic (eye) QID PRN Dry 01/26/22 05/23/23 drops,suspension (Alrex) Eye(S) clopidogrel 75 mg tablet (Plavix) 75 mg PO DAILY 03/25/23 12/13/24 polyethylene glycol 3350 17 gram 17 g PO DAILY PRN Constipation 05/23/23 05/23/23 oral powder packet (Miralax) triamcinolone acetonide 0.1 % 1 applic topical BID PRN flare ups 05/23/23 05/23/23 topical cream baclofen 10 mg tablet 10 mg PO UD 12/13/24 12/13/24 escitalopram oxalate 10 mg tablet 10 mg PO DAILY 12/13/24 12/13/24 pantoprazole 40 mg tablet,delayed 40 mg PO DAILY 12/13/24 12/13/24 release Previous Rx's Medication Instructions Recorded eplerenone 25 mg tablet 12.5 mg (1/2 x 25 mg) PO HS #15 05/26/23 tabs metoprolol succinate 25 mg 25 mg PO BID #60 tabs 05/26/23 tablet,extended release 24 hr nitroglycerin 0.4 mg/hr 1 patch transdermal QAM #30 ea 05/26/23 transdermal 24 hour patch (Nitro-Dur) doxazosin 2 mg tablet 2 mg PO HS #90 tabs 03/31/24 dutasteride 0.5 mg capsule 0.5 mg PO DAILY #90 caps 03/31/24 (Avodart) Results & Data (ED) Vital Signs Vital Signs - 24 hr 12/13/24 14:38 12/13/24 14:52 12/13/24 16:19 Temperature 36.5 C Temperature Source Oral Pulse Rate 84 87 Respiratory Rate 18 Blood Pressure 177/97 H Blood Pressure Mean 123 Pulse Oximetry 93 89 L Oxygen Delivery Method Room Air Nasal Cannula Oxygen Flow Rate 0 Sepsis Recent Fever Within 48 Hours No Sepsis New/Unexplained Change in Mental Status N/A Sepsis Action Taken by Nursing No Action Required Fraction of Inspired Oxygen - Titration 2 Pulse Oximetry Post Tiitration 92 Laboratory Data 12/13/24 15:38 12/13/24 15:38 Lab Results 12/13/24 Range/Units 15:38 WBC 6.82 (4.8-10.8) K/ul RBC 5.34 (4.70-6.10) M/uL Hgb 15.0 (14.0-18.0) g/dl Hct 46.9 (42.0-52.0) % MCV 87.8 (80.0-100.0) fL MCH 28.1 (25.0-34.0) pg MCHC 32.0 (32.0-36.0) g/dL RDW Std Deviation 44.5 (36.4-46.3) fL RDW Coeff of Boaz 14.0 (11.5-14.5) % Plt Count 193 (130-400) K/uL MPV 10.1 (9.4-12.4) fL Immature Gran % (Auto) 0.6 % Neut % (Auto) 87.0 % Lymph % (Auto) 7.5 % [place] % (Auto) 4.0 % Eos % (Auto) 0.6 % Baso % (Auto) 0.3 % Neut # (Auto) 5.94 (1.40-6.50) K/uL Lymph # (Auto) 0.51 L (1.20-3.40) K/uL [place] # (Auto) 0.27 (0.11-0.59) K/uL Eos # (Auto) 0.04 (0.00-0.50) K/uL Baso # (Auto) 0.02 (0.00-0.20) K/uL Immature Gran # (Auto) 0.04 (0.01-0.20) K/uL PT 10.4 (9.0-12.0) Seconds INR 1.0 (0.9-1.1) APTT 27 (21-31) Seconds PTT Ratio 1.0 Sodium 141 (136-145) mmol/L Potassium 3.9 (3.5-5.1) mmol/L Chloride 102 (98-107) mmol/L Carbon Dioxide 32 (21-32) mmol/L Anion Gap 7 (3-11) BUN 31 H (6-23) mg/dl Creatinine 1.57 H (0.6-1.4) mg/dl Est Cr Clr Drug Dosing 32.1 ml/min eGFR 44.01 BUN/Creatinine Ratio 19.7 (10-20) Glucose 100 H (70-99(Fasting)) mg/dl Calcium 9.1 (8.6-10.3) mg/dl Total Bilirubin 1.0 (0.2-1.0) mg/dl AST 15 (13-39) U/L ALT 7 (7-52) U/L Alkaline Phosphatase 100 (34-104) U/L Total Protein 7.3 (6.0-8.3) gm/dl Albumin 4.0 (3.4-5.0) gm/dl Globulin 3.3 (2.5-4.0) gm/dl Albumin/Globulin Ratio 1.2 (0.9-2) Urine Color Dark Yellow Urine Appearance Clear (Clear) Urine pH 6.0 (4.5-7.5) Ur Specific [place] 1.024 (1.000-1.030) Urine Protein Trace H (Negative) Urine Glucose (UA) Negative (Negative) Urine Ketones Trace H (Negative) Urine Blood Negative (Negative) Urine Nitrite Negative (Negative) Urine Bilirubin Negative (Negative) Urine Urobilinogen Negative (Negative) Ur Leukocyte Esterase Negative (Negative) Urine WBC (Auto) 0-5 (0-5) /hpf Urine RBC (Auto) 0-2 (0-2) /hpf U Hyaline Cast (Auto) 3-5 H (0-2) /lpf U Epithel Cells (Auto) 0-2 (0-2) /hpf Urine Bacteria (Auto) None Seen (None Seen) Administered Medications Discontinued Medications Acetaminophen (Ofirmev) 1,000 mg in 100 mls @ 400 mls/hr IV NOW STA Stop: 12/13/24 16:03 Last Admin: 12/13/24 16:06 Dose: 400 mls/hr Documented By: [facility] Imaging Data Radiologist's Impression: Hip/Pelvis X-Ray 12/13/24 14:45 XR hip LT 2V w pelvis CLINICAL HISTORY: L hip pain s/p fall COMPARISON: CT of the abdomen and pelvis January 25, 2022. FINDINGS: There is an acute displaced subcapital left femoral neck fracture. No additional fractures are identified on this exam. Proximal right femur is intact. Sacroiliac joints and symphysis pubis are intact. IMPRESSION: Acute displaced subcapital left femoral neck fracture. ACT 112: Negative or not required by law. Electronically signed by: Javad Rubalcava M.D. 12/13/2024 3:11 PM Discharge Plan Visit Data Chief Complaint: Fall Stated Complaint: FALL, HIP PAIN, ED Provider: Stephanie Siddiqui Discharge Problem: Fall from standing, Fracture of femoral neck, left, Acute kidney injury superimposed on chronic kidney disease Forms Stand Alone Forms: My [facility] Prescriptions Prescriptions: No Action doxazosin 2 mg tablet 2 mg PO HS Qty: 90 3RF dutasteride [Avodart] 0.5 mg capsule 0.5 mg PO DAILY Qty: 90 3RF clopidogrel [Plavix] 75 mg tablet 75 mg PO DAILY multivitamin Tablet 1 tab PO QAM aspirin 81 mg tablet,delayed release (DR/EC) 81 mg PO HS metronidazole [MetroCream] 0.75 % cream 1 applic TOPICAL QAM carbidopa-levodopa [Sinemet] 25-100 mg tablet 1 tab PO QID carboxymethylcellulose sodium 1 % Drops, Liquid Gel 1 drp OPHTHALMIC (EYE) QID desonide 0.05 % Gel 1 applic TOPICAL HS PreserVision AREDS-2 250-90-40-1 mg Capsule 1 tab PO DAILY atorvastatin 40 mg tablet 40 mg PO QAM ketotifen fumarate [Zaditor] 0.025 % (0.035 %) Drops 1 drp OPHTHALMIC (EYE) BID PRN (Reason: Dry Eyes) Alrex 0.2 % Drops,Suspension 1 drp OPHTHALMIC (EYE) QID PRN (Reason: Dry Eye(S)) polyethylene glycol 3350 [Miralax] 17 gram Powder In Packet 17 g PO DAILY PRN (Reason: Constipation) triamcinolone acetonide 0.1 % cream 1 applic TOPICAL BID PRN (Reason: flare ups) nitroglycerin [Nitro-Dur] 0.4 mg/hr Patch 24 Hour 1 patch transdermal QAM Qty: 30 0RF eplerenone 25 mg tablet 12.5 mg PO HS Qty: 15 0RF metoprolol succinate 25 mg tablet extended release 24 hr 25 mg PO BID Qty: 60 0RF escitalopram oxalate 10 mg tablet 10 mg PO DAILY baclofen 10 mg tablet 10 mg PO UD pantoprazole 40 mg tablet,delayed release (DR/EC) 40 mg PO DAILY Referrals Referrals: Edilia George MD [Primary Care Provider] -
--- NOTE | 2024-12-13 15:12 | XRay Report ---
XR hip LT 2V w pelvis CLINICAL HISTORY: L hip pain s/p fall COMPARISON: CT of the abdomen and pelvis January 25, 2022. FINDINGS: There is an acute displaced subcapital left femoral neck fracture. No additional fractures are identified on this exam. Proximal right femur is intact. Sacroiliac joints and symphysis pubis a re intact. IMPRESSION: Acute displaced subcapital left femoral neck fracture. ACT 112: Negative or not required by law. Electronically signed by: Javad Rubalcava M.D. 12/13/2024 3:11 PM
[2024-12-13 15:56] LABS: Basophils # (auto) 0.02 K/uL (0.00-0.20); Basophils % (auto) 0.3 %; Eosinophils # (auto) 0.04 K/uL (0.00-0.50); Eosinophils % (auto) 0.6 %; Hematocrit (blood only) 46.9 % (42.0-52.0); Immature Granulocytes # (auto) 0.04 K/uL (0.01-0.20); Immature Granulocytes % (auto) 0.6 %; Lymphocytes # (auto) 0.51 K/uL (1.20-3.40); Lymphocytes % (auto) 7.5 %; Mean Corpuscular Hemoglobin 28.1 pg (25.0-34.0); Mean Corpuscular Volume 87.8 fL (80.0-100.0); Mean Platelet Volume 10.1 fL (9.4-12.4); Monocytes # (auto) 0.27 K/uL (0.11-0.59); Neutrophils # (auto) 5.94 K/uL (1.40-6.50); Platelet Count 193 K/uL (130-400); RDW Standard Deviation 44.5 fL (36.4-46.3); Red Blood Count 5.34 M/uL (4.70-6.10); White Blood Count 6.82 K/ul (4.8-10.8)
[2024-12-13 15:58] LABS: Appearance Urine Clear (Clear); Bacteria Urine Automated None Seen (None Seen); Bilirubin Urine Negative (Negative); Blood Urine Negative (Negative); Color Urine Dark Yellow; Epithelial Cell Urine Auto 0-2 /hpf (0-2); Glucose Urine UA Negative (Negative); Ketones Urine Trace (Negative); Leukocyte Esterase Urine Negative (Negative); Nitrite Urine Negative (Negative); Protein Urine Trace (Negative); RBC Urine Automated 0-2 /hpf (0-2); Specific Gravity Urine 1.024 (1.000-1.030); Urobilinogen Urine Negative (Negative); WBC Urine Automated 0-5 /hpf (0-5)
--- NOTE | 2024-12-13 16:01 | History & Physical Report ---
Date of Service December 13, 2024 Assessment & Plan (1) Fracture of femoral neck, left: (2) Fall from standing: (3) Hypertension: (4) CKD (chronic kidney disease), stage III: (5) Parkinsons disease: (6) Coronary artery disease: (7) Benign prostatic hyperplasia with urinary obstruction: (8) Acoustic neuroma: Plan Mr. Hunter is an 79 year old male that was at [employer] and lost his footing and had a ground level fall; likely induced from his Parkinsons Disease. Denies hitting his head or having LOC. 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 He was brought to the [facility] via EMS and had a hip/pelvis X-ray performed revealing an acute left femoral neck fracture. He has a PMH that includes: hyperlipidemia, CAD s/p stent x2 (2006 and 2021 - at [facility]), history of NSTEMI, HTN, macular degeneration, Meckel's diverticulum, BPH, chronic kidney stage III, bilateral lower extremity edema, Parkinson's disease, right acoustic neuroma. Most recent ECHO 05/2023 EF 55-60%, G1DDx. Mild aortic valve sclerosis without significant stenosis. He will be admitted for further evaluation and management with Ortho consult, fall precautions, Tylenol for pain control, ECG and type/screen pending surgery. Will add on BNP given RCRI value of 1. Plan for OR per Ortho for 12/14; will hold DAPT and keep NPO after MN. Fracture of femoral neck, left: Ground level fall from standing: Acute Likely related to Parkinson's disease symptoms In the ED/pelvis: X-ray revealed acute left femoral neck fracture Femur fracture ordered and pending CXR pending for possible OR On DAPT (Plavix and ASA); hold for tonight Reluctant for pain control; receptive to Tylenol; will schedule Last echo 05/2023: EF 55-60%, G1DDx and mild aortic valve sclerosis without significant stenosis Heart healthy diet; NPO after MN pending possible surgery ECG ordered for pre-op testing RCRI 1. 6 % risk of major cardiac event (details of RCRI outlined below); ordered BNP; check prior to going to OR Orthopedic consult placed and likely surgery on 12/14/24 CAD: HTN: Discharge history of BMS to LAD x 2 (2006 and 2021). Takes baby aspirin and Plavix; hold Plavix tonight, continue ASA Most recent ECHO: 05/2023 EF 55-60%, G1DDx and mild aortic valve sclerosis without significant stenosis Parkinson's disease: Chronic Takes Sinemet QID; continue Uses a walker at baseline CKD: Chronic Serum creatinine 1.57; Baseline creatinine 1.3 Trend BMP and avoid nephrotoxic agents HLD: Chronic Most recent lipid panel: 11/07/24: TG 154, HDL 49, LDL 121 Takes atorvastatin; continue Acoustic neuroma: stable Disposition: PCP: Dr. George CODE STATUS: DNR/DNI VTE prophylaxis: Teds and SCDs for now -------- Acceptable risk for cardiac complications resulting from prospective procedure Revised Cardiac Risk Index (RCRI): 1. High-risk type of surgery (examples include vascular and any open intraperitoneal or intrathoracic procedures). No 2. History of ischemic heart disease (history of myocardial infarction or positive exercise test, current compliant of chest pain considered to be secondary to myocardial ischemia, use of nitrate therapy, or ECG with pathological Q waves; do not count prior coronary revascularization procedure unless one of the other criteria for ischemic heart disease is present). Yes, previous NSTEMI noted 3. History of heart failure. No 4. History of cerebrovascular disease. No 5. Diabetes mellitus requiring treatment with insulin. No 6. Preoperative serum creatinine >2.0. No Pt has revised cardiac index score of 1 points. 6 % risk of major cardiac event Acceptable risk for cardiac complications if surgery recommended by Orthopedics and patient/family agreeable to attendant procedural benefits and -- I spent a total of 81 minutes coordinating, documenting, and providing care for this patient excluding time spent inthe performance of separately billed services or time spent by another provider/QHP. History of Present Illness Chief Complaint: L hip fracture Primary Care Provider: Edilia George MD Mr. Hunter is an 79 year old male that was at [employer] and lost his footing and had a ground level fall; likely induced from his Parkinsons Disease. Denies hitting his head or having LOC. 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 He was brought to the [facility] via EMS and had a hip/pelvis X-ray performed revealing an acute left femoral neck fracture. He has a PMH that includes: hyperlipidemia, CAD s/p stent x2 (2006 and 2021 - at [facility]), history of NSTEMI, HTN, macular degeneration, Meckel's diverticulum, BPH, chronic kidney stage III, bilateral lower extremity edema, Parkinson's disease, right acoustic neuroma. He follows with [facility] and had his last appointment with Cipriano Cavazos on 07/07/2024. Pre review of most recent cardiology note; Atherosclerotic coronary disease status post coronary intervention with bare metal stent to the left anterior descending in 2006 and presentation in December 2021 with unstable angina. Catheterization, per documentation, in December 2021 revealed a dominant left circumflex with mild luminal irregularities, non dominant RCA with mid 90% stenosis, and a diffusely disease and ectatic LAD with a 50% proximal lesion, 90 and 99% mid vessel lesions sequentially, and a 60% distal LAD lesion, undergoing cutting balloon angioplasty and stenting of the mid LAD lesions at that time. Recommendations at [facility] included utilization of aspirin and Brilinta without interruption x1 year, lifelong dual anti-platelet therapy. Most recent ECHO 05/2023 EF 55-60%, G1DDx. Mild aortic valve sclerosis without significant stenosis. No recent illness or signs of upper respiratory illness. Pt denies Roy, dizziness, visual or auditory changes (uses hearing aids), abdominal pain or tenderness, dysuria, hematochezia, N/V/D, other recent falls or trauma. 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 Appears he is able to anticipate and meet all of [facility] own ADL's independently. 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 Orthopedics had a nice conversation with the family regarding the possible change with his functioning state post op related to his parkinsons disease. This was reiterated with the family when I met with them and they expressed understanding. Patient will be admitted for further evaluation and management with Orthopedics consultation, fall precautions, Tylenol for pain control, ECG and type/screen pending surgery. Will add on BNP given RCRI value of 1. Plan for OR per Ortho for 12/14; will hold DAPT and keep NPO after MN. Allergies Allergy/AdvReac Type Severity Reaction Status Date / Time adhesive tape Allergy Intermediate red welps Unverified 05/23/23 19:28 codeine Allergy Intermediate shortness Unverified 05/23/23 19:28 of breath ~ nervous bacitracin AdvReac Intermediate blisters Unverified 05/23/23 19:28 [From Neosporin ([id number])] neomycin AdvReac Intermediate blisters Unverified 05/23/23 19:28 [From Neosporin ([id number])] polymyxin B AdvReac Intermediate blisters Unverified 05/23/23 19:28 [From Neosporin ([id number])] Home Medications Medication Instructions Recorded Confirmed Type aspirin 81 mg tablet,delayed 81 mg PO HS 01/25/22 12/13/24 History release carbidopa 25 mg-levodopa 100 mg 1 tab PO QID 01/25/22 12/13/24 History tablet (Sinemet) metronidazole 0.75 % topical cream 1 applic topical QAM 01/25/22 12/13/24 History (MetroCream) multivitamin 1 tab PO QAM 01/25/22 12/13/24 History vit C 250 mg-vit E 90 mg-zinc 40 1 tab PO DAILY 01/25/22 12/13/24 History mg-copper 1 [id number]-myrrew capsule (PreserVision AREDS-2) atorvastatin 40 mg tablet 40 mg PO QAM 01/26/22 12/13/24 History loteprednol etabonate 0.2 % eye 1 drp ophthalmic (eye) QID PRN Dry 01/26/22 12/13/24 History drops,suspension (Alrex) Eye(S) clopidogrel 75 mg tablet (Plavix) 75 mg PO DAILY 03/25/23 12/13/24 History polyethylene glycol 3350 17 gram 17 g PO DAILY PRN Constipation 05/23/23 12/13/24 History oral powder packet (Miralax) triamcinolone acetonide 0.1 % 1 applic topical BID PRN flare ups 05/23/23 12/13/24 History topical cream metoprolol succinate 25 mg 25 mg PO BID #60 tabs 05/26/23 12/13/24 Rx tablet,extended release 24 hr nitroglycerin 0.4 mg/hr 1 patch transdermal QAM #30 ea 05/26/23 12/13/24 Rx transdermal 24 hour patch (Nitro-Dur) doxazosin 2 mg tablet 2 mg PO HS #90 tabs 03/31/24 12/13/24 Rx dutasteride 0.5 mg capsule 0.5 mg PO DAILY #90 caps 03/31/24 12/13/24 Rx (Avodart) baclofen 10 mg tablet 10 mg PO UD 12/13/24 12/13/24 History escitalopram oxalate 10 mg tablet 10 mg PO DAILY 12/13/24 12/13/24 History pantoprazole 40 mg tablet,delayed 40 mg PO DAILY 12/13/24 12/13/24 History release Past Med/Surg History Problem List Acute kidney injury superimposed on chronic kidney disease (Acute) Fracture of femoral neck, left (Acute) Fall from standing (Acute) Hypertensive urgency Chest pain (Acute) Urinary retention Benign prostatic hyperplasia with urinary obstruction DVT prophylaxis Parkinsons disease (Acute) Coronary artery disease (Acute) 2006 - BMS to LAD 01/21/22 - [facility] to LAD Hypertension CKD (chronic kidney disease), stage III Hypokalemia Presence of indwelling Ferro catheter (Acute) Syncope (Acute) Elevated troponin (Acute) Medical History Acoustic neuroma s/p gamma knife treatment BPH (benign prostatic hyperplasia) Surgical History History of cataract surgery History of partial colectomy History of cholecystectomy Hx of appendectomy S/P coronary artery stent placement Family History Father Hypertension Heart disease Brother Lung cancer Mother Cancer Social History Smoking Status: Never smoker Second Hand Exposure: No; Do You Dip or Chew Tobacco: No; Hx Alcohol Use: No Hx Substance Use: No Preferred Language: Kuwaiti Communication Ability: Effective Agriculture [employer] Chair Required: No Beliefs That Will Affect Care: Rastafarian Rastafarian Beliefs: Yazdanism Current Living Situation: Spouse Feels Safe at Home: Yes Assistive Devices: Cane, Walker and Other Review of Systems Review of Systems: Neuro: (-) Falls, trauma, slurred speech (+) pain without neuropathy L hip HEENT: (-) ROY, dizziness, dysphagia, visual or auditory changes CV: (-) CP, palpitations, swelling Resp: (-) SOB GI: (-) appetite changes, N/V/D, bowel changes : (-) urinary changes Skin: (-) rashes Psych: (-) anxiety, depression Physical Exam Physical Exam: Neuro: AAOx4, PERRLA, no aphagia, memory changes, CNII-XII grossly intact HEENT: head normocephalic, moist mucus membranes CV: S1/S2, (-) M/G/R, (-) edema, cap refill < 3 seconds Resp: Lungs CTA in all patel. On RA GI: Abdomen S/NT/ND, Ax4 bowel sounds, (-) CVA tenderness Musculoskeletal: 5/5 B/L UE strength, 5/5 B/L LE strength. uses a walker at baseline Skin: (-) rashes , (-) erythema. Psych: euthymic mood Results & Data Results & Data Vital Signs (Past 12 Hours) Vital Signs Temp Pulse Resp BP Pulse Ox O2 Del Method 12/13/24 14:52 87 12/13/24 14:38 36.5 C 84 18 177/97 H 93 Room Air Diagnostic Findings Hip/Pelvis X-Ray 12/13/24 14:45 XR hip LT 2V w pelvis CLINICAL HISTORY: L hip pain s/p fall COMPARISON: CT of the abdomen and pelvis January 25, 2022. FINDINGS: There is an acute displaced subcapital left femoral neck fracture. No additional fractures are identified on this exam. Proximal right femur is intact. Sacroiliac joints and symphysis pubis are intact. IMPRESSION: Acute displaced subcapital left femoral neck fracture. ACT 112: Negative or not required by law. Electronically signed by: Javad Rubalcava M.D. 12/13/2024 3:11 PM Supervising Physician Co-Signing Physician Notes 79-year-old with PMH of HLD, CAD status post stent x 2 (2008 2021], NSTEMI, HTN, macular degeneration, Meckel's diverticulum, BPH, chronic kidney disease stage III, bilateral lower extremity edema, Parkinson's disease, right acoustic neuroma presented after ground-level fall/lost balance (denies dizziness or palpitation or sob or chest pain at the time) and left hip pain. Patient noted to have left hip fracture. Patient denies hitting head or loss of consciousness. Patient denies any febrile or flulike illness in the recent week. Labs reviewed, WBC fairly WNL, creatinine elevated at 1.57, baseline creatinine of 1.1. LFT WNL. UA negative for UTI. Imagings reviewed, left femoral neck fracture noted. CXR with no acute finding. RCRI score 6%. Patient mild to moderate recs for most needed hip surgery. Resume DAPT as soon as able after the surgery when bleeding risks deemed minimal per surgeon. Continue midnight. Orthopedics plan for operative management tomorrow. Pain mx, bowel regimen. gentle ivf for tod (given elevated bp), labs in AM. hold nephro toxics. prn hydralazine for bp. On exam: GENERAL: Alert and oriented x3. NAD, on 1L NC O2. HEENT: No pallor, no icterus. Pupils equal, round and reactive to light. Oral mucosa moist. NECK: No JVD, no neck masses. HEART: S1 and S2 heard. Regular rate and rhythm. No murmur, no gallop. RESPIRATORY SYSTEM: Normal AP diameter. No accessory muscle use. No wheezing, no crackles. ABDOMEN: Soft, bowel sounds present, nontender, no distention. CENTRAL NERVOUS SYSTEM: No facial droop. Speech is clear. Obeys simple commands. Moves extremities. EXTREMITIES: No edema, no erythema seen. LLE ext rotation noted (pt's states LLE is shorter than RLE at his baseline). I have seen and examined the patient and have discussed the case with the provider above. I agree with the assessment and plan as stated. Time spent separately 25 min. (6) Coronary artery disease Coronary Disease-Associated Artery/Lesion type: unspecified vessel or lesion type [place] vs. transplanted heart: [place] heart
[2024-12-13] MEDS: ACETAMINOPHEN 1,000 MG/100 ML VIAL IV STA (16:06)
[2024-12-13 16:13] LABS: Albumin Globulin Ratio 1.2 (0.9-2); BUN Creatinine Ratio 19.7 (10-20); Calcium 9.1 mg/dl (8.6-10.3); Creatinine Clr Calc Pharmacy 32.1 ml/min; Globulin 3.3 gm/dl (2.5-4.0); Potassium 3.9 mmol/L (3.5-5.1); Total Protein 7.3 gm/dl (6.0-8.3)
[2024-12-13 16:26] LABS: Partial Thromboplastin Time 27 Seconds (21-31); Prothrombin Time 10.4 Seconds (9.0-12.0)
--- NOTE | 2024-12-13 16:31 | Orthopedic Consultation ---
Date of Consultation December 13, 2024 Assessment & Plan (1) Fracture of femoral neck, left: (2) Fall from standing: (3) Benign prostatic hyperplasia with urinary obstruction: (4) Urinary retention: (5) Parkinsons disease: (6) Coronary artery disease: (7) Hypertension: (8) CKD (chronic kidney disease), stage III: (9) Presence of indwelling Ferro catheter: Plan 79-year-old gentleman presents to [facility] after a fall at [employer] this afternoon. During the fall, the patient sustained a closed, traumatic, but completely displaced left femoral neck fracture. I had a long discussion with the patient and his family who joins him at bedside with regards to the nature of this injury. We discussed in great detail the pathoanatomy, pathophysiology, treatment options. I discussed with them that hip fractures are common in the elderly population who are ailing in health and who have very poor bone quality. This patient certainly meets those parameters. I discussed with them that in almost all circumstances, we recommend surgical management of hip fractures as it helps control the patient's pain, get some back to walking sooner, and prevents complications of immobilization. With the guards to this patient's fracture, I do recommend operative management to include a left hip hemiarthroplasty. I discussed with the patient and his family the risks, benefits, and alternatives to surgery. I discussed with him that risks include but are not limited to loss of life/limb, DVT, incomplete relief of pain, need for additional surgery, infection, iatrogenic injury to bone/nerve/tendon/vessel, hip dislocation, acetabular osteoarthritic change following hip hemiarthroplasty, decrease in functional status. I discussed in the alternatives to operative management would be for nonoperative care. If the patient were to elect for nonoperative care, I do believe that there are risks associated with this also which include but are not limited to pneumonia, DVT, decubitus ulcers due to his immobilization. After thorough discussion of the risks, benefits, alternatives to surgery, the patient and his family have elected to proceed with operative management. I did have a very willem discussion with the patient and his family with regard s to hip fractures in the elderly. I discussed with them that hip fractures in the elderly are often times a "harbinger of worsening state," and can sometimes signify the beginning of the end of the patient's life. I expressed to them that even with surgical management of the patient's hip fracture, it is very likely that he decreases an entire functional status such that he may be more reliant on a wheelchair and/or standing for transfers only as his current functional status is quite limited. The patient and his family expressed understanding to this. Considering the patient ate lunch this afternoon, the earliest that we would be able to proceed to the operating room would be 9 PM this evening. Due to the need for a drain surgical team, we will plan for a first start case tomorrow morning. Patient should be n.p.o. after midnight. He will be admitted to the medical team and cleared for operative management. History of Present Illness Reason for Consultation: Left hip pain Requesting Physician: Dr Siddiqui History of Present Illness This is an 79-year-old gentleman who presents to [facility] with left hip pain after a fall. He was at [employer] attending a service when he states that he just lost his footing and tripped and fell, landing on his left hip. He states that he did not have chest pain, shortness of breath or lightheadedness prior to the fall. He states that he has a history of Parkinson's and often gets tripped up. He denies striking his head or loss of consciousness. He is on Plavix and took it this morning. He is currently complaining of 2 out of 10 pain in his left hip. His left hip leg is chronically shortened as compared to his right. his last meal was lunch around noon or one today. He denies any additional areas of pain other than his left hip. Prior orthopaedic history is positive for chronically short LLE, history of R distal radius fracture s/p ORIF and exfix. History of previous cardiac stent placement 2 years ago. He does have a history of Parkinson disease At baseline he is only a household ambulator with the use of assistive devices including cane, walker, transfer chair Allergies Allergy/AdvReac Type Severity Reaction Status Date / Time adhesive tape Allergy Intermediate red welps Unverified 05/23/23 19:28 codeine Allergy Intermediate shortness Unverified 05/23/23 19:28 of breath ~ nervous bacitracin AdvReac Intermediate blisters Unverified 05/23/23 19:28 [From Neosporin ([id number])] neomycin AdvReac Intermediate blisters Unverified 05/23/23 19:28 [From Neosporin ([id number])] polymyxin B AdvReac Intermediate blisters Unverified 05/23/23 19:28 [From Neosporin ([id number])] Home Medications Medication Instructions Recorded Confirmed Type aspirin 81 mg tablet,delayed 81 mg PO HS 01/25/22 05/23/23 History release carbidopa 25 mg-levodopa 100 mg 1 tab PO QID 01/25/22 12/13/24 History tablet (Sinemet) carboxymethylcellulose sodium 1 % 1 drp ophthalmic (eye) QID 01/25/22 05/23/23 History eye liquid gel drops desonide 0.05 % topical gel 1 applic topical HS 01/25/22 05/23/23 History metronidazole 0.75 % topical cream 1 applic topical QAM 01/25/22 05/23/23 History (MetroCream) multivitamin 1 tab PO QAM 01/25/22 12/13/24 History vit C 250 mg-vit E 90 mg-zinc 40 1 tab PO DAILY 01/25/22 05/23/23 History mg-copper 1 [id number]-gcqqog capsule (PreserVision AREDS-2) atorvastatin 40 mg tablet 40 mg PO QAM 01/26/22 05/23/23 History ketotifen fumarate 0.025 % (0.035 1 drp ophthalmic (eye) BID PRN Dry 01/26/22 05/23/23 History %) eye drops (Zaditor) Eyes loteprednol etabonate 0.2 % eye 1 drp ophthalmic (eye) QID PRN Dry 01/26/22 05/23/23 History drops,suspension (Alrex) Eye(S) clopidogrel 75 mg tablet (Plavix) 75 mg PO DAILY 03/25/23 12/13/24 History polyethylene glycol 3350 17 gram 17 g PO DAILY PRN Constipation 05/23/23 05/23/23 History oral powder packet (Miralax) triamcinolone acetonide 0.1 % 1 applic topical BID PRN flare ups 05/23/23 05/23/23 History topical cream eplerenone 25 mg tablet 12.5 mg (1/2 x 25 mg) PO HS #15 05/26/23 05/23/23 Rx tabs metoprolol succinate 25 mg 25 mg PO BID #60 tabs 05/26/23 12/13/24 Rx tablet,extended release 24 hr nitroglycerin 0.4 mg/hr 1 patch transdermal QAM #30 ea 05/26/23 Rx transdermal 24 hour patch (Nitro-Dur) doxazosin 2 mg tablet 2 mg PO HS #90 tabs 03/31/24 12/13/24 Rx dutasteride 0.5 mg capsule 0.5 mg PO DAILY #90 caps 03/31/24 03/31/24 Rx (Avodart) baclofen 10 mg tablet 10 mg PO UD 12/13/24 12/13/24 History escitalopram oxalate 10 mg tablet 10 mg PO DAILY 12/13/24 12/13/24 History pantoprazole 40 mg tablet,delayed 40 mg PO DAILY 12/13/24 12/13/24 History release Patient History Medical History Acoustic neuroma s/p gamma knife treatment BPH (benign prostatic hyperplasia) Surgical History History of cataract surgery History of partial colectomy History of cholecystectomy Hx of appendectomy S/P coronary artery stent placement Family History Father Hypertension Heart disease Brother Lung cancer Mother Cancer Social History Smoking Status: Never smoker Second Hand Exposure: No; Do You Dip or Chew Tobacco: No; Hx Alcohol Use: No Hx Substance Use: No Preferred Language: Malaysian Communication Ability: Effective Processing Lead Required: No Beliefs That Will Affect Care: Catholic Catholic Beliefs: Tenriism Current Living Situation: Spouse Feels Safe at Home: Yes Assistive Devices: Cane, Walker and Other Review of Systems Review of Systems: All systems reviewed & are unremarkable except as noted in HPI & below Physical Exam Physical Exam: patient's left lower extremity is shortened and externally rotated. He has sensation intact to light touch L2-S1. Foot is warm and well-perfused. Patient has pain with logroll. Pain with heel strike Results & Data Vital Signs (Past 12 Hours) Vital Signs Temp Pulse Resp BP Pulse Ox O2 Del Method O2 Flow Rate 12/13/24 16:19 89 L Nasal Cannula 0 12/13/24 14:52 87 12/13/24 14:38 36.5 C 84 18 177/97 H 93 Room Air Diagnostic Findings X-rays of the pelvis, left hip, left femur were personally interpreted and reviewed. These demonstrate a complete displaced left femoral neck fracture. (6) Coronary artery disease Coronary Disease-Associated Artery/Lesion type: unspecified vessel or lesion type [place] vs. transplanted heart: [place] heart
--- NOTE | 2024-12-13 17:09 | XRay Report ---
EXAM: Radiographs of the Left Femur 2 Views INDICATION: Fall TECHNIQUE: Frontal and lateral views of the left femur. COMPARISON: No relevant prior studies available. FINDINGS: Bones/joints: There is age-indeterminate deformity of the left femoral neck with angulation. No dislocation. Femur otherwise intact. Soft tissues: No abnormality noted. No radiopaque foreign body noted. Vasculature: Catheter noted projecting over the bladder. Atherosclerosis noted diffusely. IMPRESSION: Age-indeterminate fracture of the left femoral neck. ACT 112: Negative or not required by law. Electronically signed by Sharmin Oquendo 12-13-2024 5:08 PM
--- NOTE | 2024-12-13 17:09 | XRay Report ---
EXAM: Radiograph of the Chest 1 View INDICATION: Fall. TECHNIQUE: Frontal view of the chest. COMPARISON: 05/23/2023 FINDINGS: Lungs and pleural spaces: Interstitial and parenchymal scarring stable. Heart: Prominent cardiac shadow. Mediastinum: Normal contour. Bones/joints: Degenerative changes noted throughout the spine. No acute osseous abnormality seen. Soft tissues: No abnormality noted. No radiopaque foreign body noted. Upper abdomen: No abnormality noted. IMPRESSION: Stable chronic changes. No acute disease. ACT 112: Negative or not required by law. Electronically signed by Sharmin Oquendo 12-13-2024 5:08 PM
[2024-12-13] MEDS ORDERED: LOTEPREDNOL ETABONATE 0.2% OP PRN (17:17)
[2024-12-13] MEDS ORDERED: bisacodyL 10 MG SUPP PR PRN (19:01)
[2024-12-13] MEDS ORDERED: MAGNESIUM HYDROXIDE SUSP 30 ML UDC PO PRN (19:01)
[2024-12-13] MEDS ORDERED: ARTIFICIAL TEARS OP PRN (19:09)
[2024-12-13] MEDS: CARBIDOPA/LEVODOPA 25/100MG TAB PO SCH (20:07)
[2024-12-13] MEDS: BACLOFEN 10 MG TAB PO SCH (20:08)
[2024-12-13] MEDS: METOPROLOL SUCC 25MG EXT REL TAB PO SCH (20:08)
[2024-12-13] MEDS: DOXAZosin MESYLATE TAB 2 MG TAB PO SCH (20:08)
[2024-12-13] MEDS: SODIUM CHLORIDE 0.9% 1,000 ML IV SCH (20:12)
[2024-12-13 20:39] LABS: Appearance Urine Clear (Clear); Bacteria Urine Automated None Seen (None Seen); Bilirubin Urine Negative (Negative); Blood Urine Negative (Negative); Cast Urine Automated 0-2 /lpf (0-2); Color Urine Yellow; Epithelial Cell Urine Auto 0-2 /hpf (0-2); Glucose Urine UA Negative (Negative); Ketones Urine Negative (Negative); Leukocyte Esterase Urine Negative (Negative); Nitrite Urine Negative (Negative); Protein Urine Trace (Negative); Specific Gravity Urine 1.014 (1.000-1.030); Urobilinogen Urine Negative (Negative); WBC Urine Automated 0-5 /hpf (0-5)
[2024-12-13] MEDS: hydrALAZINE HCL 25 MG TAB PO PRN (21:42)
--- OUTSIDE RECORDS SUMMARY | 2024-12-13 22:57 | External Medical Summary | Continuity of Care Document ---
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 Name Role Phone Yariel Georgevaibhav Izabela Primary Care Physician [phone] Encounter [facility] [id number] Date(s): 10/10/24 - 10/10/24 [facility] [address] [address] [employer] [phone] Encounter Diagnosis Changing skin lesion(Discharge Diagnosis) - 10/10/24 Inflamed seborrheic keratosis(Discharge Diagnosis) - 10/10/24 Rosacea(Discharge Diagnosis) - 10/10/24 Seborrheic dermatitis(Discharge Diagnosis) - 10/10/24 History of squamous cell carcinoma(Discharge Diagnosis) - 10/10/24 Discharge Disposition: Home or Self Care Attending Physician: DO Jensen Dawn M Allergies, Adverse Reactions, Alerts Substance Criticality Severity Reaction Reaction Severity Status codeine Shortness of breath Active Neosporin blisters Active Adhesive bandage Act oswald Allergy Not found in Search 1 Rash Active 1topical sporins Assessment and Plan Extracted from: Title:Dermatology Office Visit Note Author:Christine read PA-C, Dawn M Date:10/10/24 1.Changing skin lesion Changing skin lesion - bx today. will contact with result 2.Inflamed seborrheic keratosis chronic and worsening. INFLAMED SEBORRHEIC KERATOSES - discussed the likely benign and genetic nature of these lesions._ cryo x 2 3.Rosacea - chronic and stable - metrocream 0.75% BID to FACE. Avoid triggers 4.Seborrheic dermatitis - chronic and stable -desonide applied up to BID x 7 days. Then break for 3 days before restarting if needed. 5.History of squamous cell carcinoma Reviewed sun protection with SPF 30 or higher applied every 80 minutes and use of sun protective clothing and hat. Call with questions or concerns. Follow up 6 months. Patient in agreement with plan. Medications Alrex 0.2% ophthalmic suspension Start: 03/25/18 10:20:00 AM EDT, 1 drop, both eyes, qid, PRN Start Date: 03/25/18 Status: Ordered aspirin 81 mg oral tablet Start: 05/20/12 3:16:00 PM EDT, 1 tab, PO, Daily Start Date: 05/20/12 Status: Ordered carbidopa-levodopa 25 mg-100 mg oral tablet Start: 07/25/19 1:18:00 PM EDT, 1 tab, PO, tid Start Date: 07/25/19 Status: Ordered desonide 0.05% topical cream Start: 10/10/24 1:09:00 PM EST, 1 appl, topical, bid, Disp# 15 g, Refills: 2, to face, Pharmacy: [id number] Start Date: 10/10/24 Status: Ordered doxazosin 8 mg oral tablet Start: 05/20/12 3:17:00 PM EDT, 1 tab, PO, Daily Start Date: 05/20/12 Status: Ordered dutasteride 0.5 mg oral capsule Start: 04/24/22 11:46:00 AM EDT Start Date: 04/24/22 Status: Ordered eplerenone 25 mg oral tablet Start: 07/30/22 9:03:00 AM EDT, 1 tab, PO, Daily Start Date: 07/30/22 Status: Ordered escitalopram 5 mg oral tablet Start: 10/10/24 12:52:00 PM EST, 2 tab, PO, Daily Start Date: 10/10/24 Status: Ordered fluorouracil 5% topical cream Start: 04/24/22 12:04:00 PM EDT, 1 appl, topical, qhs, Disp# 40 g, Refills: 1, apply to scalp daily for 3 weeks, Pharmacy: [id number] Start Date: 04/24/22 Status: Ordered Metoprolol Succinate ER 25 mg oral tablet, extended release Start: 04/24/22 11:42:00 AM EDT, 25mg in am; 12.5 mg in pm Start Date: 04/24/22 Status: Ordered MetroCream 0.75% topical cream Start: 10/10/24 1:09:00 PM EST, 1 appl, topical, bid, Disp# 45 g, Refills: 2, to face, Pharmacy: [id number] Start Date: 10/10/24 Status: Ordered multivitamin Start: 05/20/12 3:18:00 PM EDT, 1 tab, PO, Daily Start Date: 05/20/12 Status: Ordered pantoprazole 40 mg oral delayed release tablet Start: 10/05/23 3:11:00 PM EST, 1 tab, PO, Daily Start Date: 10/05/23 Status: Ordered PreserVision AREDS 2 Start: 06/18/16 10:20:00 AM EDT, 1 cap, PO, bid Start Date: 06/18/16 Status: Ordered Refresh Start: 09/13/15 2:43:00 PM EST, 1 drop, both eyes, qid Start Date: 09/13/15 Status: Ordered triamcinolone 0.1% topical cream Start: 09/22/22 1:28:00 PM EST, 1 appl, topical, bid, Disp# 80 g, Refills: 3, apply to rash on hand, arm, leg, Pharmacy: [id number] Start Date: 09/22/22 Status: Ordered Zaditor 0.025% ophthalmic solution Start: 03/25/18 10:21:00 AM EDT, 1 drop, both eyes, q8h, PRN Start Date: 03/25/18 Status: Ordered Mental Status 10/10/24 Barriers to Learning one year None evide nt Mandatory Health Literacy Documentation Yes Health Literacy Communication Barriers N ever Primary Language Turkmen Problem List Condition Confirmation Course Effective Dates Status Health St atus Informant CAD (coronary artery disease) Confirmed Active Dry eye Confirmed Active Elevated cholesterol Confirmed Active Hypertension Confirmed Active Contact dermatitis Confirmed Active Parkinson disease Confirmed Active ROSACEA Confirmed Active Seborrheic keratosis Confirmed Active Diagnosis Diagnosis Type Effective Dates Health Status Clinical Service Informant Changing skin lesion Discharge Diagnosis 10/10/24 Rosacea Discharge Diagnosis 10/10/24 Seborrheic dermatitis Discharge Diagnosis 10/10/24 Inflamed seborrheic keratosis Discharge Diagnosis 10/10/24 History of squamous cell carcinoma Discharge Diagnosis 10/10/24 Procedures Procedure Date Related Diagnosis Body Site Status Shave biopsy and cauterizati on of skin 1 10/10/24 Completed Stent 2 12/2021 Completed Shave biopsy and cauterizati on of skin 3 11/22/20 Completed Gamma-knife surgery 4 11/21/15 Com pleted Shave biopsy of skin 01/30/13 Comp leted CABG x 1 - Coronary artery b ypass graft x 1 Completed 1right post auricular scalp 2cardiac stent 3w/ ED&C 4on right ear acoustic neuroma. Social History Social History Type Response Smoking Status Never smoked cigaret jenna Sex Male Sex Representation Male (finding) Dermatology Outpatient Note * DO Jensen, Margaux Bone: PERFORM Event Display: Dermatology Outpt Note Authored Date: [id number] Chief Complaint skin check - spot behind right ear, swollen/red - think its from glasses. History of Present Illness HO DANIEL Juanatejal a79 year old [place] - spot behind right ear, swollen/red - think its from glasses.. The patient feels the condition is worsening. He denies itching, but confirms bleeding, oozing, crusting or evolving lesions. Patient has a past personal history of skin cancer: SCC left frontal scalp ED&C 10/26/21 Family history: None of skin cancer Patient uses sunscreen. Patient reports history of blistering sunburns but no tanning beds. Grew up in [place]. Never worked outdoors. Parkinson's retired Review of Systems Denies fever, chills, sweats, night sweats, weight loss, headache, visual change, stomach upset diarrhea and joint pain. Physical Exam _Constitutional: Generally well appearing, well developed. Appears stated age. Eyes: Conjunctivae and lids without noted inflammation, lesion, mass, deformity or drainage. Cardiovascular: Swelling of the lower extremities not noted. Extremities pink, warm and dry. Extremities: Digits and nails without clubbing, cyanosis, petechiae, signs of ischemia, infectionor inflammation. Neurological / Psychiatric: Oriented to person, place and time. Appropriate mood and affect. No notable depression, anxiety or agitation. Upper body exam was performed today including head, face, neck, ears, lips, gums, back, chest, abdomen, bilateral upper extremities and hands, including fingernails. Further exam was declined. The exam was within normal limits with the exception of: BACK hyperkeratotic plaques and papules consistent with seborrheic keratoses RIGHT POST AURICULAR - 2.3cm pearly plaque consistent with bcc - bx today LEFT CHEEK and FOREHEAD - pink based hyperkeratotic plaques and papules consistent with inflamedseborrheic keratoses - cryo x 2 FACE, CHEST - pink based oily flake consistent with seborrheic dermatitis No evidence of recurrent skin cancer Procedure Note A shave skin biopsy RIGHT POST AURICULAR SCALP was performed after a time out (patient identified with full name and date, site located and confirmed with team members) and verbal informed consent was obtained.Risks (infection, scar, bleeding) and benefits (proper diagnosis and treatment)were reviewed.Alternative options were discussed if applicable.Time was given to address and answer all questions.Photograph was taken to document location. Skin prep: isopropyl alcohol Anesthesia: 1% lidocaine with epinephrine Shave biopsy with derm blade. Hemostasis/Closure: aluminum chloride Dressing: sterile Verbal and written wound care instructions given.Patient was informed that further procedure(s)or treatment(s) may be needed pending pathology results.Patient is instructed to call should any problems or concerns arise.The patient agreed to call the office to obtain the test results if they have not been communicated to them within 2 weeks.Patient left after procedure in good condition. PROCEDURE: Cryotherapy performed to inflamed seborrheic keratoses x 2 following verbal consent, time out and allowing time for questions. Alternative therapies were discussed, and education on wound healing, risk of thermal injury, dyspigmentation, infection and scar formation were performed. Wound care in struction was provided. Patient was without concerns after questions answered after the procedure. Images 2024-10-10 13:11:35 2024-10-10 13:11:44 Assessment/Plan 1.Changing skin lesion Changing skin lesion - bx today. will contact with result 2.Inflamed seborrheic keratosis chronic and worsening. INFLAMED SEBORRHEIC KERATOSES - discussed the likely benign and genetic nature of these lesions._ cryo x 2 3.Rosacea - chronic and stable - metrocream 0.75% BID to FACE. Avoid triggers 4.Seborrheic dermatitis - chronic and stable -desonide applied up to BID x 7 days. Then break for 3 days before restarting if needed. 5.History of squamous cell carcinoma Reviewed sun protection with SPF 30 or higher applied every 80 minutes and use of sun protective clothing and hat. Call with questions or concerns. Follow up 6 months. Patient in agreement with plan. Problem List/Past Medical History Ongoing CAD (coronary artery disease) Contact dermatitis Dry eye Elevated cholesterol Hypertension Parkinson disease ROSACEA Seborrheic keratosis Procedure/Surgical History Shave biopsy and cauterization of skin| Service Date: 10/10/2024Stent| Service Date: have biopsy and cauterization of skin| Service Date: 11/22/2020Gamma-knife surgery| Service Date: 11/21/2015Shave biopsy of skin| Service Date: 01/30/2013CABG x 1 - Coronary artery bypass graft x 1 Medications aspirin(aspirin 81 mg oral tablet), 81 mg= 1 tab, PO, Daily carbidopa-levodopa(carbidopa-levodopa 25 mg-100 mg oral tablet), 1 tab, PO, tid desonide topical(desonide 0.05% topical cream), 1 appl, topical, bid, 2 refills doxazosin(doxazosin 8 mg oral tablet), 8 mg= 1 tab, PO, Daily dutasteride(dutasteride 0.5 mg oral capsule) eplerenone(eplerenone 25 mg oral tablet), 25 mg= 1 tab, PO, Daily escitalopram(escitalopram 5 mg oral tablet), 10 mg= 2 tab, PO, Daily fluorouracil topical(fluorouracil 5% topical cream), 1 appl, topical, qhs, 1 refills ketotifen ophthalmic(Zaditor 0.025% ophthalmic solution), 1 drop, both eyes, q8h loteprednol ophthalmic(Alrex 0.2% ophthalmic suspension), 1 drop, both eyes, qid metoprolol(Metoprolol Succinate ER 25 mg oral tablet, extended release) metroNIDAZOLE topical(MetroCream 0.75% topical cream), 1 appl, topical, bid, 2 refills multivitamin, 1 tab, PO, Daily multivitamin with minerals(PreserVision AREDS 2), 1 cap, PO, bid ocular lubricant(Refresh), 1 drop, both eyes, qid pantoprazole(pantoprazole 40 mg oral delayed release tablet), 40 mg= 1 tab, PO, Daily triamcinolone topical(triamcinolone 0.1% topical cream), 1 appl, topical, bid, 3 refills Allergies Adhesive bandage Allergy Not found in SearchRash Neosporinblisters codeineShortness of breath Social History Smoking Status Never smoked cigarettes Electronic Signature on File Electronically Reviewed/Signed by: DEBRA Adler Author Signature Dt/Tm:10/10/2024 01:43 PM Department of Family Medicine Department of Dermatology D[facility] Patient Care team information Care Team Personnel Name: MD Ariel, Edilia Gurrola Position: Referring DIRECT Member Role: Primary Care Provider Address: [address] [place] [id number] [place] Care Team Related Persons Name: BARTOLO HO"
--- OUTSIDE RECORDS SUMMARY | 2024-12-13 22:57 | External Medical Summary ---
Author Name Unknown Address Unknown Organization [id number]:LABORATORY [facility] [place] - [address] [place] [address] Laboratory Report Ordering Provider Test Date Status SHANDA HALLMAN 11/07/2024 10:09:14 Final Observation Date Value Abnormality Reference (Units ) Status WBC, Total 11/07/2024 10:09:14 8.20 4.00-10.8 0 (K/uL) Final RBC 11/07/2024 10:09:14 4.94 4.50-5.25 (M/uL) Final Hemoglobin 11/07/2024 10:09:14 13.7 Below low normal 14 .0-16.8 (g/dL) Final Anemia reflex testing trigge rs on a HGB < 12.0 for Females and HGB < 13.0 for Males in accordance with the WHO Anemia Guidelines
Anemia reflex testing triggers on a HGB < 12.0 for Females and HGB < 13.0 for Males in accordance with the WHO Anemia Guidelines HCT 11/07/2024 10:09:14 44.9 40.0-48.4 (%) Final MCV 11/07/2024 10:09:14 90.9 82.0-99.5 (fL) Final MCH 11/07/2024 10:09:14 27.7 27.0-34.0 (pg) Final MCHC 11/07/2024 10:09:14 30.5 32.0-36.0 (g/dL) Final RDW 11/07/2024 10:09:14 14.1 11.5-15.5 (%) Final Platelets 11/07/2024 10:09:14 211 140-400 (K /uL) Final MPV 11/07/2024 10:09:14 10.7 6.6-11.1 ( fL) Final Nucleated erythrocytes/100 leukocytes [Ratio] in Blood by Automated count 11/07/2024 10:09:14 0 <=0 (/100 WBCs) Fi formerly [facility] Performing Location LABORATORY [facility] - [address] [facility] [id number]
--- OUTSIDE RECORDS SUMMARY | 2024-12-13 22:57 | External Medical Summary ---
Author Name Unknown Address Unknown Organization [id number]:LABORATORY [facility] [place] - [address] [facility] [place] [address] Laboratory Report Ordering Provider Test Date Status SHANDA HALLMAN 11/07/2024 10:09:14 Final Observation Date Value Abnormality Reference (Units ) Status Triglyceride 11/07/2024 10:09:14 154 <=174 ( mg/dL) Final Triglyceride Reference Range s (mg/dL):
<150 Acceptable
150-174 Borderline high
175-499 High
>=500 Very high Cholesterol 11/07/2024 10:09:14 201 Above high normal <200 (mg/dL) Final Total Cholesterol Reference Ranges (mg/dL):
<200 Desirable
200-239 Borderline high
>=240 High HDL 11/07/2024 10:09:14 49 >39 (mg/dL ) Final HDL Cholesterol Reference Ra nges (mg/dL):
>=60 High (Desirable)
<50 Low (Undesirable) For Females
<40 Low (Undesirable) For Males NON-HDL CHOLESTEROL 11/07/2024 10:09:14 152 <=159 (mg/dL) Final Non-HDL Cholesterol Referenc e Range (mg/dL):
<100 Target level for high risk ASCVD patient
<130 Optimal for general population
130-159 Near optimal for general population
160-189 Borderline High
190-219 High
>=220 Very High LDL, (calculated) 11/07/2024 10:09:14 121 <= 129 (mg/dL) Final LDL Cholesterol Reference Ra nges (mg/dL):
<70 Target level for high risk ASCVD patient
<100 Optimal for general population
100-129 Near optimal for general population
130-159 Borderline high
160-189 High
>=190 Very high Performing Location LABORATORY [facility] [place] - [address] [facility] [address]
--- OUTSIDE RECORDS SUMMARY | 2024-12-13 22:57 | External Medical Summary ---
Author Name Unknown Address Unknown Organization [id number]:LABORATORY [facility] [place] - [address] [place] [facility] [place] [address] Laboratory Report Ordering Provider Test Date Status LOGANRADHADarriusSHANDA 11/07/2024 10:09:14 Final Observation Date Value Abnormality Reference (Units ) Status SYNC LEUKOCYTES IN BLOOD BY AUTOMATED COUNT 11/07/2024 10:09:14 8.20 4.00-10.80 (K/uL) Final Segs 11/07/2024 10:09:14 83.2 Above high normal 40.0-75.0 (%) Final Lymphs % 11/07/2024 10:09:14 8.7 Below low normal 18.0-42.0 (%) Final Monos 11/07/2024 10:09:14 6.8 1.0-11.0 (%) Final Eosinophils 11/07/2024 10:09:14 0.6 0.0-6.0 (%) Final Basos 11/07/2024 10:09:14 0.5 0.0-2.0 (%) Final Immature Granulocyte, Percent 11/07/2024 10:09:14 0.2 0.0-2.0 (%) Final Absolute Segs 11/07/2024 10:09:14 6.82 1.80-7.70 (K/uL) Final Lymphs, absolute 11/07/2024 10:09:14 0.71 Below low normal 1.00-4.80 (K/ul) Final Monos, Abs 11/07/2024 10:09:14 0.56 0.00-1.10 (K/uL) Final Eos, Abs 11/07/2024 10:09:14 0.05 0.00-0.70 (K/uL) Final Basos, Abs 11/07/2024 10:09:14 0.04 0.00-0.20 (K/uL) Final Immature Granulocytes, Number 11/07/2024 10:09:14 0.02 0.00-0.20 (K/uL) Final Performing Location LABORATORY [facility] [place] - [facility] [place] [address]
--- OUTSIDE RECORDS SUMMARY | 2024-12-13 22:57 | External Medical Summary | Summary of Care ---
Author Name Unknown Organization [facility] Address [address] [place] [address] Phone [phone] Care Team Providers Care Supervisor Inventory Merchandising Name Role Phone Edilia George MD Primary Care Provide r Reason for Visit * Reason Onset Date Comments Medication Refill 12/04/2024 Encounter Details Date Type Department Care Team (Late st Contact Info) Description 12/04/2024 Telephone Family [address] [phone] Zak Mckeon, DO [address] [place] [address] Medication Refill Allergies Active Allergy Reactions Criticality Noted Date Comments Adhesive Tape 01/01/2021 Codeine 11/16/2014 Cortisone 11/16/2014 Morphine And Codeine 11/13/2003 Neomycin-Bacitracin Zn-Polymyx 11/16 Neosporin 11/13/2003 documented as of this encounter (statuses as of 12/08/2024) Medications MULTIVITAMIN PO TABS once a day 0 06/28/20 06 Active ASPIRIN EC 81 MG PO TBEC Take one pill daily 100 Tab 3 12/07/19 12 Active METRONIDAZOLE 0.75 % EX CREA once a day Active PreserVision AREDS 2 Oral Tablet Chewable Take by mouth 1 Tablet 2 times a day . 60 Tablet 1 Active Ketotifen Fumarate 0.025 % Ophthalmic Solution Instill 1 Drop into both eyes as needed. Active Dutasteride 0.5 MG Oral Capsule (Avodart) Take 1 Capsule by mouth in the morning. Dr Lei- Urologist. Active Desonide 0.05 % External Cream Apply topically to affected area 1 Application Dosing Unit daily . Active Triamcinolone Acetonide 0.1 % External Cream (Aristocort) 09/22/20 22 Active Polyethylene Glycol 3350 17 GM Oral Packet Take 1 Packet by mouth in the morning. Active Doxazosin Mesylate 2 MG Oral Tablet (Cardura)Indicatio ns:BPH with obstruction/lower urinary tract symptoms TAKE ONE TABLET BY MOUTH AT BEDTIME 90 Tablet 1 02/04/20 24 Active Clopidogrel Bisulfate 75 MG Oral Tablet (Plavix)Indication s:ASCVD (arteriosclerotic cardiovascular disease) Take 1 Tablet by mouth daily. 90 Tablet 3 02/22/20 24 Active Magnesium 500 MG Oral Tablet Take 1 Tablet by mouth in the morning. Active Pantoprazole Sodium 40 MG Oral Tablet Delayed Release (Protonix)Indicati ons:Acid reflux TAKE 1 TABLET BY MOUTH EVERY MORNING 90 Tablet 3 07/06/20 24 Active Metoprolol Succinate ER 25 MG Oral Tablet Extended Release 24 Hour (toPROL XL)Indications:HTN , goal below 140/90 take 1 tablet by mouth in the morning and 1 tablet in the evening. 180 Tablet 3 07/31/20 24 Active Escitalopram Oxalate 10 MG Oral Tablet (Lexapro) Take 1 Tablet by mouth in the morning. 90 Tablet 1 09/08/20 24 Active LORazepam 0.5 MG Oral Tablet (Ativan) Take 1 Tablet by mouth 3 times a day as needed for Anxiety. 10 Tablet 09/08/20 24 Active Baclofen 10 MG Oral Tablet (Lioresal) Take 1 Tablet by mouth at bedtime. 30 Tablet 2 10/26/20 24 Active Carbidopa-Levodopa 25-100 MG Oral Tablet (Sinemet)Indicatio ns:Idiopathic Parkinson's disease (HCC) 1 tablet 4 times daily (morning, lunch, late afternoon). 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 HTN, GOAL BELOW 140/90 09/18/2009 Overview (09/18/2009): Modified per HTN protocol #16. Coronary atherosclerosis of [place] coronary kayla ry 09/27/2007 BPH with obstruction/lower urinary tract symptom s 09/27/2007 Meckel's diverticulum 11/13/2003 S/P coronary artery stent placement documented as of this encounter (statuses as of 12/08/2024) Resolved Problems Problem Noted Date Diagnosed Date Resolved Date Parkinson's disease without dyskinesia, with fluctuating manifestations 11/06/2024 11/06/2024 Protein-calorie malnutrition 12/11/2022 12/11/[address] 02/06/202201/31 Chronic kidney disease, stage 3a 08/11/2021 11/06/2024 Overview: Per CKD protocol Hypertensive kidney disease with chronic kidney disease stage III 03/15/2019 07/17/2021 Overview: Per CKD protocol Kidney disease, chronic, sta ge III (GFR 30-59 ml/min) 01/06/2016 04/12/2019 Overview: Per CKD protocol #1 Elevated alkaline phosphatase level 12/07/2011 01/17/2016 Benign hypertensive kidney d isease with chronic kidney disease stage I through stage IV, or unspecified(403.10) 09/27/2007 01/17/2016 ADVANCE DIRECTIVE INFORMATION 01/26/2006 09/04/2024 Overview (01/26/2006): Yes, Patient instructed to provide copy of advance directive for provider to review and to be scanned into Electronic Medical Record BENIGN NEOPLASM LG BOWEL 11/13/2003 Mixed dyslipidemia 9 Overview (10/08/2009): Per Lipid Taxonomy. HTN, goal to be determined 1 11/18/2008 Overview (09/18/2009): Modified per HTN protocol #16. Macular degeneration 017 documented as of this encounter (statuses as of 12/08/2024) Immunizations Name Administration Dates Next Due COVID-19 mRNA, LNP-s, No Pre serve, 2-Dose Series (Moderna) 02/05/2021,01/08/2021 Pneumococcal Polysaccharide PPV23 (Pneumovax) 05/01/2009(Deferred: Patient Refused) documented as of this encounter Social History Tobacco Use Types Packs/Day Years Used Date Smoking Tobacco: Never Smokeless Tobacco: Never Alcohol Use Standard Drinks/Week Comments No 0 (1 standard drink = 0.6 oz pur e alcohol) PHQ-2 Answer Date Recorded PHQ-2 Score 0 10/19/2019 Hunger Vital Sign Answer Date Recorded Within the past 12 months, y ou worried that your food would run out before you got the money to buy more. Never true 06/07/20 23 Within the past 12 months, t he food you bought just didn't last and you didn't have money to get more. Never true 06/07/2023 Childcare Answer Date Recorded Do you feel overwhelmed with taking care of a child, family member or friend? No 06/07/2023 Does your family need help f inding childcare? (Household - for ages 0-17 years) Not on file 06/07/2023 Clothing Answer Date Recorded Have you been unable to get clothing when it was really needed? No 06/07/2023 Is your family able to get c lothes or diapers when needed? (Household - for ages 0-17 years) Not on file 06/07/2023 Personal Safety Answer Date Recorded Do you feel unsafe or have concerns for your saf ety? No 06/07/2023 Do you have concerns for you r family's safety? (Household - for ages 0-17 years) Not on file 06/07/2023 Utilities Answer Date Recorded Do you have trouble paying y our heating, water, or electric bill? No 06/07/2023 Is your family able to pay t he heat, water, or electric bill? (Household - for ages 0-17 years) Not on file 06/07/2023 Does your family have access to good internet? (Household - for ages 0-17 years) Not on file 06/07/2023 Employment Status Answer Date Recorded Are you unemployed or without regular income? No 06/07/2023 Does the household have a re gular source of income? (Household - for ages 0-17 years) Not on file 06/07/2023 Social Connections Answer Date Recorded How often do you feel lonely or isolated from th ose around you? Never 06/07/2023 Financial Resource Strain Answer Date R ecorded Do you have any trouble payi ng for your medications, or do you think you might in the future? No 06/07/2023 Does your family have troubl e paying for medicine? (Household - for ages 0-17 years) Not on file 06/07/2023 Transportation Needs Answer Date Record ed READ ONLY Do you have troubl e getting a ride to medical visits or work? Never True 06/07/2023 Does your family have a hard time getting a ride to doctors visits? (Household - for ages 0-17 years) Not on file 06/07/2023 Has lack of transportation k ept you from medical appointments, meetings, work, or from getting things needed for daily living? Check all that apply. (Adult - for ages 18 years and over) Not on file 06/07/2023 Do you (or your family) have trouble finding or paying for a ride (transportation)? (Household - for ages 0-17 years) Not on file 06/07/2023 Housing Stability Answer Date Recorded Do you currently live in a s helter or have no steady place to sleep at night? No 06/07/2023 READ ONLY Do you think you a re at risk of becoming homeless? No 06/07/2023 Does your family worry about paying for your home or becoming homeless? (Household - for ages 0-17 years) Not on file 0 06/07/2023 Are you homeless or worried that you might be in the future? (Adult - for ages 18 years and over) Not on file Are you (or your family) arelis eless or worried that you might be in the future? (Household - for ages 0-17 years) Not on file Food Insecurity Answer Date Recorded Do you need food for this week? No 06/07/2023 Are you able to get enough f ood for your family? (Household - for ages 0-17 years) Not on file 06/07/2023 Does your family need food t his week? (Household - for ages 0-17 years) Not on file 06/07/2023 Do you always have enough fo od for your family? (Household - for ages 0-17 years) Not on file 06/07/2023 Sex and Gender Information Value Date Recorded Sex Assigned at Not on file Legal Sex Male 5:26 AM EST Gender Identity Not on file Sexual Orientation Not on file Occupation Industry Job Start Date Job End Date retired Not on file Not on file Not on file documented as of this encounter Miscellaneous Notes * Telephone Encounter - Veronica Woo PHARM Tech - 12/04/2024 8:33 AM EST Pt calling regarding medication prescribed by a Specialist. Transferred to [facility] Specialty Line Thank you, Veronica Woo Metallurgical Engineering Teacher I [facility] (Formerly [facility]) 12/04/2024,8:33 AM documented in this encounter Plan of Treatment Upcoming Encounters Date Type Department Care Team (Late st Contact Info) Description 12/14/2024 11:00 AM EST Office Visit Ophthalmology, [facility] [address] [address] Mina Samuel, DO [address] [place] [address] 01/22/2025 10:00 AM EDT Office Visit Otolaryngology [facility] [address] [place] [address] Francisco Baugh PA-C [address] [place] [address] 02/02/2025 10:00 AM EDT Office Visit Gastroenterology [address] [place] [address] Savanah Capps CRNP [address] [place] [address] 05/01/2025 4:20 PM EDT Office Visit Neurology [facility] [address] [place] [address] Zak Mckeon, DO [address] [place] [address] 06/01/2025 1:00 PM EDT Office Visit Family Medicine [address] [place] [phone] Edilia George MD [address] [place] [address] [place] [id number] Health Maintenance Due Date Last Done Comments DTap/Tdap Vaccines (1 - Tdap) 1962 Pneumococcal Vaccine: 50+ Years (1 of 1 - PCV) 1993 Zoster Vaccines (1 of 2) 1993 Adult Wellness Visit 2009 Depression Screening 10/19/2020 10/19/2019 COVID-19 Vaccine (3 - season) 2024 02/05/2021, 01/08/2021 Influenza Vaccine (FLU shot) (#1) 2024 GFR 05/07/2025 11/07/2024, 02/01, 11/30/2023, Additional history exists Albumin/Creatinine Ratio 11/07/2025 025, 11/30/2023, 12/11/2022, Additional history exists CKD HGB USE SMARTSET 75030 11/07/202511/07, 11/07/2024, 11/30/2023, Additional history exists CKD PHOS USE SMARTSET 36011 11/07/202505/2025, 06/01/2023, 12/11/2022, Additional history exists HPV (Gardasil) Vaccine Aged Out No lo nger eligible based on patient's age to complete this topic Hepatitis B Vaccine Aged Out No longe r eligible based on patient's age to complete this topic MENINGOCOCCAL (MENACTRA/MENVEO) Aged Out No longer eligible based on patient's age to complete this topic documented as of this encounter Medical Devices Not on filedocumented as of this encounter Advance Directives Healthcare Agents on File Name Relationship Healthcare Agent Relationshi p Communication Sabi Hunter [facility] (per Health Care Power of Correctional Supply Supervisor document) Care Teams Supervisor Inventory Merchandising Relationship Specialty Start Date End Date Edilia George MD [address] [place] [address] [place] [id number] PCP - General Family Medicine 03/28/19 documented as of this encounter
--- OUTSIDE RECORDS SUMMARY | 2024-12-13 22:57 | External Medical Summary ---
Author Name Unknown Address Unknown Organization [id number]:[facility] - [address] [place] [address] Laboratory Report Ordering Provider Test Date Status SHANDA HALLMAN 11/07/2024 10:09:14 Final Normal: <30 mg/g creatinine< br/>High: 30-300 mg/g creatinine
Very High: >300 mg/g creatinine
Nephrotic: >2200 mg/g creatinine Observation Date Value Abnormality Reference (Units ) Status Albumin, Urine 11/07/2024 10:09:14 8.00 (mg/dL) Final Creatinine, Urine 11/07/2024 10:09:14 165 (mg/dL) Final Albumin/Creatinine [Mass Ratio] in Urine 11/07/2024 10:09:14 48 Above high normal <30 (mg/g Creat) Final Performing Location [facility] - [address] [place] [address]
--- OUTSIDE RECORDS SUMMARY | 2024-12-13 22:57 | External Medical Summary ---
Author Name Unknown Address Unknown Organization [id number]:[facility] - [address] [place] [address] Laboratory Report Ordering Provider Test Date Status SHANDA HALLMAN 11/07/2024 10:09:14 Final Observation Date Value Abnormality Reference (Units ) Status Phosphate 11/07/2024 10:09:14 3.7 2.5-4.8 (m g/dL) Final Performing Location [facility] - [address] [place] [address]
--- OUTSIDE RECORDS SUMMARY | 2024-12-13 22:57 | External Medical Summary | Summary of Care ---
Author Name Unknown Organization [facility] Address [address] [place] [address] Phone [phone] Care Team Providers Care Credit Support Counselor Name Role Phone Edilia George MD Primary Care Provide r Reason for Referral * Evaluate & Treat - Unlimited Visits (Within 10 days (routine)) - Authorized Specialty Diagnoses / Procedures Referred By Ilana shell Referred To Contact Gastroenterology Diagnoses Abdominal bloating Abdominal pain, generalized Edilia George MD [address] [place] [address] [place] [address] Phone: tel: fax: Referral ID Status Reason Start Date Expiration Date Visits Requested Visits Authorized [id number] Authorized Specialty Services Required 11/06/2024 999 [id number] Question Answer Referral Priority Within 10 days (routine) Where should this appointment be scheduled? [facility] For what condition is the patient being referred? All Gastro Conditions Reason for Visit * Reason Comments Re-Check Encounter Details Date Type Department Care Team (Latest Contact Info) Description 11/06/2024 4:40 PM EST Office Visit Family Medicine [address] [place] [address] Edilia George MD [address] [place] [address] [place] [phone] Abdominal bloating*; Abdominal pain, generalized; Hypertensive kidney disease with stage 3a chronic kidney disease (HCC); Right acoustic neuroma (HCC); Parkinson's disease with dyskinesia and fluctuating manifestations (HCC); DYSLIPIDEMIA, GOAL LDL BELOW 100; Atherosclerosis of [place] coronary artery of [place] heart without angina pectoris; Exudative age-related macular degeneration of right eye with active choroidal neovascularization (HCC); BPH with obstruction/lower urinary tract symptoms Allergies Active Allergy Reactions Criticality Noted Date Comments Adhesive Tape 01/01/2021 Codeine 11/16/2014 Cortisone 11/16/2014 Morphine And Codeine 11/13/2003 Neomycin-Bacitracin Zn-Polymyx 11/16 Neosporin 11/13/2003 documented as of this encounter (statuses as of 11/06/2024) Medications MULTIVITAMIN PO TABS once a day [...] Tablet by mouth in the morning. Active Carbidopa-Levodopa 25-100 MG Oral Tablet (Sinemet)Indicatio ns:Idiopathic Parkinson's disease (HCC) 1 tablet 4 times daily (morning, lunch, late afternoon). 360 Tablet 1 04/14/20 24 Active Pantoprazole Sodium 40 MG Oral Tablet [...] bedtime. 30 Tablet 2 10/26/20 24 Active Hospital, Clinic, or Other Facility Administered Medication Ordered Dose Route Frequency Start Date End Date Status bevaCIZumab (Avastin) inj 1.25 mgIndications:Exudative age-related macular degeneration of right eye with active choroidal neovascularization (HCC),Intermediate stage nonexudative age-related macular degeneration of left eye 1.25 mg IZ PRN 11/25/2023 11/24/2024 Active ROPivacaine (Naropin) inj 1.5 mgIndications:Exudative age-related macular degeneration of right eye with active choroidal neovascularization (HCC),Intermediate stage nonexudative age-related macular degeneration of left eye 1.5 mg IJ PRN 11/25/2023 11/24/2024 Active documented as of this encounter (statuses as of 11/06/2024) Active Problems Problem Noted Date Diagnosed Date [...] 10/06/2016 Right acoustic neuroma 11/06/2014 Overview (11/08/2014): Julio Cesar Visual distortions of shape and size 10/18/2014 Rosacea 10/06/2012 Elevated prostate specific antigen (PSA) 010 DYSLIPIDEMIA, GOAL LDL BELOW 100 10/08/2009 Overview (10/08/2009): Per Lipid Taxonomy. HTN, GOAL BELOW 140/90 09/18/2009 Overview (09/18/2009): Modified per HTN protocol #16. Coronary atherosclerosis of [place] coronary kayla ry 09/27/2007 BPH with obstruction/lower urinary tract symptom s 09/27/2007 Meckel's diverticulum 11/13/2003 S/P coronary artery stent placement documented as of this encounter (statuses as of 11/06/2024) Resolved Problems Problem Noted Date Diagnosed Date [...] as of this encounter (statuses as of 11/06/2024) Immunizations Name Administration Dates Next Due COVID-19 [...] on file documented as of this encounter Last Filed Vital Signs Vital Sign Reading Time Taken Comments Blood Pressure 122/74 11/06/2024 3:59 PM EST Pulse 70 11/06/2024 3:59 PM EST Temperature 36.5 C (97.7 F) 11/06/2024 3:59 PM ES T Respiratory Rate - - Oxygen Saturation 98% 11/06/2024 3:59 PM EST Inhaled Oxygen Concentration - - Weight 64.9 kg (143 lb) 11/06/2024 3:59 PM EST Height - - Body Mass Index 24.53 07/24/2024 7:40 AM EDT documented in this encounter Progress Notes * Edilia George MD - 11/06/2024 4:13 PM EST Subjective: Nico Hunter is a 79 year old male. Chief Complaint Patient presents with Re-Check HPI: Brief Clinical History Mr. Hunter is a 79 year old male last seen in [facility] on 01/10/2024 by Bebeto Glaser He has a h/o the following chronic conditions indicated on the problem list: Chronic Conditions Coronary atherosclerosis of [place] coronary artery Has been having stomach issues. Not sure when it started. Will get hunger pains but then feels fulland bloated. Is eating. No weight loss. Abdomen seems to be bigger than it used to be and seems tense. No constipation. Rare diarrhea. Moves bowel 1-3 times a day. No blood in stool. No heartburn. Istaking pantoprazole without problems. No vomiting. Had his gallbladder out in 1999 at the time of an other bowel surgery. He did have gallstones at the time. Has been taking escitalopram for anxiety. Is doing well with it and seems to be helping. Denies side effects. He has taken lorazepam twice but only took 1/2 of the pill at a time. It did help to calmhim down. Is on baclofen for spasms. It has been helping and not having them as much as he did. Was ordered by neurology. Has Parkinson's and under treatment by neurology. Has not been passing out since diuretics were stopped. Follows with cardiology. Has had some chest pain and it resolves with christina donny and burping. Sometimes has some chest pain with exertion. Has h/o Schwanoma. Has hearing aids. Has been following with ophthalmology for macular degeneration. Results for orders placed or performed in visit on 02/29/24 COMPREHENSIVE METABOLIC PANEL Result Value Ref Range BUN 22 (H) 6 - 20 mg/dL CREATININE 1.3 (H) 0.6 - 1.2 mg/dL EGFR 56 (L) >=60 mL/min SODIUM 141 135 - 146 mmol/L POTASSIUM 4.4 3.5 - 5.1 mmol/L CHLORIDE 103 98 - 107 mmol/L CO2 26 22 - 32 mmol/L ANION GAP 12 7 - 15 mmol/L GLUCOSE 75 70 - 120 mg/dL Albumin 3.7 (L) 3.8 - 5.0 g/dL AST 22 10 - 50 U/L Alkaline Phosphatase 132 (H) 35 - 130 U/L Bilirubin, Total 0.9 <=1.2 mg/dL CALCIUM 9.2 8.4 - 10.2 mg/dL Protein 6.6 6.0 - 8.3 g/dL ALT 9 (L) 10 - 50 U/L LDL CHOLESTEROL (DIRECT MEASURE) Result Value Ref Range LDL Cholesterol (Direct Measure) 104 <=129 mg/dL PHM: Patient Active Problem List Diagnosis Meckel's diverticulum Coronary atherosclerosis of [place] coronary artery BPH with obstruction/lower urinary tract symptoms HTN, GOAL BELOW 140/90 DYSLIPIDEMIA, GOAL LDL BELOW 100 Elevated prostate specific antigen (PSA) Rosacea Visual distortions of shape and size Right acoustic neuroma (HCC) S/P coronary artery stent placement Nonexudative age-related macular degeneration, bilateral, intermediate dry stage History of colon polyps Parkinson's disease with dyskinesia and fluctuating manifestations (HCC) Hypertensive kidney disease with stage 3a chronic kidney disease (HCC) Exudative age-related macular degeneration of right eye with active choroidal neovascularization (HCC) History of non-ST elevation myocardial infarction (NSTEMI) Bilateral lower extremity edema Current Outpatient Medications Medication Sig Dispense Refill MULTIVITAMIN PO TABS once a day 0 ASPIRIN EC 81 MG PO TBEC Take one pill daily 100 Tab 3 METRONIDAZOLE 0.75 % EX CREA once a day PreserVision AREDS 2 Oral Tablet Chewable Take by mouth 1 Tablet 2 times a day . 60 Tablet 1 Ketotifen Fumarate 0.025 % Ophthalmic Solution Instill 1 Drop into both eyes as needed. Dutasteride 0.5 MG Oral Capsule (Avodart) Take 1 Capsule by mouth in the morning. Dr Lei- Urologist. Desonide 0.05 % External Cream Apply topically to affected area 1 Application Dosing Unit daily . Triamcinolone Acetonide 0.1 % External Cream (Aristocort) Polyethylene Glycol 3350 17 GM Oral Packet Take 1 Packet by mouth in the morning. Doxazosin Mesylate 2 MG Oral Tablet (Cardura) TAKE ONE TABLET BY MOUTH AT BEDTIME 90 Tablet 1 Clopidogrel Bisulfate 75 MG Oral Tablet (Plavix) Take 1 Tablet by mouth daily. 90 Tablet 3 Magnesium 500 MG Oral Tablet Take 1 Tablet by mouth in the morning. Carbidopa-Levodopa 25-100 MG Oral Tablet (Sinemet) 1 tablet 4 times daily (morning, lunch, late afternoon). 360 Tablet 1 Pantoprazole Sodium 40 MG Oral Tablet Delayed Release (Protonix) TAKE 1 TABLET BY MOUTH EVERY MORNING 90 Tablet 3 Metoprolol Succinate ER 25 MG Oral Tablet Extended Release 24 Hour (toPROL XL) take 1 tablet by mouth in the morning and 1 tablet in the evening. 180 Tablet 3 Escitalopram Oxalate 10 MG Oral Tablet (Lexapro) Take 1 Tablet by mouth in the morning. 90 Tablet 1 LORazepam 0.5 MG Oral Tablet (Ativan) Take 1 Tablet by mouth 3 times a day as needed for Anxiety. 10 Tablet 0 Baclofen 10 MG Oral Tablet (Lioresal) Take 1 Tablet by mouth at bedtime. 30 Tablet 2 Current Facility-Administered Medications Medication Dose Route Frequency Provider Last Rate Last Admin bevaCIZumab (Avastin) inj 1.25 mg 1.25 mg Intravitreal PRN Mina Samuel, DO 1.25 mg at 10/05/24 1028 ROPivacaine (Naropin) inj 1.5 mg 1.5 mg Injection PRN Mina Samuel, DO 1.5 mg at 10/05/24 1028 Past Medical History: Diagnosis Date Benign neoplasm of colon 08/14/99 BPH W/OBST OR OTHER LOW URINARY SX 09/27/2007 CORONARY ATHEROSCLER. OF UPPER [place] CORONARY VESSEL 09/27/2007 Dyslipidemia, goal LDL below 100 10/08/2009 Per Lipid Taxonomy. 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 Monahan--internal hemorrhoids EXCISE BENIGN LESION, TRUNK ARM LEG GREATER THAN 4.0 CM 07/2002 exc lipoma of buttocks EXCISE BENIGN LESION, TRUNK, ARM, LEG, 0.6 - 1.[address] Varma, Basal cell on right arm and top of head INJECTION OF EYE DRUG Right 09/04/2021 # 1 Avastin OD, INJECTION OF EYE DRUG Right 10/07/2021 # 2 Avastin OD, Dr. Samuel INJECTION OF EYE DRUG Right 11/20/2021 # [address] Samuel INJECTION OF EYE DRUG Right 01/02/2022 # 4 Avastin OD, Dr. Samuel INJECTION OF EYE DRUG Right 02/27/2022 # 5 Avastin OD, Dr. Samuel INJECTION OF EYE DRUG Right 04/30/2022 # 6 Avastin OD, Dr. Samuel INJECTION OF EYE DRUG Right 07/09/2022 # 7 Avastin OD, dr. Samuel INJECTION OF EYE DRUG Right 10/01/2022 #8 Avastin OD Jimmie INJECTION OF EYE DRUG Right 12/17/2022 # 9 Avastin OD, Dr. Samuel INJECTION OF EYE DRUG Right 03/04/2023 # 10 Avastin OD, Dr. Samuel INJECTION OF EYE DRUG Right 05/27/2023 #[address] Samuel INJECTION OF EYE DRUG Right 08/19/2023 #12 Avastin OD; Dr Samuel INJECTION OF EYE DRUG Right 11/25/2023 #13 Avastin OD; Dr Samuel INJECTION OF EYE DRUG Right 02/17/2024 #14 Avastin OD; Dr Samuel INJECTION OF EYE DRUG Right 05/02/2024 #15 Avastin OD, Dr. Samuel INJECTION OF EYE DRUG Right 07/17/2024 #[address] Samuel INJECTION OF EYE DRUG Right 10/05/2024 #17 Avastin OD, Dr. Samuel MISCELLANEOUS ORDER ([facility] ONLY) 11/21/2015 gamma knife R acoustic neuroma MISCELLANEOUS ORDER ([facility] ONLY) ACT 112 FORM SIGNED; DR SAMUEL (04/11/19) NEEDLE/PUNCH BIOPSY OF PROSTATE 08/16/2006 Prostate,Needle/Punch Biopsy OTHER 06/2007 cardiac stent OTHER Right Avastin OD Consent signed, /Belk[facility] 09/04/2021-09/04/2022 OTHER (INFORMATION) AVASTIN OU CONSENT SIGNED Dr. Samuel/Timo (exp 12-17-23) OTHER (INFORMATION) Avastin Consent EXP 05/02/25 - Nela PARTIAL COLECTOMY W/ANASTOMOSIS 06/08/2000 dr bowman/dr monahan @ [facility] portion of r colon/terminal ileum REMOVE CATARACT, INSERT LENS PROSTH Bilateral 09/2016 Dr. Fortune REMOVE GALLBLADDER 06/08/2000 dr bowman SIGMOIDOSCOPY, DIAGNOSTIC ,12/30 Social History Socioeconomic History Marital status: Spouse name: Not on file Number of children: Not on file Years of education: Not on file Highest education level: Not on file Occupational History Occupation: retired Employer: [employer] [place] Tobacco Use Smoking status: Never Smokeless tobacco: Never Vaping Use Vaping status: Never Used Substance and Sexual Activity Alcohol use: No Drug use: No Sexual activity: Never Other Topics Concern Not on file Social History Narrative Not on file Social Needs Financial Resource Strain: Low Risk (06/07/2023) Financial Resource Strain Do you have any trouble paying for your medications, or do you think you might in the future? (Adult - for ages 18 years and over): No Does your family have trouble paying for medicine? (Household - for ages 0-17 years): Not on file Food Insecurity: No Food Insecurity (06/07/2023) Food Insecurity Do you need food for this week? (Adult - for ages 18 years and over): No Are you able to get enough food for your family? (Household - for ages 0-17 years): Not on file Does your family need food this week? (Household - for ages 0-17 years): Not on file Do you always have enough food for your family? (Household - for ages 0-17 years): Not on file Transportation Needs: No Transportation Needs (06/07/2023) Transportation Needs Do you have trouble getting a ride to medical visits or work? (Adult - for ages 18 years and over):Never True Does your family have a hard time getting a ride to doctors visits? (Household - for ages 0-17 years): Not on file Has lack of transportation kept you from medical appointments, meetings, work, or from getting things needed for daily living? Check all that apply. (Adult - for ages 18 years and over): Not on file Do you (or your family) have trouble finding or paying for a ride (transportation)? (Household - for ages 0-17 years): Not on file Social Connections: Socially Integrated (06/07/2023) Social Connections How often do you feel lonely or isolated from those around you? (Adult - for ages 18 years and over): Never Housing Stability: Low Risk (06/07/2023) Housing Stability Do you currently live in a assisted or have no steady place to sleep at night? (Adult - for ages 18 years and over): No Do you think you are at risk of becoming homeless? (Adult - for ages 18 years and over): No Does your family worry about paying for your home or becoming homeless? (Household - for ages 0-17 years): Not on file Are you homeless or worried that you might be in the future? (Adult - for ages 18 years and over): Not on file Are you (or your family) homeless or worried that you might be in the future? (Household - for ages0-17 years): Not on file Review of patient's allergies indicates: Allergen Reactions Adhesive Tape Codeine Cortisone Morphine And Codeine Neomycin-Bacitracin Zn-Polymyx Neosporin Objective: BP 122/74 | Pulse 70 | Temp 97.7 F (36.5 C) (Tympanic) | Wt 143 lb (64.9 kg) | SpO2 98% | BMI 24.53 kg/m | BSA 1.71 m Physical Exam: General: alert, no distress, well nourished, and well developed Head: Normocephalic, No masses, lesions, tenderness or abnormalities Eye Exam: PERRLA, extraocular movements intact, conjunctiva are pink and non- injected, sclera clear Ears: External ears normal, +hearing aids Nose: no mucosal erythema, no mucosal edema, no purulent discharge Oropharynx: no exudate, no erythema, lips, buccal mucosa, and tongue normal, and mucous membranes are moist Neck: supple, no adenopathy, no bruits Heart: regular rate & rhythm, no murmur, and no gallops Lungs: chest symmetric with normal AP diameter, no chest deformities noted, no chest wall tenderness, lungs clear to auscultation Abdomen: abdomen soft, non-tender, normal bowel sounds, no masses or organomegaly, no rebound or guarding, and +small umbilical hernia Extremities: no clubbing, no cyanosis, trace lower extremity edema bilaterally Neuro Exam: alert & oriented x 3 with fluent speech, no focal motor/sensory deficits, +bradykinesia and resting tremors of right hand Extensive ROS Constitutional (f/c/wt/vision/hearing): see above hpi Resp (cough/sob/alfaro): Negative CV (cp/palp/fluttering/diaphoresis/alfaro/pnd):see above hpi GI (n/v/d/hrtburn): see above hpi Endo (hair/cold or heat intol/ 3 p's): Negative Neuro (shaking/weak/fatigu/parasthesi/): see above hpi Skin (rash/easy bruis/xerosis): Negative Psy (si/hi/halluc/): see above hpi (nocturia/hesit/drib/sexual review): +BPH Lymph (swollen glands/b sx's/: Negative ASSESSMENT: Abdominal bloating (Primary)--unsure when it started. Check abdominal ultrasound and refer to GI. Will also check labs. May need EGD. Feels full and bloated easily. Reports bowels move regularly without constipation or diarrhea. - XR ABDOMEN 1 VIEW; Future; Expected date: 11/06/2024 - ADULT GASTROENTEROLOGY REFERRAL OP Abdominal pain, generalized--as above. Check labs and x-ray. Refer to GI for evaluation. - XR ABDOMEN 1 VIEW; Future; Expected date: 11/06/2024 - ADULT GASTROENTEROLOGY REFERRAL OP Hypertensive kidney disease with stage 3a chronic kidney disease (HCC)--blood pressure controlled with metoprolol succinate 25 mg twice daily. - ALBUMIN / CREATININE RATIO, URINE; Future; Expected date: 11/06/2024 - CBC WITH WBC DIFFERENTIAL AND ANEMIA REFLEX WORKUP; Future; Expected date: 11/06/2024 - PHOSPHORUS Right acoustic neuroma (HCC)--stable. S/p gamma knife treatment in [place] remotely. Parkinson's disease with dyskinesia and fluctuating manifestations (HCC)--stable. Follows with neurology. Spasms improved with baclofen. DYSLIPIDEMIA, GOAL LDL BELOW 100--check labs. Not currently on lipid lowering therapy. Follows withcardiology. - COMPREHENSIVE METABOLIC PANEL; Future; Expected date: 11/06/2024 - LIPID PANEL WITH DIRECT LDL IF TG IS HIGH; Future; Expected date: 11/06/2024 Atherosclerosis of [place] coronary artery of [place] heart without angina pectoris--stable chest pain. Mostly resolved with christina donny. Follows with cardiology. Exudative age-related macular degeneration of right eye with active choroidal neovascularization (HCC)--following with ophthalmology and having injections. BPH with obstruction/lower urinary tract symptoms--stable with doxazosin 2 mg daily and dutasteride0.5 mg daily. Follow Up: Return in about 6 months (around 05/06/2025) for Clinic Visit. | For: Clinic Visit PLAN: Continue present medication(s): Study(ies) ordered: Abdominal x-ray Referral(s) to: Gastroenterology Schedule labs: CBC w/diff, CMP, lipid panel, phosphorus, and microalbumin Patient education: Discussed abdominal pain and bloating, labs, and x-ray. Discussed GI referral. Discussed possible CT scan but prefers to avoid at this time. Follow up: in 6 month(s). Edilia George MD documented in this encounter Nursing Notes * Aury Kaye LPN - 11/06/2024 4:05 PM EST 6 month return Check stomach Having really bad pains & bloating "starving pains but bloated" Stomach does feel "tense" documented in this encounter Plan of Treatment Upcoming Encounters Date Type Department Care Team (Late st Contact Info) Description 12/14/2024 11:00 AM EST Office Visit Ophthalmology, [facility] [address] [place] [address] Mina Samuel DO [address] [place] [address] 01/04/2025 9:30 AM EST Office Visit Cardiology, [facility] [address] [place] [address] Cipriano Cavazos PA-C [address] [place] [address] 01/22/2025 10:00 AM EDT Office Visit Otolaryngology [facility] [address] [place] [address] Francisco Baugh PA-C [address] [place] [address] 02/02/2025 10:00 AM EDT Office Visit Gastroenterology [address] [place] [address] Savanah Capps CRNP [address] [place] [address] 05/01/2025 4:20 PM EDT Office Visit Neurology [facility] Jammie [place] [address] [place] [address] Zak Mckeon, [address] [place] [address] 06/01/2025 1:00 PM EDT Office Visit Family Medicine [address] [phone] Edilia George MD [address] [place] [address] [place] [id number] Scheduled Orders Name Type Priority Associated Diagnoses Orde r Schedule ALBUMIN / CREATININE RATIO, URINE Lab Routine Hypertensive kidney disease with stage 3a chronic kidney disease (HCC) Expected: 11/06/2024, Expires: 11/06/2025 COMPREHENSIVE METABOLIC PANEL Lab Routine DYSLIPIDEMIA, GOAL LDL BELOW 100 Expected: 11/06/2024 (Approximate), Expires: 11/06/2025 CBC WITH WBC DIFFERENTIAL AND ANEMIA REFLEX WORKUP Lab Routine Hypertensive kidney disease with stage 3a chronic kidney disease (HCC) Expected: 11/06/2024 (Approximate), Expires: 11/06/2025 PHOSPHORUS Lab Routine Hypertensive kidney disease with stage 3a chronic kidney disease (HCC) Ordered: 11/06/2024 LIPID PANEL WITH DIRECT LDL IF TG IS HIGH Lab Routine DYSLIPIDEMIA, GOAL LDL BELOW 100 Expected: 11/06/2024, Expires: 11/06/2025 XR ABDOMEN 1 VIEW Medical Imaging Routine Abdominal bloating Abdominal pain, generalized Expected: 11/06/2024, Expires: 12/07/2025 Scheduled Referrals Name Type Priority Associated Diagnoses Order Schedule ADULT GASTROENTEROLOGY REFERRAL OP Referral Within 10 days (routine) Abdominal bloating Abdominal pain, generalized Ordered: 11/06/2024 Health Maintenance Due Date Last Done Comments DTap/Tdap Vaccines (1 - Tdap) 1964 Pneumococcal Vaccine: 50+ Years (1 of 2 - PCV) 1964 Zoster Vaccines (1 of 2) 1964 Adult Wellness Visit 2009 Depression Screening 10/19/2020 10/19/2019 COVID-19 Vaccine (3 - Moderna risk series) 03/05/2021 02/05/2021, 01/08/2021 CKD PHOS USE SMARTSET 11388 06/01/2024 08/0 11/2022, 12/11/2022, 06/20/2021, Additional history exists Influenza Vaccine (FLU shot) (#1) 2024 GFR 08/30/2024 02/29/2024, 11/03, 06/01/2023, Additional history exists Albumin/Creatinine Ratio 11/30/2024 024, 12/11/2022, 06/20/2021, Additional history exists CKD HGB USE SMARTSET 91841 11/30/202411/30, 11/30/2023, 06/01/2023, Additional history exists HPV (Gardasil) Vaccine Aged [...] Not on filedocumented as of this encounter Visit Diagnoses Diagnosis Abdominal bloating- Primary Flatulence, eructation, and gas pain Abdominal pain, generalized Hypertensive kidney disease with stage 3a chronic kidney disease (HCC) Right acoustic neuroma (HCC) Benign neoplasm of cranial nerves Parkinson's disease with dyskinesia and fluctuating manifestations (HCC) DYSLIPIDEMIA, GOAL LDL BELOW 100 Other and unspecified hyperlipidemia Atherosclerosis of [place] coronary artery of [place] heart without angina pectoris 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
--- OUTSIDE RECORDS SUMMARY | 2024-12-13 22:57 | External Medical Summary | Summary of Care ---
Author Name Unknown Organization [facility] Address [address] [place] [address] Phone [phone] Care Team Providers Care Cold Patcher Name Role Phone Edilia George MD Primary Care Provide r Reason for Visit * Reason Onset Date Comments Referral 06/09/2024 Encounter Details Date Type Department Care Team (Late st Contact Info) Description 06/09/2024 Telephone Family Medicine [address] [phone] Edilia George MD [address] [place] [address] [place] [id number] Referral Allergies Active Allergy Reactions Criticality Noted Date Comments Adhesive Tape 01/01/2021 Codeine 11/16/2014 Cortisone 11/16/2014 Morphine And Codeine 11/13/2003 Neomycin-Bacitracin Zn-Polymyx 11/16 Neosporin 11/13/2003 documented as of this encounter (statuses as of 09/08/2024) Medications MULTIVITAMIN PO TABS once a day 0 006 Active ASPIRIN EC 81 MG PO TBEC Take one pill daily 100 Tab 3 012 Active METRONIDAZOLE 0.75 % EX CREA once a day Acti ve PreserVision AREDS 2 Oral Tablet Chewable Take [...] Triamcinolone Acetonide 0.1 % External Cream (Aristocort) 022 Active Polyethylene Glycol 3350 17 GM Oral Packet Take 1 Packet by mouth in the morning. Active Doxazosin Mesylate 2 MG Oral Tablet (Cardura)Indicati ons:BPH with obstruction/lower urinary tract symptoms TAKE ONE TABLET BY MOUTH AT BEDTIME 90 Tablet 1 024 Active Clopidogrel Bisulfate 75 MG Oral Tablet (Plavix)Indicatio ns:ASCVD (arteriosclerotic cardiovascular disease) Take 1 Tablet by mouth daily. 90 Tablet 3 024 Active Magnesium 500 MG Oral Tablet Take 1 Tablet by mouth in the morning. Active Carbidopa-Levodop a 25-100 MG Oral Tablet (Sinemet)Indicati ons:Idiopathic Parkinson's disease (HCC) 1 tablet 4 times daily (morning, lunch, late afternoon). 360 Tablet 1 024 Active Pantoprazole Sodium 40 MG Oral Tablet Delayed Release (Protonix) Take 1 Tablet by mouth in the morning. 90 Tablet 3 023 2023 Discontinued Metoprolol Succinate ER 25 MG Oral Tablet Extended Release 24 Hour (toPROL XL)Indications:HT N, goal below 140/90 Take 1 Tablet by mouth in the morning and 1 Tablet in the evening. 180 Tablet 3 023 2023 Discontinued Hospital, Clinic, or Other Facility Administered Medication [...] as of this encounter (statuses as of 09/08/2024) Active Problems Problem Noted Date Diagnosed Date Bilateral lower extremity edema 02/20/2022 Exudative age-related macula r degeneration of right eye with active choroidal neovascularization 02/11/2022 History of non-ST elevation myocardial infarctio n (NSTEMI) 02/11/2022 Chronic kidney disease, stage 3a 08/11/2021 Overview: Per CKD protocol Hypertensive kidney disease with stage 3a chronic [...] per HTN protocol #16. Coronary atherosclerosis of kaw coronary kayla ry 09/27/2007 BPH with obstruction/lower urinary tract symptom s 09/27/2007 Meckel's diverticulum 11/13/2003 S/P coronary artery stent placement documented as of this encounter (statuses as of 09/08/2024) Resolved Problems Problem Noted Date Diagnosed Date Resolved Date Protein-calorie malnutrition 12/11/2022 12/11/[address] 02/06/202201/31 Hypertensive kidney disease with chronic kidney disease [...] as of this encounter (statuses as of 09/08/2024) Immunizations Name Administration Dates Next Due COVID-19 [...] y our heating, water, or electric bill? (Adult - for ages 18 years and over) Not on file 07/02/2024 Is your family able to pay t he heat, water, or electric bill? (Household - for ages 0-17 years) Not on file 07/02/2024 Does your family have access to good internet? (Household - for ages 0-17 years) Not on file 07/02/2024 Employment Status Answer Date Recorded Are you unemployed or without regular income? No 06/07/2023 Does the household have a [facility] source of income? (Household - for ages 0-17 years) Not on file 06/07/2023 Social Connections Answer Date Recorded How often do you feel lonely or isolated from those around you? (Adult - for ages 18 years and over) Not on file 07/02/2024 Financial Resource Strain Answer Date R ecorded [...] encounter Miscellaneous Notes * Telephone Encounter - Esther Pritchard OSA - 06/13/2024 8:21 AM EDT I got appt moved up to 07/24/24 @ 8 am w/ Dr. Faust. My [employer] message sent to patient. * Telephone Encounter - Alicia Kevin RN - 06/12/2024 2:55 PM EDT Pt has an appt 09/19/24 with ENT , Autumn, can you see if he can be seen sooner * Telephone Encounter - Kely Chavez OSA - 06/09/2024 9:59 AM EDT Has the patient been seen for this problem? (Y/N)?: n/a If No, an appt needs to be scheduled before a referral will be placed (exception: proceed with referral request if referral request is for a yearly routine appointment with speciality) Patient Name: Nico Hunter Patient Primary care provider: Edilia George MD Does this need to be an insurance referral (Y/N)?: n/a If Yes, does the insurance referral need to be placed into the [email or web address] system? Name of preferred specialist: Type of specialist: ear doctor Location of specialist: N/A Specialist's Phone #: N/A Specialist's Fax #: [phone] Reason for visit: EAR CLEAN Date of visit: 09/19 documented in this encounter Plan of Treatment Upcoming Encounters Date Type Department Care Team (Late st Contact Info) Description 10/05/2024 10:00 AM EST [facility], [facility] [address] [facility] [place] [address] Mina Samuel, [address] [place] [address] 10/26/2024 10:00 AM EST Office Visit Neurology [facility] [address] [place] [address] [place] [address] Chaparrita Gonzalez PA-C [address] [place] [address] 10/31/2024 4:00 PM EST Office Visit Family [address] [phone] Ediila George MD [address] [place] [address] [place] [address] 01/04/2025 9:30 AM EST Office Visit Cardiology, [facility] [address] [place] [address] Cipriano Cavazos PA-C [address] [place] [address] 01/22/2025 10:00 AM EDT Office Visit Otolaryngology [facility] [address] [place] [address] Francisco Baugh PA-C [address] [place] [address] Health Maintenance Due Date Last Done Comments Pneumococcal Vaccine: 65+ Years (1 of 2 - PCV) 1949 DTap/Tdap Vaccines (1 - Tdap) 1962 Zoster Vaccines (1 of 2) 1964 Adult Wellness Visit 2009 Depression Screening 10/19/2020 10/19/2019 COVID-19 Vaccine (3 - Moderna risk series) 03/05/2021 02/05/2021, 01/08/2021 CKD PHOS USE SMARTSET 74629 06/01/2024 08/0 11/2022, 12/11/2022, 06/20/2021, Additional history exists Influenza Vaccine (FLU shot) (#1) 2024 GFR 08/30/2024 02/29/2024, 11/03, 06/01/2023, Additional history exists Albumin/Creatinine Ratio 11/30/2024 024, 12/11/2022, 06/20/2021, Additional history exists CKD HGB USE SMARTSET 08737 11/30/202411/30, 11/30/2023, 06/01/2023, Additional history exists HPV [...] Agen t (per Health Care Power of Escort Car Driver document) Care Teams Cold Patcher Relationship Specialty Start Date End Date Edilia George MD [address] [place] [address] [place] [address] PCP - General Family Medicine 03/28/19 documented as of this encounter
--- OUTSIDE RECORDS SUMMARY | 2024-12-13 22:57 | External Medical Summary | Summary of Care ---
Author Name Unknown Organization [facility] Address [address] [place] [address] Phone [phone] Care Team Providers Care Teacher Specialist Name Role Phone Edilia George MD Primary Care Provide r Reason for Visit * Reason Onset Date Comments Medication Refill 12/04/2024 Encounter Details Date Type Department Care Team (Late st Contact Info) Description 12/04/2024 Refill Neurology [facility] [place] [address] [place] [address] Zak Mckeon, [address] [place] [address] Idiopathic Parkinson's disease (HCC) Allergies Active Allergy Reactions Criticality Noted Date Comments Adhesive Tape 01/01/2021 Codeine 11/16/2014 Cortisone 11/16/2014 Morphine And Codeine 11/13/2003 Neomycin-Bacitracin Zn-Polymyx 11/16 Neosporin 11/13/2003 documented as of this encounter (statuses as of 12/04/2024) Medications MULTIVITAMIN PO TABS once a day [...] afternoon). 360 Tablet 1 12/04/19 25 Active Carbidopa-Levodopa 25-100 MG Oral Tablet (Sinemet)Indicatio ns:Idiopathic Parkinson's disease (HCC) 1 tablet 4 times daily (morning, lunch, late afternoon). 360 Tablet 1 06/ 025 Discontin ued(Refil l) documented as of this encounter (statuses as of 12/04/2024) Active Problems Problem Noted Date Diagnosed Date [...] per HTN protocol #16. Coronary atherosclerosis of [place] coronary kayla ry 09/27/2007 BPH with obstruction/lower urinary tract symptom s 09/27/2007 Meckel's diverticulum 11/13/2003 S/P coronary artery stent placement documented as of this encounter (statuses as of 12/04/2024) Resolved Problems Problem Noted Date Diagnosed Date [...] as of this encounter (statuses as of 12/04/2024) Immunizations Name Administration Dates Next Due COVID-19 [...] No 06/07/2023 Does the household have a [facility] source of income? (Household - for ages [...] encounter Miscellaneous Notes * Telephone Encounter - Zak Mckeon DO - 12/04/2024 10:22 AM EST Signed Prescriptions: Disp Refills Carbidopa-Levodopa 25-100 MG Oral Tablet (*360 Ta*1 Si tablet 4 times daily (morning, lunch, late afternoon). Authorizing Provider: ZAK MCKEON * Telephone Encounter - Althea Aparicio LPN - 12/04/2024 10:17 AM ESTPending Prescriptions: Disp Refills Carbidopa-Levodopa 25-100 MG Oral Tablet (*360 Ta*1 Si tablet 4 times daily (morning, lunch, late afternoon). * Telephone Encounter - Mica Jenkins CPhT - 12/04/2024 8:34 AM EST Did you pend patient's preferred pharmacy and medication before forwarding?yes Pharmacy: [id number] [address] [facility] Pending Prescriptions: Disp Refills Carbidopa-Levodopa 25-100 MG Oral Tablet *360 Ta*1 Si tablet 4 times daily (morning, lunch, late afternoon). Last Visit: 10/26/2024 (in office), Visit date not found (telemedicine) Next Visit: 05/01/2025 If no future appointments scheduled, and last appointment is greater than a year ago, please schedule patient for a follow-up appointment Last date the medication was ordered: 04.14.24 Is this request for a controlled substance?No Urine Drug Screen:No results found for this or any previous visit. Patient Phone Numbers Labs: Lab Results Component Value Date/Time CREAT 1.3 (H) 11/07/2024 10:09 AM CREAT 1.11 01/26/2022 12:00 AM CREAT 1.2 11/05/2020 10:20 AM POTASSIUM 4.1 11/07/2024 10:09 AM POTASSIUM 3.3 (A) 01/26/2022 12:00 AM POTASSIUM 4.3 11/05/2020 10:20 AM TSH 1.34 11/30/2023 03:02 PM TSH 1.64 02/25/2018 09:41 AM LDL 121 11/07/2024 10:09 AM LDL 127 11/05/2020 10:20 AM LDL NOT APPLICABLE 11/05/2020 10:20 AM ALT 9 (L) 11/07/2024 10:09 AM ALT <5 (L) 11/05/2020 10:20 AM documented in this encounter Plan of Treatment Upcoming Encounters Date Type Department Care Team (Late st Contact Info) Description 12/14/2024 11:00 AM EST Office Visit Ophthalmology, [facility] [address] [place] [address] Mina Samuel DO [address] [place] [address] 01/22/2025 10:00 AM EDT Office Visit Otolaryngology [facility] [address] [place] [address] Francisco Baugh PA-C [address] [place] [address] 02/02/2025 10:00 AM EDT Office Visit Gastroenterology [address] [place] [address] Savanah Capps CRNP [address] [place] [address] 05/01/2025 4:20 PM EDT Office Visit Neurology [facility] [place] [address] [place] [address] Zak Mckeon, [address] [place] [address] 06/01/2025 1:00 PM EDT Office Visit Family Medicine [address] [place] [phone] Edilia George MD [address] [place] [address] [place] [address] Health Maintenance Due Date Last Done Comments DTap/Tdap Vaccines (1 - Tdap) 1962 Pneumococcal Vaccine: 50+ Years (1 of 1 - PCV) 1993 Zoster Vaccines (1 of 2) 1993 Adult Wellness Visit 2009 Depression Screening 10/19/2020 10/19/2019 COVID-19 Vaccine ( season) 2024 02/05/2021, 01/08/2021 Influenza Vaccine (FLU shot) (#1) 2024 GFR 05/07/2025 11/07/2024, 02/01, 11/30/2023, Additional history exists Albumin/Creatinine Ratio 11/07/2025 025, 11/30/2023, 12/11/2022, Additional history exists CKD HGB USE SMARTSET 49362 11/07/202511/07, 11/07/2024, 11/30/2023, Additional history exists CKD PHOS USE SMARTSET 78529 11/07/202505/2025, 06/01/2023, 12/11/2022, Additional history exists HPV [...] as of this encounter Visit Diagnoses Diagnosis Idiopathic Parkinson's disease (HCC) Paralysis agitans documented in this encounter Advance Directives Healthcare Agents on File Name Relationship Healthcare Agent Relationshi p Communication Sabi Hunter [facility] Health Care Agen t (per Health Care Power of Batt Packer document) Care Teams Teacher Specialist Relationship Specialty Start Date End Date Edilia George MD [address] [place] [address] [place] [id number] PCP - General Family Medicine 03/28/19 documented as of this encounter
--- OUTSIDE RECORDS SUMMARY | 2024-12-13 22:57 | External Medical Summary | Summary of Care ---
Author Name Unknown Organization [facility] Address [address] [place] [address] Phone [phone] Care Team Providers Care Music Composer Name Role Phone Edilia George MD Primary Care Provide r Reason for Visit * Reason Comments Follow Up Parkinson's Disease Encounter Details Date Type Department Care Team (Late st Contact Info) Description 10/26/2024 10:00 AM EST Office Visit Neurology [facility] [place] [address] [place] [address] Chaparrita Gonzalez PA-C [address] [place] [address] Parkinson's disease without dyskinesia, with fluctuating manifestations (HCC)*; Muscle spasm Allergies Active Allergy Reactions Criticality Noted Date Comments Adhesive Tape 01/01/2021 Codeine 11/16/2014 Cortisone 11/16/2014 Morphine And Codeine 11/13/2003 Neomycin-Bacitracin Zn-Polymyx 11/16 Neosporin 11/13/2003 documented as of this encounter (statuses as of 10/26/2024) Medications MULTIVITAMIN PO TABS once a day [...] as of this encounter (statuses as of 10/26/2024) Active Problems Problem Noted Date Diagnosed Date [...] per HTN protocol #16. Coronary atherosclerosis of [place] coronary kayla ry 09/27/2007 BPH with obstruction/lower urinary tract symptom s 09/27/2007 Meckel's diverticulum 11/13/2003 S/P coronary artery stent placement documented as of this encounter (statuses as of 10/26/2024) Resolved Problems Problem Noted Date Diagnosed Date [...] as of this encounter (statuses as of 10/26/2024) Immunizations Name Administration Dates Next Due COVID-19 [...] Sign Reading Time Taken Comments Blood Pressure 106/72 10/26/2024 9:59 AM EST Pulse - - Temperature 36.5 C (97.7 F) 10/26/2024 9:59 AM ES T Respiratory Rate 18 10/26/2024 9:59 AM EST Oxygen Saturation - - Inhaled Oxygen Concentration - - Weight 65.8 kg (145 lb) 10/26/2024 9:59 AM EST Height - - Body Mass Index 24.88 07/24/2024 7:40 AM EDT documented in this encounter Progress Notes * Chaparrita Gonzalez PA-C - 10/26/2024 9:56 AM EST HISTORY & PHYSICAL EXAMINATION - NEUROLOGY Name: Nico Hunter Date: 10/26/2024 Time: 9:56 AM Referring Provider: Edilia George* Chief Complaint: Chief Complaint Patient presents with Follow Up Parkinson's Disease This is a 79 year old right handed gentleman returns today for follow up for parkinson's disease. HPI & Source of HPI The patient and spouse was the historian, and they are reliable. He was last seen in our office by Zak Mckeon DO 04/14/24 for idiopathic Parkinson's disease. He denies any further syncopal episodes. He is doing well. He walks with a walker and is using a wheelchair today. He denies any falls. He is taking his Sinemet 25-100 4 times daily 07/04/07/04. He does have chronic left lower extremity weakness since childhood. He did not tolerate or have improvement with use of Stalevo. Today he is complaining about muscle spasms that are waking him at night. He gets up and walks which does help some. This happens several times a week and is effecting his sleep along with his 'ssleep because she gets up with him. He is noticing more tremor in his left hand usually when he is stressed. He is only having about 1 episode of low blood pressure a month which is much improved from previous. Denies CP, SOB, abdominal pain, N, V.increase weakness. I have reviewed the patient's medications and allergies, past medical, surgical, social and family history, updating these as appropriate. See Histories section of the electronic medical record for adisplay of this information. Patient Active Problem List Diagnosis Meckel's diverticulum Coronary atherosclerosis of [place] coronary artery BPH with obstruction/lower urinary tract [...] with stage 3a chronic kidney disease (HCC) Chronic kidney disease, stage 3a (HCC) Exudative age-related macular degeneration of right eye with active choroidal neovascularization (HCC) History of non-ST elevation myocardial infarction (NSTEMI) Bilateral lower extremity edema Family History Problem Relation Name Age of Onset Other (Cancer brain) Mother Heart Disorder Father mi age 54 Hypertension Father Other (Cancer lung) Brother AND HEART DISEASE Diabetes None Thyroid Disorder None Stroke None Eye Problems None denies FH: AMD, RD'S, GLAUCOMA, BLINDNESS Medications: Are you taking your medications? yes Current Outpatient Medications Medication Sig Dispense Refill [...] as needed for Anxiety. 10 Tablet 0 Current Facility-Administered Medications Medication Dose Route Frequency Provider Last Rate Last Admin bevaCIZumab (Avastin) inj 1.25 mg 1.25 mg Intravitreal PRN Mina Samuel, DO 1.25 mg at 10/05/24 1028 ROPivacaine (Naropin) inj 1.5 mg 1.5 mg Injection PRN Mina Samuel, DO 1.5 mg at 10/05/24 1028 Review of patient's allergies indicates: Allergen Reactions Adhesive Tape Codeine Cortisone Morphine And Codeine Neomycin-Bacitracin Zn-Polymyx Neosporin Review of Systems: A total number of 10 systems were reviewed pertinent negative and positives not addressed in HPI are listed in the following review. Physical Exam: Constitutional: BP 106/72 | Temp 36.5 C (97.7 F) | Resp 18 | Wt 65.8 kg (145 lb) | BMI 24.88 kg/m | BSA 1.72 m , appearance nourished and healthy Ears, Nose, Mouth and Throat: mucous membranes moist, no injection and skin normal, eyes normal Cardiovascular: normal S-1 and S-2 and regular rate and rhythm Respiratory: clear to auscultation (CTA) and no rales, ronchi or wheeze Musculoskeletal: no peripheral edema Skin: actinia on scalp Eyes: extraocular muscles intact (EOMI) and decrease blink frequency NEUROLOGIC EXAMINATION: Mental status: Alert and interactive Oriented to person Speech fluent with no evidence of aphasia Cranial Nerves Normal findings for Cranial Nerves II - XII Coordination: on [id number], no reaching tremor, cogwheeling, resting tremor Gait/Stance: Posture abnormal: forward head and rounded shoulders. Gait forgot to bring walker or cane and walksbehind his wheel chair. Tandem low amplitude gait once gets started steady, inward turning of rightfoot, (chronic)with short leg on left Motor: Negative for pronator drift of out stretched arms with eyes closed. Strength: generalized weakness, deconditioned, needs help standing up from chair, and uses arms of chair to stand up LABORATORY: Recent labs reviewed Review of prior Studies: No recent imaging available. Impression: Nico Hunter is a 79 year old gentleman with a history of parkinsons and muscle spasms. His neurologic examination today reveals no new focal deficit. The history and examination are suggestive of diagnosis/problem list. Testing and Referrals ordered: none ICD-10-CM 1. Parkinson's disease without dyskinesia, with fluctuating manifestations (HCC) G20.A2 2. Muscle spasm M62.838 Return in 6 months or sooner if needed Continue Sinemet 25/100 mg (1 tab) 07/04/07/04 Start baclofen 10 mg (1 tab) at bedtime - advise if tolerating. May help with muscle spasms at hs Use walker with ambulation and wheelchair as needed Keep as physically and mentally active as possible If near syncope drops in blood pressure continue could try SHARA hose and increase salt in diet if not contraindication with cards. Continue to follow with PCP and cards. Call with questions concerns Medical Decision Making (determined by lowest of 2 of 3 elements): The medical decision making element of the number and complexity of problems addressed included at least 1 or more chronic illnesses with exacerbation, progression, or side effects of treatment (level 4) and 1 undiagnosed new problem with uncertain prognosis (level 4). The medical decision making element of risk of complications, morbidity, and mortality of patient management is moderate (level 4) due to prescription drug management (moderate risk). The medical decision making element of the amount and complexity of data reviewed and analyzed included an independent interpretation of a test (level 4 at least). When 2 of 3 reach level 4, then this element is considered extensive (level 5). I personally spent a total of 30 minutes. This time was for a new office or established visit and was on the same calendar day. and This time was the total spent on the evaluation, interpretation, and documentation. Education / Consultation - Topics covered as I spent 20 minutes, which is greater than 50% of this visit, counseling the patient on: Diagnostic Results Prognosis Importance of compliance with chosen treatment options Risk factor reductions Patient and family education Consulted with physician: Zak Mckeon DO was available for direct supervision. Copy of note sent to PCP and Referring Provider. Total time of visit: 30 minutes. Chaparrita Gonzalez PA-C [facility]rology [facility] [place] [address] [address] [place] [address] 10/26/2024 9:56 AM documented in this encounter Nursing Notes * Janet Vinson RN - 10/26/2024 10:03 AM EST Follow up visit today. Increased tremors in right hand with some anxiety. Muscle spasms in primarily left leg. documented in this encounter Plan of Treatment Upcoming Encounters Date Type Department Care Team (Late st Contact Info) Description 11/06/2024 4:40 PM EST Office Visit Family Medicine [address] [place] [phone] Edilia George MD [address] [place] [address] [place] [address] 12/14/2024 11:00 AM EST Office Visit Ophthalmology, [facility] [address] [place] [address] Mina Samuel DO [address] [place] [address] 01/04/2025 9:30 AM EST Office Visit Cardiology, [facility] [address] [place] [address] Cipriano Cavazos PA-C [address] [place] [address] 01/22/2025 10:00 AM EDT Office Visit Otolaryngology [facility] [address] [place] [address] Francisco Baugh PA-C [address] [place] [address] 05/01/2025 4:20 PM EDT Office Visit Neurology [facility] [address] [facility] [place] [address] Zak Mckeon, DO [address] [facility] [place], [place] [address] Health Maintenance Due Date Last Done Comments DTap/Tdap Vaccines (1 - Tdap) 1964 Pneumococcal Vaccine: 50+ Years (1 of 2 - PCV) 1964 Zoster Vaccines (1 of 2) 1964 Adult Wellness Visit 2009 Depression Screening 10/19/2020 10/19/2019 COVID-19 Vaccine (3 - Moderna risk series) 03/05/2021 02/05/2021, 01/08/2021 CKD PHOS USE SMARTSET 00485 06/01/2024 08/0 11/2022, 12/11/2022, 06/20/2021, Additional history exists Influenza Vaccine (FLU shot) (#1) 2024 GFR 08/30/2024 02/29/2024, 11/03, 06/01/2023, Additional history exists Albumin/Creatinine Ratio 11/30/2024 024, 12/11/2022, 06/20/2021, Additional history exists CKD HGB USE SMARTSET 12725 11/30/202411/30, 11/30/2023, 06/01/2023, Additional history exists HPV [...] as of this encounter Visit Diagnoses Diagnosis Parkinson's disease without dyskinesia, with fluctuating manifestations (HCC)- Primary Muscle spasm Spasm of muscle documented in this encounter Advance Directives Healthcare Agents on File Name Relationship Healthcare Agent Relationshi p Communication Sabi Hunter [facility] t (per Health Care Power of Business Operations Specialist document) Care Teams Music Composer Relationship Specialty Start Date End Date Edilia George MD [address] [place] [address] [place] [address] PCP - General Family Medicine 03/28/19 documented as of this encounter"
--- OUTSIDE RECORDS SUMMARY | 2024-12-13 22:57 | External Medical Summary | Summary of Care ---
Author Name Unknown Organization [facility] Address [address] [place] [address] Phone [phone] Care Team Providers Care Mark Up Designer Name Role Phone Edilia George MD Primary Care Provide r Encounter Details Date Type Department Care Team (Late st Contact Info) Description 11/23/2024 Population Health External Data Unspecified Department Allergies Active Allergy Reactions Criticality Noted Date Comments Adhesive Tape 01/01/2021 Codeine 11/16/2014 Cortisone 11/16/2014 Morphine And Codeine 11/13/2003 Neomycin-Bacitracin Zn-Polymyx 11/16 Neosporin 11/13/2003 documented as of this encounter (statuses as of 11/23/2024) Medications MULTIVITAMIN PO TABS once a day [...] as of this encounter (statuses as of 11/23/2024) Active Problems Problem Noted Date Diagnosed Date [...] per HTN protocol #16. 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 (Household - for ages [...] on file documented as of this encounter Plan of Treatment Upcoming Encounters Date Type Department Care Team (Late st Contact Info) Description 12/14/2024 11:00 AM EST Office Visit Ophthalmology, [facility] [address] [place] [address] Mina Samuel, [address] [place] [address] 01/04/2025 9:30 AM EST Office Visit Cardiology, [facility] [address] [place] [address] Cipriano Cavazos PA-C [address] [place] [address] 01/22/2025 10:00 AM EDT Office Visit Otolaryngology [facility] [address] [place] [address] Francisco Baugh PA-C [address] [place] [address] 02/02/2025 10:00 AM EDT Office Visit Gastroenterology [address] [place] [address] [facility]apps [facility] [place] [address] 05/01/2025 4:20 PM EDT Office Visit Neurology [facility] [address] [place] [address] Zak Mckeon, DO [address] [place] [address] 06/01/2025 1:00 PM EDT Office Visit Family Medicine [address] [place] [phone] Edilia George MD [address] [place] [address] [place] [address] Health Maintenance Due Date Last Done Comments DTap/Tdap Vaccines (1 - Tdap) 1964 Pneumococcal Vaccine: 50+ Years (1 of 2 - PCV) 1962 Zoster Vaccines (1 of 2) 1964 Adult Wellness Visit 2009 Depression Screening 10/19/2020 10/19/2019 COVID-19 Vaccine (3 - Moderna risk series) 03/05/2021 02/05/2021, 01/08/2021 Influenza Vaccine (FLU shot) (#1) 2024 GFR 05/07/2025 11/07/2024, /3 , 11/30/2023, Additional history exists Albumin/Creatinine Ratio 11/07/20252 025, 11/30/2023, 12/11/2022, Additional history exists CKD HGB USE SMARTSET 24547 11/07/202511/07, 11/07/2024, 11/30/2023, Additional history exists CKD PHOS USE SMARTSET 86315 11/07/2025/0 05/2025, 06/01/2023, 12/11/2022, Additional history exists HPV (Gardasil) [...] Relationship Healthcare Agent Relationshi p Communication Sabi Salazar [facility] Health Care [facility]gen t (per Health Care Power of Illuminating Engineer document) Care Teams Mark Up Designer Relationship Specialty Start Date End Date Edilia George MD [address] [place] [address] [place] [phone] PCP - General Family Medicine 03/28/19 documented as of this encounter
--- OUTSIDE RECORDS SUMMARY | 2024-12-13 22:57 | External Medical Summary | Summary of Care ---
Author Name Unknown Organization [facility] Address [address] [place] [address] Phone [phone] Care Team Providers Care Edi Analyst Name Role Phone Edilia George MD Primary Care Provide r Reason for Visit * Reason Comments Follow Up 10-12 week follow up * Precert (Within 10 days (routine)) - Authorized Specialty Diagnoses / Procedures Referred By Ilana shell Referred To Contact Ophthalmology Diagnoses Exudative age-related macular degeneration, right eye, with active choroidal neovascularization (HCC) Procedures [place] BEVACIZUMAB INJECTION [place] INTRAVITREAL NJX PHARMACOLOGIC AGT SPX Mina Samuel DO Phone: tel: fax: Referral ID Status Reason Start Date Expiration Date V isits Requested Visits Authorized [id number] Authorized Precert 09/23/2021 10/31/2099 99 [phone] Encounter Details Date Type Department Care Team (Late st Contact Info) Description 10/05/2024 10:00 AM EST Office [facility], [facility] [place] [address] Mina Samuel DO [address] [place] [id number] Exudative age-related macular degeneration of right eye with active choroidal neovascularization (HCC)*; Intermediate stage nonexudative age-related macular degeneration of left eye Allergies Active Allergy Reactions Criticality Noted Date Comments Adhesive Tape 01/01/2021 Codeine 11/16/2014 Cortisone 11/16/2014 Morphine And Codeine 11/13/2003 Neomycin-Bacitracin Zn-Polymyx 11/16 Neosporin 11/13/2003 documented as of this encounter (statuses as of 10/05/2024) Medications MULTIVITAMIN PO TABS once a day [...] for Anxiety. 10 Tablet 09/08/20 24 Active Hospital, Clinic, or Other Facility [...] as of this encounter (statuses as of 10/05/2024) Active Problems Problem Noted Date Diagnosed Date [...] per HTN protocol #16. 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 Last Office Visit: 07/17/2024 (in office), Visit date not found (telemedicine) Patient currently states "I think my vision has gotten worse" Are you diabetic? No Do you drive? no OCT image(s) of both eyes acquired and filed/scanned into chart. Base Eye Exam Visual Acuity (Snellen - Linear) Right Left Dist cc 20/50 +2 20/60 +1 Dist ph cc 20/40 -2 NI Tonometry (Tonopen, 10:00 AM) Right Left Pressure 11 9 Tonometry #2 (Tonopen, 10:00 AM) Right Left Pressure 9 Tonometry #3 (Tonopen, 10:00 AM) Right Left Pressure 9 Pupils Pupils APD Right PERRL None Left PERRL None Visual Suazo (Counting fingers) Right Left Full Full Extraocular Movement Right Left Full, Ortho Full, Ortho Neuro/Psych Oriented x3: Yes Dilation Both eyes: 0.5% Proparacaine @ 9:59 AM Dilation #2 Both eyes: 1.0% Mydriacyl, 2.5% Phenylephrine @ 9:59 AM Dilation Comments Patient cautioned that effects of dilation may last 2-7 hours dependant upon individual reaction. It was discussed that driving while dilated is not recommended. EXTERNAL: The ocular adnexae are unremarkable. SLE: Lids/Lashes: wnl OU Conjunctiva/Sclera: quiet OU Cornea: clear OU Anterior Chamber: deep and quiet OU Iris: normal OU; no NVI OU Lens: PCIOL OU Dilated fundus exam OD: vitreous: clear w/ pvd optic nerve: 0.25, no edema/pallor/NVD macula: +drusen/rpe mottling vessels: av nicking midperiphery: wnl periphery: no RT/RD Dilated fundus exam OS: vitreous: clear w/ pvd optic nerve: 0.25, no edema/pallor/NVD macula: +drusen/rpe mottling vessels: wnl midperiphery: wnl periphery: no RT/RD OCT Interpretation: OD: +drusen, no CME, +PVD, trace SRFLUID--STABLE, prior STABLE, prior worse, prior STABLE, prior STABLE, prior STABLE, prior STABLE, prior STABLE, prior STABLE, prior improved, prior NEW, prior STABLE, prior flattened PED, prior stable OS: +drusen, no CME/SRFluid, +PVD -STABLE, prior STABLE, prior STABLE, prior stable A/P: 1. Age-Related Macular Degeneration OU OD: WET - s/p Avastin (07/17/24, 05/02/24, 02/17/24, 11/25/23, 05/27/23, 03/04/23, 10/01/22, 07/09/22, 02/27/22, 01/02/22, 11/20/21, 10/07/21, 09-04-21) - 11 weeks since last injection OS: DRY -An examination for this condition was completed which is unrelated to the procedure that was performed today -recommend AREDS2 MVI as directed and Amsler grid qday -monitor 2. H/o Cotton Wool Spot OS - inferotemporally - pt reports h/o fluctuations in BP at time of CWS - resolved 3. Moderate Myopia OU -no retinopathy 4. Posterior Vitreous Detachment OU -no RT/RD -advised to return to clinic if he should experience worsening or new floaters, flashes of light, ashadow in the periphery, or decrease in vision. 5. Pseudophakia OU -stable 6. Blepharitis OU -Lid scrubs and warm compresses OU TIMEOUT PROCEDURE: correct patient identity-YES correct procedure and consent-YES verified side and site-YES correct patient position-YES all necessary equipment/prior studies present-YES reviewed special requirements of this patient-YES PROCEDURE: Intravitreal injection of Avastin 1.25mg OD INFORMED CONSENT: Patient is aware that this is an off-label use of Avastin and that Avastin is not FDA approved for this use. Risks, benefits and alternatives have been discussed with the patient. Risks include, but are not limited to: retinal tears, detachments, hemorrhage, glaucoma, infection, cataracts, need formore procedures and the potential risk of arterial thromboembolic events following use of intravitreal VEGF inhibitors defined as nonfatal stroke, nonfatal myocardial infarction or vascular . Patient is aware of these risks and consents to the procedure. DESCRIPTION OF PROCEDURE: The procedure site was confirmed. Topical proparacaine was applied to the surface of the eye after which subconjunctival anesthetic was administered. The area was prepped in the standard aseptic manner with 5% Betadine solution. An eyelid speculum was placed and 0.05 ml of a 25mg/ml solution of Avastin was injected 3.75 mm posterior to the limbus into the midvitreous cavity with a 30 gauge short needle. The Betadine was flushed from the eye, the eye speculum was removed and optic nerve perfusion was insured. The patient tolerated the procedure without difficulty and was given followup instructions and instructed to use ophthalmic ointment 3x/day as needed. Mina Samuel DO, performed the procedure in its entirety. F/u 10-12 weeks - dilate and OCT OU Mina Samuel DO CC: Yaneth Colmenares, OD PCP: Edilia George MD documented in this encounter Nursing Notes * Tiffany Ulloa TECH - 10/05/2024 10:26 AM EST Nico Hunter to receive 17 Avastin 2.75 mg Injection of the Right eye. Correct eye confirmed with patient and marked by Mina Samuel DO Avastin 2.75 mg lot # [id number] Exp. Date: 12/02/2024 * Beverley Aquino LPN - 10/05/2024 9:44 AM EST Nico Hunter is a 79 year old year old male who presents for AMD OU. Last Office Visit: 07/17/2024 (in office), Visit date not found (telemedicine) Patient currently states "I think my vision has gotten worse" Are you diabetic? No Do you drive? no OCT image(s) of both eyes acquired and filed/scanned into chart. documented in this encounter Plan of Treatment Upcoming Encounters Date Type Department Care Team (Late st Contact Info) Description 10/26/2024 10:00 AM EST Office Visit Neurology [facility] [address] [facility] [place] [address] Chaparrita Gonzalez PA-C [address] [facility] [place] [address] 11/06/2024 4:40 PM EST Office Visit Family Medicine [address] [place] [phone] Edilia George MD [address] [place] [address] [place] [address] 12/14/2024 11:00 AM EST Office Visit Ophthalmology, [facility] [address] [place] [address] Mina Samuel DO [address] [place] [address] 01/04/2025 9:30 AM EST Office Visit Cardiology, [facility] [address] [place] [address] Cipriano Cavazos PA-C [address] [place] [address] 01/22/2025 10:00 AM EDT Office Visit Otolaryngology [facility] [address] [place] [address] Francisco Baugh PA-C [address] [place] [address] Scheduled Orders Name Type Priority Associated Diagnoses Orde r Schedule RETINA SCAN DIAGNOSTIC IMAGE, POSTERIOR Procedures Routine Exudative age-related macular degeneration of right eye with active choroidal neovascularization (HCC) Ordered: 10/05/2024 Health Maintenance Due Date Last Done Comments Pneumococcal Vaccine: 65+ Years (1 of 2 - PCV) 1951 DTap/Tdap Vaccines (1 - Tdap) 1964 Zoster Vaccines (1 of 2) 1964 Adult Wellness Visit 2009 Depression Screening 10/19/2020 10/19/2019 COVID-19 Vaccine (3 - Moderna risk series) 03/05/2021 02/05/2021, 01/08/2021 CKD PHOS USE SMARTSET 70578 06/01/2024 08/0 11/2022, 12/11/2022, 06/20/2021, Additional history exists Influenza Vaccine (FLU shot) (#1) 2024 GFR 08/30/2024 02/29/2024, 11/03, 06/01/2023, Additional history exists Albumin/Creatinine Ratio 11/30/2024 024, 12/11/2022, 06/20/2021, Additional history exists CKD HGB USE SMARTSET 16326 11/30/202411/30, 11/30/2023, 06/01/2023, Additional history exists HPV [...] as of this encounter Visit Diagnoses Diagnosis Exudative age-related macular degeneration of right eye with active choroidal neovascularization (HCC)- Primary Intermediate stage nonexudative age-related macular degeneration of left eye documented in this encounter Administered Medications Active Administered Medications - up to 3 most recent administrations Medication Order MAR Action Action Date Dose Rate Site bevaCIZumab (Avastin) inj 1.25 mg 1.25 mg, Intravitreal, PRN Other, Starting on Adry 11/25/23 at 1251, Until Wed11/24/24 at 1250, For 365 daysIndications:Exudative age-related macular degeneration of right eye with active choroidal neovascularization (HCC),Intermediate stage nonexudative age-related macular degeneration of left eye Given 10/05/2024 10:28 AM EST 1.25 mg Eye Right Given 07/17/2024 10:37 AM EDT 1.25 mg E ye Right Given 05/02/2024 11:48 AM EDT 1.25 mg E ye Right ROPivacaine (Naropin) inj 1.5 mg 1.5 mg, Injection, PRN Other, Starting on Adry 11/25/23 at 1251, Until Wed11/24/24 at 1250, For 365 daysIndications:Exudative age-related macular degeneration of right eye with active choroidal neovascularization (HCC),Intermediate stage nonexudative age-related macular degeneration of left eye Given 10/05/2024 10:28 AM EST 1.5 mg Eye Right Given 07/17/2024 10:37 AM EDT 1.5 mg E ye Right Given 05/02/2024 11:48 AM EDT 1.5 mg E ye Right documented in this encounter Advance Directives Healthcare Agents on File Name Relationship Healthcare Agent Relationshi p Communication Sabi Hunter [facility] t (per Health Care Power of Vice President Of Compliance document) Care Teams Edi Analyst Relationship Specialty Start Date End Date Edilia George MD [address] [place] [address] [place] [address] PCP - General Family Medicine 03/28/19 documented as of this encounter
--- OUTSIDE RECORDS SUMMARY | 2024-12-13 22:57 | External Medical Summary | Summary of Care ---
Author Name Unknown Organization [facility] Address [address] [place] [address] Phone [phone] Care Team Providers Care Shaft Headman Name Role Phone Edilia George MD Primary Care Provide r Reason for Visit * Reason Comments Outpatient Testing Encounter Details Date Type Department Care Team (Late st Contact Info) Description 11/07/2024 10:10 AM EST Laboratory Laboratory [address] [place] [phone] [place] [address] Hypertensive kidney disease with stage 3a chronic kidney disease (HCC); DYSLIPIDEMIA, GOAL LDL BELOW 100 Allergies Active Allergy Reactions Criticality Noted Date Comments Adhesive Tape 01/01/2021 Codeine 11/16/2014 Cortisone 11/16/2014 Morphine And Codeine 11/13/2003 Neomycin-Bacitracin Zn-Polymyx 11/16 Neosporin 11/13/2003 documented as of this encounter (statuses as of 11/07/2024) Medications MULTIVITAMIN PO TABS once a day [...] as of this encounter (statuses as of 11/07/2024) Active Problems Problem Noted Date Diagnosed Date [...] per HTN protocol #16. 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 11/13/2003 S/P coronary artery stent placement documented as of this encounter (statuses as of 11/07/2024) Resolved Problems Problem Noted Date Diagnosed Date Resolved Date Parkinson's disease without dyskinesia, with fluctuating manifestations 11/06/2024 11/06/2024 Protein-calorie malnutrition 12/11/2022 12/11/[address] 02/06/2022 04/2 Chronic kidney disease, stage 3a 08/11/2021 11/06/2024 [...] as of this encounter (statuses as of 11/07/2024) Immunizations Name Administration Dates Next Due COVID-19 [...] No 06/07/2023 Does the household have a [facility] source of income? (Household - for ages [...] 12/14/2024 11:00 AM EST Office Visit Ophthalmology, [facility] [address] [facility] [address] Mina Samuel, DO [address] [place] [address] 01/04/2025 9:30 AM EST Office Visit Cardiology, [facility] [address] [facility] [place] [address] Cipriano Cavazos PA-C [address] [place] [address] 01/22/2025 10:00 AM EDT Office Visit [facility]olaryngology [facility] [address] [facility] [place] [address] Francisco Baugh PA-C [address] [place] [address] 02/02/2025 10:00 AM EDT Office Visit Gastroenterology [address] [place] [address] Savanah Capps [facility] [place] [address] 05/01/2025 4:20 PM EDT Office Visit Neurology [facility] [address] [place] [address] Zak Mckeon, DO [address] [place] [address] 06/01/2025 1:00 PM EDT Office Visit Family Medicine [address] [place] [phone] Edilia George MD [address] [place] [address] [place] [address] Pending Results Name Type Priority Associated Diagnoses Date /Time ALBUMIN / CREATININE RATIO, URINE Lab Routine Hypertensive kidney disease with stage 3a chronic kidney disease (HCC) 11/07/2024 10:09 AM EST COMPREHENSIVE METABOLIC PANEL Lab Routine DYSLIPIDEMIA, GOAL LDL BELOW 100 11/07/2024 10:09 AM EST CBC WITH WBC DIFFERENTIAL AND ANEMIA REFLEX WORKUP Lab Routine Hypertensive kidney disease with stage 3a chronic kidney disease (HCC) 11/07/2024 10:09 AM EST LIPID PANEL WITH DIRECT LDL IF TG IS HIGH Lab Routine DYSLIPIDEMIA, GOAL LDL BELOW 100 11/07/2024 10:09 AM EST ANEMIA CBC Lab Routine Hypertensive kidney disease with stage 3a chronic kidney disease (HCC) 11/07/2024 10:09 AM EST DIFFERENTIAL, AUTOMATED Lab Routine Hypertensive kidney disease with stage 3a chronic kidney disease (HCC) 11/07/2024 10:09 AM EST ANEMIA REFLEX CHEMISTRY HOLD Lab Routine Hypertensive kidney disease with stage 3a chronic kidney disease (HCC) 11/07/2024 10:09 AM EST Health Maintenance Due Date Last Done Comments DTap/Tdap Vaccines (1 - Tdap) 1964 Pneumococcal Vaccine: 50+ Years (1 of 2 - PCV) 1962 Zoster Vaccines (1 of 2) 1964 Adult Wellness Visit 2009 Depression Screening 10/19/2020 10/19/2019 COVID-19 Vaccine (3 - Moderna risk series) 03/05/2021 02/05/2021, 01/08/2021 CKD PHOS USE SMARTSET 53254 06/01/2024 08/0 11/2022, 12/11/2022, 06/20/2021, Additional history exists Influenza Vaccine (FLU shot) (#1) 2024 GFR 08/30/2024 02/29/2024, 11/03, 06/01/2023, Additional history exists Albumin/Creatinine Ratio 11/30/2024 024, 12/11/2022, 06/20/2021, Additional history exists CKD HGB USE SMARTSET 30063 11/30/202411/30, 11/30/2023, 06/01/2023, Additional history exists HPV [...] as of this encounter Visit Diagnoses Diagnosis Hypertensive kidney disease with stage 3a chronic kidney disease (HCC) DYSLIPIDEMIA, GOAL LDL BELOW 100 Other and unspecified hyperlipidemia documented in this encounter Advance Directives Healthcare Agents on File Name Relationship Healthcare Agent Relationshi p Communication Sabi Hunter Spouse Health Care Agen t (per Health Care Power of Chief Juvenile Probation Officer document) Care Teams Shaft Headman Relationship Specialty Start Date End Date Edilia George MD [address] [place] [address] [place] [phone] PCP - General Family Medicine 03/28/19 documented as of this encounter
--- OUTSIDE RECORDS SUMMARY | 2024-12-13 22:58 | External Medical Summary | Summary of Care ---
Author Name Unknown Organization [facility] Address [address] [place] [address] Phone [phone] Care Team Providers Care Doll Dresser Name Role Phone Edilia George MD Primary Care Provide r Reason for Visit * Reason Comments eRx-Medication Refill Encounter Details Date Type Department Care Team (Late st Contact Info) Description 07/29/2024 Refill Cardiology, [facility] [address] [place] [address] Tony Daniels PA-C [address] [place] [address] HTN, goal below 140/90 Allergies Active Allergy Reactions Criticality Noted Date Comments Adhesive Tape 01/01/2021 Codeine 11/16/2014 Cortisone 11/16/2014 Morphine And Codeine 11/13/2003 Neomycin-Bacitracin Zn-Polymyx 11/16 Neosporin 11/13/2003 documented as of this encounter (statuses as of 07/31/2024) Medications Medication Sig Dispensed Refills Start Date End Date Status MULTIVITAMIN PO TABS once a day 0 6 Active ASPIRIN EC 81 MG PO TBEC Take one pill daily 100 Tab 3 2 Active METRONIDAZOLE 0.75 % EX CREA once [...] Triamcinolone Acetonide 0.1 % External Cream (Aristocort) 2 Active Polyethylene Glycol 3350 17 GM Oral Packet Take 1 Packet by mouth in the morning. Active Doxazosin Mesylate 2 MG Oral Tablet (Cardura)Indication s:BPH with obstruction/lower urinary tract symptoms TAKE ONE TABLET BY MOUTH AT BEDTIME 90 Tablet 1 4 Active Clopidogrel Bisulfate 75 MG Oral Tablet (Plavix)Indications :ASCVD (arteriosclerotic cardiovascular disease) Take 1 Tablet by mouth daily. 90 Tablet 3 4 Active Magnesium 500 MG Oral Tablet Take 1 Tablet by mouth in the morning. Active Carbidopa-Levodopa 25-100 MG Oral Tablet (Sinemet)Indication s:Idiopathic Parkinson's disease (HCC) 1 tablet 4 times daily (morning, lunch, late afternoon). 360 Tablet 1 4 Active Pantoprazole Sodium 40 MG Oral Tablet Delayed Release (Protonix)Indicatio ns:Acid reflux TAKE 1 TABLET BY MOUTH EVERY MORNING 90 Tablet 3 4 Active Metoprolol Succinate ER 25 MG Oral Tablet Extended Release 24 Hour (toPROL XL)Indications:HTN, goal below 140/90 take 1 tablet by mouth in the morning and 1 tablet in the evening. 180 Tablet 3 4 Active Metoprolol Succinate ER 25 MG Oral Tablet Extended Release 24 Hour (toPROL XL)Indications:HTN, goal below 140/90 Take 1 Tablet by mouth in the morning and 1 Tablet in the evening. 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 HTN, GOAL BELOW 140/90 09/18/2009 Overview: Modified per HTN protocol #16. 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 S/P coronary artery stent placement documented as of this encounter (statuses as of 07/31/2024) Resolved Problems Problem Noted Date Diagnosed Date Resolved Date Protein-calorie malnutrition 12/11/2022 12/11/[address] 02/06/202201/312 Hypertensive kidney disease with chronic kidney disease stage III 03/15/2019 07/17/2021 Overview: Per CKD protocol Kidney disease, chronic, sta ge III (GFR 30-59 ml/min) 01/06/2016 04/12/2019 Overview: Per CKD protocol #1 Elevated alkaline phosphatase level 12/07/2011 01/17/2016 Benign hypertensive kidney d isease with chronic kidney disease stage I through stage IV, or unspecified(403.10) 09/27/2007 01/17/2016 BENIGN NEOPLASM LG BOWEL 11/13/2003 Mixed dyslipidemia 9 Overview: Per Lipid Taxonomy. HTN, goal to be determined 1 11/18/2008 Overview: Modified per HTN protocol #16. Macular degeneration 017 documented as of this encounter (statuses as of 07/31/2024) Immunizations Name Administration Dates Next Due COVID-19 [...] No 06/07/2023 Does the household have a [facility] healthcare system[facility] source of income? (Household - for ages [...] Recorded Sex Assigned at Not on file Gender Identity Not on file Sexual Orientation Not on file Job Start Date Occupation Industry Not on file Not on file Not on file documented as of this encounter Miscellaneous Notes * Telephone Encounter - Violeta Brannon RPh - 07/31/2024 2:48 PM EDTSigned Prescriptions: Disp Refills Metoprolol Succinate ER 25 MG Oral Tablet *180 Ta*3 Sig: take 1 tablet by mouth in the morning and 1 tablet in the evening.Authorizing Provider: TONY DANIELS User: VIOLETA BRANNON * Telephone Encounter - Yina Landin PHARM Tech - 07/31/2024 8:19 AM EDT Patient is up to date for office visits. Pending Prescriptions: Disp Refills Metoprolol Succinate ER 25 MG Oral Tablet*180 Ta*0 Sig: take 1 tablet by mouth in the morning and 1 tablet in the evening. Last Visit: 07/07/2024 (in office), Visit date not found (telemedicine) Next Visit: 01/04/2025 If no future appointments scheduled, and last appointment is greater than a year ago, please schedule patient for a follow-up appointment Last date the medication was ordered: 08/06/2023 Pharmacy: [id number] [facility] Is this request for a controlled substance?No it is not controlled. Urine Drug Screen:No results found for this or any previous visit. Patient Phone Numbers Labs: Lab Results Component Value Date/Time CREAT 1.3 (H) 02/29/2024 10:14 AM CREAT 1.11 01/26/2022 12:00 AM CREAT 1.2 11/05/2020 10:20 AM POTASSIUM 4.4 02/29/2024 10:14 AM POTASSIUM 3.3 (A) 01/26/2022 12:00 AM POTASSIUM 4.3 11/05/2020 10:20 AM TSH 1.34 11/30/2023 03:02 PM TSH 1.64 02/25/2018 09:41 AM LDL 104 02/29/2024 10:14 AM LDL 40 11/30/2023 03:02 PM LDL 127 11/05/2020 10:20 AM LDL NOT APPLICABLE 11/05/2020 10:20 AM ALT 9 (L) 02/29/2024 10:14 AM ALT <5 (L) 11/05/2020 10:20 AM * Telephone Encounter - Inna Gaming PHARM Tech - 07/31/2024 8:18 AM EDT Pt's ec called and was transferred to the Specialty Line Thank you, Inna Gamingbuggy loader [employer] Strength Inspector II [facility] 07/31/2024, 8:18 AM * Telephone Encounter - Interface, E-Rx Ss Inbound - 07/31/2024 7:36 AM EDT Pending Prescriptions: Disp Refills Metoprolol Succinate ER 25 MG Oral Tablet *180 Ta*0 Sig: Take 1Tablet by mouth in the morning and 1 Tablet in the evening. documented in this encounter Plan of Treatment Upcoming Encounters Date Type Department Care Team (Late st Contact Info) Description 10/05/2024 10:00 AM EST Office Visit [facility] [place] [address] [facility]ina Samuel, DO [facility] [place] [id number] 10/24/2024 1:00 PM EST Office Visit Neurology [facility] [address] [facility] [place] [address] Zak Mckeon, DO [address] [facility] [place] [address] 10/31/2024 4:00 PM EST Office Visit Family Medicine [address] [place] [phone] Edilia George MD [address] [place] [address] [place] [id number] 01/04/2025 9:30 AM EST Office Visit Cardiology, [facility] [address] [place] [address] Tony Daniels PA-C [address] [place] [address] 01/22/2025 10:00 AM EDT Office Visit Otolaryngology [facility] [address] [place] [address] Francisco Baugh PA-C [address] [place] [phone] Health Maintenance Due Date Last Done Comments Pneumococcal Vaccine: 65+ Years (1 of 2 - PCV) 1949 DTap/Tdap Vaccines (1 - Tdap) 1962 Zoster Vaccines (1 of 2) 1964 Adult Wellness Visit 2009 Depression Screening 10/19/2020 10/19/2019 COVID-19 Vaccine (3 - Moderna risk series) 03/05/2021 02/05/2021, 01/08/2021 CKD PHOS USE SMARTSET 95492 06/01/2024 08/0 11/2022, 12/11/2022, 06/20/2021, Additional history exists Influenza Vaccine (FLU shot) (#1) 2024 GFR 08/30/2024 02/29/2024, 11/03, 06/01/2023, Additional history exists Albumin/Creatinine Ratio 11/30/20242 024, 12/11/2022, 06/20/2021, Additional history exists CKD HGB USE SMARTSET 80069 11/30/202411/30, 11/30/2023, 06/01/2023, Additional history exists HPV [...] as of this encounter Visit Diagnoses Diagnosis HTN, goal below 140/90 Unspecified essential hypertension documented in this encounter Advance Directives Healthcare Agents on File Name Relationship Healthcare Agent Relationshi p Communication Sabi Hunter Spouse Health Care Agen t (per Health Care Power of Glass Calibrator document) Care Teams Doll Dresser Relationship Specialty Start Date End Date Edilia George MD [address] [place] [address] [place] [id number] PCP - General Family Medicine 03/28/19 documented as of this encounter
--- OUTSIDE RECORDS SUMMARY | 2024-12-13 22:58 | External Medical Summary | Summary of Care ---
Author Name Unknown Organization [facility] Address [address] [place] [address] Phone [phone] Care Team Providers Care Job Printer Apprentice Name Role Phone Edilia George MD Primary Care Provide r Reason for Visit * Reason Comments Follow Up 4 month follow up. W eakness in legs today. Chest pain that is associated with leg spasms. Denies palpitations, dizziness, SOB and edema. Encounter Details Date Type Department Care Team (Latest Contact Info) Description 07/07/2024 9:30 AM EDT Office Visit Cardiology, [facility] [address] [facility] [place] [address] Cipriano Cavazos PA-C [address] [place] [address] ASCVD (arteriosclerotic cardiovascular disease)*; HTN, goal below 140/90; S/P coronary artery stent placement; Dyslipidemia, goal LDL below 70; Chronic kidney disease, stage 3a (HCC) Allergies Active Allergy Reactions Criticality Noted Date Comments Adhesive Tape 01/01/2021 Codeine 11/16/2014 Cortisone 11/16/2014 Morphine And Codeine 11/13/2003 Neomycin-Bacitracin Zn-Polymyx 11/16 Neosporin 11/13/2003 documented as of this encounter (statuses as of 07/08/2024) Medications Medication Sig Dispensed Refills Start Date End Date Status MULTIVITAMIN PO TABS once a day 0 06/28/2006 Acti ve ASPIRIN EC 81 MG PO TBEC Take one pill daily 100 Tab 3 12/07/2011 Active METRONIDAZOLE 0.75 % EX CREA once [...] Triamcinolone Acetonide 0.1 % External Cream (Aristocort) 09/22/2022 Active Polyethylene Glycol 3350 17 GM Oral Packet Take 1 Packet by mouth in the morning. Active Metoprolol Succinate ER 25 MG Oral Tablet Extended Release 24 Hour (toPROL XL)Indications:HTN, goal below 140/90 Take 1 Tablet by mouth in the morning and 1 Tablet in the evening. 180 Tablet 3 08/06/2023 Active Doxazosin Mesylate 2 MG Oral Tablet (Cardura)Indications :BPH with obstruction/lower urinary tract symptoms TAKE ONE TABLET BY MOUTH AT BEDTIME 90 Tablet 1 02/04/2024 Active Clopidogrel Bisulfate 75 MG Oral Tablet (Plavix)Indications: ASCVD (arteriosclerotic cardiovascular disease) Take 1 Tablet by mouth daily. 90 Tablet 3 02/22/2024 Active Magnesium 500 MG Oral Tablet Take 1 Tablet by mouth in the morning. Active Carbidopa-Levodopa 25-100 MG Oral Tablet (Sinemet)Indications :Idiopathic Parkinson's disease (HCC) 1 tablet 4 times daily (morning, lunch, late afternoon). 360 Tablet 1 04/14/2024 Active Pantoprazole Sodium 40 MG Oral Tablet Delayed Release (Protonix)Indication s:Acid reflux TAKE 1 TABLET BY MOUTH EVERY MORNING 90 Tablet 3 07/06/2024 Active Hospital, Clinic, or Other Facility Administered [...] as of this encounter (statuses as of 07/08/2024) Active Problems Problem Noted Date Diagnosed Date [...] per HTN protocol #16. Coronary atherosclerosis of [place] coronary kayla ry 09/27/2007 BPH with obstruction/lower urinary tract symptom s 09/27/2007 ADVANCE DIRECTIVE INFORMATION 01/26/2006 Overview: Yes, Patient instructed to provide copy of advance directive for provider to review and to be scanned into Electronic Medical Record Meckel's diverticulum 11/13/2003 S/P coronary artery stent placement documented as of this encounter (statuses as of 07/08/2024) Resolved Problems Problem Noted Date Diagnosed Date [...] as of this encounter (statuses as of 07/08/2024) Immunizations Name Administration Dates Next Due COVID-19 [...] No 06/07/2023 Does the household have a [facility] income? (Household - for [...] Sign Reading Time Taken Comments Blood Pressure 126/76 07/07/2024 9:31 AM EDT Pulse 84 07/07/2024 9:31 AM EDT Temperature - - Respiratory Rate 16 07/07/2024 9:31 AM EDT Oxygen Saturation - - Inhaled Oxygen Concentration - - Weight 66.5 kg (146 lb 8 oz) 07/07/2024 9:31 AM EDT Height - - Body Mass Index 25.15 11/30/2023 2:10 PM EST documented in this encounter Progress Notes * Cipriano Cavazos PA-C - 07/07/2024 9:30 AM EDT History of Present Illness: Nico Hunter is a very pleasant 78 year old male here today for cardiology evaluation. Accompanied by his . Good days and bad days. Pressure on the bowels and cramps when stressed Legs are not working the best today No angina. No tachypalpitations No unusual shortness of breath. Edema has improved Stable orthopnea. No PND Eating more, up 3 pounds since last evaluation. No dizziness, near syncope, or syncope. No epistaxis, hemoptysis, melena, hematochezia, or hematuria. Problem List: Atherosclerotic coronary disease status post coronary intervention with bare metal stent to the left anterior descending in 2006 and presentation in December 2021 with unstable angina. Catheterization, per documentation, in December 2021 revealed a dominant left circumflex with mild luminal irregularities, non dominant RCA with mid 90% stenosis, and a diffusely disease and ectatic LAD with a 50% proximal lesion, 90 and 99% mid vessel lesions sequentially, and a 60% distal LAD lesion, undergoing cutting balloon angioplasty and stenting of the mid LAD lesions at that time. Recommendations at [facility] included utilization of aspirin and Brilinta without interruption x1 year, lifelong dual anti-platelet therapy Hypertension Hyperlipidemia CKD stage 3 BPH Chronic parkinsonism Hospitalization in January 2022 with multifactorial orthostatic syncope, after being prescribed alpha-ravinder therapy, in addition to his antiparkinson medications. Hospitalized in May 2023 with resting chest pain. Uncontrolled hypertension observed on presentation. Patient with chronically markedly labile blood pressures. Patient initially treated with IV labetalol then nitro paste with improvement. High sensitivity troponin negative x3. Resting echocardiography revealed preserved LV systolic function without wall motion abnormality. Nitro patch added on discharge. Patient Active Problem List Diagnosis Meckel's diverticulum ADVANCE DIRECTIVE INFORMATION Coronary atherosclerosis of [place]oux coronary artery BPH with obstruction/lower urinary tract [...] myocardial infarction (NSTEMI) Bilateral lower extremity edema Past Medical History: Diagnosis Date Benign neoplasm of colon 08/14/99 BPH W/OBST OR OTHER LOW URINARY SX 09/27/2007 CORONARY ATHEROSCLER. OF [place] CORONARY VESSEL 09/27/2007 Dyslipidemia, goal LDL below [...] EYE DRUG Right 10/01/2022 #8 Avastin OD [place] INJECTION OF EYE DRUG Right 12/17/2022 # [...] Right 05/02/2024 #15 Avastin OD, Dr. Samuel MISCELLANEOUS ORDER ([facility] ONLY) 11/21/2015 gamma knife R acoustic neuroma MISCELLANEOUS ORDER ([facility] ONLY) ACT 112 FORM SIGNED; DR SAMUEL (04/11/19) NEEDLE/PUNCH BIOPSY OF PROSTATE 08/16/2006 Prostate,Needle/Punch Biopsy OTHER 06/2007 cardiac stent OTHER Right Avastin OD Consent signed, /Bel[facility] 09/04/2021-09/04/2022 OTHER (INFORMATION) AVASTIN OU CONSENT SIGNED Dr. Samuel/Timo (exp 12-17-23) OTHER (INFORMATION) Avastin Consent EXP 05/02/25 - [place] PARTIAL COLECTOMY W/ANASTOMOSIS 06/08/2000 dr bowman/dr monahan @ [facility] portion of r colon/terminal ileum REMOVE CATARACT, INSERT LENS PROSTH Bilateral 09/2016 Dr. Fortune REMOVE GALLBLADDER 06/08/2000 dr bowman SIGMOIDOSCOPY, DIAGNOSTIC ,12/30 Family History Problem Relation Name Age of Onset Other (Cancer brain) Mother Heart Disorder Father mi age 54 Hypertension Father Other (Cancer lung) Brother AND HEART DISEASE Diabetes None Thyroid Disorder None Stroke None Eye Problems None denies FH: AMD, RD'S, GLAUCOMA, BLINDNESS Social History Socioeconomic History Marital status: Spouse name: Not on file Number of children: Not on file Years of education: Not on file Highest education level: Not on file Occupational History Occupation: retired Employer: [employer] Tobacco Use Smoking status: Never Smokeless tobacco: Never Vaping Use Vaping status: Never Used Substance and Sexual Activity Alcohol use: No Drug use: No Sexual activity: Never Other Topics Concern Not on file Social History Narrative Not on file Social Determinants of Health Financial Resource Strain: Low Risk (06/07/2023) Financial [...] 0-17 years): Not on file Social Connections: Unknown (07/02/2024) Social Connections How often do you feel lonely or isolated from those around you? (Adult - for ages 18 years and over): Not on file Housing Stability: Low Risk (06/07/2023) Housing Stability Do you currently live in a snf or have no steady place to sleep [...] - for ages0-17 years): Not on file Complete Review of Systems is as stated above, negative, or noncontributory. Review of patient's allergies indicates: Allergen Reactions Adhesive Tape Codeine Cortisone Morphine And Codeine Neomycin-Bacitracin Zn-Polymyx Neosporin Current Outpatient Medications Medication Sig Dispense Refill [...] 1 Packet by mouth in the morning. Metoprolol Succinate ER 25 MG Oral Tablet Extended Release 24 Hour (toPROL XL) Take 1 Tablet by mouth in the morning and 1 Tablet in the evening. 180 Tablet 3 Doxazosin Mesylate 2 MG Oral Tablet (Cardura) [...] BY MOUTH EVERY MORNING 90 Tablet 3 Current Facility-Administered Medications Medication Dose Route Frequency Provider Last Rate Last Admin bevaCIZumab (Avastin) inj 1.25 mg 1.25 mg Intravitreal PRN Mina Samuel, DO 1.25 mg at 05/02/24 1148 ROPivacaine (Naropin) inj 1.5 mg 1.5 mg Injection PRN Mina Samuel, DO 1.5 mg at 05/02/24 1148 OBJECTIVE/PHYSICAL EXAMINATION: BP 126/76 | Pulse 84 | Resp 16 | Wt 66.5 kg (146 lb 8 oz) | BMI 25.15 kg/m | BSA 1.73 m General: Typical parkinson features. Skin: No rash. Eyes: PER. Conjunctiva pink, sclera clear. HENT: Normocephalic. Atraumatic. Neck: No carotid bruits. No JVD. No HJR. Heart: RRR. No murmur. No rub. No gallop. PMI is nondisplaced. Lungs: Clear throughout Abdomen: +BS. Soft. Nontender. No masses. No organomegaly. Extremities: Mild distal bilateral lower extremity edema. No clubbing. No cyanosis Pulses: radial=2/4, posterior tibial=1/4. Limited neurological examination: No focal deficit. Data: March 2022 Zio Monitor: Patient had a min HR of 53 bpm, max HR of 187 bpm, and avg HR of 75 bpm. Predominant underlying rhythm was Sinus Rhythm. 2 Ventricular Tachycardia runs occurred, the run with the fastest interval lasting 13 beats with a max rate of 160 bpm (avg 153 bpm); the run with the fastest interval was also the longest. 142 Supraventricular Tachycardia runs occurred, the run with the fastest interval lasting 7 beats with a max rate of 187 bpm, the longest lasting 20.8 secs with an avg rate of 128 bpm. Some episodes of Supraventricular Tachycardia may be possible Atrial Tachycardia with variable block. Isolated SVEs were rare (<1.0%), SVE Couplets were rare (<1.0%), and SVE Triplets were rare (<1.0%). Isolated VEs were rare (<1.0%, [address]74[address]), VE Couplets were rare (<1 .0%, 132), and VE Triplets were rare (<1.0%, 4). Ventricular Bigeminy and Trigeminy were present May 24, 2023 TTE Interpretation Summary ([facility], as per Dr. Rae): Mild concentric LVH. No regional wall motion abnormalities. Ejection fraction 55 to 60%. Normal RV size and function. Grade 1 diastolic dysfunction. Mild aortic valve sclerosis without significant stenosis June 2023 Zio Monitor: Patient had a min HR of 49 bpm, max HR of 182 bpm, and avg HR of 72 bpm. Predominant underlying rhythm was Sinus Rhythm. 8 Ventricular Tachycardia runs occurred, the run withthe fastest interval lasting 4 beats with a max rate of 171 bpm, the longest lasting 4 beats with an avg rate of 119 bpm.All episodes were 4 beats in duration reflected complex ventricular ectopy andfusion beats 79 Supraventricular Tachycardia runs occurred, the run with the fastest interval lasting 16 beats with a max rate of 182 bpm, the longest lasting 15 beats with an avg rate of 125 bpm. Some episodes of Supraventricular Tachycardia may be possible Atrial Tachycardia with variable block. Isolated SVEs were occasional (2.7%, [address]), SVE Couplets were rare (<1.0%, 575), and SVE Triplets were rare (<1.0%, 5). Isolated VEs were rare (<1.0%, 3424), VE Couplets were rare (<1.0%,240), and VE Triplets were rare (<1.0%, 64). Ventricular Bigeminy and Trigeminy were present. Patient recorded 1 event marker and 1 diary entry . Rhythm strips reflected sinus rhythm with atrial ectopic beats. No pauses or profound Killian arrhythmias were observed July 07, 2024 EKG: Normal sinus rhythm at [address] abnormality. QTc 483 ms. ASSESSMENT AND RECOMMENDATIONS/PLAN: Ischemic heart disease. Status post acute intervention in December 2021. Stable. Continue appropriate medical management. Chest heaviness. Inpatient cardiac workup negative in May 2023. Heaviness quiescent since additionof pantoprazole in June 2023. Continue pantoprazole. Labile hypertension, orthostasis. Patient with chronic parkinsonism with BPH with obstruction/lowerurinary tract symptoms/chronic urinary retention. Diastolic congestive heart failure. Volume status: Compensated. Eplerenone discontinued by on January 25, 2024, previously intolerant to spironolactone, off of furosemide since March 2023 (No "blackout spells" since discontinuation of furosemide). Dyslipidemia. LDL cholesterol 104 mg/dL on February 29, 2024. Off of atorvastatin 40 mg/day since December 2023. Retrial of statin declined. Trial of ezetimibe declined. PCSK9 inhibitor therapy declined. Chronic kidney disease, stage III. Right acoustic neuroma Cardiology follow-up in 6 months, or as needed. ER with emergencies. Cipriano Cavazos PA-C Department of Cardiology I spent a total of 30-39 minutes (exact time 30 mins) on the date of service in preparation, delivery, and documentation of the care provided to Nico Hunter excluding any time spent in the performance of separately billed services. This visit involved medical care services related to at least one serious condition or complex condition requiring ongoing care. This chart was completed in part utilizing [employer] Speech Voice Recognition Software. Grammatical errors, random word insertions, prounoun errors, and incomplete sentences are an occasional consequence of this system due to software limitations, ambient noise, and hardware issues. Any formal questions or concerns about the content, text, or information contained within the body of this dictation should be directly addressed to the provider for clarification. documented in this encounter Procedure Notes * Maco Castillo MD - 07/07/2024 9:43 AM EDTAssociated Order(s): EKG REASON FOR STUDY: HTN;HTN CONCLUSIONS: Normal sinus rhythm Nonspecific ST abnormality Prolonged QT interval or tu fusion, consider myocardial disease, electrolyte imbalance, or drug effects Abnormal ECG When compared with ECG of 09-Jun-2023 15:17, No significant change was found Ventricular Rate: 82 Atrial Rate: 82 HI Interval: 164 QRS Duration: 82 QT/QTc: 414/483 ms P-R-T [place]: 48 : 53 : 53 degrees documented in this encounter Nursing Notes * Jason Goode LPN - 07/07/2024 9:30 AM EDT Patient identified by full name and date of Chief Complaint Patient presents with Follow Up 4 month follow up. Weakness in legs today. Chest pain that is associated with leg spasms. Denies palpitations, dizziness, SOB and edema. Examination Room: 3 Name: Nico Hunter Date of : (1945). Reason for Visit: 4 month follow up Interim Hospitalization(s): Denies Problems/Concerns: See chief complaint Chest Pain/SOB: See chief complaint [facility] Discussed: Not applicable [facility] is a way you can talk to your provider online through e-mail. Would you like to sign up? I can activate it for you? ALREADY ACTIVE Patient was instructed to not get up on the exam table until directed and assisted by their provider; patient is to remain seated in the chair/ wheelchair/ exam table for fall prevention and safety reasons. Patient is aware to have assistance to step down off exam table with personnel. Patient voiced full comprehension of instructions. documented in this encounter Plan of Treatment Upcoming Encounters Date Type Department Care Team (Late st Contact Info) Description 07/17/2024 10:15 AM EDT Office Visit Ophthalmology, [facility] [address] [place] [address] Mina Samuel, DO [address] [place] [id number] 07/24/2024 8:00 AM EDT Office Visit Otolaryngology [facility] [address] [place] [address] Lonny Munoz, DO [address] [place] [address] 10/24/2024 1:00 PM EST Office Visit Neurology [facility] [address] [place] [address] Zak Mckeon, DO [address] [place] [address] 10/31/2024 4:00 PM EST Office Visit Family Medicine [address] [place] [phone] Edilia George MD [address] [place] [address] [place] [id number] 01/04/2025 9:30 AM EST Office Visit Cardiology, [facility] [address] [place] [address] Cipriano Cavazos PA-C [address] [place] [address] Health Maintenance Due Date Last Done Comments Pneumococcal Vaccine: 65+ Years (1 of 2 - PCV) 1949 DTap/Tdap Vaccines (1 - Tdap) 1962 Zoster Vaccines (1 of 2) 1964 Adult Wellness Visit 2009 Depression Screening 10/19/2020 10/19/2019 COVID-19 Vaccine (3 - Moderna risk series) 03/05/2021 02/05/2021, 01/08/2021 CKD PHOS USE SMARTSET 30212 06/01/2024 08/0 11/2022, 12/11/2022, 06/20/2021, Additional history exists Influenza Vaccine (FLU shot) (#1) 2024 GFR 08/30/2024 02/29/2024, 11/03, 06/01/2023, Additional history exists Albumin/Creatinine Ratio 11/30/2024 024, 12/11/2022, 06/20/2021, Additional history exists CKD HGB USE SMARTSET 38890 11/30/202411/30, 11/30/2023, 06/01/2023, Additional history exists HPV [...] Not on filedocumented as of this encounter Procedures Procedure Name Priority Date/Time Associated Diagnosis Comments HI ECG ROUTINE ECG W/LEAST 12 LDS W/I&R Routine 07/07/2024 9:43 AM EDT HTN, goal below 140/90 documented in this encounter Results * EKG (07/07/2024 9:43 AM EDT) 07/07/2024 9:43 AM EDT Narrative Procedure Note Maco Castillo MD - 07/07/2024 9:43 AM EDT REASON FOR STUDY: HTN;HTN CONCLUSIONS: Normal sinus rhythm Nonspecific ST abnormality Prolonged QT interval or tu fusion, consider myocardial disease,electrolyte imbalance, or drug effects Abnormal ECG When compared with ECG of 09-Jun-2023 15:17, No significant change was found Ventricular Rate: 82 Atrial Rate: 82 HI Interval: 164 QRS Duration: 82 QT/QTc: 414/483 ms P-R-T [place]: 48 : 53 : 53 degrees Cipriano Cavazos PA-C EKG [facility] documented in this encounter Visit Diagnoses Diagnosis ASCVD (arteriosclerotic cardiovascular disease)- Primary Unspecified cardiovascular disease HTN, goal below 140/90 Unspecified essential hypertension S/P coronary artery stent placement Postsurgical percutaneous transluminal coronary angioplasty status Dyslipidemia, goal LDL below 70 Other and unspecified hyperlipidemia Chronic kidney disease, stage 3a (HCC) documented in this encounter Advance Directives Healthcare Agents on File Name Relationship Healthcare Agent Relationshi p Communication Sabi Salazar [facility] t (per Health Care Power of Urban Planner document) Care Teams Job Printer Apprentice Relationship Specialty Start Date End Date Edilia George MD [address] [place] [address] [place] [id number] PCP - General Family Medicine 03/28/19 documented as of this encounter
--- OUTSIDE RECORDS SUMMARY | 2024-12-13 22:58 | External Medical Summary | Summary of Care ---
Author Name Unknown Organization [facility] Address [address] [place] [address] Phone [phone] Care Team Providers Care Oncology Rep Name Role Phone Edilia George MD Primary Care Provide r Reason for Visit * Reason Onset Date Comments Health Maintenance 09/05/2024 Encounter Details Date Type Department Care Team (Late st Contact Info) Description 09/05/2024 Telephone Family Medicine [address] [phone] Edilia George MD [address] [place] [address] [place] [address] Health Maintenance Allergies Active Allergy Reactions Criticality Noted Date Comments Adhesive Tape 01/01/2021 Codeine 11/16/2014 Cortisone 11/16/2014 Morphine And Codeine 11/13/2003 Neomycin-Bacitracin Zn-Polymyx 11/16 Neosporin 11/13/2003 documented as of this encounter (statuses as of 09/05/2024) Medications Medication Sig Dispensed Refills Start Date [...] EVERY MORNING 90 Tablet 3 07/06/2024 Active Metoprolol Succinate ER 25 MG Oral Tablet Extended Release 24 Hour (toPROL XL)Indications:HTN, goal below 140/90 take 1 tablet by mouth in the morning and 1 tablet in the evening. 180 Tablet 3 07/31/2024 Active Hospital, Clinic, or Other Facility Administered [...] as of this encounter (statuses as of 09/05/2024) Active Problems Problem Noted Date Diagnosed Date [...] per HTN protocol #16. Coronary atherosclerosis of [place] coronary kayla ry 09/27/2007 BPH with obstruction/lower urinary tract symptom s 09/27/2007 Meckel's diverticulum 11/13/2003 S/P coronary artery stent placement documented as of this encounter (statuses as of 09/05/2024) Resolved Problems Problem Noted Date Diagnosed Date [...] 09/27/2007 01/17/2016 ADVANCE DIRECTIVE INFORMATION 01/26/2006 09/04/2024 Overview: Yes, Patient instructed to provide copy of advance directive for provider to review and to be scanned into Electronic Medical Record BENIGN NEOPLASM LG BOWEL 11/13/2003 Mixed dyslipidemia 9 Overview: Per Lipid Taxonomy. HTN, goal to be determined 1 11/18/2008 Overview: Modified per HTN protocol #16. Macular degeneration 017 documented as of this encounter (statuses as of 09/05/2024) Immunizations Name Administration Dates Next Due COVID-19 [...] encounter Miscellaneous Notes * Telephone Encounter - Stephanie Cortes LPN - 09/05/2024 11:35 AM EST Care Gaps Comprehensive Care Outreach Last Office/Telemedicine Visit: 01/10/2024 (in office), Visit date not found (telemedicine) Next Office Visit: 10/31/2024 Hemoglobin AIC Results: No results found for: "HEMOGLOBIN A1C" BP Readings from Last 1 Encounters: 07/07/24 126/76 Reviewed Health Maintenance below: Health Maintenance Topic Date Due Pneumococcal Vaccine: 65+ Years (1 of 2 - PCV) Never done DTap/Tdap Vaccines (1 - Tdap) Never done Zoster Vaccines (1 of 2) Never done Adult Wellness Visit Never done Depression Screening 10/19/2020 COVID-19 Vaccine (3 - Moderna risk series) 03/05/2021 CKD PHOS USE SMARTSET 93771 06/01/2024 Influenza Vaccine (FLU shot) (1) Never done GFR 08/30/2024 Awv labs Care Gap Outreach Action Taken: Left message documented in this encounter Plan of Treatment Upcoming Encounters Date Type Department Care Team (Late st Contact Info) Description 10/05/2024 10:00 AM EST Office Visit Ophthalmology, [facility] [address] [place] [address] Mina Samuel DO [address] [place] [address] 10/26/2024 10:00 AM EST Office Visit Neurology [facility] [address] [facility] [place] [address] Chaparrita Gonzalez PA-C [address] [facility] [place] [address] 10/31/2024 4:00 PM EST Office Visit [address] Medicine [address] [phone] Edilia George MD [address] [place] [address] [place] [address] 01/04/2025 9:30 AM EST Office Visit Cardiology, [facility] [address] [address] [address] Cipriano Cavazos PA-C [address] [place] [address] 01/22/2025 10:00 AM EDT Office Visit Otolaryngology [facility] [address] [place] [address] Francisco Baugh PA-C [address] [place] [address] Health Maintenance Due Date Last Done Comments Pneumococcal Vaccine: 65+ Years (1 of 2 - PCV) 1949 DTap/Tdap Vaccines (1 - Tdap) 1962 Zoster Vaccines (1 of 2) 1964 Adult Wellness Visit 2009 Depression Screening 10/19/2020 10/19/2019 COVID-19 Vaccine (3 - Moderna risk series) 03/05/2021 02/05/2021, 01/08/2021 CKD PHOS USE SMARTSET 71742 06/01/2024 08/0 11/2022, 12/11/2022, 06/20/2021, Additional history exists Influenza Vaccine (FLU shot) (#1) 2024 GFR 08/30/2024 02/29/2024, 11/03, 06/01/2023, Additional history exists Albumin/Creatinine Ratio 11/30/2024 024, 12/11/2022, 06/20/2021, Additional history exists CKD HGB USE SMARTSET 26173 11/30/202411/30, 11/30/2023, 06/01/2023, Additional history exists HPV [...] Healthcare Agent Relationshi p Communication Sabi Hunter [facility] Health Care Agen t (per Health Care Power of Book Sewing Machine Operator document) Care Teams Oncology Rep Relationship Specialty Start Date End Date Edilia George MD [address] [place] [address] [place] [phone] PCP - General Family Medicine 03/28/19 documented as of this encounter
--- OUTSIDE RECORDS SUMMARY | 2024-12-13 22:58 | External Medical Summary | Summary of Care ---
Author Name Unknown Organization [facility] Address [address] [place] [address] Phone [phone] Care Team Providers Care Pail Bailer Name Role Phone Edilia George MD Primary Care Provide r Reason for Visit * Reason Comments Follow Up 10-12 week follow up * Precert (Within 10 days (routine)) - Authorized Specialty Diagnoses / Procedures Referred By Ilnaa shell Referred To Contact Ophthalmology Diagnoses Exudative age-related macular degeneration, right eye, with active choroidal neovascularization (HCC) Procedures SD BEVACIZUMAB INJECTION SD INTRAVITREAL NJX PHARMACOLOGIC AGT SPX Mina Samuel DO [address] [place] [address] Referral ID Status Reason Start Date Expiration Date V isits Requested Visits Authorized [id number] Authorized Precert 09/23/2021 10/31/2099 99 99 Encounter Details Date Type Department Care Team (Late st Contact Info) Description 07/17/2024 10:15 AM EDT Office Visit Ophthalmology, [facility] [address] [place] [address] Mina Samuel DO [address] [place] [address] Exudative age-related macular degeneration of right eye with active choroidal neovascularization (HCC)*; Intermediate stage nonexudative age-related macular degeneration of left eye Allergies Active Allergy Reactions Criticality Noted Date Comments Adhesive Tape 01/01/2021 Codeine 11/16/2014 Cortisone 11/16/2014 Morphine And Codeine 11/13/2003 Neomycin-Bacitracin Zn-Polymyx 11/16 Neosporin 11/13/2003 documented as of this encounter (statuses as of 07/17/2024) Medications Medication Sig Dispensed Refills Start Date [...] as of this encounter (statuses as of 07/17/2024) Active Problems Problem Noted Date Diagnosed Date [...] per HTN protocol #16. 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 Last Office Visit: 05/02/2024 (in office), Visit date not found (telemedicine) Patient currently states no change in vision. Are you diabetic? No Do you drive? no OCT image(s) of both eyes acquired and filed/scanned into chart. Base Eye Exam Visual Acuity (Snellen - Linear) Right Left Dist cc 20/40 -2 20/70 Dist ph cc NI NI Correction: Glasses Tonometry (Tonopen, 10:15 AM) Right Left Pressure 12 11 Pupils Pupils Shape React APD Right PERRL Round Brisk None Left PERRL Round Brisk None Visual Suazo (Counting fingers) Right Left Full Full Extraocular Movement Right Left Full, Ortho Full, Ortho Neuro/Psych Oriented x3: Yes Mood/Affect: Normal Dilation Both eyes: 0.5% Proparacaine @ 10:12 AM Dilation #2 Both eyes: 1.0% Mydriacyl, 2.5% Phenylephrine @ 10:14 AM Dilation #3 Both eyes: 1.0% Mydriacyl @ 10:16 AM Dilation Comments Patient cautioned that effects [...] Degeneration OU OD: WET - s/p Avastin (05/02/24, 02/17/24, 11/25/23, 05/27/23, 03/04/23, 10/01/22, 07/09/22, 02/27/22, [...] documented in this encounter Nursing Notes * Beverley Aquino LPN - 07/17/2024 10:36 AM EDT Nico Hunter to receive 16 Avastin 1.25mg Injection of the Right eye. Correct eye confirmed with patient and marked by Mina Samuel DO Avastin 1.25mg lot # [id number] Exp. Date: * Tiffany Ulloa TECH - 07/17/2024 10:08 AM EDT Nico Hunter is a 78 year old year old male who presents for AMD OU. Last Office Visit: 05/02/2024 (in office), Visit date not found (telemedicine) Patient currently states no change in vision. Are you diabetic? No Do you drive? no OCT image(s) of both eyes acquired and filed/scanned into chart. documented in this encounter Plan of Treatment Upcoming Encounters Date Type Department Care Team (Late st Contact Info) Description 07/24/2024 8:00 AM EDT Office Visit Otolaryngology [facility] [address] [place] [address] Lonny Munoz DO [address] [place] [address] 10/05/2024 10:00 AM EST Office Visit Ophthalmology, [facility] [address] [place] [address] Mina Samuel, DO [address] [place] [address] 10/24/2024 1:00 PM EST Office Visit Neurology [facility] [address] [place] [address] Zak Mcke[place], DO [address] [place] [address] 10/31/2024 4:00 PM EST Office Visit Family Medicine [address] [phone] Edilia George MD [address] [place] [address] [place] [address] 01/04/2025 9:30 AM EST Office Visit Cardiology, [facility] [address] [place] [address] Cipriano Cavazos PA-C [address] [place] [address] Scheduled Orders Name Type Priority Associated Diagnoses Orde r Schedule RETINA SCAN DIAGNOSTIC IMAGE, POSTERIOR Procedures Routine Exudative age-related macular degeneration of right eye with active choroidal neovascularization (HCC) Intermediate stage nonexudative age-related macular degeneration of left eye Ordered: 07/17/2024 Health Maintenance Due Date Last Done Comments Pneumococcal Vaccine: 65+ Years (1 of 2 - PCV) 1949 DTap/Tdap Vaccines (1 - Tdap) 1962 Zoster Vaccines (1 of 2) 1962 Adult Wellness Visit 2009 Depression Screening 10/19/2020 10/19/2019 COVID-19 Vaccine (3 - Moderna risk series) 03/05/2021 02/05/2021, 01/08/2021 CKD PHOS USE SMARTSET 98198 06/01/2024 08/0 11/2022, 12/11/2022, 06/20/2021, Additional history exists Influenza Vaccine (FLU shot) (#1) 2024 GFR 08/30/2024 02/29/2024, 11/03, 06/01/2023, Additional history exists Albumin/Creatinine Ratio 11/30/2024 024, 12/11/2022, 06/20/2021, Additional history exists CKD HGB USE SMARTSET 55182 11/30/202411/30, 11/30/2023, 06/01/2023, Additional history exists HPV [...] 1251, Until Wed11/24/24 at 1250, For 365 days Given 07/17/2024 10:37 AM EDT 1.25 mg Eye Right Given 05/02/2024 11:48 AM EDT 1.25 mg E ye Right Given 02/17/2024 11:39 AM EDT 1.25 mg E ye Right ROPivacaine (Naropin) inj 1.5 mg 1.5 mg, Injection, PRN Other, Starting on Adry 11/25/23 at 1251, Until Wed11/24/24 at 1250, For 365 days Given 07/17/2024 10:37 AM EDT 1.5 mg Eye Right Given 05/02/2024 11:48 AM EDT 1.5 mg E ye Right Given 02/17/2024 11:39 AM EDT 1.5 mg E ye Right documented in this encounter Advance Directives Healthcare Agents on File Name Relationship Healthcare Agent Relationshi p Communication Sabi Hunter [facility] Health Care Agen t (per Health Care Power of Clothes Separator document) Care Teams Pail Bailer Relationship Specialty Start Date End Date Edilia George MD [address] [place] [address] [place] [phone] PCP - General Family Medicine 03/28/19 documented as of this encounter
--- OUTSIDE RECORDS SUMMARY | 2024-12-13 22:58 | External Medical Summary | Summary of Care ---
Author Name Unknown Organization [facility] Address [address] [place] [address] Phone [phone] Care Team Providers Care Offset Label Rewinder Name Role Phone Edilia George MD Primary Care Provide r Reason for Visit * Reason Comments eRx-Medication Refill Encounter Details Date Type Department Care Team (Late st Contact Info) Description 07/05/2024 Refill Cardiology, [facility] [address] [place] [address] Tony Daniels PA-C [address] [place] [address] Acid reflux* Allergies Active Allergy Reactions Criticality Noted Date Comments Adhesive Tape 01/01/2021 Codeine 11/16/2014 Cortisone 11/16/2014 Morphine And Codeine 11/13/2003 Neomycin-Bacitracin Zn-Polymyx 11/16 Neosporin 11/13/2003 documented as of this encounter (statuses as of 07/06/2024) Medications Medication Sig Dispensed Refills Start Date [...] in the evening. 180 Tablet 3 3 Active Doxazosin Mesylate 2 MG Oral Tablet [...] EVERY MORNING 90 Tablet 3 4 Active Pantoprazole Sodium 40 MG Oral Tablet Delayed Release (Protonix) Take 1 Tablet by mouth in the morning. 90 Tablet 3 3 07/06/20 24 Discontinued Hospital, Clinic, or Other Facility [...] as of this encounter (statuses as of 07/06/2024) Active Problems Problem Noted Date Diagnosed Date [...] per HTN protocol #16. 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 S/P coronary artery stent placement documented as of this encounter (statuses as of 07/06/2024) Resolved Problems Problem Noted Date Diagnosed Date [...] as of this encounter (statuses as of 07/06/2024) Immunizations Name Administration Dates Next Due COVID-19 [...] encounter Miscellaneous Notes * Telephone Encounter - Tony Daniels PA-C - 07/06/2024 3:49 PM EDTSigned Prescriptions: Disp Refills Pantoprazole Sodium 40 MG Oral Tablet Jenny*90 Tab*3 Sig: TAKE 1 TABLET BY MOUTH EVERY MORNING Authorizing Provider: TONY DANIELS * Telephone Encounter - Elsa Flores CMA - 07/06/2024 3:06 PM EDTPending Prescriptions: Disp Refills Pantoprazole Sodium 40 MG Oral Tablet Jenny*90 Tab*3 Sig: TAKE 1 TABLET BY MOUTH EVERY MORNING * Telephone Encounter - Elsa Flores CMA - 07/06/2024 3:05 PM EDT Did you pend patient's preferred pharmacy and medication before forwarding?yes Pharmacy: [id number] Pending Prescriptions: Disp Refills Pantoprazole Sodium 40 MG Oral Tablet Del*90 Tab*3 Sig: TAKE 1 TABLET BY MOUTH EVERY MORNING Last Visit: 02/29/2024 (in office), Visit date not found (telemedicine) Next Visit: 07/07/2024 If no future appointments scheduled, and last appointment is greater than a year ago, please schedule patient for a follow-up appointment Last date the medication was ordered: Is this request for a controlled substance?No [...] Care Team (Late st Contact Info) Description 07/07/2024 9:30 AM EDT Office Visit Cardiology, [facility] [address] [place] [address] Tony Daniels PA-C [address] [place] [address] 07/17/2024 10:15 AM EDT Office Visit Ophthalmology, [facility] [address] [place] [address] Mina Samuel, DO [address] [place] [address] 07/24/2024 8:00 AM EDT Office Visit Otolaryngology [facility] [address] [place] [address] Lonny Munoz, DO [address] [place] [address] 10/24/2024 1:00 PM EST Office Visit Neurology [facility] [address] [place] [address] Zak [place]ke[place], DO [address] [place] [address] 10/31/2024 4:00 PM EST Office Visit Family Medicine [address] [place] [phone] Edilia George MD [address] [place] [address] [place] [address] Health Maintenance Due Date Last Done Comments Pneumococcal Vaccine: 65+ Years (1 of 2 - PCV) 1949 DTap/Tdap Vaccines (1 - Tdap) 1962 Zoster Vaccines (1 of 2) 1962 Adult Wellness Visit 2009 Depression Screening 10/19/2020 10/19/2019 COVID-19 Vaccine (3 - Moderna risk series) 03/05/2021 02/05/2021, 01/08/2021 CKD PHOS USE SMARTSET 11779 06/01/2024 08/0 11/2022, 12/11/2022, 06/20/2021, Additional history exists Influenza Vaccine (FLU shot) (#1) 2024 GFR 08/30/2024 02/29/2024, 11/03, 06/01/2023, Additional history exists Albumin/Creatinine Ratio 11/30/2024 024, 12/11/2022, 06/20/2021, Additional history exists CKD HGB USE SMARTSET 25640 11/30/202411/30, 11/30/2023, 06/01/2023, Additional history exists HPV [...] as of this encounter Visit Diagnoses Diagnosis Acid reflux- Primary Esophageal reflux documented in this encounter Advance Directives Healthcare Agents on File Name Relationship Healthcare Agent Relationshi p Communication Sabi Marie [facility] Health Care Agen t (per Health Care Power of Paste Thinner document) Care Teams Offset Label Rewinder Relationship Specialty Start Date End Date Edilia George MD [address] [place] [address] [place] [address] PCP - General Family Medicine 03/28/19 documented as of this encounter
--- OUTSIDE RECORDS SUMMARY | 2024-12-13 22:58 | External Medical Summary | Summary of Care ---
Author Name Unknown Organization [facility] Address [address] [place] [place] [address] Phone [phone] Care Team Providers Care Reuse Technician Name Role Phone Edilia George MD Primary Care Provide r Reason for Visit * Reason Comments NEW PATIENT Encounter Details Date Type Department Care Team (Late st Contact Info) Description 07/24/2024 8:00 AM EDT Office Visit Otolaryngology [facility] [address] [place] [address] Lonny Munoz DO [address] [place] [address] Bilateral impacted cerumen* Allergies Active Allergy Reactions Criticality Noted Date Comments Adhesive Tape 01/01/2021 Codeine 11/16/2014 Cortisone 11/16/2014 Morphine And Codeine 11/13/2003 Neomycin-Bacitracin Zn-Polymyx 11/16 Neosporin 11/13/2003 documented as of this encounter (statuses as of 07/24/2024) Medications Medication Sig Dispensed Refills Start Date [...] as of this encounter (statuses as of 07/24/2024) Active Problems Problem Noted Date Diagnosed Date [...] stage 10/06/2016 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 HTN, GOAL BELOW 140/90 09/18/2009 Overview: Modified per HTN protocol #16. 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 S/P coronary artery stent placement documented as of this encounter (statuses as of 07/24/2024) Resolved Problems Problem Noted Date Diagnosed Date [...] as of this encounter (statuses as of 07/24/2024) Immunizations Name Administration Dates Next Due COVID-19 [...] Sign Reading Time Taken Comments Blood Pressure - - Pulse - - Temperature - - Respiratory Rate - - Oxygen Saturation - - Inhaled Oxygen Concentration - - Weight 66.2 kg (146 lb) 07/24/2024 7:40 AM EDT Height 162.6 cm (5' 4.02") 07/24/2024 7:40 AM ED T Body Mass Index 25.05 07/24/2024 7:40 AM EDT documented in this encounter Progress Notes * Lonny Munoz, DO - 07/24/2024 8:18 AM EDT 07/24/2024 HISTORY OF PRESENT ILLNESS This 78 year old male is seen at the request of Edilia George MD for the initial evaluation of bilateral aural fullness. Patient wears hearing aids. Has noticed his hearing has not been as good lately. States on occasion he does get cerumen impactions as the hearing aids push the wax down his ear canal.. Problem List Patient Active Problem List Diagnosis Meckel's diverticulum ADVANCE DIRECTIVE INFORMATION Coronary atherosclerosis of [place] coronary artery BPH with obstruction/lower urinary tract [...] LOW URINARY SX 09/27/2007 CORONARY ATHEROSCLER. OF [place] CORONARY VESSEL 09/27/2007 Dyslipidemia, goal LDL below 100 10/08/2009 Per Lipid Taxonomy. 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 Macular degeneration Meckel's diverticulum Mixed dyslipidemia Right acoustic neuroma (HCC) 11/06/14 Julio Cesar Rosacea S/P coronary artery stent placement 2006 spindle [...] Right 07/17/2024 #[address] Samuel MISCELLANEOUS ORDER ([facility] ONLY) 11/21/2015 gamma knife R acoustic neuroma MISCELLANEOUS ORDER ([facility] ONLY) ACT 112 FORM SIGNED; DR SAMUEL (04/11/19) NEEDLE/PUNCH BIOPSY OF PROSTATE 08/16/2006 Prostate,Needle/Punch Biopsy OTHER 06/2007 cardiac stent OTHER Right Avastin OD Consent signed, /[place] 09/04/2021-09/04/2022 OTHER (INFORMATION) AVASTIN OU CONSENT SIGNED Dr. Samuel/Timo (exp 12-17-23) OTHER (INFORMATION) Avastin Consent EXP 05/02/25 - Nela PARTIAL COLECTOMY W/ANASTOMOSIS 06/08/2000 dr bowman/dr monahan @ [facility] portion of r colon/terminal ileum REMOVE CATARACT, INSERT LENS PROSTH Bilateral 09/2016 Dr. Fortune REMOVE GALLBLADDER 06/08/2000 dr bowman SIGMOIDOSCOPY, DIAGNOSTIC ,12/30 Medications Current Outpatient Medications Medication Sig Dispense Refill [...] PRN Mina Samuel, DO 1.25 mg at 07/17/24 1037 ROPivacaine (Naropin) inj 1.5 mg 1.5 mg Injection PRN Mina Samuel, DO 1.5 mg at Allergies Review of patient's allergies indicates: Allergen Reactions Adhesive Tape Codeine Cortisone Morphine And Codeine Neomycin-Bacitracin Zn-Polymyx Neosporin Family History Family History Problem Relation Name Age of Onset Other (Cancer brain) Mother Heart Disorder Father mi age 54 Hypertension Father Other (Cancer lung) Brother AND HEART DISEASE Diabetes None Thyroid Disorder None Stroke None Eye Problems None denies FH: AMD, RD'S, GLAUCOMA, BLINDNESS Social History Social History Tobacco Use Smoking status: Never Smokeless tobacco: Never Substance Use Topics Alcohol use: No Vaping/E-Cigarette Use Vaping/E-Cigarette Use Never User Vaping/E-Cigarette Substances Vaping/E-Cigarette Devices Review of Systems Negative for constitutional, eyes, cardiac, pulmonary, hepatic, renal, digestive, hematologic, epileptic, syncopal, musculo-skeletal, mental health, integumentary, hypertensive, lipid, arthritic, diabetic, thyroid, or neurologic disorders (except as listed in the PMH and Problem List). Physical Examination: Ht 1.626 m (5' 4.02") | Wt 66.2 kg (146 lb) | BMI 25.05 kg/m | BSA 1.73 m PHYSICAL EXAM General: This is a healthy appearing male who appears his stated age. The patient is alert and appropriately verbally conversant without hoarseness. Face: The face was inspected and no cutaneous masses or lesions were visualized. There was no erythema or edema noted. Facial movement was symmetric without weakness. No skin lesions were detected. Eyes: Extra-ocular muscle function was intact. No nystagmus was observed. Pupils were equal. Cranial Nerves: Cranial nerves II, III, IV, and were noted to be intact via extra-ocular muscle movement testing. Cranial nerve VII noted to be intact and symmetric by facial movement. Nose: Examination of the external nose normal. Ears: Examination of the ears revealed that the auricles were normally formed with no lesions. The external auditory canals were cleaned of any obstructing cerumen. The tympanic membranes were intactand freely mobile to pneumatoscopy. There are no significant retraction pockets. There is no inflammation visualized. No effusions are seen. Procedure: In order to assess ears in further detail, the patient was brought to the microscope room and the ears were evaluated under the operating microscope. The findings are as noted in the above physical exam. Procedure: Cerumen removal Attention directed to the right ear. Under endy-microscopic guidance the impacted cerumen was removed with a suction atraumatically. The tympanic membrane was intact and the middle ear was healthy appearing. The same procedure was performed on the other side. Patient tolerated the procedure well. Assessment: 78-year-old male with bilateral hearing loss who had bilateral cerumen impactions on exam today. Plan: - cerumen removed as above. -patient would like to set up routine cerumen removal with the PAs in the office. Will set this up for 6 months from now. I spent a total of 30 minutes on the date of service in preparation, delivery, and documentation ofthe care provided to the above patient, excluding any time spent on the performance of any procedures or separately billable services. Lonny Munoz DO, [facility], Department of Otolaryngology-Head and Neck Surgery [facility], [place] 07/24/2024 8:20 AM documented in this encounter Nursing Notes * Kitty Vinson LPN - 07/24/2024 7:40 AM EDT Pt presents today for cerumen removal. Pt and his state that they have no concerns just need his ears cleaned out. documented in this encounter Plan of Treatment Upcoming Encounters Date Type Department Care Team (Late st Contact Info) Description 10/05/2024 10:00 AM EST Office Visit Ophthalmology, [facility] [address] [place] [address] Mina Samuel DO [address] [place] [address] 10/24/2024 1:00 PM EST Office Visit Neurology [facility] [address] [facility] [place] [address] Zak Mckeno DO [address] [facility] [place] [address] 10/31/2024 4:00 PM EST Office Visit Family Medicine [address] [place] [phone] Edilia George MD [address] [place] [address] [place] [id number] 01/04/2025 9:30 AM EST Office Visit Cardiology, [facility] [address] [place] [address] Cipriano Cavazos PA-C [address] [place] [address] 01/22/2025 10:00 AM EDT Office Visit Otolaryngology [facility] [address] [place] [address] Francisco Baugh PA-C [address] [place] [id number] Health Maintenance Due Date Last Done Comments Pneumococcal Vaccine: 65+ Years (1 of 2 - PCV) 1949 DTap/Tdap Vaccines (1 - Tdap) 1962 Zoster Vaccines (1 of 2) 1962 Adult Wellness Visit 2009 Depression Screening 10/19/2020 10/19/2019 COVID-19 Vaccine (3 - Moderna risk series) 03/05/2021 02/05/2021, 01/08/2021 CKD PHOS USE SMARTSET 41977 06/01/2024 08/0 11/2022, 12/11/2022, 06/20/2021, Additional history exists Influenza Vaccine (FLU shot) (#1) 2024 GFR 08/30/2024 02/29/2024, 11/03, 06/01/2023, Additional history exists Albumin/Creatinine Ratio 11/30/2024 024, 12/11/2022, 06/20/2021, Additional history exists CKD HGB USE SMARTSET 87675 11/30/202411/30, 11/30/2023, 06/01/2023, Additional history exists HPV [...] as of this encounter Visit Diagnoses Diagnosis Bilateral impacted cerumen- Primary Impacted cerumen documented in this encounter Advance Directives Healthcare Agents on File Name Relationship Healthcare Agent Relationshi p Communication Sabi Salazar Hunter Spouse Health Care Agen t (per Health Care Power of Casting Room Helper document) Care Teams Reuse Technician Relationship Specialty Start Date End Date Edilia George MD [address] [place] [address] [place] [phone] PCP - General Family Medicine 03/28/19 documented as of this encounter
[2024-12-13] MEDS: ACETAMINOPHEN 1,000 MG/100 ML VIAL IV SCH (23:20)
[2024-12-14 06:38] LABS: Hematocrit (blood only) 41.5 % (42.0-52.0); Hemoglobin 13.1 g/dl (14.0-18.0); Mean Corpuscular Hemoglobin 27.6 pg (25.0-34.0); Mean Corpuscular Hgb Conc 31.6 g/dL (32.0-36.0); Mean Corpuscular Volume 87.4 fL (80.0-100.0); Mean Platelet Volume 9.7 fL (9.4-12.4); Platelet Count 168 K/uL (130-400); RDW Coefficient of Variation 14.1 % (11.5-14.5); RDW Standard Deviation 45.1 fL (36.4-46.3); Red Blood Count 4.75 M/uL (4.70-6.10); White Blood Count 10.99 K/ul (4.8-10.8)
--- NOTE | 2024-12-14 06:39 | Anesthesiology Consultation ---
Date of Service December 14, 2024 Assessment & Plan (1) Encounter for pre-operative examination: Chart Review Chart Review: Acceptable Risk for Surgery and Patient NOT seen in Pre Admission Testing Consults Requested none History Surgery Operation Date: 12/14/24 07:15 Proposed Procedures p Left Anterior Hemiarthroplasty - Ivan Ferrera DO Height/Weight Height: 5 ft 5 in Weight: 65.6 kg Allergies Allergy/AdvReac Type Severity Reaction Status Date / Time adhesive tape Allergy Intermediate red welps Unverified 05/23/23 19:28 codeine Allergy Intermediate shortness Unverified 05/23/23 19:28 of breath ~ nervous latex Allergy Rash Verified 12/14/24 05:49 bacitracin AdvReac Intermediate blisters Unverified 05/23/23 19:28 [From Neosporin ([id number])] neomycin AdvReac Intermediate blisters Unverified 05/23/23 19:28 [From Neosporin ([id number])] polymyxin B AdvReac Intermediate blisters Unverified 05/23/23 19:28 [From Neosporin ([id number])] Medications Home Medications Medication Instructions Recorded Confirmed Last Taken aspirin 81 mg tablet,delayed 81 mg PO HS 01/25/22 12/13/24 01/30/22 release carbidopa 25 mg-levodopa 100 mg 1 tab PO QID 01/25/22 12/13/24 01/31/22 tablet (Sinemet) metronidazole 0.75 % topical cream 1 applic topical QAM 01/25/22 12/13/24 01/25/22 (MetroCream) multivitamin 1 tab PO QAM 01/25/22 12/13/24 01/31/22 vit C 250 mg-vit E 90 mg-zinc 40 1 tab PO DAILY 01/25/22 12/13/24 01/31/22 mg-copper 1 [id number] capsule (PreserVision AREDS-2) atorvastatin 40 mg tablet 40 mg PO QAM 01/26/22 12/13/24 01/31/22 loteprednol etabonate 0.2 % eye 1 drp ophthalmic (eye) QID PRN Dry 01/26/22 12/13/24 Unknown drops,suspension (Alrex) Eye(S) clopidogrel 75 mg tablet (Plavix) 75 mg PO DAILY 03/25/23 12/13/24 Unknown polyethylene glycol 3350 17 gram 17 g PO DAILY PRN Constipation 05/23/23 12/13/24 Unknown oral powder packet (Miralax) triamcinolone acetonide 0.1 % 1 applic topical BID PRN flare ups 05/23/23 12/13/24 Unknown topical cream metoprolol succinate 25 mg 25 mg PO BID #60 tabs 05/26/23 12/13/24 Unknown tablet,extended release 24 hr nitroglycerin 0.4 mg/hr 1 patch transdermal QAM #30 ea 05/26/23 12/13/24 Unknown transdermal 24 hour patch (Nitro-Dur) doxazosin 2 mg tablet 2 mg PO HS #90 tabs 03/31/24 12/13/24 Unknown dutasteride 0.5 mg capsule 0.5 mg PO DAILY #90 caps 03/31/24 12/13/24 Unknown (Avodart) baclofen 10 mg tablet 10 mg PO UD 12/13/24 12/13/24 Unknown escitalopram oxalate 10 mg tablet 10 mg PO DAILY 12/13/24 12/13/24 Unknown pantoprazole 40 mg tablet,delayed 40 mg PO DAILY 12/13/24 12/13/24 Unknown release Active Medications Generic Name Dose Route Start Last Admin Trade Name Freq PRN Reason Stop Dose Admin Baclofen 10 mg 12/13/24 17:30 12/13/24 20:08 Baclofen 10 Mg Tab PO 01/12/25 17:29 10 mg DAILY IMMANUEL Administration Carbidopa/Levodopa 1 tab 12/13/24 21:00 12/13/24 20:07 Carbidopa/Levodopa 25/100mg Tab PO 01/12/25 20:59 1 tab QID IMMANUEL Administration Doxazosin Mesylate 2 mg 12/13/24 21:00 12/13/24 20:08 Doxazosin Mesylate Tab 2 Mg Tab PO 01/12/25 20:59 2 mg HS IMMANUEL Administration Hydralazine HCl 25 mg 12/13/24 18:43 12/13/24 21:42 Hydralazine Hcl 25 Mg Tab PO 01/12/25 18:44 25 mg Q6H PRN Administration HTN Acetaminophen 1,000 mg in 100 mls @ 400 mls/hr 12/14/24 00:00 12/14/24 00:02 Ofirmev IV 12/17/24 00:00 Infused Q8H IMMANUEL Infusion Sodium Chloride 1,000 mls @ 50 mls/hr 12/13/24 18:45 12/13/24 20:12 Nss IV 12/14/24 14:44 50 mls/hr .Q20H IMMANUEL Administration Metoprolol Succinate 25 mg 12/13/24 21:00 12/13/24 20:08 Metoprolol Succ 25mg Ext Rel Tab PO 01/12/25 20:59 25 mg BID IMMANUEL Administration Miscellaneous 1 each 12/14/24 00:00 12/13/24 23:20 Metronidazole [Metrocream] 0.75 % Cream~Order Awaiting Action N/A 01/13/25 00:00 Not Given QS IMMANUEL NPO Date Last Intake of Fluids: 12/13/24 Time Last Intake of Fluids: 23:59 Date Last Intake of Solids: 12/13/24 Time Last Intake of Solids: 23:59 Past Medical History Medical History Acoustic neuroma s/p gamma knife treatment BPH (benign prostatic hyperplasia) Past Family History Family History Father Hypertension Heart disease Brother Lung cancer Mother Cancer Past Surgical History Surgical History History of cataract surgery History of partial colectomy History of cholecystectomy Hx of appendectomy S/P coronary artery stent placement Social History Smoking Status: Never smoker Do You Dip or Chew Tobacco: No Hx Alcohol Use: No Hx Substance Use: No Physical Exam Vital Signs Last Vital Signs Temp 98.1 F 12/13/24 19:56 Pulse 83 12/13/24 21:02 Resp 18 12/13/24 19:56 BP 161/86 H 12/13/24 22:52 Pulse Ox 95 12/13/24 19:56 O2 Del Method Nasal Cannula 12/13/24 19:56 O2 Flow Rate 2 12/13/24 19:56 Testing Laboratory Results 12/14/24 06:15 PT 10.4 Seconds (9.0-12.0) 12/13/24 15:38 INR 1.0 (0.9-1.1) 12/13/24 15:38 APTT 27 Seconds (21-31) 12/13/24 15:38 Urine Color Yellow 12/13/24 20:30 Urine Appearance Clear (Clear) 12/13/24 20:30 Urine pH 8.0 (4.5-7.5) H 12/13/24 20:30 Ur Specific [place] 1.014 (1.000-1.030) 12/13/24 20:30 Urine Protein Trace (Negative) H 12/13/24 20:30 Urine Glucose (UA) Negative (Negative) 12/13/24 20:30 Urine Ketones Negative (Negative) 12/13/24 20:30 Urine Nitrite Negative (Negative) 12/13/24 20:30 Ur Leukocyte Esterase Negative (Negative) 12/13/24 20:30 Urine WBC (Auto) 0-5 /hpf (0-5) 12/13/24 20:30 Urine RBC (Auto) 6-10 /hpf (0-2) H 12/13/24 20:30 U Hyaline Cast (Auto) 0-2 /lpf (0-2) 12/13/24 20:30 U Epithel Cells (Auto) 0-2 /hpf (0-2) 12/13/24 20:30 Urine Bacteria (Auto) None Seen (None Seen) 12/13/24 20:30 Blood Type A Positive 12/13/24 17:21 Antibody Screen NEGATIVE 12/13/24 17:21 Electrocardiogram Date: 12/13/24 Findings: + NSR @ Chest X-Ray Date: 12/13/24 Findings: + NAD
--- NOTE | 2024-12-14 06:42 | History & Physical Bridge Note ---
Date of Service December 14, 2024 History & Physical Bridge Note I have examined the patient, reviewed the History & Physical and in the interval since the performance of the History & Physical I have noted the following changes of clinical significance: 79-year-old gentleman presents to [facility] after a fall at [employer]. During the fall, the patient sustained a closed, traumatic, completely displaced left femoral neck fracture. I had a long discussion with the patient and his family who joins him at bedside with regards to the nature of this injury. We discussed in great detail the pathoanatomy, pathophysiology, treatment options. I discussed with them that hip fractures are common in the elderly population who are ailing in health and who have very poor bone quality. This patient certainly meets those parameters. I discussed with them that in almost all circumstances, we recommend surgical management of hip fractures as it helps control the patient's pain, get some back to walking sooner, and prevents complications of immobilization. With reguards to this patient's fracture, I do recommend operative management to include a left hip hemiarthroplasty. I discussed with the patient and his family the risks, benefits, and alternatives to surgery. I discussed with him that risks include but are not limited to loss of life/limb, DVT, incomplete relief of pain, need for additional surgery, infection, iatrogenic injury to bone/nerve/tendon/vessel, hip dislocation, acetabular osteoarthritic change following hip hemiarthroplasty, decrease in functional status. I discussed in the alternatives to operative management would be for nonoperative care. If the patient were to elect for nonoperative care, I do believe that there are risks associated with this also which include but are not limited to pneumonia, DVT, decubitus ulcers due to his immobilization. After thorough discussion of the risks, benefits, alternatives to surgery, the patient and his family have elected to proceed with operative management. I did have a very willem discussion with the patient and his family with regards to hip fractures in the elderly. I discussed with them that hip fractures in the elderly are often times a "harbinger of worsening state," and can sometimes signify the beginning of the end of the patient's life. I expressed to them that even with surgical management of the patient's hip fracture, it is very likely that he decreases an entire functional status such that he may be more reliant on a wheelchair and/or standing for transfers only as his current functional status is quite limited. The patient and his family expressed understanding to this. surgical plan: Left hip anterior hemiarthroplasty
[2024-12-14] MEDS ORDERED: fentaNYL citrate PF 100 MCG/2 ML VIAL ONE ×3 (06:44→10:53)
[2024-12-14] MEDS ORDERED: ROCURONIUM BROMIDE 10 MG/ML 5 ML VIAL IV ONE ×2 (06:44→08:27)
[2024-12-14] MEDS ORDERED: DEXAMETHASONE SOD INJ 4 MG/ML VIAL ONE (06:44)
[2024-12-14] MEDS ORDERED: PROPOFOL IV EMULSION 10 MG/ML 20 ML VIAL IV ONE (06:44)
[2024-12-14] MEDS ORDERED: ONDANSETRON INJ 2 MG/ML 2 ML VIAL ONE (06:44)
[2024-12-14] MEDS ORDERED: LIDOCAINE 2% 2 ML VIAL/AMP(20MG/ML) INFIL ONE (06:44)
[2024-12-14] MEDS ORDERED: fentaNYL citrate PF 100 MCG/2 ML VIAL IV PRN (07:02)
[2024-12-14] MEDS ORDERED: ONDANSETRON INJ 2 MG/ML 2 ML VIAL IV PRN (07:02)
[2024-12-14] MEDS ORDERED: ATROPINE SULFATE 0.1 MG/ML 10ML SYR IV PRN (07:02)
[2024-12-14] MEDS ORDERED: ePHEDrine sulfate 50 MG/ML AMP IV PRN (07:02)
[2024-12-14 07:05] LABS: BUN Creatinine Ratio 22.4 (10-20); Calcium 8.2 mg/dl (8.6-10.3); Creatinine Clr Calc Pharmacy 35.2 ml/min; Potassium 3.8 mmol/L (3.5-5.1)
[2024-12-14] MEDS ORDERED: ceFAZolin 330 MG/ML 1 GM VIAL ONE ×2 (07:43→08:08)
[2024-12-14] MEDS: ceFAZolin 2000MG 2,000 MG/15 ML SYR IV ONE (07:43)
[2024-12-14] MEDS: TRANEXAMIC ACID / 0.7% NACL 1000MG/100ML BAG IV ONE (07:50)
[2024-12-14] MEDS ORDERED: SODIUM CHLORIDE 0.9% PF INJ 10 ML VIAL ONE (08:08)
[2024-12-14] MEDS ORDERED: NON-FORMULARY MEDICATION (Vit C,E-Zn-Coppr-Lutein-Zeaxan [Preservision Areds-2] 250-90-40- PO SCH (09:00)
[2024-12-14] MEDS ORDERED: SUGAMMADEX SODIUM 200 MG/2 ML VIAL IV ONE ×2 (10:34→10:45)
[2024-12-14] MEDS: ROPIVACAINE 0.5% HCL/PF 246 MG, Ketorolac (*for OR use only*) 30 MG, EPINEPHrine 30MG/3... INFIL SCH (10:45)
--- NOTE | 2024-12-14 11:12 | Post Operative Brief Note ---
Immediate Post Op Note Date of Surgery December 14, 2024 Pre & Post Diagnosis Operation Date: 12/14/24 07:15 Pre-Op Diagnosis: Fracture of left femoral neck Post-Op Diagnosis: Fracture of left femoral neck I identified the patient and participated in the time-out.: Yes Procedure Operation Date: 12/14/24 07:15 Actual Procedures p Left Anterior Hemiarthroplasty, prophylactic fixation left femoral neck, Fluoroscopy guidance greater than 1 hour(Left) - Ivan Ferrera DO Surgeon Ivan Ferrera DO Eligibility Examiner Reinier Mccrary PA-C Estimated Blood Loss 250 Findings Consistent with Post-Op Diagnosis Nondisplaced calcar fracture made itself evident during the case required prophylactic fixation Specimens Left femoral head Drains Us Catheter (us present upon patient's arrival to unit, us remained intact and remains intact for during of patient's procedure.) Complications none Disposition Disposition: Recovery Room Overlapping Procedure I was present for: the critical portions of procedure. (the entire case)
--- NOTE | 2024-12-14 11:16 | Operative Report ---
Post Operative Report Pre & Post Diagnosis Operation Date: 12/14/24 07:15 Pre-Op Diagnosis: Fracture of left femoral neck Post-Op Diagnosis: Fracture of left femoral neck I identified the patient and participated in the time-out.: Yes Procedure Operation Date: 12/14/24 07:15 Actual Procedures p Left Anterior Hemiarthroplasty, prophylactic fixation left femoral neck, Fluoroscopy guidance greater than 1 hour(Left) - Ivan Ferrera DO 1. Left anterior hemiarthroplasty for left femoral neck fracture 2. Prophylactic fixation left femoral neck 3. Physician directed fluoroscopy greater than 1 hour Surgeon Ivan Ferrera DO [employer] Reinier Mccrary PA-C Estimated Blood Loss 250 Findings See Below nondisplaced calcar fracture made itself evident during broaching. This required prophylactic stabilization using a cerclage cable. Specimens 1. Left femoral head Complications none immediately apparent Disposition Disposition: Recovery Room Indications 79-year-old gentleman presents to [facility] after a fall at [employer]. During the fall, the patient sustained a closed, traumatic, completely displaced left femoral neck fracture. I had a long discussion with the patient and his family who joins him at bedside with regards to the nature of this injury. We discussed in great detail the pathoanatomy, pathophysiology, treatment options. I discussed with them that hip fractures are common in the elderly population who are ailing in health and who have very poor bone quality. This patient certainly meets those parameters. I discussed with them that in almost all circumstances, we recommend surgical management of hip fractures as it helps control the patient's pain, get some back to walking sooner, and prevents complications of immobilization. With reguards to this patient's fracture, I do recommend operative management to include a left hip hemiarthroplasty. I discussed with the patient and his family the risks, benefits, and alternatives to surgery. I discussed with him that risks include but are not limited to loss of life/limb, DVT, incomplete relief of pain, need for additional surgery, infection, iatrogenic injury to bone/nerve/tendon/vessel, hip dislocation, acetabular osteoarthritic change following hip hemiarthroplasty, decrease in functional status. I discussed in the alternatives to operative management would be for nonoperative care. If the patient were to elect for nonoperative care, I do believe that there are risks associated with this also which include but are not limited to pneumonia, DVT, decubitus ulcers due to his immobilization. After thorough discussion of the risks, benefits, alternatives to surgery, the patient and his family have elected to proceed with operative management. I did have a very willem discussion with the patient and his family with regards to hip fractures in the elderly. I discussed with them that hip fractures in the elderly are often times a "harbinger of worsening state," and can sometimes signify the beginning of the end of the patient's life. I expressed to them that even with surgical management of the patient's hip fracture, it is very likely that he decreases an entire functional status such that he may be more reliant on a wheelchair and/or standing for transfers only as his current functional status is quite limited. The patient and his family expressed understanding to this. surgical plan: Left hip anterior hemiarthroplasty Description of Procedure after informed consent was obtained, the patient was correctly identified in the preoperative holding suite, the operative site was marked with the surgeon's initials, the date of surgery, and the word yes. The patient was then taken to the operative suite. The department of anesthesia administered General Anesthetic. The [facility] was [facility] to the operative table. All bony prominences were well-padded. Briefing and timeout was performed. All implants were available and sterile at the time. BRIEFING AND DEBRIEFING: Pre and post operative briefing and debriefing was performed. Introductions were made, goals of the procedure were discussed, questions and concerns were addressed. The operative site markings were identified and appropriate. A time [id number] was performed, the patient's correct identity was confirmed and the correct operative sites were identified. The patients pre-operative antibiotic dosing and administration was confirmed along with other SCIP measures. The team was polled at the completion of the surgery and all team members were in agreement that the procedure was without complication, the counts are correct, the wound class was identified and suggestions for improvement were shared. Patient was transferred from the hospital bed to the [place] [facility]. His feet were secured in the boots. The perineal post was in place. The left upper extremity was draped across the chest and the right upper extremity was placed on a well- padded arm board. We then cleaned the skin with a chlorhexidine scrub brush and prepped and draped the left hip in standard sterile fashion using an Ioban s hower curtain and ChloraPrep. We approximately 2 cm lateral and inferior to the ASIS extending in line with the femoral shaft aiming towards the lateral aspect of the patella. We incised sharply through skin and subcutaneous tissue and dissected bluntly down to the fascia of the TFL. We incised the fascia of the TFL just medial to the perforating vessels and then entered the TFL sheath. We bluntly dissected over the TFL until we encountered the subs sheath which we then dissected bluntly until we found the vessels of the ascending branch of the lateral femoral circumflex. These were then coagulated using the aqua mantis. We incised through the subsheath of the TFL fascia and retracted the rectus medially. The rectus was elevated off the left hip capsule and the pericapsular fat was stripped away using a Crane elevator. We then placed blunt Hohmann retractors superior, inferior to the femoral neck. This exposed our entire capsule. We made an H shaped capsulectomy and encountered our femoral neck fracture. We replaced our Hohmann retractor such that they were intracapsular at this point. The femoral neck fracture was severely comminuted. We then externally rotated the leg and performed our inferior release such that we could visualize the lesser trochanter. We planned our femoral neck cut and checked it using fluoroscopy. We used an oscillating saw to make our femoral neck cut such that it was 1 fingerbreadth proximal to the lesser trochanter. We used the corkscrew to remove the femoral head and sized on the back table. It sized to about a 46 mm head. We would then trial head sizes and felt that the 45 mm head fit most appropriately. We turned our attention then towards the proximal femur. We performed a release of the saddle region such that we could place retractors for femoral canal preparation. We placed 2 pronged blunt Torres retractors around the lesser trochanter and around the greater trochanter while we ensured traction was off, we dropped the leg and 80 ducted it such that the proximal femur was delivered into our incision. We then began femoral canal preparation. We started with a canal finding rasp followed by a lateralizing rasp and then a box osteotome. We ensured to match appropriate version of the patient's [place] femur. We then began broaching using the [employer] system. Once we had gotten to the size 6 broach, a fracture of the calcar noted just posteriorly became evident. We left this broach in place, prophylactically placed a cable around the proximal femur superior to the lesser trochanter and secured this in place. This appropriately reduced our fracture calcar. We then tested the stability of the stem and felt as if there was still too much rotational instability, so we made the decision to change course and use a cemented stem. We would then using the echo broaches broached up to the size [address] a size 11 echo stem. We left a size 13 and placed and trialed off of this. We noted that with the stem at the level of our femoral neck cut, there was instability of the hip even with a +6 mm head, so we made the decision instead to leave our cemented stem a bit proud so as to provide appropriate length. We then thoroughly irrigated the entire hip, placed a cement restrictor into the femoral canal, and dried the canal while we began to mixed our cement. We pressurized the cement into the femoral canal and then placed a high offset [employer] size 11 echo collared stem, cemented into the femur such that it was approximately 5 mm proud to our femoral neck cut. We then trialed a +6 mm head on this and felt that the stability was excellent at this time. We would we reduced the hip, and dry the trunnion and then placed our bipolar head ball onto the stem. The final implants were as follows: Stem: Size 11, high offset echo collared cemented stem Shell/liner: 45 mm Head: 28 mm +6 mm neck After we placed the final implants in place, we reduced to the hip and checked its stability in all motions. The patient was stable to 110 degrees of external rotation. We checked our length and were satisfied as a related to the contralateral side. We then thoroughly irrigated the entire wound, placed 1 g vancomycin powder deep within the wound, placed 20 cc of the joint cocktail and began her layer closure. The deep fascia was closed with a running oh strata, the subcutaneous fat layer was closed with interrupted 0 Vicryl's, the subcutaneous tissue was closed with 2-0 Vicryl and the skin was closed with a running 3 oh STRATAFIX. Glue was then applied and a sterile yesy dressing was applied. The patient tolerated this procedure well and was transferred to the PACU in stable condition. Prior to transportation to PACU, all counts were correct and a briefing was performed at the end of the case. Physician-directed fluoroscopy for greater than one hour was performed by myself to verify fracture alignment and the safe placement of all internal fixation. The final images saved to PACs showed views demonstrating satisfactory alignment of the fracture and stable internal fixation. Implant verification was performed by myself by reading and confirming the implant information on the packaging with the team before the sterile implants were opened. I was present for the entire procedure. Plan: Weight bearing status: 10 to 20 kg left lower extremity Wound care: Keep yesy clean and dry once battery runs out, remove battery pack and dressing remain sterile underneath Range of motion: As tolerated VTE Prophylaxis: Okay to resume aspirin Plavix Antibiotics: Perioperative Ancef Pain Control: Multimodal Vitamin D Replacement: Labs pending Discharge Plan: Pending PT/OT Follow Up: With myself in 2 weeks I attest to the content of the Intraoperative Record and any orders documented therein. Any exceptions are noted below.
--- NOTE | 2024-12-14 11:52 | Fluoroscopy Report ---
FL hip LT 2-3V CLINICAL HISTORY: LEFT ANTERIOR HIP COMPARISON STUDY: Left hip radiographs 01/10/2025. FLUOROSCOPY TIME: 1 minute and 5 seconds. Ka,r: 4.1633 mGy FLUOROSCOPIC IMAGES: 3 FINDINGS: Fluoroscopy was provided during left hip arthroplasty. A femoral cerclage wire is in place. Alignment is anatomic. No periprosthetic fracture is identified. No unexpected radiopaque foreign leon dies. Ferro catheter is incidentally noted. IMPRESSION: Fluoroscopy provided during left hip arthroplasty. ACT 112: Negative or not required by law. Electronically signed by: Javad Rubalcava M.D. 12/14/2024 11:51 AM
--- NOTE | 2024-12-14 12:02 | XRay Report ---
XR hip LT 2V w pelvis CLINICAL HISTORY: Postoperative evaluation. COMPARISON: Left hip radiographs December 13, 2024. FINDINGS: Alignment of the left hip arthroplasty is anatomic. There is no periprosthetic fracture or unexpected radiopaque foreign body. Cerclage wire is in place. Ferro catheter is incidentally noted. IMPRESSION: Expected findings following left hip arthroplasty. ACT 112: Negative or not required by law. Electronically signed by: Javad Rubalcava M.D. 12/14/2024 12:01 PM
[2024-12-14] MEDS: VANCOMYCIN HCL 1000MG/20ML VIAL ONE (13:21)
[2024-12-14] MEDS: PHENYLEPHRINE 100MCG/ML 5ML SYR ONE (13:22)
--- NOTE | 2024-12-14 14:22 | Anesthesiology Progress Note ---
Date of Service December 14, 2024 Anesthesia Post Procedure Vital Signs Vital Signs: Temp Pulse Pulse Pulse Resp BP BP 12/14/24 13:52 97.7 F 70 16 12/14/24 13:24 97.5 F L 67 16 12/14/24 13:15 12/14/24 12:54 97.5 F L 67 16 12/14/24 12:40 97.7 F 70 17 12/14/24 12:30 68 16 12/14/24 12:20 70 13 12/14/24 12:10 71 13 12/14/24 12:00 71 13 12/14/24 11:50 71 18 12/14/24 11:40 72 17 12/14/24 11:30 68 13 12/14/24 11:20 68 15 12/14/24 11:10 97.0 F L 67 12 12/14/24 06:50 98.4 F 76 18 12/13/24 22:52 161/86 H 12/13/24 21:02 83 12/13/24 19:56 98.1 F 85 18 179/104 H 12/13/24 18:44 97.5 F L 92 H 18 12/13/24 18:11 90 12/13/24 16:19 12/13/24 16:13 89 21 177/97 H 12/13/24 14:52 87 12/13/24 14:38 97.7 F 84 18 177/97 H BP Pulse Ox O2 Del Method O2 Flow Rate 12/14/24 13:52 94/57 L 96 Nasal Cannula 2 12/14/24 13:24 96/58 L 97 Nasal Cannula 2 12/14/24 13:15 Nasal Cannula 4 12/14/24 12:54 97/59 L 95 Nasal Cannula 4 12/14/24 12:40 95/55 L 93 Nasal Cannula 4 12/14/24 12:30 103/60 95 Oxymask 4 12/14/24 12:20 100/67 92 Oxymask 8 12/14/24 12:10 97/54 L 94 Oxymask 8 12/14/24 12:00 98/56 L 95 Oxymask 10 12/14/24 11:50 101/58 L 88 L Oxymask 6 12/14/24 11:40 101/57 L 91 Oxymask 6 12/14/24 11:30 113/63 95 Oxymask 10 12/14/24 11:20 117/63 95 Oxymask 10 12/14/24 11:10 89/49 L 94 Oxymask 10 12/14/24 06:50 163/83 H 94 Nasal Cannula 2 12/13/24 22:52 12/13/24 21:02 193/96 H 12/13/24 19:56 95 Nasal Cannula 2 12/13/24 18:44 215/85 H 94 Nasal Cannula 2 12/13/24 18:11 92 Nasal Cannula 2 12/13/24 16:19 89 L Nasal Cannula 0 12/13/24 16:13 91 Nasal Cannula 2 12/13/24 14:52 12/13/24 14:38 93 Room Air Pain Intensity Left Hip: Pain Intensity: 3 Transfer of Care Handoff Completed per policy Notes Mental Status: alert / awake / arousable and participated in evaluation Patient Amnestic to Procedure: Yes Nausea / Vomiting: adequately controlled Pain: adequately controlled Airway Patency, RR, SpO2: stable & adequate BP & HR: stable & adequate Hydration State: stable & adequate Anesthetic Complications: no major complications apparent and Pt Satisfied with anesthetic care
--- NOTE | 2024-12-14 14:47 | Electrocardiogram Report ---
Test Reason : Blood Pressure : */* mmHG Vent. Rate : 82 BPM Atrial Rate : 82 BPM P-R Int : 178 ms QRS Dur : 76 ms QT Int : 416 ms P-R-T Axes : 49 29 36 degrees QTcB Int : 486 ms Normal sinus rhythm Nonspecific ST and T wave abnormality Abnormal ECG When compared with ECG of 25-May-2023 04:34, No significant change was found Confirmed by Phuc Ferrera ([id number]) on 12/14/2024 2:46:48 PM Referred By: REFERRED SELF Confirmed By: Phuc Ferrera
--- NOTE | 2024-12-14 15:18 | Electrocardiogram Report ---
Test Reason : Blood Pressure : */* mmHG Vent. Rate : 80 BPM Atrial Rate : 80 BPM P-R Int : 172 ms QRS Dur : 78 ms QT Int : 414 ms P-R-T Axes : 69 69 47 degrees QTcB Int : 477 ms Normal sinus rhythm Nonspecific ST abnormality Abnormal ECG When compared with ECG of 13-Dec-2024 14:46, (unconfirmed) No significant change was found Confirmed by Phuc Ferrera ([id number]) on 12/14/2024 3:17:48 PM Referred By: REFERRED SELF Confirmed By: Phuc Ferrera
--- NOTE | 2024-12-14 15:47 | Hospitalist Progress Note ---
Date of Service December 14, 2024 Assessment & Plan (1) Fracture of femoral neck, left: (2) Fall from standing: (3) Hypertension: (4) CKD (chronic kidney disease), stage III: (5) Parkinsons disease: (6) Coronary artery disease: (7) Benign prostatic hyperplasia with urinary obstruction: (8) Acoustic neuroma: Plan Mr. Hunter is an 79 year old male that was at [employer] and lost his footing and had a ground level fall; likely induced from his Parkinsons Disease. Denies hitting his head or having LOC. He describes that he was talking with his neonatal surgeon and not watching where he was walking with his walker. He was brought to the [facility] via EMS and had a hip/pelvis X-ray performed revealing an acute left femoral neck fracture. He has a PMH that includes: hyperlipidemia, CAD s/p stent x2 (2006 and 2021 - at [facility]), history of NSTEMI, HTN, macular degeneration, Meckel's diverticulum, BPH, chronic kidney stage III, bilateral lower extremity edema, Parkinson's disease, right acoustic neuroma. Most recent ECHO 05/2023 EF 55-60%, G1DDx. Mild aortic valve sclerosis without significant stenosis. He will be admitted for further evaluation and management with Ortho consult, fall precautions, Tylenol for pain control, ECG and type/screen pending surgery. Will add on BNP given RCRI value of 1. Plan for OR per Ortho for 12/14; will hold DAPT and keep NPO after MN. Fracture of femoral neck, left: Ground level fall from standing: -Acute -Likely related to Parkinson's disease symptoms -In the ED/pelvis: X-ray revealed acute left femoral neck fracture -post op day 0, left hip arthroplasty Plan: -appreciate ortho assistance -pain control per ortho -incentive spirometer ordered -check CMP, CBC post op given fatigue and change in color per family Hypotension -per family not far below baseline -could be contributing factor to mental status change and change in color Plan: -monitor -give fluids if necessary CAD: HTN: -Discharge history of BMS to LAD x 2 (2006 and 2021). -Takes baby aspirin and Plavix; hold Plavix tonight, continue ASA -Most recent ECHO: 05/2023 EF 55-60%, G1DDx and mild aortic valve sclerosis without significant stenosis Parkinson's disease: -Chronic -Takes Sinemet QID; continue -Uses a walker at baseline CKD: -Chronic -Serum creatinine 1.57; Baseline creatinine 1.3 -Trend BMP and avoid nephrotoxic agents HLD: -Chronic -Most recent lipid panel: 11/07/24: TG 154, HDL 49, LDL 121 -Takes atorvastatin; continue Acoustic neuroma: -stable Feeding/fluids: heart healthy Analgesia: tylenol/oxy (hold baclofen) Sedation: na Thromboprophylaxis: per ortho Head up position: na Ulcer prophylaxis: na Glycemic control: na Spontaneous breathing trial: na Bowel care: start miralax prn Indwelling catheter removal: remove when able Deescalation of antibiotics: na I spent a total of 45 minutes in direct patient care, including [id number] time with the patient and/or family, reviewing medical records, ordering and reviewing diagnostic tests, and coordinating care with other healthcare providers. This time includes: history taking, physical examination, medical decision making, counseling, ECG interpretation, imaging interpretation, lab interpretation, orders, and education, excluding time spent in the performance of separately billed services. Admission and Anticipated Discharge Date Admission Date: December 13, 2024 Subjective patient seen and examined at bedside post procedure. Accompanied by and daughter. Patient was very sleepy post procedure and did not participate in conversation. Had long discussion with and daughter regarding postop anesthesia effects and concern for side effects including delirium. Discussed his overall condition and neck steps. They were appreciative of the update. Review of Systems Review of Systems: Neuro: (-) Falls, trauma, slurred speech (+) pain without neuropathy L hip HEENT: (-) ROY, dizziness, dysphagia, visual or auditory changes CV: (-) CP, palpitations, swelling Resp: (-) SOB GI: (-) appetite changes, N/V/D, bowel changes : (-) urinary changes Skin: (-) rashes Psych: (-) anxiety, depression Physical Exam Physical Exam: Gen: A&O 0 NAD (not awake) HEENT: NCAT, EOMI, not icteric. External ears normal. No rhinorrhea. Moist mucous membranes. Appears jaundiced Neck: Supple, full range of motion, no observable masses, No meningeal sign. Lungs: No Respiratory distress. CV: RRR, no edema. Abdomen: Soft, nondistended, No rebound tenderness. MSK: No joint swelling, no redness. Noted left hip procedure site Skin: No rashes, petechiae, lesions. Yellow color per family Results & Data Results & Data Vital Signs (Past 12 Hours) Vital Signs Temp Pulse Pulse Resp BP Pulse Ox O2 Del Method 12/14/24 15:05 36.3 C L 69 16 99/61 L 95 Nasal Cannula 12/14/24 13:52 36.5 C 70 16 94/57 L 96 Nasal Cannula 12/14/24 13:24 36.4 C L 67 16 96/58 L 97 Nasal Cannula 12/14/24 13:15 Nasal Cannula 12/14/24 12:54 36.4 C L 67 16 97/59 L 95 Nasal Cannula 12/14/24 12:40 36.5 C 70 17 95/55 L 93 Nasal Cannula 12/14/24 12:30 68 16 103/60 95 Oxymask 12/14/24 12:20 70 13 100/67 92 Oxymask 12/14/24 12:10 71 13 97/54 L 94 Oxymask 12/14/24 12:00 71 13 98/56 L 95 Oxymask 12/14/24 11:50 71 18 101/58 L 88 L Oxymask 12/14/24 11:40 72 17 101/57 L 91 Oxymask 12/14/24 11:30 68 13 113/63 95 Oxymask 12/14/24 11:20 68 15 117/63 95 Oxymask 12/14/24 11:10 36.1 C L 67 12 89/49 L 94 Oxymask 12/14/24 06:50 36.9 C 76 18 163/83 H 94 Nasal Cannula O2 Flow Rate 12/14/24 15:05 2 12/14/24 13:52 2 12/14/24 13:24 2 12/14/24 13:15 4 12/14/24 12:54 4 12/14/24 12:40 4 12/14/24 12:30 4 12/14/24 12:20 8 12/14/24 12:10 8 12/14/24 12:00 10 12/14/24 11:50 6 12/14/24 11:40 6 12/14/24 11:30 10 12/14/24 11:20 10 12/14/24 11:10 10 12/14/24 06:50 2 Laboratory Results -personally reviewed, TESSA on CKD noted on arrival, BNP likely chronically elevated in setting of known CAD and CKD Diagnostic Findings Hip X-Ray 12/14/24 00:00 FL hip LT 2-3V CLINICAL HISTORY: LEFT ANTERIOR HIP COMPARISON STUDY: Left hip radiographs 01/10/2025. FLUOROSCOPY TIME: 1 minute and 5 seconds. Ka,r: 4.1633 mGy FLUOROSCOPIC IMAGES: 3 FINDINGS: Fluoroscopy was provided during left hip arthroplasty. A femoral cerclage wire is in place. Alignment is anatomic. No periprosthetic fracture is identified. No unexpected radiopaque foreign bodies. Ferro catheter is incidentally noted. IMPRESSION: Fluoroscopy provided during left hip arthroplasty. ACT 112: Negative or not required by law. Electronically signed by: Javad Rubalcava M.D. 12/14/2024 11:51 AM Hip/Pelvis X-Ray 12/14/24 11:07 XR hip LT 2V w pelvis CLINICAL HISTORY: Postoperative evaluation. COMPARISON: Left hip radiographs December 13, 2024. FINDINGS: Alignment of the left hip arthroplasty is anatomic. There is no periprosthetic fracture or unexpected radiopaque foreign body. Cerclage wire is in place. Ferro catheter is incidentally noted. IMPRESSION: Expected findings following left hip arthroplasty. ACT 112: Negative or not required by law. Electronically signed by: Javad Rubalcava M.D. 12/14/2024 12:01 PM Medications Administered Baclofen (Baclofen 10 Mg Tab) 10 mg PO DAILY [facility] Stop: 01/12/25 17:29 Last Admin: 12/13/24 20:08 Dose: 10 mg Documented By: BISI Carbidopa/Levodopa (Carbidopa/Levodopa 25/100mg Tab) 1 tab PO QID [facility] Stop: 01/12/25 20:59 Last Admin: 12/14/24 15:21 Dose: Not Given Documented By: Admin: 12/14/24 14:27 Dose: Not Given Documented By: Admin: 12/13/24 20:07 Dose: 1 tab Documented By: BISI Doxazosin Mesylate (Doxazosin Mesylate Tab 2 Mg Tab) 2 mg PO HS [facility] Stop: 01/12/25 20:59 Last Admin: 12/13/24 20:08 Dose: 2 mg Documented By: BISI Hydralazine HCl (Hydralazine Hcl 25 Mg Tab) 25 mg PO Q6H PRN PRN Reason: HTN Stop: 01/12/25 18:44 Last Admin: 12/13/24 21:42 Dose: 25 mg Documented By: BISI Acetaminophen (Ofirmev) 1,000 mg in 100 mls @ 400 mls/hr IV Q8H [facility] Stop: 12/17/24 00:00 Last Admin: 12/14/24 13:20 Dose: Not Given Documented By: Infusion: 12/14/24 00:02 Dose: Infused Documented By: Admin: 12/13/24 23:20 Dose: 400 mls/hr Documented By: BISI Metoprolol Succinate (Metoprolol Succ 25mg Ext Rel Tab) 25 mg PO BID [facility] Stop: 01/12/25 20:59 Last Admin: 12/14/24 13:21 Dose: Not Given Documented By: Admin: 12/13/24 20:08 Dose: 25 mg Documented By: BISI Miscellaneous (Metronidazole [Metrocream] 0.75 % Cream~Order Awaiting Action) 1 each N/A QS [facility] Stop: 01/13/25 00:00 Last Admin: 12/14/24 13:21 Dose: Not Given Documented By: Admin: 12/13/24 23:20 Dose: Not Given Documented By: BISI (6) Coronary artery disease Coronary Disease-Associated Artery/Lesion type: unspecified vessel or lesion type [place] vs. transplanted heart: [place] heart
[2024-12-14] MEDS ORDERED: oxyCODONE HCL IR 5 MG TAB (IMMEDIATE RELEASE) PO PRN (15:54)
[2024-12-14] MEDS ORDERED: POLYETHYLENE (MIRALAX) 17 GM PACK PO PRN (16:09)
[2024-12-14 16:16] LABS: Hemoglobin 11.7 g/dl (14.0-18.0); Mean Corpuscular Hemoglobin 27.6 pg (25.0-34.0); Mean Corpuscular Hgb Conc 31.6 g/dL (32.0-36.0); Mean Corpuscular Volume 87.3 fL (80.0-100.0); Mean Platelet Volume 10.3 fL (9.4-12.4); Platelet Count 156 K/uL (130-400); RDW Coefficient of Variation 14.5 % (11.5-14.5); RDW Standard Deviation 46.1 fL (36.4-46.3); Red Blood Count 4.24 M/uL (4.70-6.10); White Blood Count 12.76 K/ul (4.8-10.8)
[2024-12-14 16:33] LABS: Albumin Globulin Ratio 1.1 (0.9-2); Albumin Level 2.8 gm/dl (3.4-5.0); BUN Creatinine Ratio 23.8 (10-20); Calcium 7.7 mg/dl (8.6-10.3); Creatinine Clr Calc Pharmacy 35.2 ml/min; Globulin 2.5 gm/dl (2.5-4.0); Potassium 3.9 mmol/L (3.5-5.1); Total Protein 5.3 gm/dl (6.0-8.3)
[2024-12-14 16:34] LABS: Albumin Level 2.9 gm/dl (3.4-5.0); Bilirubin Direct 0.1 mg/dl (0-0.2); Total Protein 5.3 gm/dl (6.0-8.3)
[2024-12-14] MEDS: FINASTERIDE 5 MG TAB PO SCH (17:06)
[2024-12-14] MEDS: ATORVASTATIN 40 MG TAB PO SCH (17:08)
[2024-12-14] MEDS: ESCITALOPRAM OXALATE 10 MG TAB PO SCH (17:10)
[2024-12-14] MEDS: PANTOprazole 40 MG TAB PO SCH (17:10)
[2024-12-14] MEDS: ceFAZolin 1000MG 1,000 MG/7.5 ML SYR IV SCH (17:39)
[2024-12-14] MEDS: [UNRECOGNIZED DRUG - OTHER] PO SCH (20:34)
[2024-12-15 06:58] LABS: Basophils # (auto) 0.03 K/uL (0.00-0.20); Basophils % (auto) 0.3 %; Eosinophils % (auto) 2.1 %; Hematocrit (blood only) 33.8 % (42.0-52.0); Hemoglobin 10.4 g/dl (14.0-18.0); Immature Granulocytes # (auto) 0.06 K/uL (0.01-0.20); Immature Granulocytes % (auto) 0.6 %; Lymphocytes % (auto) 7.4 %; Mean Corpuscular Hemoglobin 27.5 pg (25.0-34.0); Mean Corpuscular Hgb Conc 30.8 g/dL (32.0-36.0); Mean Corpuscular Volume 89.4 fL (80.0-100.0); Mean Platelet Volume 10.2 fL (9.4-12.4); Monocytes # (auto) 0.66 K/uL (0.11-0.59); Neutrophils % (auto) 82.6 %; Platelet Count 158 K/uL (130-400); RDW Coefficient of Variation 14.7 % (11.5-14.5); RDW Standard Deviation 47.5 fL (36.4-46.3); Red Blood Count 3.78 M/uL (4.70-6.10); White Blood Count 9.45 K/ul (4.8-10.8)
[2024-12-15 07:27] LABS: BUN Creatinine Ratio 21.4 (10-20); Calcium 7.8 mg/dl (8.6-10.3); Creatinine Clr Calc Pharmacy 26.2 ml/min; Potassium 3.8 mmol/L (3.5-5.1)
--- NOTE | 2024-12-15 08:22 | Orthopedic Progress Note ---
Date of Service December 15, 2024 Assessment & Plan (1) Fracture of femoral neck, left: (2) Fall from standing: (3) Hypertension: (4) CKD (chronic kidney disease), stage III: (5) Parkinsons disease: (6) Coronary artery disease: (7) Benign prostatic hyperplasia with urinary obstruction: (8) Acoustic neuroma: Plan Patient doing well postoperative day #1 status post left hip hemiarthroplasty with prophylactic fixation of femoral neck. No acute complaints overnight. Pat ient should be touchdown weightbearing on the left lower extremity. His dressing should stay intact and once the battery runs out, the battery pack may be removed. He will follow-up with me in 2 weeks for wound check. Okay for DVT prophylaxis. Okay for PT/OT. Admission and Anticipated Discharge Date Admission Date: December 13, 2024 Subjective POD 1 s/p L hip hemiarthroplasty. patient resting comfortably in bed. no acute issues overnight. patient eating breakfast this morning. Review of Systems Review of Systems: All systems reviewed & are unremarkable except as noted in HPI & below Physical Exam Physical Exam: Dressings clean dry and intact. patient wiggles all toes. foot warm and well perfused. Results & Data Vital Signs (Past 12 Hours) Vital Signs Temp Pulse Resp BP Pulse Ox O2 Del Method O2 Flow Rate 12/15/24 07:53 36.2 C L 85 18 134/78 95 Nasal Cannula 2 12/15/24 03:16 36.2 C L 76 17 115/61 92 Nasal Cannula 2 12/14/24 23:50 36.3 C L 79 16 113/63 94 Nasal Cannula 2 12/14/24 20:30 Nasal Cannula 2 Diagnostic Findings Postoperative imaging reviewed. Stable left hip hemiarthroplasty and cerclage cable (6) Coronary artery disease Coronary Disease-Associated Artery/Lesion type: unspecified vessel or lesion type [place] vs. transplanted heart: [place] heart
[2024-12-15] MEDS: ERYTHROMYCIN OP OINT 5 MG/GM 3.5 GM TUBE OP SCH (08:41)
[2024-12-15] MEDS: D5W AND LACTATED RINGERS 1,000 ML IV SCH (08:42)
--- NOTE | 2024-12-15 08:58 | XRay Report ---
XR chest 1V portable CLINICAL HISTORY: hypoxia post procedure COMPARISON STUDY: Chest radiograph December 13, 2024. FINDINGS: Lung volumes are normal. There is no pneumothorax or pleural effusion. Linear left basilar densities are unchanged and represent atelectasis or scarring. No consolidation to suggest pneumonia. Cardiomegaly is unchanged. No evidence for pulmonary edema. IMPRESSION: 1. No acute cardiopulmonary findings. 2. Linear left basilar densities consistent with atelectasis or scarring. ACT 112: Negative or not required by law. Electronically signed by: Javad Rubalcava M.D. 12/15/2024 8:56 AM
[2024-12-15 10:53] LABS: Base Excess VBG 2.7 mEq/L; HCO3 VBG 28 mmol/L; Oxygen Saturation VBG 77.5 %; PCO2 VBG 44 mmHg (38-50); PO2 VBG 45 mmHg; pH VBG 7.41 (7.36-7.41)
[2024-12-15 11:06] LABS: Basophils # (auto) 0.02 K/uL (0.00-0.20); Basophils % (auto) 0.2 %; Eosinophils # (auto) 0.23 K/uL (0.00-0.50); Eosinophils % (auto) 2.6 %; Hematocrit (blood only) 34.1 % (42.0-52.0); Hemoglobin 10.5 g/dl (14.0-18.0); Immature Granulocytes # (auto) 0.05 K/uL (0.01-0.20); Immature Granulocytes % (auto) 0.6 %; Lymphocytes # (auto) 0.71 K/uL (1.20-3.40); Lymphocytes % (auto) 8.1 %; Mean Corpuscular Hemoglobin 27.4 pg (25.0-34.0); Mean Corpuscular Hgb Conc 30.8 g/dL (32.0-36.0); Mean Platelet Volume 10.3 fL (9.4-12.4); Monocytes # (auto) 0.66 K/uL (0.11-0.59); Monocytes % (auto) 7.5 %; Neutrophils # (auto) 7.11 K/uL (1.40-6.50); Platelet Count 156 K/uL (130-400); RDW Coefficient of Variation 14.8 % (11.5-14.5); RDW Standard Deviation 48.2 fL (36.4-46.3); Red Blood Count 3.83 M/uL (4.70-6.10); White Blood Count 8.78 K/ul (4.8-10.8)
[2024-12-15 11:21] LABS: Troponin I High Sensitivity 23.4 pg/ml (0-20)
--- NOTE | 2024-12-15 13:47 | CT Scan Report ---
CT OF THE HEAD WITHOUT CONTRAST CLINICAL HISTORY: Altered post procedure. COMPARISON STUDY: Head CT January 25, 2022. CT DOSE: 663.26 mGy.cm TECHNIQUE: Helical axial images of the head were obtained without IV contrast. Automated exposure con trol was utilized for the study. A dose lowering technique was utilized adhering to the principles o f ALARA. FINDINGS: No acute intracranial hemorrhage, midline shift or mass effect is present. The ventricular system is stable. White matter hypodensities favor small vessel disease. These are similar to prior e xam. The basal cisterns are patent. No extra-axial collections are present. There are no findings to suggest acute dural sinus thrombosis or acute territorial infarct. There are no calvarial fractures. A small amount of fluid within the left mastoid air cells is present. IMPRESSION: No acute intracranial findings. ACT 112: Negative or not required by law. Electronically signed by: Javad Rubalcava M.D. 12/15/2024 1:46 PM
[2024-12-15] MEDS: HEPARIN SOD 5,000 UNIT/0.5 ML VIAL SQ SCH (15:00)
--- NOTE | 2024-12-15 17:44 | Hospitalist Progress Note ---
Date of Service December 15, 2024 Assessment & Plan (1) Fracture of femoral neck, left: (2) Fall from standing: (3) Hypertension: (4) CKD (chronic kidney disease), stage III: (5) Parkinsons disease: (6) Coronary artery disease: (7) Benign prostatic hyperplasia with urinary obstruction: (8) Acoustic neuroma: Plan Mr. Hunter is an 79 year old male that was at [employer] and lost his footing and had a ground level fall; likely induced from his Parkinsons Disease. Denies hitting his head or having LOC. He describes that he was talking with his language teacher and not watching where he was walking with his walker. He was brought to the [facility] via EMS and had a hip/pelvis X-ray performed revealing an acute left femoral neck fracture. He has a PMH that includes: hyperlipidemia, CAD s/p stent x2 (2006 and 2021 - at [facility]), history of NSTEMI, HTN, macular degeneration, Meckel's diverticulum, BPH, chronic kidney stage III, bilateral lower extremity edema, Parkinson's disease, right acoustic neuroma. Most recent ECHO 05/2023 EF 55-60%, G1DDx. Mild aortic valve sclerosis without significant stenosis. He will be admitted for further evaluation and management with Ortho consult, fall precautions, Tylenol for pain control, ECG and type/screen pending surgery. Will add on BNP given RCRI value of 1. Plan for OR per Ortho for 12/14; will hold DAPT and keep NPO after MN. Fracture of femoral neck, left: Ground level fall from standing: -Likely related to Parkinson's disease symptoms -In the ED/pelvis: X-ray revealed acute left femoral neck fracture -post op day 1, left hip arthroplasty Plan: -appreciate ortho assistance -pain control per ortho -incentive spirometer ordered -DVT prophylaxis restarted per ortho Acute Metabolic Encephalopathy -likely in setting of anesthesia, significant comorbid conditions, hypoactive delirium -CT head unremarkable, lab workup unremarkable Plan: -delirium precautions -start thiamine, folic acid Acute Hypoxic Respiratory Failure -chest xray unremarkable -likely post op atelectasis Plan: -goal oxygen saturation 92% -encourage IS when more awake Hypotension -per family not far below baseline -resolved CAD: HTN: -Discharge history of BMS to LAD x 2 (2006 and 2021). -Takes baby aspirin and Plavix; hold Plavix tonight, continue ASA -Most recent ECHO: 05/2023 EF 55-60%, G1DDx and mild aortic valve sclerosis without significant stenosis Parkinson's disease: -Chronic -Takes Sinemet QID; continue -Uses a walker at baseline TESSA on CKD: -Chronic -Serum creatinine 1.90; Baseline creatinine 1.3 -likely in setting of post op and poor PO intake Plan: -give maintenance fluids today, recheck in morning #Acute Blood Loss Anemia -likely 2/2 procedure and dilutional in setting of fluids Plan: -trend Hgb HLD: -Chronic -Most recent lipid panel: 11/07/24: TG 154, HDL 49, LDL 121 -Takes atorvastatin; continue Acoustic neuroma: -stable Feeding/fluids: heart healthy Analgesia: tylenol/oxy (hold baclofen) Sedation: na Thromboprophylaxis: per ortho Head up position: na Ulcer prophylaxis: na Glycemic control: na Spontaneous breathing trial: na Bowel care: start miralax prn Indwelling catheter removal: remove when able Deescalation of antibiotics: na I spent a total of 60 minutes in direct patient care, including [id number] time with the patient and/or family, reviewing medical records, ordering and reviewing diagnostic tests, and coordinating care with other healthcare providers. This time includes: history taking, physical examination, medical decision making, counseling, ECG interpretation, imaging interpretation, lab interpretation, orders, and education, excluding time spent in the performance of separately billed services. Admission and Anticipated Discharge Date Admission Date: December 13, 2024 Subjective Seen and examined at bedside. Patient is minimally responsive today, however with stimulation follows all commands. Alert to self and place. Discussed case with and daughter, including chance that he could further decline. They state he has a DNR in place and would not want heroic measures at this time. They were appreciative of the update. Review of Systems Review of Systems: -denies pain, otherwise not able to answ er ROS Physical Exam Physical Exam: Gen: A&O 2 NAD (not fully awake) HEENT: NCAT, EOMI, not icteric. External ears normal. No rhinorrhea. Moist mucous membranes. Neck: Supple, full range of motion, no observable masses, No meningeal sign. Lungs: No Respiratory distress. CV: RRR, no edema. Abdomen: Soft, nondistended, No rebound tenderness. MSK: No joint swelling, no redness. Noted left hip procedure site Skin: No rashes, petechiae, lesions. Yellow color per family Results & Data Results & Data Vital Signs (Past 12 Hours) Vital Signs Temp Pulse Resp BP Pulse Ox O2 Del Method O2 Flow Rate 12/15/24 14:51 36.6 C 81 18 143/78 H 96 Nasal Cannula 2 12/15/24 10:30 36.4 C L 78 18 109/66 98 Nasal Cannula 2 12/15/24 09:28 88 117/71 95 Nasal Cannula 2 12/15/24 09:00 Nasal Cannula 2 12/15/24 07:53 36.2 C L 85 18 134/78 95 Nasal Cannula 2 Laboratory Results -personally reviewed, Hgb drop to 10.4, creatinine elevated to 1.92 Diagnostic Findings Chest X-Ray 12/15/24 08:30 XR chest 1V portable CLINICAL HISTORY: hypoxia post procedure COMPARISON STUDY: Chest radiograph December 13, 2024. FINDINGS: Lung volumes are normal. There is no pneumothorax or pleural effusion. Linear left basilar densities are unchanged and represent atelectasis or scarring. No consolidation to suggest pneumonia. Cardiomegaly is unchanged. No evidence for pulmonary edema. IMPRESSION: 1. No acute cardiopulmonary findings. 2. Linear left basilar densities consistent with atelectasis or scarring. ACT 112: Negative or not required by law. Electronically signed by: Javad Rubalcava M.D. 12/15/2024 8:[address] 12/15/24 12:31 CT OF THE HEAD WITHOUT CONTRAST CLINICAL HISTORY: Altered post procedure. COMPARISON STUDY: Head CT January 25, 2022. CT DOSE: 663.26 mGy.cm TECHNIQUE: Helical axial images of the head were obtained without IV contrast. Automated exposure control was utilized for the study. A dose lowering technique was utilized adhering to the principles of ALARA. FINDINGS: No acute intracranial hemorrhage, midline shift or mass effect is present. The ventricular system is stable. White matter hypodensities favor small vessel disease. These are similar to prior exam. The basal cisterns are patent. No extra-axial collections are present. There are no findings to suggest acute dural sinus thrombosis or acute territorial infarct. There are no calvarial fractures. A small amount of fluid within the left mastoid air cells is present. IMPRESSION: No acute intracranial findings. ACT 112: Negative or not required by law. Electronically signed by: Javad Rubalcava M.D. 12/15/2024 1:46 PM Medications Administered Atorvastatin Calcium (Atorvastatin 40 Mg Tab) 40 mg PO QAM [facility] Stop: 01/13/25 08:59 Last Admin: 12/15/24 11:11 Dose: Not Given Documented By: Admin: 12/14/24 17:08 Dose: 40 mg Documented By: CAROLINE Baclofen (Baclofen 10 Mg Tab) 10 mg PO DAILY [facility] Stop: 01/12/25 17:29 Last Admin: 12/14/24 17:05 Dose: Not Given Documented By: Admin: 12/13/24 20:08 Dose: 10 mg Documented By: BISI Carbidopa/Levodopa (Carbidopa/Levodopa 25/100mg Tab) 1 tab PO QID [facility] Stop: 01/12/25 20:59 Last Admin: 12/15/24 17:10 Dose: Not Given Documented By: Admin: 12/15/24 14:38 Dose: Not Given Documented By: Admin: 12/15/24 11:10 Dose: Not Given Documented By: Admin: 12/14/24 20:34 Dose: 1 tab Documented By: Admin: 12/14/24 17:09 Dose: 1 tab Documented By: Admin: 12/14/24 15:21 Dose: Not Given Documented By: Admin: 12/14/24 14:27 Dose: Not Given Documented By: Admin: 12/13/24 20:07 Dose: 1 tab Documented By: BISI Doxazosin Mesylate (Doxazosin Mesylate Tab 2 Mg Tab) 2 mg PO HS [facility] Stop: 01/12/25 20:59 Last Admin: 12/14/24 20:34 Dose: 2 mg Documented By: Admin: 12/13/24 20:08 Dose: 2 mg Documented By: BISI Erythromycin (Erythromycin Op Oint 5 Mg/Gm 3.5 Gm Tube) 1 appln OP QID [facility] Stop: 12/20/24 06:24 Last Admin: 12/15/24 15:00 Dose: 1 appln Documented By: Admin: 12/15/24 08:42 Dose: 1 appln Documented By: [facility] Admin: 12/15/24 08:41 Dose: Not Given Documented By: LEDY Escitalopram Oxalate (Escitalopram Oxalate 10 Mg Tab) 10 mg PO DAILY [facility] Stop: 01/13/25 08:59 Last Admin: 12/15/24 11:10 Dose: Not Given Documented By: Admin: 12/14/24 17:10 Dose: 10 mg Documented By: CAROLINE Finasteride (Finasteride 5 Mg Tab) 5 mg PO DAILY [facility] Stop: 01/13/25 08:59 Last Admin: 12/15/24 11:10 Dose: Not Given Documented By: Admin: 12/14/24 17:06 Dose: 5 mg Documented By: CAROLINE Heparin Sodium (Porcine) (Heparin Sod 5,000 Unit/0.5 Ml Vial) 5,000 units SQ Q8 [facility] Stop: 01/14/25 13:59 Last Admin: 12/15/24 15:00 Dose: 5,000 units Documented By: GOMEZ Acetaminophen (Ofirmev) 1,000 mg in 100 mls @ 400 mls/hr IV Q8H [facility] Stop: 12/17/24 00:00 Last Admin: 12/15/24 17:09 Dose: Not Given Documented By: Infusion: 12/15/24 09:05 Dose: Infused Documented By: Admin: 12/15/24 08:46 Dose: 400 mls/hr Documented By: Infusion: 12/15/24 01:34 Dose: Infused Documented By: Admin: 12/15/24 01:02 Dose: 400 mls/hr Documented By: Infusion: 12/14/24 17:33 Dose: Infused Documented By: Admin: 12/14/24 17:18 Dose: 400 mls/hr Documented By: Admin: 12/14/24 13:20 Dose: Not Given Documented By: Infusion: 12/14/24 00:02 Dose: Infused Documented By: Admin: 12/13/24 23:20 Dose: 400 mls/hr Documented By: BISI Dextrose/Lactated Ringer's (D5w And Lactated Ringers) 1,000 mls @ 80 mls/hr IV .[id number] [facility] Stop: 12/16/24 08:44 Last Admin: 12/15/24 08:42 Dose: 80 mls/hr Documented By: LEDY Metoprolol Succinate (Metoprolol Succ 25mg Ext Rel Tab) 25 mg PO BID [facility] Stop: 01/12/25 20:59 Last Admin: 12/15/24 11:10 Dose: Not Given Documented By: Admin: 12/14/24 20:34 Dose: Not Given Documented By: Admin: 12/14/24 13:21 Dose: Not Given Documented By: Admin: 12/13/24 20:08 Dose: 25 mg Documented By: BISI Miscellaneous (Metronidazole [Metrocream] 0.75 % Cream~Order Awaiting Action) 1 each N/A QS [facility] Stop: 01/13/25 00:00 Last Admin: 12/15/24 17:10 Dose: Not Given Documented By: Admin: 12/15/24 08:42 Dose: Not Given Documented By: [facility] Admin: 12/15/24 00:34 Dose: Not Given Documented By: Admin: 12/14/24 17:15 Dose: Not Given Documented By: Admin: 12/14/24 13:21 Dose: Not Given Documented By: Admin: 12/13/24 23:20 Dose: Not Given Documented By: BISI Pt Own Med - Preservision Areds 2 Eye Vitamin 1 each PO BID [facility] Stop: 01/13/25 20:59 Last Admin: 12/15/24 11:10 Dose: Not Given Documented By: [facility] Admin: 12/14/24 20:34 Dose: 1 cap Documented By: BISI Pantoprazole Sodium (Pantoprazole 40 Mg Tab) 40 mg PO DAILY [facility] Stop: 01/13/25 08:59 Last Admin: 12/15/24 11:11 Dose: Not Given Documented By: [facility] Admin: 12/14/24 17:10 Dose: 40 mg Documented By: CAROLINE (6) Coronary artery disease Coronary Disease-Associated Artery/Lesion type: unspecified vessel or lesion type [place] vs. transplanted heart: [place] heart
[2024-12-16 08:53] LABS: Hematocrit (blood only) 32.3 % (42.0-52.0); Mean Corpuscular Hemoglobin 27.8 pg (25.0-34.0); Mean Corpuscular Volume 89.7 fL (80.0-100.0); Mean Platelet Volume 10.3 fL (9.4-12.4); Platelet Count 136 K/uL (130-400); RDW Coefficient of Variation 14.7 % (11.5-14.5); RDW Standard Deviation 47.9 fL (36.4-46.3); White Blood Count 6.87 K/ul (4.8-10.8)
[2024-12-16 09:03] LABS: BUN Creatinine Ratio 29.9 (10-20); Calcium 7.7 mg/dl (8.6-10.3); Creatinine Clr Calc Pharmacy 39.7 ml/min; Potassium 3.7 mmol/L (3.5-5.1)
[2024-12-16] MEDS: FOLIC ACID 1 MG TAB PO SCH (10:09)
[2024-12-16] MEDS: THIAMINE HCL 100 MG TAB PO SCH (10:09)
--- NOTE | 2024-12-16 11:07 | Orthopedic Progress Note ---
Date of Service December 16, 2024 Assessment & Plan (1) Fracture of femoral neck, left: (2) Fall from standing: (3) Hypertension: (4) CKD (chronic kidney disease), stage III: (5) Parkinsons disease: (6) Coronary artery disease: (7) Benign prostatic hyperplasia with urinary obstruction: (8) Acoustic neuroma: Plan Patient doing well postoperative day #2 status post left hip hemiarthroplasty with prophylactic fixation of femoral neck. Patient did have a CT scan of his h ead and labs drawn due to unresponsiveness yesterday. These of all been negative. Patient should be touchdown weightbearing on the left lower extremity. His dressing should stay intact and once the battery runs out, the battery pack may be removed. He will follow-up with me in 2 weeks for wound check. Okay for DVT prophylaxis. Okay for PT/OT. Admission and Anticipated Discharge Date Admission Date: December 13, 2024 Subjective Seen and examined at bedside. Postoperative day #2 status post left hip hemiarthroplasty. patient remains minimally responsive today, however with stimulation follows all commands. Alert to self and place. Discussed case with and daughter, including chance that he could further decline. They state he has a DNR in place and would not want heroic measures at this time. They were appreciative of the update. Review of Systems Review of Systems: Other Unobtainable secondary to patient somnolence Physical Exam Physical Exam: Dressings clean dry and intact. patient wiggles all toes. foot warm and well perfused. Results & Data Vital Signs (Past 12 Hours) Vital Signs Temp Pulse Resp BP Pulse Ox O2 Del Method O2 Flow Rate 12/16/24 07:47 36.4 C L 80 20 158/63 H 98 Nasal Cannula 2 (6) Coronary artery disease Coronary Disease-Associated Artery/Lesion type: unspecified vessel or lesion type [place] vs. transplanted heart: [place] heart
--- NOTE | 2024-12-16 15:31 | Hospitalist Progress Note ---
Date of Service December 16, 2024 Assessment & Plan (1) Fracture of femoral neck, left: (2) Fall from standing: (3) Hypertension: (4) CKD (chronic kidney disease), stage III: (5) Parkinsons disease: (6) Coronary artery disease: (7) Benign prostatic hyperplasia with urinary obstruction: (8) Acoustic neuroma: Plan Mr. Hunter is an 79 year old male that was [place] and lost his footing and had a ground level fall; likely induced from his Parkinsons Disease. Denies hitting his head or having LOC. 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 He was brought to the [facility] via EMS and had a hip/pelvis X-ray performed revealing an acute left femoral neck fracture. He has a PMH that includes: hyperlipidemia, CAD s/p stent x2 (2006 and 2021 - at [facility]), history of NSTEMI, HTN, macular degeneration, Meckel's diverticulum, BPH, chronic kidney stage III, bilateral lower extremity edema, Parkinson's disease, right acoustic neuroma. Most recent ECHO 05/2023 EF 55-60%, G1DDx. Mild aortic valve sclerosis without significant stenosis. He will be admitted for further evaluation and management with Ortho consult, fall precautions, Tylenol for pain control, ECG and type/screen pending surgery. Will add on BNP given RCRI value of 1. Plan for OR per Ortho for 12/14; will hold DAPT and keep NPO after MN. Fracture of femoral neck, left: Ground level fall from standing: -Likely related to Parkinson's disease symptoms -In the ED/pelvis: X-ray revealed acute left femoral neck fracture -post op day 2, left hip arthroplasty Plan: -appreciate ortho assistance -pain control per ortho -incentive spirometer -DVT prophylaxis restarted -accepted and has bed at [facility], however patient likely needs another day or 2 in hospital for mentation improvement Acute Metabolic Encephalopathy, improving -likely in setting of anesthesia, significant comorbid conditions, hypoactive delirium -CT head unremarkable, lab workup unremarkable -improved today Plan: -delirium precautions -continue thiamine, folic acid Acute Hypoxic Respiratory Failure -chest xray unremarkable -likely post op atelectasis, not clear if real oxygen requirement Plan: -goal oxygen saturation 92% -encourage incentive spirometry -decrease oxygen as able Hypotension -per family not far below baseline -resolved CAD: HTN: -Discharge history of BMS to [facility] x 2 (2006 and 2021). -Takes baby aspirin and Plavix;-Most recent ECHO: 05/2023 EF 55-60%, G1DDx and mild aortic valve sclerosis without significant stenosis -restart plavix when ok from Ortho Parkinson's disease: -Chronic -Takes Sinemet QID; continue -Uses a walker at baseline TESSA on CKD, resolved -creatinine today 1.29, baseline 1.3 Acute Blood Loss Anemia -likely 2/2 procedure and dilutional in setting of fluids Plan: -trend Hgb HLD: -Chronic -Most recent lipid panel: 11/07/24: TG 154, HDL 49, LDL 121 -continue atorvastatin Acoustic neuroma: -stable Feeding/fluids: heart healthy Analgesia: tylenol/oxy (hold baclofen) Sedation: na Thromboprophylaxis: per ortho Head up position: na Ulcer prophylaxis: na Glycemic control: na Spontaneous breathing trial: na Bowel care: miralax prn Indwelling catheter removal: remove when able Deescalation of antibiotics: na I spent a total of 40 minutes in direct patient care, including [id number] time with the patient and/or family, reviewing medical records, ordering and reviewing diagnostic tests, and coordinating care with other healthcare providers. This time includes: history taking, physical examination, medical decision making, counseling, ECG interpretation, imaging interpretation, lab interpretation, orders, and education, excluding time spent in the performance of separately billed services. Admission and Anticipated Discharge Date Admission Date: December 13, 2024 Subjective Patient seen and examined at bedside. Patient appears to be doing better today. He is awake, alert and oriented, just appears very fatigued. States he is tired. Denies any pain. and daughter at bedside, updated on plan of care. They were appreciative of the update. Review of Systems Review of Systems: CONSTITUTIONAL: fatigue, weakness EYES: Patient denies any visual symptoms. EARS, NOSE, AND THROAT: No difficulties with hearing. No symptoms of rhinitis or sore throat. CARDIOVASCULAR: Patient denies chest pains, palpitations, orthopnea and paroxysmal nocturnal dyspnea. RESPIRATORY: No dyspnea on exertion, no wheezing or cough. GI: No nausea, vomiting, diarrhea, constipation, abdominal pain, hematochezia or melena. : No urinary hesitancy or dribbling. No nocturia or urinary frequency. No abnormal urethral discharge. MUSCULOSKELETAL: No myalgias or arthralgias. NEUROLOGIC: No chronic headaches, no seizures. Patient denies numbness, tingling or weakness. PSYCHIATRIC: Patient denies problems with mood disturbance. No problems with anxiety. ENDOCRINE: No excessive urination or excessive thirst. DERMATOLOGIC: Patient denies any rashes or skin changes. Physical Exam Physical Exam: Gen: A&O 3 NAD HEENT: NCAT, EOMI, not icteric. External ears normal. No rhinorrhea. Moist mucous membranes. Neck: Supple, full range of motion, no observable masses, No meningeal sign. Lungs: No Respiratory distress. CV: RRR, no edema. Abdomen: Soft, nondistended, No rebound tenderness. MSK: No joint swelling, no redness. Noted left hip procedure site Skin: No rashes, petechiae, lesions. Results & Data Results & Data Vital Signs (Past 12 Hours) Vital Signs Temp Pulse Resp BP Pulse Ox O2 Del Method O2 Flow Rate 12/16/24 08:00 Nasal Cannula 2 12/16/24 07:47 36.4 C L 80 20 158/63 H 98 Nasal Cannula 2 Laboratory Results -personally reviewed, creatinine 1.27 much improved from prior, Hgb mildly dropped from prior Medications Administered Atorvastatin Calcium (Atorvastatin 40 Mg Tab) 40 mg PO QAM [facility] Stop: 01/13/25 08:59 Last Admin: 12/16/24 10:09 Dose: Not Given Documented By: Admin: 12/15/24 11:11 Dose: Not Given Documented By: Admin: 12/14/24 17:08 Dose: 40 mg Documented By: CAROLINE Baclofen (Baclofen 10 Mg Tab) 10 mg PO DAILY [facility] Stop: 01/12/25 17:29 Last Admin: 12/14/24 17:05 Dose: Not Given Documented By: Admin: 12/13/24 20:08 Dose: 10 mg Documented By: BISI Carbidopa/Levodopa (Carbidopa/Levodopa 25/100mg Tab) 1 tab PO QID [facility] Stop: 01/12/25 20:59 Last Admin: 12/16/24 14:02 Dose: Not Given Documented By: Admin: 12/16/24 10:12 Dose: 1 tab Documented By: Admin: 12/15/24 21:23 Dose: 1 tab Documented By: Admin: 12/15/24 17:10 Dose: Not Given Documented By: Admin: 12/15/24 14:38 Dose: Not Given Documented By: Admin: 12/15/24 11:10 Dose: Not Given Documented By: Admin: 12/14/24 20:34 Dose: 1 tab Documented By: Admin: 12/14/24 17:09 Dose: 1 tab Documented By: Admin: 12/14/24 15:21 Dose: Not Given Documented By: Admin: 12/14/24 14:27 Dose: Not Given Documented By: Admin: 12/13/24 20:07 Dose: 1 tab Documented By: BISI Doxazosin Mesylate (Doxazosin Mesylate Tab 2 Mg Tab) 2 mg PO HS [facility] Stop: 01/12/25 20:59 Last Admin: 12/15/24 21:22 Dose: 2 mg Documented By: Admin: 12/14/24 20:34 Dose: 2 mg Documented By: Admin: 12/13/24 20:08 Dose: 2 mg Documented By: BSII Erythromycin (Erythromycin Op Oint 5 Mg/Gm 3.5 Gm Tube) 1 appln OP QID [facility] Stop: 12/20/24 06:24 Last Admin: 12/16/24 10:10 Dose: 1 appln Documented By: Admin: 12/15/24 21:21 Dose: 1 appln Documented By: Admin: 12/15/24 17:52 Dose: 1 appln Documented By: Admin: 12/15/24 15:00 Dose: 1 appln Documented By: Admin: 12/15/24 08:42 Dose: 1 appln Documented By: Admin: 12/15/24 08:41 Dose: Not Given Documented By: LEDY Escitalopram Oxalate (Escitalopram Oxalate 10 Mg Tab) 10 mg PO DAILY [facility] Stop: 01/13/25 08:59 Last Admin: 12/16/24 10:11 Dose: 10 mg Documented By: Admin: 12/15/24 11:10 Dose: Not Given Documented By: Admin: 12/14/24 17:10 Dose: 10 mg Documented By: CAROLINE Finasteride (Finasteride 5 Mg Tab) 5 mg PO DAILY [facility] Stop: 01/13/25 08:59 Last Admin: 12/16/24 10:13 Dose: 5 mg Documented By: Admin: 12/15/24 11:10 Dose: Not Given Documented By: Admin: 12/14/24 17:06 Dose: 5 mg Documented By: CAROLINE Folic Acid (Folic Acid 1 Mg Tab) 1 mg PO QAM [facility] Stop: 01/15/25 08:59 Last Admin: 12/16/24 10:09 Dose: Not Given Documented By: LEDY Heparin Sodium (Porcine) (Heparin Sod 5,000 Unit/0.5 Ml Vial) 5,000 units SQ Q8 [facility] Stop: 01/14/25 13:59 Last Admin: 12/16/24 06:33 Dose: 5,000 units Documented By: Admin: 12/15/24 21:36 Dose: 5,000 units Documented By: Admin: 12/15/24 15:00 Dose: 5,000 units Documented By: GOMEZ Acetaminophen (Ofirmev) 1,000 mg in 100 mls @ 400 mls/hr IV Q8H [facility] Stop: 12/17/24 00:00 Last Admin: 12/16/24 09:38 Dose: Not Given Documented By: Infusion: 12/16/24 01:46 Dose: Infused Documented By: Admin: 12/16/24 01:12 Dose: 400 mls/hr Documented By: Admin: 12/15/24 17:09 Dose: Not Given Documented By: Infusion: 12/15/24 09:05 Dose: Infused Documented By: Admin: 12/15/24 08:46 Dose: 400 mls/hr Documented By: Infusion: 12/15/24 01:34 Dose: Infused Documented By: Admin: 12/15/24 01:02 Dose: 400 mls/hr Documented By: Infusion: 12/14/24 17:33 Dose: Infused Documented By: Admin: 12/14/24 17:18 Dose: 400 mls/hr Documented By: Admin: 12/14/24 13:20 Dose: Not Given Documented By: Infusion: 12/14/24 00:02 Dose: Infused Documented By: Admin: 12/13/24 23:20 Dose: 400 mls/hr Documented By: BISI Metoprolol Succinate (Metoprolol Succ 25mg Ext Rel Tab) 25 mg PO BID [facility] Stop: 01/12/25 20:59 Last Admin: 12/16/24 10:12 Dose: 25 mg Documented By: [facility] Admin: 12/15/24 21:23 Dose: 25 mg Documented By: Admin: 12/15/24 11:10 Dose: Not Given Documented By: [facility] Admin: 12/14/24 20:34 Dose: Not Given Documented By: Admin: 12/14/24 13:21 Dose: Not Given Documented By: Admin: 12/13/24 20:08 Dose: 25 mg Documented By: [facility] Miscellaneous (Metronidazole [Metrocream] 0.75 % Cream~Order Awaiting Action) 1 each N/A QS [facility] Stop: 01/13/25 00:00 Last Admin: 12/16/24 09:38 Dose: Not Given Documented By: [facility] Admin: 12/16/24 01:12 Dose: Not Given Documented By: Admin: 12/15/24 17:10 Dose: Not Given Documented By: [facility] Admin: 12/15/24 08:42 Dose: Not Given Documented By: [facility] Admin: 12/15/24 00:34 Dose: Not Given Documented By: Admin: 12/14/24 17:15 Dose: Not Given Documented By: Jaclyn Admin: 12/14/24 13:21 Dose: Not Given Documented By: Jaclyn Admin: 12/13/24 23:20 Dose: Not Given Documented By: [facility] Pt Own Med - Preservision Areds 2 Eye Vitamin 1 each PO BID [facility] Stop: 01/13/25 20:59 Last Admin: 12/16/24 10:09 Dose: Not Given Documented By: [facility] Admin: 12/15/24 21:31 Dose: 1 cap Documented By: Admin: 12/15/24 11:10 Dose: Not Given Documented By: [facility] Admin: 12/14/24 20:34 Dose: 1 cap Documented By: [facility] Pantoprazole Sodium (Pantoprazole 40 Mg Tab) 40 mg PO DAILY [facility] Stop: 01/13/25 08:59 Last Admin: 12/16/24 10:09 Dose: Not Given Documented By: [facility] Admin: 12/15/24 11:11 Dose: Not Given Documented By: [facility] Admin: 12/14/24 17:10 Dose: 40 mg Documented By: CAROLINE Thiamine HCl (Thiamine Hcl 100 Mg Tab) 100 mg PO QAM [facility] Stop: 01/15/25 08:59 Last Admin: 12/16/24 10:09 Dose: Not Given Documented By: LEDY (6) Coronary artery disease Coronary Disease-Associated Artery/Lesion type: unspecified vessel or lesion type [place] vs. transplanted heart: [place] heart
[2024-12-17 06:28] LABS: Hematocrit (blood only) 31.1 % (42.0-52.0); Hemoglobin 9.5 g/dl (14.0-18.0); Mean Corpuscular Hemoglobin 27.2 pg (25.0-34.0); Mean Corpuscular Hgb Conc 30.5 g/dL (32.0-36.0); Mean Corpuscular Volume 89.1 fL (80.0-100.0); Mean Platelet Volume 10.7 fL (9.4-12.4); Platelet Count 157 K/uL (130-400); RDW Coefficient of Variation 14.6 % (11.5-14.5); RDW Standard Deviation 47.2 fL (36.4-46.3); Red Blood Count 3.49 M/uL (4.70-6.10); White Blood Count 7.84 K/ul (4.8-10.8)
[2024-12-17 06:46] LABS: BUN Creatinine Ratio 36.8 (10-20); Calcium 7.9 mg/dl (8.6-10.3); Creatinine Clr Calc Pharmacy 44.2 ml/min; Potassium 4.2 mmol/L (3.5-5.1)
--- NOTE | 2024-12-17 10:25 | Orthopedic Progress Note ---
Date of Service December 17, 2024 Assessment & Plan (1) Fracture of femoral neck, left: (2) Fall from standing: (3) Hypertension: (4) CKD (chronic kidney disease), stage III: (5) Parkinsons disease: (6) Coronary artery disease: (7) Benign prostatic hyperplasia with urinary obstruction: (8) Acoustic neuroma: Plan Postoperative day #3 status post left hip hemiarthroplasty with prophylactic fixation of femoral neck. thorough workup of patients unresponsiveness has all been negative to date. STAT CXR ordered just now due to increasing O2 requirements. medical team to come evaluate the patient as well. Patient should be touchdown weightbearing on the left lower extremity. His dressing should stay intact and once the battery runs out, the battery pack may be removed. He will follow-up with me in 2 weeks for wound check. Okay for DVT prophylaxis. Okay for PT/OT. Admission and Anticipated Discharge Date Admission Date: December 13, 2024 Subjective Patient seen and evaluated with his family at bedside. The patient remains very somnolent. He is currently on a nonrebreather. He has not received any pain medicine. Nursing is contacted the medical team and they are coming to evaluate the patient. Review of Systems Review of Systems: Unobtainable due to reduced consciousness Physical Exam Physical Exam: Dressings clean dry and intact. Foot warm and well perfused. patient too somnelent to follow commands Results & Data Vital Signs (Past 12 Hours) Vital Signs Temp Pulse Resp BP BP Pulse Ox O2 Del Method 12/17/24 10:09 37.3 C 118/77 90 Oxymask 12/17/24 08:01 36.7 C 94 H 22 136/79 93 Nasal Cannula O2 Flow Rate 12/17/24 10:09 10 12/17/24 08:01 2 (6) Coronary artery disease Coronary Disease-Associated Artery/Lesion type: unspecified vessel or lesion type [place] vs. transplanted heart: [place] heart
[2024-12-17 10:45] LABS: Base Excess ABG 2.8 mEq/L (-9-1.8); HCO3 ABG 26 mmol/L (19-24); Oxygen Saturation ABG 95.6 % (90-95); PCO2 ABG 35 mmHg (35-46); PO2 ABG 121 mmHg (80-95); pH ABG 7.48 (7.35-7.45)
[2024-12-17 10:48] LABS: Allen Test Pos (Pos)
--- NOTE | 2024-12-17 10:49 | XRay Report ---
XR chest 1V portable CLINICAL HISTORY: increase o2 requirements COMPARISON STUDY: Chest radiograph December 15, 2024. FINDINGS: There is no pneumothorax. Trace left pleural effusion. Left basilar retrocardiac opacity cuellar s significantly increased. Right basilar opacity has developed. Cardiomegaly is unchanged. No evidenc e for pulmonary edema. IMPRESSION: 1. Significant increase in left basilar opacity. This raises the possibility of left lower lobe atele ctasis/collapse. Pneumonia or aspiration pneumonitis could appear similar. 2. Trace left pleural effusion. 3. Interval development of mild right basilar opacities which could represent atelectasis or pneumoni a. ACT 112: Negative or not required by law. Electronically signed by: Javad Rubalcava M.D. 12/17/2024 10:46 AM
--- NOTE | 2024-12-17 10:56 | CT Scan Report ---
CT OF THE HEAD WITHOUT CONTRAST CLINICAL HISTORY: altered mental status COMPARISON STUDY: Head CT December 15, 2024. CT DOSE: 688.24 mGy.cm TECHNIQUE: Helical axial images of the head were obtained without IV contrast. Automated exposure con trol was utilized for the study. A dose lowering technique was utilized adhering to the principles o f ALARA. FINDINGS: No acute intracranial hemorrhage, midline shift or mass effect is present. The ventricular system is stable. White matter hypodensities are unchanged and favor small vessel disease. The basal cisterns are patent. No extra-axial collections are present. There are no findings to suggest acute d ural sinus thrombosis or acute territorial infarct. No significant calvarial abnormalities are presen t. There is trace fluid within the left mastoid air cells. IMPRESSION: No acute intracranial findings. ACT 112: Negative or not required by law. Electronically signed by: Javad Rubalcava M.D. 12/17/2024 10:54 AM
[2024-12-17] MEDS: AMPICILLIN/SULBACTAM SOD 3,000 MG/100 ML BAG IV SCH (14:21)
[2024-12-17] MEDS: LACTATED RINGER'S 1,000 ML IV ONE (14:21)
[2024-12-17] MEDS ORDERED: ACETAMINOPHEN 1,000 MG/100 ML VIAL IV PRN (14:52)
[2024-12-17] MEDS: ACETAMINOPHEN 1000 MG/100 ML IV IV ONE (15:04)
[2024-12-17] MEDS: OPTIRAY 320 125ml IV ONE (15:57)
--- NOTE | 2024-12-17 16:45 | Neurology Consultation ---
Date of Consultation December 17, 2024 Assessment & Plan (1) Encephalopathy acute: Suspect toxic and metabolic encephalopathy contributing to his changes in mental status. His exam is currently nonfocal.. Low suspicion for stroke or seizure at this point Plan Continue to correct underlying infections and metabolic abnormalities. Considered low suspicion for seizure or stroke, would observe clinically for now. If further consent concerns remain can obtain MRI and an EEG. Delirium precautions: Standard Delirium Care - Search for occult etiologies of delirium including toxic, metabolic, and infectious. Medication effects and drug/ETOH withdrawal should also be sought. - Avoid restraints other than lap belts. Redirection by family/friends, or medical staff is more effective and promotes recovery. - Allow patient to wear glasses and hearing aides - Allow 24 hour visitation from family/friends - Allow family/friends to redirect patient to avoid need for meds/restraints - Avoids benzos - Use atypical neuroleptics in a low scheduled dose in combination with PRN for agitation - *Please note: the atypical Neuroleptics are associated with a slight but real increased in MACE and should be used sparingly especially in the [facility] - *telemetry is required during atypical neuroleptic use - *Code Status should be clearly defined - Low dose IV morphine can be used with caution if neuroleptics fail for acute delirium - Redirection by family, friends, one to one, or medical staff if far more effective and safer than medication use. - Pain causes delirium and should be addressed in a balanced, conservative, but effective manner. - During the day, patient should be awake. Lights should be on. TV should be on. Patient should be placed in chair with restraints if possible and allowed into farrar or outside in wheelchair if can tolerate. - At night, lights should be turned low and all excess stimulation should be eliminated. A scheduled dose of neuroleptic should be given at least 2 hours prior to typical onset of - Room noises can cause anxious producing hallucinations. If the room is loud, has atypical noises (construction, beeping, loud neighbor, etc) or patient is having negative reaction to ambient stimuli, patient should be moved to another room - Nutritional status should be addressed. Any nutritional deficits should be aggressively remediated. - High carbohydrate meals should be served - Please make family aware that delirium may last for weeks to months. - Patients with baseline Organic brain syndrome are more prone to delirium and take longer to recover - Patient with baseline organic brain syndromes, especially neurodegenerative ones like Dementia of Alzheimer's type may never recovery back to pre-morbid baseline. - An EEG is considered the standard of care for evaluation of delirium to exclude seizure - A LP should be considered if infection is considered and infectious source is not identified - A neuroimaging study is required to exclude organic lesions - As stated above a complete lab evaluation is needed. Oft-looked etiologies such as thiamine deficiency, HIV, Amor's encephalopathy, Lead poisoning, and occult ETOH use should be investigated. Telehealth Consultation Telehealth Information Telehealth Information: I performed this visit using a real-time telehealth connection between my location and the patients location ([facility]). After connecting through interactive tele-video, patient was identified by name and date of and/or wristband check.Patient (or authorized healthcare loss prevention representative) was informed that this was a telemedicine visit and it was being conducted confidentially over secure lines. My office door was closed and no one else was present in the room with me.Patient (or authorized healthcare loss prevention representative) provided consent to proceed with the visit, expressed an understanding of privacy and security of the telemedicine visit, and gave permission to have a hospital loss prevention representative in the room in order to assist with the visit and to conduct portions of the visit, as needed. I informed the patient (or authorized healthcare loss prevention representative) that I reviewed their record and presented the opportunity for them to ask any questions regarding the visit today. The patient agreed to participate. History of Present Illness Reason for Consultation: Mental status changes Requesting Physician: Taran Laureano MD Attending Physician: Taran Laureano MD History of Present Illness Mr. Elsa Walsh is an 79-year-old male patient with a PMH of Parkinson's disease, on Sinemet 25/100 4 times daily, walks with a walker CAD, HLD HTN, CKD status post a fall from standing with left femoral neck fracture, status post left hemiarthroplasty on 12/14/2024.. Today the patient was noted to be very somnolent maintained on nonrebreather apparently has not received any pain medications CT scan of the head was done today showing no acute process but chronic white matter changes. Chest x-ray showed possible pneumonia and a CTA of the chest was ordered. The patient is laying in bed with his family around, he tends to answer to his , he said his name and her name, he gave thumbs up in both upper extremities, when both upper extremities and are lifted he drops both to bed. He had minimal movement with his right lower extremity., He did attempt to both sides, he does have a blank stare time to time but remains responsive. The nurse reported previous episodes of decreased responsiveness. Today he did not receive any pain medications Allergies Allergy/AdvReac Type Severity Reaction Status Date / Time adhesive tape Allergy Intermediate red welps Verified 12/15/24 09:06 codeine Allergy Intermediate shortness Verified 12/15/24 09:06 of breath ~ nervous latex Allergy Rash Verified 12/14/24 05:49 bacitracin AdvReac Intermediate blisters Verified 12/15/24 09:06 [From Neosporin ([id number])] neomycin AdvReac Intermediate blisters Verified 12/15/24 09:06 [From Neosporin ([id number])] polymyxin B AdvReac Intermediate blisters Verified 12/15/24 09:06 [From Neosporin ([id number])] Home Medications Medication Instructions Recorded Confirmed Type aspirin 81 mg tablet,delayed 81 mg PO HS 01/25/22 12/13/24 History release carbidopa 25 mg-levodopa 100 mg 1 tab PO QID 01/25/22 12/13/24 History tablet (Sinemet) metronidazole 0.75 % topical cream 1 applic topical QAM 01/25/22 12/13/24 History (MetroCream) multivitamin 1 tab PO QAM 01/25/22 12/13/24 History vit C 250 mg-vit E 90 mg-zinc 40 1 tab PO DAILY 01/25/22 12/13/24 History mg-copper 1 [id number] capsule (PreserVision AREDS-2) atorvastatin 40 mg tablet 40 mg PO QAM 01/26/22 12/13/24 History loteprednol etabonate 0.2 % eye 1 drp ophthalmic (eye) QID PRN Dry 01/26/22 12/13/24 History drops,suspension (Alrex) Eye(S) clopidogrel 75 mg tablet (Plavix) 75 mg PO DAILY 03/25/23 12/13/24 History polyethylene glycol 3350 17 gram 17 g PO DAILY PRN Constipation 05/23/23 12/13/24 History oral powder packet (Miralax) triamcinolone acetonide 0.1 % 1 applic topical BID PRN flare ups 05/23/23 12/13/24 History topical cream metoprolol succinate 25 mg 25 mg PO BID #60 tabs 05/26/23 12/13/24 Rx tablet,extended release 24 hr nitroglycerin 0.4 mg/hr 1 patch transdermal QAM #30 ea 05/26/23 12/13/24 Rx transdermal 24 hour patch (Nitro-Dur) doxazosin 2 mg tablet 2 mg PO HS #90 tabs 03/31/24 12/13/24 Rx dutasteride 0.5 mg capsule 0.5 mg PO DAILY #90 caps 03/31/24 12/13/24 Rx (Avodart) baclofen 10 mg tablet 10 mg PO UD 12/13/24 12/13/24 History escitalopram oxalate 10 mg tablet 10 mg PO DAILY 12/13/24 12/13/24 History pantoprazole 40 mg tablet,delayed 40 mg PO DAILY 12/13/24 12/13/24 History release Patient History Medical History Acoustic neuroma s/p gamma knife treatment BPH (benign prostatic hyperplasia) Surgical History History of cataract surgery History of partial colectomy History of cholecystectomy Hx of appendectomy S/P coronary artery stent placement Family History Father Hypertension Heart disease Brother Lung cancer Mother Cancer Social History Smoking Status: Never smoker Second Hand Exposure: No; Do You Dip or Chew Tobacco: No; Hx Alcohol Use: No Hx Substance Use: No Preferred Language: Maori Communication Ability: Effective Anchor Tacker Required: No Beliefs That Will Affect Care: None Current Living Situation: Spouse Other Information That Helps Us Care for You: No Feels Safe at Home: Yes Safety Concerns: Feels Safe At This Time Assistive Devices: Walker Review of Systems Negative except for the points mentioned in HPI Physical Exam Resting in bed, on oxygen mask. Awake, eyes open, dense to both sides, decreased blinking, was able to say his name, knows he is in the hospital, Minimal verbal output. Did follow commands with giving thumbs up on both hands, did squeeze hands. Drops both hands when lifted. Minimal movement in his right lower extremity, movement of the left lower extremity was not attempted. Results & Data Vital Signs (Past 12 Hours) Vital Signs Temp Pulse Resp BP BP Pulse Ox O2 Del Method 12/17/24 14:47 37.8 C H 95 H 40 H 144/77 H 94 Oxymask 12/17/24 12:24 36.4 C L 90 27 H 130/78 93 Oxymask 12/17/24 10:09 37.3 C 118/77 90 Oxymask 12/17/24 08:01 36.7 C 94 H 22 136/79 93 Nasal Cannula 12/17/24 08:00 Oxymask O2 Flow Rate 12/17/24 14:47 10 12/17/24 12:24 10 12/17/24 10:09 10 12/17/24 08:01 2 12/17/24 08:00 10 Laboratory Results Abnormal lab results 12/17/24 12/17/24 Range/Units 05:47 10:30 RBC 3.49 L (4.70-6.10) M/uL Hgb 9.5 L (14.0-18.0) g/dl Hct 31.1 L (42.0-52.0) % MCHC 30.5 L (32.0-36.0) g/dL RDW Std Deviation 47.2 H (36.4-46.3) fL RDW Coeff of Boaz 14.6 H (11.5-14.5) % ABG pH 7.48 H (7.35-7.45) ABG pO2 121 H (80-95) mmHg ABG HCO3 26 H (19-24) mmol/L ABG O2 Saturation 95.6 H (90-95) % ABG Base Excess 2.8 H (-9-1.8) mEq/L Chloride 109 H (98-107) mmol/L BUN 42 H (6-23) mg/dl BUN/Creatinine Ratio 36.8 H (10-20) Calcium 7.9 L (8.6-10.3) mg/dl Diagnostic Findings Chest X-Ray 12/17/24 10:13 XR chest 1V portable CLINICAL HISTORY: increase o2 requirements COMPARISON STUDY: Chest radiograph December 15, 2024. FINDINGS: There is no pneumothorax. Trace left pleural effusion. Left basilar retrocardiac opacity has significantly increased. Right basilar opacity has developed. Cardiomegaly is unchanged. No evidence for pulmonary edema. IMPRESSION: 1. Significant increase in left basilar opacity. This raises the possibility of left lower lobe atelectasis/collapse. Pneumonia or aspiration pneumonitis could appear similar. 2. Trace left pleural effusion. 3. Interval development of mild right basilar opacities which could represent atelectasis or pneumonia. ACT 112: Negative or not required by law. Electronically signed by: Javad Rubalcava M.D. 12/17/2024 10:[address] 12/17/24 10:25 CT OF THE HEAD WITHOUT CONTRAST CLINICAL HISTORY: altered mental status COMPARISON STUDY: Head CT December 15, 2024. CT DOSE: 688.24 mGy.cm TECHNIQUE: Helical axial images of the head were obtained without IV contrast. Automated exposure control was utilized for the study. A dose lowering technique was utilized adhering to the principles of ALARA. FINDINGS: No acute intracranial hemorrhage, midline shift or mass effect is present. The ventricular system is stable. White matter hypodensities are unchanged and favor small vessel disease. The basal cisterns are patent. No extra-axial collections are present. There are no findings to suggest acute dural sinus thrombosis or acute territorial infarct. No significant calvarial abnormalities are present. There is trace fluid within the left mastoid air cells. IMPRESSION: No acute intracranial findings. ACT 112: Negative or not required by law. Electronically signed by: Javad Rubalcava M.D. 12/17/2024 10:54 AM Medications Administered Home Medications Medication Instructions Recorded Confirmed Last Taken aspirin 81 mg tablet,delayed 81 mg PO HS 01/25/22 12/13/24 01/30/22 release carbidopa 25 mg-levodopa 100 mg 1 tab PO QID 01/25/22 12/13/24 01/31/22 tablet (Sinemet) metronidazole 0.75 % topical cream 1 applic topical QAM 01/25/22 12/13/24 01/25/22 (MetroCream) multivitamin 1 tab PO QAM 01/25/22 12/13/24 01/31/22 vit C 250 mg-vit E 90 mg-zinc 40 1 tab PO DAILY 01/25/22 12/13/24 01/31/22 mg-copper 1 [id number] capsule (PreserVision AREDS-2) atorvastatin 40 mg tablet 40 mg PO QAM 01/26/22 12/13/24 01/31/22 loteprednol etabonate 0.2 % eye 1 drp ophthalmic (eye) QID PRN Dry 01/26/22 12/13/24 Unknown drops,suspension (Alrex) Eye(S) clopidogrel 75 mg tablet (Plavix) 75 mg PO DAILY 03/25/23 12/13/24 Unknown polyethylene glycol 3350 17 gram 17 g PO DAILY PRN Constipation 05/23/23 12/13/24 Unknown oral powder packet (Miralax) triamcinolone acetonide 0.1 % 1 applic topical BID PRN flare ups 05/23/23 12/13/24 Unknown topical cream metoprolol succinate 25 mg 25 mg PO BID #60 tabs 05/26/23 12/13/24 Unknown tablet,extended release 24 hr nitroglycerin 0.4 mg/hr 1 patch transdermal QAM #30 ea 05/26/23 12/13/24 Unknown transdermal 24 hour patch (Nitro-Dur) doxazosin 2 mg tablet 2 mg PO HS #90 tabs 03/31/24 12/13/24 Unknown dutasteride 0.5 mg capsule 0.5 mg PO DAILY #90 caps 03/31/24 12/13/24 Unknown (Avodart) baclofen 10 mg tablet 10 mg PO UD 12/13/24 12/13/24 Unknown escitalopram oxalate 10 mg tablet 10 mg PO DAILY 12/13/24 12/13/24 Unknown pantoprazole 40 mg tablet,delayed 40 mg PO DAILY 12/13/24 12/13/24 Unknown release Active Medications Generic Name Dose Route Start Last Admin Trade Name Freq PRN Reason Stop Dose Admin Atorvastatin Calcium 40 mg 12/14/24 09:00 12/17/24 10:58 Atorvastatin 40 Mg Tab PO 01/13/25 08:59 Not Given QAM [facility] Carbidopa/Levodopa 1 tab 12/13/24 21:00 12/17/24 13:45 Carbidopa/Levodopa 25/100mg Tab PO 01/12/25 20:59 Not Given QID IMMANUEL Doxazosin Mesylate 2 mg 12/13/24 21:00 12/16/24 21:00 Doxazosin Mesylate Tab 2 Mg Tab PO 01/12/25 20:59 2 mg HS IMMANUEL Administration Erythromycin 1 appln 12/15/24 06:25 12/17/24 13:44 Erythromycin Op Oint 5 Mg/Gm 3.5 Gm Tube OP 12/20/24 06:24 Not Given QID IMMANUEL Escitalopram Oxalate 10 mg 12/14/24 09:00 12/17/24 10:59 Escitalopram Oxalate 10 Mg Tab PO 01/13/25 08:59 Not Given DAILY [facility] Finasteride 5 mg 12/14/24 09:00 12/17/24 10:59 Finasteride 5 Mg Tab PO 01/13/25 08:59 Not Given DAILY [facility] Folic Acid 1 mg 12/16/24 09:00 12/17/24 10:59 Folic Acid 1 Mg Tab PO 01/15/25 08:59 Not Given QAM [facility] Heparin Sodium (Porcine) 5,000 units 12/15/24 14:00 12/17/24 14:43 Heparin Sod 5,000 Unit/0.5 Ml Vial SQ 01/14/25 13:59 5,000 units Q8 [facility] Administration Ampicillin Sodium/Sulbactam Sodium 3,000 mg in 100 mls @ 200 mls/hr 12/17/24 12:30 12/17/24 15:03 Unasyn IV 12/22/24 12:29 Infused Q6H [facility] Infusion Lactated Ringer's 1,000 mls @ 50 mls/hr 12/17/24 13:14 12/17/24 14:21 Lr IV 12/18/24 09:13 50 mls/hr .Q20H ONE Administration Metoprolol Succinate 25 mg 12/13/24 21:00 12/17/24 10:59 Metoprolol Succ 25mg Ext Rel Tab PO 01/12/25 20:59 Not Given BID [facility] Miscellaneous 1 each 12/14/24 00:00 12/17/24 15:05 Metronidazole [Metrocream] 0.75 % Cream~Order Awaiting Action N/A 01/13/25 00:00 Not Given QS [facility] Pt Own Med - 1 each 12/14/24 21:00 12/17/24 10:59 Preservision Areds 2 PO 01/13/25 20:59 Not Given Eye Vitamin BID [facility] Pantoprazole Sodium 40 mg 12/14/24 09:00 12/17/24 10:59 Pantoprazole 40 Mg Tab PO 01/13/25 08:59 Not Given DAILY [facility]MM[facility] Thiamine HCl 100 mg 12/16/24 09:00 12/17/24 10:59 Thiamine Hcl 100 Mg Tab PO 01/15/25 08:59 Not Given QAM IMMANUEL
--- NOTE | 2024-12-17 17:16 | CT Scan Report ---
EXAM: CT angio chest PE protocol CLINICAL HISTORY: PE TECHNIQUE: Spiral axial continuous cuts were taken through the chest with multiplanar reformatting and with intravenous administration of contrast material (Pulmonary embolism protocol). OPTIRAY 320 120ML intravenous contrast was administered.One of the following dose reduction techniques was utilized for this exam.Automated exposure control, adjustment of the mA and/or kV according to patient size, and use of iterative reconstruction. One of these 3D techniques was utilized: Maximum Intensity Pixel (MIP), 3D Reconstructed Images, Volume Rendered Images, Surface Shaded Rendering. DLP 716.05 COMPARISON: CR 12/15/2024 FINDINGS: Normal course and caliber of the main pulmonary trunk, right and left pulmonary arteries with adequate opacification. No evidence of intraluminal filling defects impressive of pulmonary embolism, no evidence of mural calcification or aneurismal dilatation. Patchy airspace opacities are seen at the anterior segment of the right upper lung lobe and middle lobe. Lobar consolidation of most of the left lower lung lobe, with relative sparing of the apical segment. Segmental consolidation of the posterior basal segment of the right lower lung lobe. The vascular pattern appears normal with no evidence of bronchovascular distortion. No significant hilar or mediastinal lymph destinee enlargement. Enlarged cardiac size with mild pericardial effusion. The visualized pleural sacs, chest wall and axillary spaces display normal appearance. Bone window settings showed degenerative changes of the throacic spine and osteopenia, yet no evidence of destructive bony lesions. Scanned upper abdominal cuts revealed axial hiatus hernia, left renal cyst and small left adrenal gland nodules versus artifactual (due to motion). IMPRESSION: 1. Normal CT angiography of the pulmonary artery and its branches with no evidence of pulmonary embolism. 2. Bilateral lower lobe consolidation and right upper and middle lobe airspace infiltration suggesting acute infection. Clinical correlation and follow-up are advised. New finding. Electronically signed by Vasyl Romeo 12-17-2024 5:14 PM
--- NOTE | 2024-12-17 17:40 | Hospitalist Progress Note ---
Date of Service December 17, 2024 Assessment & Plan (1) Fracture of femoral neck, left: (2) Fall from standing: (3) Hypertension: (4) CKD (chronic kidney disease), stage III: (5) Parkinsons disease: (6) Coronary artery disease: (7) Benign prostatic hyperplasia with urinary obstruction: (8) Acoustic neuroma: Plan Mr. Hunter is an 79 year old male that was at [facility] and lost his footing and had a ground level fall; likely induced from his Parkinsons Disease. Denies hitting his head or having LOC. He describes that he was talking with his foxer and not watching where he was walking with his walker. He was brought to the [facility] via EMS and had a hip/pelvis X-ray performed revealing an acute left femoral neck fracture. He has a PMH that includes: hyperlipidemia, CAD s/p stent x2 (2006 and 2021 - at [facility]), history of NSTEMI, HTN, macular degeneration, Meckel's diverticulum, BPH, chronic kidney stage III, bilateral lower extremity edema, Parkinson's disease, right acoustic neuroma. Most recent ECHO 05/2023 EF 55-60%, G1DDx. Mild aortic valve sclerosis without significant stenosis. He will be admitted for further evaluation and management with Ortho consult, fall precautions, Tylenol for pain control, ECG and type/screen pending surgery. Will add on BNP given RCRI value of 1. Plan for OR per Ortho for 12/14; will hold DAPT and keep NPO after MN. Fracture of femoral neck, left: Ground level fall from standing: -Likely related to Parkinson's disease symptoms --S/P left hip hemiarthroplasty with prophylactic fixation of femoral neck Touchdown weightbearing left lower extremity as able PT OT, fall precautions Appreciate orthopedics input Continue local wound care Needs follow-up with orthopedics on discharge Acute Metabolic Encephalopathy -likely in setting of anesthesia, significant comorbid conditions, hypoactive delirium -CT head: No acute intracranial findings. Delirium precautions -continue thiamine, folic acid If no improvement would consider MRI brain, EEG Appreciate neurology input Avoid sedating medications Acute Hypoxic Respiratory Failure with hypoxia Multifocal pneumonia Possible aspiration --Chest CTA:Normal CT angiography of the pulmonary artery and its branches with no evidence of pulmonary embolism. Bilateral lower lobe consolidation and right upper and middle lobe airspace infiltration suggesting acute infection. -- Blood cultures pending Empirically started on Unasyn Aspiration precautions Speech therapy evaluation NPO while obtunded Gentle IV fluids Continue supplemental oxygen as needed Hypotension Resolved CAD: HTN: -Discharge history of BMS to [facility] x 2 (2006 and 2021). -Takes baby aspirin and Plavix;-Most recent ECHO: 05/2023 EF 55-60%, G1DDx and mild aortic valve sclerosis without significant stenosis -restart plavix when ok from Ortho Parkinson's disease: -Chronic -Takes Sinemet QID; continue -Uses a walker at baseline TESSA on CKD, resolved Creatinine back to baseline Monitor Avoid nephrotoxic agents as able Acute Blood Loss Anemia -likely 2/2 procedure and dilutional in setting of fluids Monitor CBC HLD: -Chronic -Most recent lipid panel: 11/07/24: TG 154, HDL 49, LDL 121 -continue atorvastatin Acoustic neuroma: -stable DVT Px: Heparin SQ CODE STATUS DNI DNR Disposition SNF as able Admission and Anticipated Discharge Date Admission Date: December 13, 2024 Subjective Patient is seen and examined at bedside Obtunded during my encounter Unable to obtain any history Discussed in detail with patient's family at bedside CT head showed no acute intracranial abnormality Chest CT suggestive of multifocal pneumonia Febrile today Review of Systems Review of Systems: Other Physical Exam Physical Exam: Physical Exam: Vitals signs as noted above General Appearance: Frail, ill-appearing, no apparent distress Head: normocephalic, Atraumatic Eyes: normal inspection, EOMI Neck: supple, Trachea midline Respiratory/Chest: Normal breath sounds, CTA, No accessory muscle use Cardiovascular: S1, S2, No murmur Abdomen/GI:Soft, Non tender, Bowel sounds present Extremities/Musculoskeletal:normal inspection, no edema, left hip surgical site in dressing Neurologic/Psych:Obtunded, chronic foot contractures, complete neurological exam could not be performed Skin: normal color, warm Results & Data Results & Data Vital Signs (Past 12 Hours) Vital Signs Temp Pulse Resp BP BP Pulse Ox O2 Del Method 12/17/24 17:12 36.7 C 86 28 H 170/90 H 95 Oxymask 12/17/24 14:47 37.8 C H 95 H 40 H 144/77 H 94 Oxymask 12/17/24 12:24 36.4 C L 90 27 H 130/78 93 Oxymask 12/17/24 10:09 37.3 C 118/77 90 Oxymask 12/17/24 08:01 36.7 C 94 H 22 136/79 93 Nasal Cannula 12/17/24 08:00 Oxymask O2 Flow Rate 12/17/24 17:12 10 12/17/24 14:47 10 12/17/24 12:24 10 12/17/24 10:09 10 12/17/24 08:01 2 12/17/24 08:00 10 Laboratory Results Short CBC 12/17/24 Range/Units 05:47 WBC 7.84 (4.8-10.8) K/ul Hgb 9.5 L (14.0-18.0) g/dl Hct 31.1 L (42.0-52.0) % Plt Count 157 (130-400) K/uL BMP 12/17/24 05:47 Sodium 144 Potassium 4.2 Chloride 109 H Carbon Dioxide 28 BUN 42 H Creatinine 1.14 Glucose 99 Calcium 7.9 L (6) Coronary artery disease Coronary Disease-Associated Artery/Lesion type: unspecified vessel or lesion type [place] vs. transplanted heart: [id number] heart
[2024-12-18 06:36] LABS: Hematocrit (blood only) 28.1 % (42.0-52.0); Hemoglobin 8.8 g/dl (14.0-18.0)
--- NOTE | 2024-12-18 06:53 | Orthopedic Progress Note ---
Date of Service December 18, 2024 Assessment & Plan (1) Fracture of femoral neck, left: (2) Fall from standing: (3) Hypertension: (4) CKD (chronic kidney disease), stage III: (5) Parkinsons disease: (6) Coronary artery disease: (7) Benign prostatic hyperplasia with urinary obstruction: (8) Acoustic neuroma: Plan Postoperative day #4 status post left hip hemiarthroplasty with prophylactic fixation of femoral neck. CTA of his chest yesterday was suggestive of multifocal pneumonia and it is thought that this is the cause of his recent somnolence he is currently receiving IV antibiotics. Neurology has been consulted and suggested MRI of his brain and EEG if treatment of pneumonia does not result in improved mentation. Patient should be touchdown weightbearing on the left lower extremity. His dressing should stay intact and once the battery runs out, the battery pack may be removed. He will follow-up with me in 2 weeks for wound check. Okay for DVT prophylaxis. Okay for PT/OT. Admission and Anticipated Discharge Date Admission Date: December 13, 2024 Subjective Patient sleeping upon evaluation this morning. Workup yesterday included a CT of his chest suggestive of pneumonia. He has been started on antibiotics. Neurology has been consulted as well due to his somnolence. Review of Systems Review of Systems: Other Unobtainable due to patient's somnolence. Physical Exam Physical Exam: Dressings clean dry and intact. Foot warm and well perfused. patient too somnelent to follow commands Results & Data Vital Signs (Past 12 Hours) Vital Signs Temp Pulse Resp BP Pulse Ox O2 Del Method O2 Flow Rate 12/17/24 21:45 Oxymask 10 12/17/24 19:22 36.9 C 88 16 149/89 H 95 Oxymask 10 (6) Coronary artery disease Coronary Disease-Associated Artery/Lesion type: unspecified vessel or lesion type [place] vs. transplanted heart: [facility] heart
--- NOTE | 2024-12-18 12:58 | Electrocardiogram Report ---
Test Reason : Blood Pressure : */* mmHG Vent. Rate : 90 BPM Atrial Rate : 90 BPM P-R Int : 148 ms QRS Dur : 76 ms QT Int : 374 ms P-R-T Axes : 68 48 -59 degrees QTcB Int : 457 ms Normal sinus rhythm Nonspecific ST abnormality When compared with ECG of 13-Dec-2024 23:31, Nonspecific T wave abnormality, worse in Inferior leads Confirmed by Mina Wagner ([id number]) on 12/18/2024 12:58:02 PM Referred By: REFERRED SELF Confirmed By: Mina Wagner
--- NOTE | 2024-12-18 15:22 | Hospitalist Progress Note ---
Date of Service December 18, 2024 Assessment & Plan (1) Fracture of femoral neck, left: (2) Fall from standing: (3) Hypertension: (4) CKD (chronic kidney disease), stage III: (5) Parkinsons disease: (6) Coronary artery disease: (7) Benign prostatic hyperplasia with urinary obstruction: (8) Acoustic neuroma: Plan Mr. Hunter is an 79 year old male that was at [employer] and lost his footing and had a ground level fall; likely induced from his Parkinsons Disease. Denies hitting his head or having LOC. 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 He was brought to the [facility] via EMS and had a hip/pelvis X-ray performed revealing an acute left femoral neck fracture. He has a PMH that includes: hyperlipidemia, CAD s/p stent x2 (2006 and 2021 - at [facility]), history of NSTEMI, HTN, macular degeneration, Meckel's diverticulum, BPH, chronic kidney stage III, bilateral lower extremity edema, Parkinson's disease, right acoustic neuroma. Most recent ECHO 05/2023 EF 55-60%, G1DDx. Mild aortic valve sclerosis without significant stenosis. He will be admitted for further evaluation and management with Ortho consult, fall precautions, Tylenol for pain control, ECG and type/screen pending surgery. Will add on BNP given RCRI value of 1. Plan for OR per Ortho for 12/14; will hold DAPT and keep NPO after MN. Fracture of femoral neck, left: Ground level fall from standing: -Likely related to Parkinson's disease symptoms --S/P left hip hemiarthroplasty with prophylactic fixation of femoral neck Touchdown weightbearing left lower extremity as able PT OT, fall precautions Appreciate orthopedics input Continue local wound care Needs follow-up with orthopedics on discharge Pain is controlled Acute Metabolic Encephalopathy -likely in setting of anesthesia, significant comorbid conditions, hypoactive delirium -CT head: No acute intracranial findings. Delirium precautions -continue thiamine, folic acid Appreciate neurology input Avoid sedating medications Mental status better today and follows simple commands If remains lethargic would consider MRI brain, EEG Acute Hypoxic Respiratory Failure with hypoxia Multifocal pneumonia Possible aspiration --Chest CTA:Normal CT angiography of the pulmonary artery and its branches with no evidence of pulmonary embolism. Bilateral lower lobe consolidation and right upper and middle lobe airspace infiltration suggesting acute infection. -- Blood cultures pending Empirically started on Unasyn Aspiration precautions Speech therapy evaluation Gentle IV fluids Continue supplemental oxygen as needed Hypotension Resolved CAD: HTN: -Discharge history of BMS to LAD x 2 (2006 and 2021). -Takes baby aspirin and Plavix;-Most recent ECHO: 05/2023 EF 55-60%, G1DDx and mild aortic valve sclerosis without significant stenosis -restart P aspirin, Plavix Parkinson's disease: -Chronic -Takes Sinemet QID; continue -Uses a walker at baseline TESSA on CKD, resolved Creatinine back to baseline Monitor Avoid nephrotoxic agents as able Acute Blood Loss Anemia -likely 2/2 procedure and dilutional in setting of fluids Monitor CBC HLD: -Chronic -Most recent lipid panel: 11/07/24: TG 154, HDL 49, LDL 121 -continue atorvastatin Acoustic neuroma: -stable DVT Px: Heparin SQ CODE STATUS DNI DNR Disposition SNF as able Admission and Anticipated Discharge Date Admission Date: December 13, 2024 Subjective Patient is seen and examined at bedside More alert, awake today Follows simple commands Discussed with patient's family at bedside Reports feeling very tired and has been lethargic intermittently Offers no complaints Denies any chest pain, dyspnea, nausea, vomiting, abdominal pain Afebrile today Review of Systems Review of Systems: All systems reviewed & are unremarkable except as noted in Subjective Physical Exam Physical Exam: Physical Exam: Vitals signs as noted above General Appearance: Frail, ill-appearing, no apparent distress Head: normocephalic, Atraumatic Eyes: normal inspection, EOMI Neck: supple, Trachea midline Respiratory/Chest: Normal breath sounds, CTA, No accessory muscle use Cardiovascular: S1, S2, No murmur Abdomen/GI:Soft, Non tender, Bowel sounds present Extremities/Musculoskeletal:normal inspection, no edema, left hip surgical site in dressing Neurologic/Psych: Alert, awake, oriented, follows simple commands. Skin: normal color, warm Results & Data Results & Data Vital Signs (Past 12 Hours) Vital Signs Temp Pulse Resp BP Pulse Ox O2 Del Method O2 Flow Rate 12/18/24 15:11 Nasal Cannula 4 12/18/24 10:37 18 96 Nasal Cannula 4 12/18/24 07:28 36.6 C 95 H 16 159/78 H 93 Oxymask 11 Laboratory Results Short CBC 12/18/24 Range/Units 06:09 Hgb 8.8 L (14.0-18.0) g/dl Hct 28.1 L (42.0-52.0) % (6) Coronary artery disease Coronary Disease-Associated Artery/Lesion type: unspecified vessel or lesion type [place] vs. transplanted heart: [place] heart
[2024-12-18] MEDS: D5W AND 1/2NSS + 20MEQ KCL 20 MEQ/1,000 ML BAG IV SCH (16:01)
[2024-12-18] MEDS: ASPIRIN 81 MG ECTAB PO SCH (21:44)
[2024-12-19 06:57] LABS: Hemoglobin 8.7 g/dl (14.0-18.0); Mean Corpuscular Hemoglobin 27.1 pg (25.0-34.0); Mean Corpuscular Volume 90.3 fL (80.0-100.0); Mean Platelet Volume 10.5 fL (9.4-12.4); Platelet Count 182 K/uL (130-400); RDW Coefficient of Variation 14.5 % (11.5-14.5); RDW Standard Deviation 48.3 fL (36.4-46.3); Red Blood Count 3.21 M/uL (4.70-6.10); White Blood Count 6.34 K/ul (4.8-10.8)
[2024-12-19 07:16] LABS: BUN Creatinine Ratio 41.5 (10-20); Calcium 8.1 mg/dl (8.6-10.3); Creatinine Clr Calc Pharmacy 47.5 ml/min; Potassium 3.9 mmol/L (3.5-5.1)
--- NOTE | 2024-12-19 08:47 | Orthopedic Progress Note ---
Date of Service December 19, 2024 Assessment & Plan (1) Fracture of femoral neck, left: (2) Fall from standing: (3) Hypertension: (4) CKD (chronic kidney disease), stage III: (5) Parkinsons disease: (6) Coronary artery disease: (7) Benign prostatic hyperplasia with urinary obstruction: (8) Acoustic neuroma: Plan Postoperative day #5 status post left hip hemiarthroplasty with prophylactic fixation of femoral neck. CTA of his chest was suggestive of multifocal pneumonia and it is thought that this is the cause of his recent somnolence he is currently receiving IV antibiotics and is much improved. Patient should be touchdown weightbearing on the left lower extremity. His dressing should stay intact and once the battery runs out, the battery pack may be removed. He will follow-up with me in 2 weeks for wound check. Okay for DVT prophylaxis. Okay for PT/OT. Admission and Anticipated Discharge Date Admission Date: December 13, 2024 Subjective Patient is seen and examined at bedside with family present. More alert, awake today. Follows commands. Denies any chest pain, dyspnea, nausea, vomiting, abdominal pain Review of Systems Review of Systems: All systems reviewed & are unremarkable except as noted in HPI & below Physical Exam Physical Exam: Dressings clean dry and intact. Foot warm and well perfused. EHL/FHL/GSC/TA intact Results & Data Vital Signs (Past 12 Hours) Vital Signs Temp Pulse Resp BP Pulse Ox O2 Del Method O2 Flow Rate 12/19/24 07:22 36.7 C 76 16 169/80 H 98 Nasal Cannula 4 (6) Coronary artery disease Coronary Disease-Associated Artery/Lesion type: unspecified vessel or lesion type [place] vs. transplanted heart: [place] heart
[2024-12-19] MEDS: CLOPIDOGREL BISULFATE 75 MG TAB PO SCH (08:48)
--- NOTE | 2024-12-19 15:42 | Hospitalist Progress Note ---
Date of Service December 19, 2024 Assessment & Plan (1) Fracture of femoral neck, left: (2) Fall from standing: (3) Hypertension: (4) CKD (chronic kidney disease), stage III: (5) Parkinsons disease: (6) Coronary artery disease: (7) Benign prostatic hyperplasia with urinary obstruction: (8) Acoustic neuroma: Plan Mr. Hunter is an 79 year old male that was at [employer] and lost his footing and had a ground level fall; likely induced from his Parkinsons Disease. Denies hitting his head or having LOC. 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 He was brought to the [facility] via EMS and had a hip/pelvis X-ray performed revealing an acute left femoral neck fracture. He has a PMH that includes: hyperlipidemia, CAD s/p stent x2 (2006 and 2021 - at [facility]), history of NSTEMI, HTN, macular degeneration, Meckel's diverticulum, BPH, chronic kidney stage III, bilateral lower extremity edema, Parkinson's disease, right acoustic neuroma. Most recent ECHO 05/2023 EF 55-60%, G1DDx. Mild aortic valve sclerosis without significant stenosis. He will be admitted for further evaluation and management with Ortho consult, fall precautions, Tylenol for pain control, ECG and type/screen pending surgery. Will add on BNP given RCRI value of 1. Plan for OR per Ortho for 12/14; will hold DAPT and keep NPO after MN. Fracture of femoral neck, left: Ground level fall from standing: -Likely related to Parkinson's disease symptoms --S/P left hip hemiarthroplasty with prophylactic fixation of femoral neck Touchdown weightbearing left lower extremity as able PT OT, fall precautions Appreciate orthopedics input Continue local wound care Needs follow-up with orthopedics on discharge Pain is controlled Needs rehab placement Acute Metabolic Encephalopathy -likely in setting of anesthesia, significant comorbid conditions, hypoactive delirium -CT head: No acute intracranial findings. Delirium precautions -continue thiamine, folic acid Appreciate neurology input Avoid sedating medications Mental status improved Dysphagia Ongoing issue for about 6 years per family In setting of Parkinson's disease likely progressing --Video Swallow Study:Aspirated thin, thickened liquids, and puree Currently n.p.o. Discussed with patient/patient's family members in detail Patient preferred no PEG placement in the past per family High risk for aspiration Appreciate speech therapy to help Palliative care consulted to address goals of care Acute Hypoxic Respiratory Failure with hypoxia Multifocal pneumonia Possible aspiration --Chest CTA:Normal CT angiography of the pulmonary artery and its branches with no evidence of pulmonary embolism. Bilateral lower lobe consolidation and right upper and middle lobe airspace infiltration suggesting acute infection. -- Blood cultures: Negative to date Continue Unasyn for now Aspiration precautions Continue supplemental oxygen as needed IV fluids as needed Hypernatremia Likely due to dehydration/poor oral Continue IV fluids Monitor sodium levels Hypotension Resolved CAD: HTN: -Discharge history of BMS to LAD x 2 (2006 and 2021). -Takes baby aspirin and Plavix;-Most recent ECHO: 05/2023 EF 55-60%, G1DDx and mild aortic valve sclerosis without significant stenosis -restart P aspirin, Plavix Parkinson's disease: -Chronic -Takes Sinemet QID; continue -Uses a walker at baseline TESSA on CKD, resolved Creatinine back to baseline Monitor Avoid nephrotoxic agents as able Acute Blood Loss Anemia -likely 2/2 procedure and dilutional in setting of fluids Monitor CBC HLD: -Chronic -Most recent lipid panel: 11/07/24: TG 154, HDL 49, LDL 121 -continue atorvastatin Acoustic neuroma: -stable DVT Px: Heparin SQ CODE STATUS DNI DNR Disposition SNF as able Admission and Anticipated Discharge Date Admission Date: December 13, 2024 Subjective Patient is seen and examined at bedside Patient had video swallow study earlier today Had PT OT evaluation this morning as well Discussed with patient's family at bedside and also with patient's son over the phone Patient failed video swallow study Reports minimal cough but otherwise no complaints Pain at surgical site is well-controlled Denies any chest pain, dyspnea, nausea, vomiting, abdominal pain Review of Systems Review of Systems: All systems reviewed & are unremarkable except as noted in Subjective Physical Exam Physical Exam: Physical Exam: Vitals signs as noted above General Appearance: Frail, ill-appearing, no apparent distress Head: normocephalic, Atraumatic Eyes: normal inspection, EOMI Neck: supple, Trachea midline Respiratory/Chest: Normal breath sounds, CTA, No accessory muscle use Cardiovascular: S1, S2, No murmur Abdomen/GI:Soft, Non tender, Bowel sounds present Extremities/Musculoskeletal:normal inspection, no edema, left hip surgical site in dressing Neurologic/Psych: Alert, awake, oriented, follows simple commands. Skin: normal color, warm Results & Data Results & Data Vital Signs (Past 12 Hours) Vital Signs Temp Pulse Resp BP Pulse Ox O2 Del Method O2 Flow Rate 12/19/24 15:32 36.4 C L 79 16 159/73 H 96 Room Air 12/19/24 12:23 97 12/19/24 07:25 Nasal Cannula 4 12/19/24 07:22 36.7 C 76 16 169/80 H 98 Nasal Cannula 4 Laboratory Results Short CBC 12/19/24 Range/Units 06:30 WBC 6.34 (4.8-10.8) K/ul Hgb 8.7 L (14.0-18.0) g/dl Hct 29.0 L (42.0-52.0) % Plt Count 182 (130-400) K/uL BMP 12/19/24 06:30 Sodium 149 H Potassium 3.9 Chloride 114 H Carbon Dioxide 32 BUN 44 H Creatinine 1.06 Glucose 108 H Calcium 8.1 L (6) Coronary artery disease Coronary Disease-Associated Artery/Lesion type: unspecified vessel or lesion type [place] vs. transplanted heart: [place] heart
--- NOTE | 2024-12-19 16:52 | Communication Note ---
Date of Service: December 19, 2024 Explained and discussed extensively with patient and patient's family members (patient's --POA, patient's daughter and son) on multiple occasions at bedside that NG tube placement with tube feeds after failed video swallow study is very high risk for aspiration and possibly fatal. Despite explaining in detail the potential complications of tube feeds after failed video swallow, patient and patient's family prefers trial of NG tube placement/tube feeds. Patient and patient's family understands the risks and complications of recurrence of aspiration and possibly sepsis/septic shock and high chances of fatality, patient & their family prefers trial of tube feeds as a last resort to see if patient's condition would improve. Explained per literature, likely >88% changes patient could aspirate given the scenario. They understand and agree with current management.
[2024-12-19] MEDS ORDERED: FIBERSOURCE HN 1.2 CAL 1000 ML BAG NG SCH (18:00)
--- NOTE | 2024-12-19 18:32 | Communication Note ---
Date of Service: December 19, 2024 Patient did not tolerate NG tube placement trial. He prefers to avoid NG tube placement. Patient's family is in agreement.
[2024-12-19] MEDS: TUBE FEEDING WATER FLUSH NG SCH (19:11)
--- NOTE | 2024-12-19 19:52 | Palliative Care Consultation ---
Date of Consultation December 19, 2024 Assessment & Plan (1) Palliative care by specialist: Met with pt, his and adult daughter and son in person at bedside. Pt's son Axel joined by phone. Introduced Palliative Medicine and explained our role in advanced care planning, symptom management and navigation through the progression of life limiting disease. Patient and/or family were receptive to palliative services for goals of care discussions. Reviewed we are different from hospice, a home health nurse visiting service. (2) Advance directive in chart: Patient exhibits current lack of decisional capacity based on the inability to convey understanding of personal PMHx, current medical condition, treatment options nor the risks / benefits of those options, and lack of ability to make decisions based on such knowledge. Hospital does have written documentation of patient wishes concerning his chosen proxy for medical decisions. Pt does require a proxy for medical decisions at this time. AD paperwork on file which was properly executed by patient on 08/13/19 designates patient's spouse Sabi Hunter as primary HCPOA and their son Devyn uHnter as secondary HCPOA for all medical decisions in the event he lacks decisional capacity. Both Sabi and Devyn were present and participated in 30min GOC discussion today. (3) Counseling regarding goals of care: Pt's Sabi shared that they have been for more than 48y years and have three children. 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 Son Devyn and daughter live locally and a son (Axel) who lives in [place] with his . the family is all very close and supportive of each other. Sabi shaared that despite pt's dementia, prior to this admission he was mostly independent with ADLs but dependent for most iADLs. 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 Sabi discussed pt's HPI and admission course and shared that prior to this admission he was eating ok, but occasionally would choke if he did not cut his food up well. 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 Axel shared suspicion that the pt has been aspirating food and secretions more frequently than pt's had noticed. We discussed ST evaluation and recs for NPO due to overt aspiration of all consistencies on FEES today. ST notes options as NPO with TF or permissive aspiration with pleasure feeds. Discussed and helped family understand that even if pt were to improve in swallowing abilities, given the progressively debilitating nature of dementia, at some point we would be revisiting this conversation as his disease progresses. All family in agreement that they would honor pt's wishes as documented in his AD on file. Pt has clearly expressed his values and goals of care with his family for many years. All are aware that pt would not want a PEG tube nor to be in a SNF. They all stated they are committed to honoring these wishes and PEG tube is not c/w pt wishes. Sabi questioned a "trial period" of feeding to give time for possible improved swallowing ability. Axel shared his concern that pt may improve in short term, but overall he is not improving and will at some point require a permanent feeding solution. He suggested that pt has been clear about not wanting these things and recommended that family consider pleasure feeding and hospice care. Devyn questioned pt's cognitive improvement over last 2 days and what impact delirium may be playing. Discussed and helped family differentiate dementia from delirium Unfortunately there are no known medications to cure or shorten the duration of delirium; rather PRN antipsychotics are recommended to help with sleep/appetite/psychomotor agitation and hallucinations if these symptoms are causing significant distress and/or interfering with acute safety. Duration of delirium varies broadly with persistent delirium (defined as lasting for weeks or months) occurring frequently with [id number]% of patients exhibiting some symptoms of delirium at 6 months after symptom onset, see:Nik Cornejo., Hitesh Ma., Johnny Jenkins.et al.Delirium.Salma Rev Dis Primers6, 90 (2020). https://doi.org/10.1038/[email or web address].Goal in deliriummgmt is to avoid medication management of behaviors if possible by maximizing non-pharmacologic strategies for behavioral management. Spent a substantial amount of time discussing the progressively debilitating nature of dementia. Explained that dementia is incurable and irreversible, and can include progressive/worsening memory loss, confusion, language difficulties/lack of comprehension skills/loss of verbal skills eventually, mood changes, impaired judgment, trouble with motor skills/coordination/balance issues, visual and spatial problems, hallucinations, and personality changes. The rate of progression in mixed dementia can vary widely from person to person. Factors such as the types of dementia involved, overall health, and genetics can influence the speed of progression. Some individuals experience a more gradual decline, while others may progress more rapidly through the stages. We discussed and differentiated dementia from delirium and helped family understand that they can co-exist. I reviewed Dementia is a terminal illness. Aggressive medical treatment for patients with advanced dementia is often inappropriate for medical reasons, has a low rate of success, and can have negative outcomes that hasten functional decline and . ([place] [employer] Ethics Committee and Clinical Practice and Models of Care Committee. J Am Geriatr Soc. 2014 Jun;62(8):1590-3 and Ethan SL, Indira JM, Vergara SC, Sher V. A national study of the location of for older persons with dementia. J Am Geriatr Soc 2005; 53(2):299-305.). Helped them understand differences between dementia and delirium. Discussed typical progression of dementia and how it may be staged. Stage 1: Normal Functioning: In the early stage, individuals show no signs of dementia, and their cognitive function is normal Stage 2: Very Mild Cognitive Decline: Minor memory lapses and forgetfulness may occur but are often attributed to normal aging Stage 3: Mild Cognitive Decline: Early signs of dementia become more noticeable, such as memory problems and difficulty finding words Stage 4: Moderate Cognitive Decline: Memory loss becomes more pronounced, and individuals may struggle with tasks like managing finances and planning Stage 5: Moderately Severe Cognitive Decline: Daily functioning becomes challenging, and individuals may require assistance with tasks like dressing and bathing Stage 6: Severe Cognitive Decline: In this stage, individuals need substantial help with daily activities, and communication becomes increasingly difficult Stage 7: Very Severe Cognitive Decline: In the final stage, individuals may lose the ability to communicate, walk, and perform basic tasks. They require [id number] care. Older adults with dementia frequently receive acute care in their last year of life although Hospice care was more common for home/[facility] residents. Overall time in hospice remains short due to the underutilization of the hospice benefit for terminal dementia (Zandra MM, Stephon JM, Julius KM, Nash DE, Jeremiah PY. Dementia Care in the Last Year of Life: Experiences in a Community Practice and in Penitentiary Facilities. J Palliat Care. 2022;38(2):135-142. doi:10.1177/[id number]) Home Hospice is a valuable option for terminal dementia who desire to have peaceful EOL at home. Home hospice care for advanced dementia can improve symptom management and caregiver satisfaction, while decreasing caregiver burden, preventing hospitalizations and discontinuing unnecessary medication (Sanjay RODNEY, Eunice R, Milton G, et al. Home hospice for older people with advanced dementia: a pilot can router project [published correction appears in Isr J Health Policy Res. 2019 May 01;8(1):56]. Isr J Health Policy Res. 2019;8(1):42. Published 2018March 06. doi:10.1186/[id number]-s). (4) Encounter for hospice care discussion: Discussed hospice benefit: an interdisciplinary program offered by nurses, nurses aides, social workers, chaplains and a medical staff services manager for patients with a terminal condition and a life expectancy of less than 6 months. This is covered by Medicare at 100%/no out of pocket expense to patient and all meds/supplies needed by patient for the reason they are on hospice are paid for/covered by hospice. The goal is assure quality of life of the patient in their home setting (home, fdc, inpatient hospice setting) by providing symptoms management, psychosocial and spiritual support. However, they cannot offer 24 hours care and if the family is unable to provide that care, they will have to consider personal care with out of pocket cost vs. fdc placement. We discussed the goals of hospice as a patient service and the goals of care; we discussed EOL trajectories and transitions kaykay the emotional impact of realizing mortality as a concrete reality from prior abstract considerations. Pt was reassured that no matter where they are along this trajectory, they are not alone - their medical team will remain by their side through their journey. Discussed the pros/cons of accepting help when especially weakened and distressed by pain-which would also help provide relief/decrease caregiver burden/strain. (5) Delirium of mixed origin: Standard Delirium Care - Search for occult etiologies of delirium including toxic, metabolic, and infectious. Medication effects and drug/ETOH withdrawal should also be sought. - Avoid restraints other than lap belts. Redirection by family/friends, or medical staff is more effective and promotes recovery. - Encourage patient to wear glasses and hearing aides - Encourage 24 hour visitation from family/friends - Encourage family/friends to redirect patient to avoid need for meds/restraints - Avoids benzos - Use atypical neuroleptics in a low scheduled dose in combination with PRN for agitation - *Please note: the atypical Neuroleptics are associated with a slight but real increased in MACE and should be used sparingly especially in the termite inspector - Low dose IV morphine can be used with caution if neuroleptics fail for acute delirium - Redirection by family, friends, and medical staff can be more effective and safer than medication use. - Pain causes delirium and should be addressed in a balanced, conservative, but effective manner. - During the day, patient should be awake. Lights should be on. TV should be on. Patient should be placed in chair with restraints if possible and allowed into farrar or outside in wheelchair if can tolerate. - At night, lights should be dimmed and stimulation should be minimized. A scheduled dose of neuroleptic may be given at least 2 hours prior to typical onset of - Room noises can cause anxiety inducing hallucinations. If the room is loud, has atypical noises (construction, beeping, loud neighbor, etc) or patient is having negative reaction to ambient stimuli, patient should be moved to another room - Nutritional status should be addressed. Any nutritional deficits should be aggressively remediated. - High carbohydrate meals should be served - Please make family aware that delirium may last for weeks to months. - Patients with baseline Organic brain syndrome are more prone to delirium and take longer to recover - Patient with baseline organic brain syndromes, especially neurodegenerative ones like Dementia of Alzheimer's type may never recovery back to pre-morbid baseline. Plan No changes in plan of care at this time, family requests time to dicuss amongst themselves tonight with plan to reconvene in morning 11/19/24 to revisit goals and decide on TF trial vs pleasure feeds. History of Present Illness Reason for Consultation: goals of care Requesting Physician: Taran Laureano MD Attending Physician: Taran Laureano MD History of Present Illness Mr. Hunter is an 79 y M with PMH including hyperlipidemia, CAD s/p stent x2 (2006 and 2021 - at [facility]), history of NSTEMI, HTN, macular degeneration, Meckel's diverticulum, BPH, chronic kidney stage III, bilateral lower extremity edema, Parkinson's disease, right acoustic neuroma. who had a ground level fall while walking with his walker at [facility]. He was brought to the [facility] via EMS and had a hip/pelvis X-ray performed revealing an acute left femoral neck fracture. He underwent left hip hemiarthroplasty with prophylactic fixation of femoral neck on 12/14. Post op course has been c/b delirium and dysphagia. He follows with [facility] and had his last appointment with Cipriano Cavazos on 07/07/2024. Pre review of most recent cardiology note; Atherosclerotic coronary disease status post coronary intervention with bare metal stent to the left anterior descending in 2006 and presentation in December 2021 with unstable angina. Catheterization, per documentation, in December 2021 revealed a dominant left circumflex with mild luminal irregularities, non dominant RCA with mid 90% stenosis, and a diffusely disease and ectatic LAD with a 50% proximal lesion, 90 and 99% mid vessel lesions sequentially, and a 60% distal LAD lesion, undergoing cutting balloon angioplasty and stenting of the mid LAD lesions at that time. Recommendations at [facility] included utilization of aspirin and Brilinta without interruption x1 year, lifelong dual anti-platelet therapy. Allergies Allergy/AdvReac Type Severity Reaction Status Date / Time adhesive tape Allergy Intermediate red welps Verified 12/15/24 09:06 codeine Allergy Intermediate shortness Verified 12/15/24 09:06 of breath ~ nervous latex Allergy Rash Verified 12/14/24 05:49 bacitracin AdvReac Intermediate blisters Verified 12/15/24 09:06 [From Neosporin ([id number])] neomycin AdvReac Intermediate blisters Verified 12/15/24 09:06 [From Neosporin ([id number])] polymyxin B AdvReac Intermediate blisters Verified 12/15/24 09:06 [From Neosporin ([id number])] Home Medications Medication Instructions Recorded Confirmed Type aspirin 81 mg tablet,delayed 81 mg PO HS 01/25/22 12/13/24 History release carbidopa 25 mg-levodopa 100 mg 1 tab PO QID 01/25/22 12/13/24 History tablet (Sinemet) metronidazole 0.75 % topical cream 1 applic topical QAM 01/25/22 12/13/24 History (MetroCream) multivitamin 1 tab PO QAM 01/25/22 12/13/24 History vit C 250 mg-vit E 90 mg-zinc 40 1 tab PO DAILY 01/25/22 12/13/24 History mg-copper 1 [id number]-[id number]-vydzgd capsule (PreserVision AREDS-2) atorvastatin 40 mg tablet 40 mg PO QAM 01/26/22 12/13/24 History loteprednol etabonate 0.2 % eye 1 drp ophthalmic (eye) QID PRN Dry 01/26/22 12/13/24 History drops,suspension (Alrex) Eye(S) clopidogrel 75 mg tablet (Plavix) 75 mg PO DAILY 03/25/23 12/13/24 History polyethylene glycol 3350 17 gram 17 g PO DAILY PRN Constipation 05/23/23 12/13/24 History oral powder packet (Miralax) triamcinolone acetonide 0.1 % 1 applic topical BID PRN flare ups 05/23/23 12/13/24 History topical cream metoprolol succinate 25 mg 25 mg PO BID #60 tabs 05/26/23 12/13/24 Rx tablet,extended release 24 hr nitroglycerin 0.4 mg/hr 1 patch transdermal QAM #30 ea 05/26/23 12/13/24 Rx transdermal 24 hour patch (Nitro-Dur) doxazosin 2 mg tablet 2 mg PO HS #90 tabs 03/31/24 12/13/24 Rx dutasteride 0.5 mg capsule 0.5 mg PO DAILY #90 caps 03/31/24 12/13/24 Rx (Avodart) baclofen 10 mg tablet 10 mg PO UD 12/13/24 12/13/24 History escitalopram oxalate 10 mg tablet 10 mg PO DAILY 12/13/24 12/13/24 History pantoprazole 40 mg tablet,delayed 40 mg PO DAILY 12/13/24 12/13/24 History release Patient History Medical History Acoustic neuroma s/p gamma knife treatment BPH (benign prostatic hyperplasia) Surgical History History of cataract surgery History of partial colectomy History of cholecystectomy Hx of appendectomy S/P coronary artery stent placement Family History Father Hypertension Heart disease Brother Lung cancer Mother Cancer Social History Smoking Status: Never smoker Second Hand Exposure: No; Do You Dip or Chew Tobacco: No; Hx Alcohol Use: No Hx Substance Use: No Preferred Language: Latvian Communication Ability: Effective Patient Case Coordinator Required: No Beliefs That Will Affect Care: None Current Living Situation: Spouse Other Information That Helps Us Care for You: No Feels Safe at Home: Yes Safety Concerns: Feels Safe At This Time Assistive Devices: Walker Review of Systems Review of Systems: All systems reviewed & are unremarkable except as noted in HPI & below Physical Exam Physical Exam: Physical Exam: Vitals signs as noted above General Appearance: Frail, ill-appearing, no apparent distress Head: normocephalic, Atraumatic Eyes: normal inspection, EOMI Neck: supple, Trachea midline Respiratory/Chest: Normal breath sounds, CTA, No accessory muscle use Cardiovascular: S1, S2, No murmur Abdomen/GI:Soft, Non tender, Bowel sounds present Extremities/Musculoskeletal:normal inspection, no edema, left hip surgical site in dressing Neurologic/Psych: Alert, awake, oriented, TIMBI-SHA SHOSHONE per baseline, follows simple commands. Skin: normal color, warm Results & Data Vital Signs (Past 12 Hours) Vital Signs Temp Pulse Resp BP Pulse Ox O2 Del Method 12/19/24 15:32 36.4 C L 79 16 159/73 H 96 Room Air 12/19/24 12:23 97 Laboratory Results Abnormal lab results 12/19/24 Range/Units 06:30 RBC 3.21 L (4.70-6.10) M/uL Hgb 8.7 L (14.0-18.0) g/dl Hct 29.0 L (42.0-52.0) % MCHC 30.0 L (32.0-36.0) g/dL RDW Std Deviation 48.3 H (36.4-46.3) fL Sodium 149 H (136-145) mmol/L Chloride 114 H (98-107) mmol/L BUN 44 H (6-23) mg/dl BUN/Creatinine Ratio 41.5 H (10-20) Glucose 108 H (70-99(Fasting)) mg/dl Calcium 8.1 L (8.6-10.3) mg/dl Diagnostic Findings Femur X-Ray 12/13/24 16:23 EXAM: Radiographs of the Left Femur 2 Views INDICATION: Fall TECHNIQUE: Frontal and lateral views of the left femur. COMPARISON: No relevant prior studies available. FINDINGS: Bones/joints: There is age-indeterminate deformity of the left femoral neck with angulation. No dislocation. Femur otherwise intact. Soft tissues: No abnormality noted. No radiopaque foreign body noted. Vasculature: Catheter noted projecting over the bladder. Atherosclerosis noted diffusely. IMPRESSION: Age-indeterminate fracture of the left femoral neck. ACT 112: Negative or not required by law. Electronically signed by Sharmin Oquendo 12-13-2024 5:08 PM Hip X-Ray 12/14/24 00:00 FL hip LT 2-3V CLINICAL HISTORY: LEFT ANTERIOR HIP COMPARISON STUDY: Left hip radiographs 01/10/2025. FLUOROSCOPY TIME: 1 minute and 5 seconds. Ka,r: 4.1633 mGy FLUOROSCOPIC IMAGES: 3 FINDINGS: Fluoroscopy was provided during left hip arthroplasty. A femoral cerclage wire is in place. Alignment is anatomic. No periprosthetic fracture is identified. No unexpected radiopaque foreign bodies. Ferro catheter is incidentally noted. IMPRESSION: Fluoroscopy provided during left hip arthroplasty. ACT 112: Negative or not required by law. Electronically signed by: Javad Rubalcava M.D. 12/14/2024 11:51 AM Hip/Pelvis X-Ray 12/14/24 11:07 XR hip LT 2V w pelvis CLINICAL HISTORY: Postoperative evaluation. COMPARISON: Left hip radiographs December 13, 2024. FINDINGS: Alignment of the left hip arthroplasty is anatomic. There is no periprosthetic fracture or unexpected radiopaque foreign body. Cerclage wire is in place. Ferro catheter is incidentally noted. IMPRESSION: Expected findings following left hip arthroplasty. ACT 112: Negative or not required by law. Electronically signed by: Javad Rubalcava M.D. 12/14/2024 12:01 PM Chest X-Ray 12/17/24 10:13 XR chest 1V portable CLINICAL HISTORY: increase o2 requirements COMPARISON STUDY: Chest radiograph December 15, 2024. FINDINGS: There is no pneumothorax. Trace left pleural effusion. Left basilar retrocardiac opacity has significantly increased. Right basilar opacity has developed. Cardiomegaly is unchanged. No evidence for pulmonary edema. IMPRESSION: 1. Significant increase in left basilar opacity. This raises the possibility of left lower lobe atelectasis/collapse. Pneumonia or aspiration pneumonitis could appear similar. 2. Trace left pleural effusion. 3. Interval development of mild right basilar opacities which could represent atelectasis or pneumonia. ACT 112: Negative or not required by law. Electronically signed by: Javad Rubalcava M.D. 12/17/2024 10:[address] 12/17/24 10:25 CT OF THE HEAD WITHOUT CONTRAST CLINICAL HISTORY: altered mental status COMPARISON STUDY: Head CT December 15, 2024. CT DOSE: 688.24 mGy.cm TECHNIQUE: Helical axial images of the head were obtained without IV contrast. Automated exposure control was utilized for the study. A dose lowering technique was utilized adhering to the principles of ALARA. FINDINGS: No acute intracranial hemorrhage, midline shift or mass effect is present. The ventricular system is stable. White matter hypodensities are unchanged and favor small vessel disease. The basal cisterns are patent. No extra-axial collections are present. There are no findings to suggest acute d ural sinus thrombosis or acute territorial infarct. No significant calvarial abnormalities are present. There is trace fluid within the left mastoid air cells. IMPRESSION: No acute intracranial findings. ACT 112: Negative or not required by law. Electronically signed by: Javad Rubalcava M.D. 12/17/2024 10:54 AM Chest CTA 12/17/24 14:55 EXAM: CT angio chest PE protocol CLINICAL HISTORY: PE TECHNIQUE: Spiral axial continuous cuts were taken through the chest with multiplanar reformatting and with intravenous administration of contrast material (Pulmonary embolism protocol). OPTIRAY 320 120ML intravenous contrast was administered.One of the following dose reduction techniques was utilized for this exam.Automated exposure control, adjustment of the mA and/or kV according to patient size, and use of iterative reconstruction. One of these 3D techniques was utilized: Maximum Intensity Pixel (MIP), 3D Reconstructed Images, Volume Rendered Images, Surface Shaded Rendering. DLP 716.05 COMPARISON: CR 12/15/2024 FINDINGS: Normal course and caliber of the main pulmonary trunk, right and left pulmonary arteries with adequate opacification. No evidence of intraluminal filling defects impressive of pulmonary embolism, no evidence of mural calcification or aneurismal dilatation. Patchy airspace opacities are seen at the anterior segment of the right upper lung lobe and middle lobe. Lobar consolidation of most of the left lower lung lobe, with relative sparing of the apical segment. Segmental consolidation of the posterior basal segment of the right lower lung lobe. The vascular pattern appears normal with no evidence of bronchovascular distortion. No significant hilar or mediastinal lymph destinee enlargement. Enlarged cardiac size with mild pericardial effusion. The visualized pleural sacs, chest wall and axillary spaces display normal appearance. Bone window settings showed degenerative changes of the throacic spine and osteopenia, yet no evidence of destructive bony lesions. Scanned upper abdominal cuts revealed axial hiatus hernia, left renal cyst and small left adrenal gland nodules versus artifactual (due to motion). IMPRESSION: 1. Normal CT angiography of the pulmonary artery and its branches with no evidence of pulmonary embolism. 2. Bilateral lower lobe consolidation and right upper and middle lobe airspace infiltration suggesting acute infection. Clinical correlation and follow-up are advised. New finding. Electronically signed by Vasyl Romeo 12-17-2024 5:14 PM Medications Administered Current Inpatient Medications Artificial Tears (Artificial Tears) 1 drops OP QID PRN PRN Reason: Dryness Stop: 01/12/25 19:08 Aspirin (Aspirin 81 Mg Ectab) 81 mg PO HS IMMANUEL Stop: 01/17/25 20:59 Last Admin: 12/18/24 21:44 Dose: 81 mg Atorvastatin Calcium (Atorvastatin 40 Mg Tab) 40 mg PO QAM IMMANUEL Stop: 01/13/25 08:59 Last Admin: 12/19/24 08:35 Dose: 40 mg Carbidopa/Levodopa (Carbidopa/Levodopa 25/100mg Tab) 1 tab PO QID IMMANUEL Stop: 01/12/25 20:59 Last Admin: 12/19/24 16:53 Dose: Not Given Clopidogrel Bisulfate (Clopidogrel Bisulfate 75 Mg Tab) 75 mg PO DAILY IMMANUEL Stop: 01/18/25 08:59 Last Admin: 12/19/24 08:48 Dose: 75 mg Doxazosin Mesylate (Doxazosin Mesylate Tab 2 Mg Tab) 2 mg PO HS IMMANUEL Stop: 01/12/25 20:59 Last Admin: 12/18/24 21:53 Dose: Not Given Erythromycin (Erythromycin Op Oint 5 Mg/Gm 3.5 Gm Tube) 1 appln OP QID IMMANUEL Stop: 12/20/24 06:24 Last Admin: 12/19/24 18:44 Dose: 1 appln Escitalopram Oxalate (Escitalopram Oxalate 10 Mg Tab) 10 mg PO DAILY IMMANUEL Stop: 01/13/25 08:59 Last Admin: 12/19/24 08:34 Dose: 10 mg Finasteride (Finasteride 5 Mg Tab) 5 mg PO DAILY IMMANUEL Stop: 01/13/25 08:59 Last Admin: 12/19/24 08:40 Dose: 5 mg Folic Acid (Folic Acid 1 Mg Tab) 1 mg PO QAM IMMANUEL Stop: 01/15/25 08:59 Last Admin: 12/19/24 08:35 Dose: 1 mg Heparin Sodium (Porcine) (Heparin Sod 5,000 Unit/0.5 Ml Vial) 5,000 units SQ Q8 IMMANUEL Stop: 01/14/25 13:59 Last Admin: 12/19/24 15:24 Dose: 5,000 units Ampicillin Sodium/Sulbactam Sodium (Unasyn) 3,000 mg in 100 mls @ 200 mls/hr IV Q6H IMMANUEL Stop: 12/22/24 12:29 Last Infusion: 12/19/24 19:24 Dose: Infused Acetaminophen (Ofirmev) 1,000 mg in 100 mls @ 400 mls/hr IV Q8H PRN PRN Reason: Fever or headache Stop: 12/20/24 14:51 Potassium Chloride/Dextrose/Sod Cl (D5w And 1/2nss + 20meq Kcl) 20 meq in 1,000 mls @ 75 mls/hr IV .[id number] [facility] Stop: 12/20/24 13:05 Last Admin: 12/19/24 11:41 Dose: 75 mls/hr Pantoprazole Sodium (Protonix) 40 mg in 10 mls @ 5 mls/min IV DAILY IMMANUEL Stop: 01/19/25 08:59 Metoprolol Succinate (Metoprolol Succ 25mg Ext Rel Tab) 25 mg PO BID IMMANUEL Stop: 01/12/25 20:59 Last Admin: 12/19/24 09:09 Dose: Not Given Miscellaneous (Metronidazole [Metrocream] 0.75 % Cream~Order Awaiting Action) 1 each N/A QS IMMANUEL Stop: 01/13/25 00:00 Last Admin: 12/19/24 16:53 Dose: Not Given Pt Own Med - Preservision Areds 2 Eye Vitamin 1 each PO BID IMMANUEL Stop: 01/13/25 20:59 Last Admin: 12/19/24 09:10 Dose: Not Given Oxycodone HCl (Oxycodone Hcl Ir 5 Mg Tab (Immediate Release)) 5 mg PO Q4H PRN PRN Reason: Severe Pain (Scale 7, 8, 9,10) Stop: 12/28/24 15:53 Pantoprazole Sodium (Pantoprazole 40 Mg Tab) 40 mg PO DAILY IMMANUEL Stop: 01/13/25 08:59 Last Admin: 12/19/24 09:09 Dose: Not Given Polyethylene Glycol (Polyethylene (Miralax) 17 Gm Pack) 17 gm PO DAILY PRN PRN Reason: Constipation Stop: 01/13/25 16:08 Thiamine HCl (Thiamine Hcl 100 Mg Tab) 100 mg PO QAM [facility] Stop: 01/15/25 08:59 Last Admin: 12/19/24 08:38 Dose: 100 mg PG Care Time/CCT Total # of Minutes Spent Total Time Spent with Patient: Total time spent is greater than 50% in coordination of care (as documented) at patient's floor/unit and/or counseling patient: Advanced Care Planning 98321 Advanced Care Planning 30 [place] [address] Inpt Consult Level 1 Patient Type New History Problem Focused Exam Problem Focused Medical Decision Making Low Complexity Diagnoses Palliative care by specialist Z51.5 Advance directive in chart Z78.9 Counseling regarding goals of care Z71.89 Encounter for hospice care discussion Z71.89 Delirium of mixed origin F05 Additional Codes Advanced Care Planning - 70328 Advanced Care Planning 30 Min: 28437 Advanced Care Planning 30 Min ([id number])
[2024-12-19 22:27] VITALS: RESP 18
[2024-12-19] MEDS: ENALAPRILAT 1.25 MG in DEXTROSE 5% 25 ML IV STA (22:28)
[2024-12-20 06:39] LABS: Hematocrit (blood only) 28.1 % (42.0-52.0); Hemoglobin 8.4 g/dl (14.0-18.0)
[2024-12-20 06:56] LABS: BUN Creatinine Ratio 35.1 (10-20); Calcium 7.9 mg/dl (8.6-10.3); Potassium 3.6 mmol/L (3.5-5.1)
--- NOTE | 2024-12-20 07:50 | XRay Report ---
EXAM: XR chest 1V portable CLINICAL HISTORY: Pneumonia TECHNIQUE: An X-ray image of the chest is obtained in AP projection. COMPARISON: 12/17/2024 FINDINGS: Pulmonary Parenchyma: A slight interval increase of left basilar opacity silhouetting the left cardiac border and left hemidiaphragm denoting left lower lobe consolidation collapse due to an ongoing infectious process. Left lower lung zone, atlectatic bands. Gross interval regression of previously noted left-sided pleural effusion. Right, basilar reticulation with atlectatic band denoting lung scarring. No evidence of pleural effusion or pleural thickening. Heart and Mediastinum: Heart size and shape are normal. No mediastinal widening or masses. No hilar or mediastinal lymphadenopathy. Bony Thorax: Bony thorax appears intact without fractures or deformities. Soft Tissues: Soft tissues overlying the chest wall are unremarkable. IMPRESSION: 1. Slight increase in left basilar opacity. This raises the possibility of left lower lobe atelectasis/collapse. Pneumonia or aspiration pneumonitis could appear similar. 2. Newly developed left lower lung zone, atlectatic bands. 3. Resolution of previously noted left-sided pleural effusion. 4. Stable mild right basilar opacities which could represent atelectasis or pneumonia. 5. No interval changes Electronically signed by Vasyl Romeo 12-20-2024 07:50 AM
[2024-12-20 08:04] VITALS: BP 178/86; PULSE 72; TEMP 97.9; O2SAT 97
[2024-12-20] MEDS ORDERED: LABETALOL HCL IV 5 MG/ML 20ML IV PRN (09:56)
--- NOTE | 2024-12-20 10:08 | Orthopedic Progress Note ---
Date of Service December 20, 2024 Assessment & Plan (1) Fracture of femoral neck, left: (2) Fall from standing: (3) Hypertension: (4) CKD (chronic kidney disease), stage III: (5) Parkinsons disease: (6) Coronary artery disease: (7) Benign prostatic hyperplasia with urinary obstruction: (8) Acoustic neuroma: Plan Postoperative day #6 status post left hip hemiarthroplasty with prophylactic fixation of femoral neck. CTA of his chest was suggestive of multifocal pneumonia and it is thought that this is the cause of his recent somnolence he is currently receiving IV antibiotics and is much improved. Patient should be touchdown weightbearing on the left lower extremity. His dressing should stay intact and once the battery runs out, the battery pack may be removed. He will follow-up with me in 2 weeks for wound check. Okay for DVT prophylaxis. Okay for PT/OT. Admission and Anticipated Discharge Date Admission Date: December 13, 2024 Subjective Patient is seen and examined at bedside. Patient is working with physical therapy at current. Patient is much more awake and alert. Palliative medicine was consulted as well. Review of Systems Review of Systems: All systems reviewed & are unremarkable except as noted in HPI & below Physical Exam Physical Exam: Dressings clean dry and intact. Foot warm and well perfused. EHL/FHL/GSC/TA intact Results & Data Vital Signs (Past 12 Hours) Vital Signs Temp Pulse Pulse Resp BP BP Pulse Ox 12/20/24 08:00 36.6 C 72 18 178/86 H 97 12/20/24 00:04 83 18 161/87 H 96 12/19/24 22:44 97 H 18 171/99 H 96 12/19/24 22:25 79 18 175/90 H 97 12/19/24 22:16 82 183/84 H O2 Del Method O2 Flow Rate 12/20/24 08:00 Nasal Cannula 5 12/20/24 00:04 Nasal Cannula 4 12/19/24 22:44 Nasal Cannula 4 12/19/24 22:25 Nasal Cannula 12/19/24 22:16 (6) Coronary artery disease Coronary Disease-Associated Artery/Lesion type: unspecified vessel or lesion type [place] vs. transplanted heart: [place] heart
[2024-12-20] MEDS: DEXTROSE 5% 1,000 ML IV ONE (11:49)
[2024-12-20] MEDS: PANTOprazole 40 MG/10 ML SYR IV SCH (11:50)
[2024-12-20] MEDS ORDERED: ATROPINE SULFATE 1% OP SOLN 5 ML BTL SL PRN (11:56)
[2024-12-20] MEDS ORDERED: HYDROmorphone INJ 0.5 MG/0.5 ML SYR IV PRN (11:56)
[2024-12-20] MEDS ORDERED: LORazepam 2 MG/1 ML VIAL IV PRN (11:56)
[2024-12-20] MEDS ORDERED: ONDANSETRON 4 MG OD TAB SL PRN (11:56)
[2024-12-20] MEDS ORDERED: ONDANSETRON INJ 2 MG/ML 2 ML VIAL IV PRN (11:56)
[2024-12-20] MEDS ORDERED: GLYCOPYRROLATE 0.2 MG/ML VIAL IV PRN (11:56)
--- NOTE | 2024-12-20 15:52 | Hospitalist Progress Note ---
Date of Service December 20, 2024 Assessment & Plan (1) Fracture of femoral neck, left: (2) Fall from standing: (3) Hypertension: (4) CKD (chronic kidney disease), stage III: (5) Parkinsons disease: (6) Coronary artery disease: (7) Benign prostatic hyperplasia with urinary obstruction: (8) Acoustic neuroma: Plan Mr. Hunter is an 79 year old male that was at [employer] and lost his footing and had a ground level fall; likely induced from his Parkinsons Disease. Denies hitting his head or having LOC. 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 He was brought to the [facility] via EMS and had a hip/pelvis X-ray performed revealing an acute left femoral neck fracture. He has a PMH that includes: hyperlipidemia, CAD s/p stent x2 (2006 and 2021 - at [facility]), history of NSTEMI, HTN, macular degeneration, Meckel's diverticulum, BPH, chronic kidney stage III, bilateral lower extremity edema, Parkinson's disease, right acoustic neuroma. Most recent ECHO 05/2023 EF 55-60%, G1DDx. Mild aortic valve sclerosis without significant stenosis. He will be admitted for further evaluation and management with Ortho consult, fall precautions, Tylenol for pain control, ECG and type/screen pending surgery. Will add on BNP given RCRI value of 1. Plan for OR per Ortho for 12/14; will hold DAPT and keep NPO after MN. Fracture of femoral neck, left: Ground level fall from standing: -Likely related to Parkinson's disease symptoms --S/P left hip hemiarthroplasty with prophylactic fixation of femoral neck Touchdown weightbearing left lower extremity as able PT OT, fall precautions Appreciate orthopedics input Continue local wound care Needs follow-up with orthopedics on discharge Pain is controlled Plan to discharge home with home hospice as below Acute Metabolic Encephalopathy -likely in setting of anesthesia, significant comorbid conditions, hypoactive delirium -CT head: No acute intracranial findings. Delirium precautions -Received thiamine, folic acid Appreciate neurology input Avoid sedating medications Mental status seem to be back to baseline Dysphagia Ongoing issue for about 6 years per family In setting of Parkinson's disease likely progressing --Video Swallow Study:Aspirated thin, thickened liquids, and puree Patient failed swallow study Discussed with patient/patient's family members extensively on multiple occasions Patient preferred no PEG placement Appreciate speech therapy to help Appreciate palliative care input After extensive conversation, patient and patient's family preferred to transition to comfort measures only. Goal is comfort at this time They prefer no aggressive measures/heroic interventions. Plan to discharge home with home hospice Permissive aspiration as requested by patient/family. They understand the risks and complications and agree with current management Acute Hypoxic Respiratory Failure with hypoxia Multifocal pneumonia Possible aspiration --Chest CTA:Normal CT angiography of the pulmonary artery and its branches with no evidence of pulmonary embolism. Bilateral lower lobe consolidation and right upper and middle lobe airspace infiltration suggesting acute infection. -- Blood cultures: Negative to date Continue Unasyn for now Aspiration precautions Continue supplemental oxygen for comfort Hypernatremia Likely due to dehydration/poor oral Received IV fluids Hypotension Resolved CAD: HTN: -Discharge history of BMS to [facility] x 2 (2006 and 2021). -Takes baby aspirin and Plavix;-Most recent ECHO: 05/2023 EF 55-60%, G1DDx and mild aortic valve sclerosis without significant stenosis -Was on aspirin, Plavix Parkinson's disease: -Chronic -Takes Sinemet QID; continue -Uses a walker at baseline TESSA on CKD, resolved Creatinine back to baseline Monitor Avoid nephrotoxic agents as able Acute Blood Loss Anemia -likely 2/2 procedure and dilutional in setting of fluids Monitor CBC HLD: -Chronic -Most recent lipid panel: 11/07/24: TG 154, HDL 49, LDL 121 -Was on atorvastatin Acoustic neuroma: -stable DVT Px: Heparin SQ--discontinue CODE STATUS DNI DNR Disposition Home with home hospice when arranged Admission and Anticipated Discharge Date Admission Date: December 13, 2024 Subjective Patient is seen and examined at bedside Patient sitting in chair comfortably during my encounter Offers no new complaints Hyponatremia continues to worsen Discussed extensively with patient's family and patient at bedside along with lynda carrizales Patient and patient's family prefer to transition to comfort measures today Denies any chest pain, dyspnea, nausea, vomiting, abdominal pain Review of Systems Review of Systems: All systems reviewed & are unremarkable except as noted in Subjective Physical Exam Physical Exam: Physical Exam: Vitals signs as noted above General Appearance: Frail, ill-appearing, no apparent distress Head: normocephalic, Atraumatic Eyes: normal inspection, EOMI Neck: supple, Trachea midline Respiratory/Chest: Normal breath sounds, CTA, No accessory muscle use Cardiovascular: S1, S2, No murmur Abdomen/GI:Soft, Non tender, Bowel sounds present Extremities/Musculoskeletal:normal inspection, no edema, left hip surgical site in dressing Neurologic/Psych: Alert, awake, oriented, follows simple commands. Skin: normal color, warm Results & Data Results & Data Vital Signs (Past 12 Hours) Vital Signs Temp Pulse Resp BP Pulse Ox O2 Del Method O2 Flow Rate 12/20/24 08:00 36.6 C 72 18 178/86 H 97 Nasal Cannula 5 Laboratory Results Short CBC 12/20/24 Range/Units 06:21 Hgb 8.4 L (14.0-18.0) g/dl Hct 28.1 L (42.0-52.0) % BMP 12/20/24 06:21 Sodium 150 H Potassium 3.6 Chloride 115 H Carbon Dioxide 33 H BUN 34 H Creatinine 0.97 Glucose 102 H Calcium 7.9 L (6) Coronary artery disease Coronary Disease-Associated Artery/Lesion type: unspecified vessel or lesion type [place] vs. transplanted heart: [place] heart
--- NOTE | 2024-12-20 18:33 | Palliative Care Progress Note ---
Date of Service December 20, 2024 Assessment & Plan (1) Palliative care by specialist: Plan: 30 min Palliative care meeting to discuss GOC today. Pt transition to [employer] today with plan for DC home with hospice care. We will continue to follow for end of life comfort driven care and family support. (2) Counseling regarding goals of care: Plan: Met with patient, his and their daughter at bedside today. Pt's son Axel joined conversation by phone. Dr Laureano ws present for the majority of the conversation. We again discussed the patient's swallowing difficulties and ongoing risk of aspiration and treatmetn options moving forward. shared that they had considered a trial of TF via NGT, to allow time for ST to work with pt in hopes of improved swallowing abilities. We discussed that pt would require a NGT and likely would be discharged to SNF for ongoing ST and this would require PEG placement for safety. Pt's shared that the BSrn had attempted to place NGT last evening. Pt did not tolerate placement well and developed dyspnea and cough afterward. She stated that she looked in his mouth to see tube coiled up in his mouth. Pt refused further attempts at NGT placement. She sharedd that they absolutely do not want to put him through that again and questioned PEG tube. Pt's children both emphasized pt's frequently stated and clearly documented wishes for NO TF. We discussed options for care being continuing the current course of care including ongoing life prolonging treatments including tube feeds vs a transition to comfort directed care. Axel stated "there really is only one choice given pt wishes". All family did agree with this. Discussed hospice benefit: an interdisciplinary program offered by nurses, nurses aides, social workers, chaplains and a medical doctor for patients with a terminal condition and a life expectancy of less than 6 months. This is covered by Medicare at 100%/no out of pocket expense to patient and all meds/supplies needed by patient for the reason they are on hospice are paid for/covered by hospice. The goal is assure quality of life of the patient in their home setting (home, assisted, inpatient hospice setting) by providing symptoms management, psychosocial and spiritual support. However, they cannot offer 24 hours care and if the family is unable to provide that care, they will have to consider personal care with out of pocket cost vs. assisted placement. We discussed the goals of hospice as a patient service and the goals of care; we discussed EOL trajectories and transitions kaykay the emotional impact of realizing mortality as a concrete reality from prior abstract considerations. Pt was reassured that no matter where they are along this trajectory, they are not alone - their medical team will remain by their side through their journey. Discussed the pros/cons of accepting help when especially weakened and distressed by pain-which would also help provide relief/decrease caregiver burden/strain. . (3) Comfort measures only status: Plan: Patient and family all in agreement to transition to [employer] [facility] and DC home with hospice. [employer] orders placed and CM consulted for hospiice referral. (4) Need for comfort care: Plan: [employer] [facility] Symptom management: continue all parkinsons and psych meds Pain/dyspnea/tachypnea Dilaudid 0.2mg IVP PRN [id number] Consider titratable morphine drip if pt requires >3 PRN doses in under two consecutive hours. Nausea/vomitting zofran 4mg IVP q4h PRN Agitation / Hyperactive delirium - avoid haldol iso parkinson's ativan 0.5mg IVP q4h PRN Secretions - if repositioning not effective robinul 0.4mg IV q4h PRN atropine SL 3 drops Q1h PRN Nursing care: Discontinue all medications not directed towards comfort. Detether pt from IV tubing, monitor cables, and check vitals once per shift. Please continue HFNC and titrate down as able for patient comfort. Use medications above PRN for dyspnea/tachypnea and do not increase oxygen once titrated down. Assess q1h for pain/dyspnea and treat accordingly. Plan [employer] planning for DC home with hospice. Admission and Anticipated Discharge Date Admission Date: December 13, 2024 Subjective assessed pt at bedside, pt's and daughter were at bedside. Pt awake and alert, but confused. Pt sitting in chair in NAD on 2l nc. He denies any discomfort and requests ice cream. Review of Systems Review of Systems: All systems reviewed & are unremarkable except as noted in Subjective Physical Exam Physical Exam: Physical Exam: Vitals signs as noted above General Appearance: Frail, ill-appearing, no apparent distress Head: normocephalic, Atraumatic Eyes: normal inspection, EOMI Neck: supple, Trachea midline Respiratory/Chest: Normal breath sounds, CTA, No accessory muscle use Cardiovascular: S1, S2, No murmur Abdomen/GI:Soft, Non tender, Bowel sounds present Extremities/Musculoskeletal:normal inspection, no edema, left hip surgical site in dressing Neurologic/Psych: Alert, awake, oriented, [place] per baseline, follows simple commands. Skin: normal color, warm Results & Data Vital Signs (Past 12 Hours) Vital Signs Temp Pulse Resp BP Pulse Ox O2 Del Method O2 Flow Rate 12/20/24 08:00 36.6 C 72 18 178/86 H 97 Nasal Cannula 5 Laboratory Results Abnormal lab results 12/20/24 Range/Units 06:21 Hgb 8.4 L (14.0-18.0) g/dl Hct 28.1 L (42.0-52.0) % Sodium 150 H (136-145) mmol/L Chloride 115 H (98-107) mmol/L Carbon Dioxide 33 H (21-32) mmol/L Anion Gap 2 L (3-11) BUN 34 H (6-23) mg/dl BUN/Creatinine Ratio 35.1 H (10-20) Glucose 102 H (70-99(Fasting)) mg/dl Calcium 7.9 L (8.6-10.3) mg/dl Procalcitonin 0.71 H (0-0.5) ng/ml Diagnostic Findings Femur X-Ray 12/13/24 16:23 EXAM: Radiographs of the Left Femur 2 Views INDICATION: Fall TECHNIQUE: Frontal and lateral views of the left femur. COMPARISON: No relevant prior studies available. FINDINGS: Bones/joints: There is age-indeterminate deformity of the left femoral neck with angulation. No dislocation. Femur otherwise intact. Soft tissues: No abnormality noted. No radiopaque foreign body noted. Vasculature: Catheter noted projecting over the bladder. Atherosclerosis noted diffusely. IMPRESSION: Age-indeterminate fracture of the left femoral neck. ACT 112: Negative or not required by law. Electronically signed by Sharmin Oquendo 12-13-2024 5:08 PM Hip X-Ray 12/14/24 00:00 FL hip LT 2-3V CLINICAL HISTORY: LEFT ANTERIOR HIP COMPARISON STUDY: Left hip radiographs 01/10/2025. FLUOROSCOPY TIME: 1 minute and 5 seconds. Ka,r: 4.1633 mGy FLUOROSCOPIC IMAGES: 3 FINDINGS: Fluoroscopy was provided during left hip arthroplasty. A femoral cerclage wire is in place. Alignment is anatomic. No periprosthetic fracture is identified. No unexpected radiopaque foreign bodies. Ferro catheter is incidentally noted. IMPRESSION: Fluoroscopy provided during left hip arthroplasty. ACT 112: Negative or not required by law. Electronically signed by: Javad Rubalcava M.D. 12/14/2024 11:51 AM Hip/Pelvis X-Ray 12/14/24 11:07 XR hip LT 2V w pelvis CLINICAL HISTORY: Postoperative evaluation. COMPARISON: Left hip radiographs December 13, 2024. FINDINGS: Alignment of the left hip arthroplasty is anatomic. There is no periprosthetic fracture or unexpected radiopaque foreign body. Cerclage wire is in place. Ferro catheter is incidentally noted. IMPRESSION: Expected findings following left hip arthroplasty. ACT 112: Negative or not required by law. Electronically signed by: Javad Rubalcava M.D. 12/14/2024 12:[address] 12/17/24 10:25 CT OF THE HEAD WITHOUT CONTRAST CLINICAL HISTORY: altered mental status COMPARISON STUDY: Head CT December 15, 2024. CT DOSE: 688.24 mGy.cm TECHNIQUE: Helical axial images of the head were obtained without IV contrast. Automated exposure control was utilized for the study. A dose lowering technique was utilized adhering to the principles of ALARA. FINDINGS: No acute intracranial hemorrhage, midline shift or mass effect is present. The ventricular system is stable. White matter hypodensities are unchanged and favor small vessel disease. The basal cisterns are patent. No extra-axial collections are present. There are no findings to suggest acute dural sinus thrombosis or acute territorial infarct. No significant calvarial abnormalities are present. There is trace fluid within the left mastoid air garth ls. IMPRESSION: No acute intracranial findings. ACT 112: Negative or not required by law. Electronically signed by: Javad Rubalcava M.D. 12/17/2024 10:54 AM Chest CTA 12/17/24 14:55 EXAM: CT angio chest PE protocol CLINICAL HISTORY: PE TECHNIQUE: Spiral axial continuous cuts were taken through the chest with multiplanar reformatting and with intravenous administration of contrast material (Pulmonary embolism protocol). OPTIRAY 320 120ML intravenous contrast was administered.One of the following dose reduction techniques was utilized for this exam.Automated exposure control, adjustment of the mA and/or kV according to patient size, and use of iterative reconstruction. One of these 3D techniques was utilized: Maximum Intensity Pixel (MIP), 3D Reconstructed Images, Volume Rendered Images, Surface Shaded Rendering. DLP 716.05 COMPARISON: CR 12/15/2024 FINDINGS: Normal course and caliber of the main pulmonary trunk, right and left pulmonary arteries with adequate opacification. No evidence of intraluminal filling defects impressive of pulmonary embolism, no evidence of mural calcification or aneurismal dilatation. Patchy airspace opacities are seen at the anterior segment of the right upper lung lobe and middle lobe. Lobar consolidation of most of the left lower lung lobe, with relative sparing of the apical segment. Segmental consolidation of the posterior basal segment of the right lower lung lobe. The vascular pattern appears normal with no evidence of bronchovascular distortion. No significant hilar or mediastinal lymph destinee enlargement. Enlarged cardiac size with mild pericardial effusion. The visualized pleural sacs, chest wall and axillary spaces display normal appearance. Bone window settings showed degenerative changes of the throacic spine and osteopenia, yet no evidence of destructive bony lesions. Scanned upper abdominal cuts revealed axial hiatus hernia, left renal cyst and small left adrenal gland nodules versus artifactual (due to motion). IMPRESSION: 1. Normal CT angiography of the pulmonary artery and its branches with no evidence of pulmonary embolism. 2. Bilateral lower lobe consolidation and right upper and middle lobe airspace infiltration suggesting acute infection. Clinical correlation and follow-up are advised. New finding. Electronically signed by Vasyl Romeo 12-17-2024 5:14 PM Chest X-Ray 12/20/24 07:00 EXAM: XR chest 1V portable CLINICAL HISTORY: Pneumonia TECHNIQUE: An X-ray image of the chest is obtained in AP projection. COMPARISON: 12/17/2024 FINDINGS: Pulmonary Parenchyma: A slight interval increase of left basilar opacity silhouetting the left cardiac border and left hemidiaphragm denoting left lower lobe consolidation collapse due to an ongoing infectious process. Left lower lung zone, atlectatic bands. Gross interval regression of previously noted left-sided pleural effusion. Right, basilar reticulation with atlectatic band denoting lung scarring. No evidence of pleural effusion or pleural thickening. Heart and Mediastinum: Heart size and shape are normal. No mediastinal widening or masses. No hilar or mediastinal lymphadenopathy. Bony Thorax: Bony thorax appears intact without fractures or deformities. Soft Tissues: Soft tissues overlying the chest wall are unremarkable. IMPRESSION: 1. Slight increase in left basilar opacity. This raises the possibility of left lower lobe atelectasis/collapse. Pneumonia or aspiration pneumonitis could appear similar. 2. Newly developed left lower lung zone, atlectatic bands. 3. Resolution of previously noted left-sided pleural effusion. 4. Stable mild right basilar opacities which could represent atelectasis or pneumonia. 5. No interval changes Electronically signed by Vasyl Romeo 12-20-2024 07:50 AM Medications Administered Current Inpatient Medications Artificial Tears (Artificial Tears) 1 drops OP QID PRN PRN Reason: Dryness Stop: 01/12/25 19:08 Atropine Sulfate (Atropine Sulfate 1% Op Soln 5 Ml Btl) 4 drops SL Q1H PRN PRN Reason: Secretions or pulm congestion Stop: 01/19/25 11:55 Carbidopa/Levodopa (Carbidopa/Levodopa 25/100mg Tab) 1 tab PO QID [facility] Stop: 01/12/25 20:59 Last Admin: 12/20/24 18:05 Dose: 1 tab Doxazosin Mesylate (Doxazosin Mesylate Tab 2 Mg Tab) 2 mg PO HS IMMANUEL Stop: 01/12/25 20:59 Last Admin: 12/19/24 20:20 Dose: Not Given Escitalopram Oxalate (Escitalopram Oxalate 10 Mg Tab) 10 mg PO DAILY [facility] Stop: 01/13/25 08:59 Last Admin: 12/20/24 08:58 Dose: Not Given Finasteride (Finasteride 5 Mg Tab) 5 mg PO DAILY I[facility] Stop: 01/13/25 08:59 Last Admin: 12/20/24 08:58 Dose: Not Given Glycopyrrolate (Glycopyrrolate 0.2 Mg/Ml Vial) 0.4 mg IV Q4H PRN PRN Reason: Rattling Secretions or Pulm Congestion Stop: 01/19/25 11:55 Hydromorphone HCl (Hydromorphone Inj 0.5 Mg/0.5 Ml Syr) 0.2 mg IV Q30M PRN PRN Reason: Pain or Respiratory Distress Stop: 01/03/25 11:55 Ampicillin Sodium/Sulbactam Sodium (Unasyn) 3,000 mg in 100 mls @ 200 mls/hr IV Q6H [facility] Stop: 12/22/24 12:29 Last Infusion: 12/20/24 18:47 Dose: Infused Pantoprazole Sodium (Protonix) 40 mg in 10 mls @ 5 mls/min IV DAILY [facility] Stop: 01/19/25 08:59 Last Admin: 12/20/24 11:50 Dose: 5 mls/min Lorazepam (Lorazepam 2 Mg/1 Ml Vial) 0.5 mg IV Q4H PRN PRN Reason: Anxiety/Agitation Stop: 01/19/25 11:55 Metoprolol Succinate (Metoprolol Succ 25mg Ext Rel Tab) 25 mg PO BID [facility] Stop: 01/12/25 20:59 Last Admin: 12/20/24 08:58 Dose: Not Given Miscellaneous (Metronidazole [Metrocream] 0.75 % Cream~Order Awaiting Action) 1 each N/A QS [facility] Stop: 01/13/25 00:00 Last Admin: 12/20/24 18:04 Dose: Not Given Pt Own Med - Preservision Areds 2 Eye Vitamin 1 each PO BID [facility] Stop: 01/13/25 20:59 Last Admin: 12/20/24 08:58 Dose: Not Given Ondansetron HCl (Ondansetron Inj 2 Mg/Ml 2 Ml Vial) 4 mg IV Q4H PRN PRN Reason: Nausea &/or Vomiting Stop: 01/19/25 11:55 Ondansetron HCl (Ondansetron 4 Mg Od Tab) 4 mg SL Q4H PRN PRN Reason: Nausea &/or Vomiting Stop: 01/19/25 11:55 Oxycodone HCl (Oxycodone Hcl Ir 5 Mg Tab (Immediate Release)) 5 mg PO Q4H PRN PRN Reason: Severe Pain (Scale 7, 8, 9,10) Stop: 12/28/24 15:53 Polyethylene Glycol (Polyethylene (Miralax) 17 Gm Pack) 17 gm PO DAILY PRN PRN Reason: Constipation Stop: 01/13/25 16:08 PG Care Time/CCT Total # of Minutes Spent Total Time Spent with Patient: Total time spent is greater than 50% in coordination of care (as documented) at patient's floor/unit and/or counseling patient: Advanced Care Planning 92547 Advanced Care Planning 30 Min [place] [address] SUB INP/OBS CARE 2/35MIN Patient Type Established History Expanded Problem Focused Exam Expanded Problem Focused Medical Decision Making Moderate Complexity Diagnoses Palliative care by specialist Z51.5 Counseling regarding goals of care Z71.89 Comfort measures only status Z51.5 Need for comfort care Additional Codes Advanced Care Planning - 16581 Advanced Care Planning 30 Min: 02105 Advanced Care Planning 30 Min ([id number])
--- NOTE | 2024-12-21 12:26 | Hospitalist Progress Note ---
Date of Service December 21, 2024 Assessment & Plan (1) Fracture of femoral neck, left: (2) Fall from standing: (3) Hypertension: (4) CKD (chronic kidney disease), stage III: (5) Parkinsons disease: (6) Coronary artery disease: (7) Benign prostatic hyperplasia with urinary obstruction: (8) Acoustic neuroma: Plan Mr. Hunter is an 79 year old male that was at [employer] and lost his footing and had a ground level fall; likely induced from his Parkinsons Disease. Denies hitting his head or having LOC. 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 He was brought to the [facility] via EMS and had a hip/pelvis X-ray performed revealing an acute left femoral neck fracture. He has a PMH that includes: hyperlipidemia, CAD s/p stent x2 (2006 and 2021 - at [facility]), history of NSTEMI, HTN, macular degeneration, Meckel's diverticulum, BPH, chronic kidney stage III, bilateral lower extremity edema, Parkinson's disease, right acoustic neuroma. Most recent ECHO 05/2023 EF 55-60%, G1DDx. Mild aortic valve sclerosis without significant stenosis. He will be admitted for further evaluation and management with Ortho consult, fall precautions, Tylenol for pain control, ECG and type/screen pending surgery. Will add on BNP given RCRI value of 1. Plan for OR per Ortho for 12/14; will hold DAPT and keep NPO after MN. Fracture of femoral neck, left: Ground level fall from standing: -Likely related to Parkinson's disease symptoms --S/P left hip hemiarthroplasty with prophylactic fixation of femoral neck Touchdown weightbearing left lower extremity as able PT OT, fall precautions Appreciate orthopedics input Continue local wound care Needs follow-up with orthopedics on discharge Pain is controlled Plan to discharge home with home hospice today Acute Metabolic Encephalopathy -likely in setting of anesthesia, significant comorbid conditions, hypoactive delirium -CT head: No acute intracranial findings. Delirium precautions -Received thiamine, folic acid Appreciate neurology input Avoid sedating medications Mental status seem to be back to baseline Dysphagia Ongoing issue for about 6 years per family In setting of Parkinson's disease likely progressing --Video Swallow Study:Aspirated thin, thickened liquids, and puree Patient failed swallow study Discussed with patient/patient's family members extensively on multiple occasions Patient preferred no PEG placement Appreciate speech therapy to help Appreciate palliative care input After extensive conversation, patient and patient's family preferred to transition to comfort measures only. Goal is comfort at this time They prefer no aggressive measures/heroic interventions. Plan to discharge home with home hospice Permissive aspiration as requested by patient/family. They understand the risks and complications and agree with current management Acute Hypoxic Respiratory Failure with hypoxia Multifocal pneumonia Possible aspiration --Chest CTA:Normal CT angiography of the pulmonary artery and its branches with no evidence of pulmonary embolism. Bilateral lower lobe consolidation and right upper and middle lobe airspace infiltration suggesting acute infection. -- Blood cultures: Negative to date Continue Unasyn for now Aspiration precautions Continue supplemental oxygen for comfort Transition to oral antibiotics on discharge per patient's preference Hypernatremia Likely due to dehydration/poor oral Received IV fluids Hypotension Resolved CAD: HTN: -Discharge history of BMS to LAD x 2 (2006 and 2021). -Takes baby aspirin and Plavix;-Most recent ECHO: 05/2023 EF 55-60%, G1DDx and mild aortic valve sclerosis without significant stenosis -Was on aspirin, Plavix Parkinson's disease: -Chronic -Takes Sinemet QID; continue -Uses a walker at baseline TESSA on CKD, resolved Creatinine back to baseline Monitor Avoid nephrotoxic agents as able Acute Blood Loss Anemia -likely 2/2 procedure and dilutional in setting of fluids Monitor CBC HLD: -Chronic -Most recent lipid panel: 11/07/24: TG 154, HDL 49, LDL 121 -Was on atorvastatin Acoustic neuroma: -stable DVT Px: Heparin SQ--discontinue CODE STATUS DNI DNR Disposition Home with home hospice Admission and Anticipated Discharge Date Admission Date: December 13, 2024 Subjective Patient is seen and examined at bedside Admits to have cough with oral intake Offers no other complaints today Denies any chest pain, dyspnea, dizziness Plan to be discharged home with home hospice today Review of Systems Review of Systems: All systems reviewed & are unremarkable except as noted in Subjective Physical Exam Physical Exam: Physical Exam: Vitals signs as noted above General Appearance: Frail, ill-appearing, no apparent distress Head: normocephalic, Atraumatic Eyes: normal inspection, EOMI Neck: supple, Trachea midline Respiratory/Chest: Normal breath sounds, CTA, No accessory muscle use Cardiovascular: S1, S2, No murmur Abdomen/GI:Soft, Non tender, Bowel sounds present Extremities/Musculoskeletal:normal inspection, no edema, left hip surgical site in dressing Neurologic/Psych: Alert, awake, oriented, follows simple commands. Skin: normal color, warm Results & Data Results & Data Vital Signs (Past 12 Hours) Vital Signs O2 Del Method O2 Flow Rate 12/21/24 07:30 Nasal Cannula 4 (6) Coronary artery disease Coronary Disease-Associated Artery/Lesion type: unspecified vessel or lesion type [place] vs. transplanted heart: [place] heart
--- NOTE | 2024-12-21 12:39 | Discharge Summary ---
Date of Service December 21, 2024 Admission HPI Per Admitting Provider Mr. Hunter is an 79 year old male that was at [employer] and lost his footing and had a ground level fall; likely induced from his Parkinsons Disease. Denies hitting his head or having LOC. He describes that he was talking with his online advertising director and not watching where he was walking with his walker. He was brought to the [facility] via EMS and had a hip/pelvis X-ray performed revealing an acute left femoral neck fracture. He has a PMH that includes: hyperlipidemia, CAD s/p stent x2 (2006 and 2021 - at [facility]), history of NSTEMI, HTN, macular degeneration, Meckel's diverticulum, BPH, chronic kidney stage III, bilateral lower extremity edema, Parkinson's disease, right acoustic neuroma. He follows with [facility] and had his last appointment with Cipriano Cavazos on 07/07/2024. Pre review of most recent cardiology note; Atherosclerotic coronary disease status post coronary intervention with bare metal stent to the left anterior descending in 2006 and presentation in December 2021 with unstable angina. Catheterization, per documentation, in December 2021 revealed a dominant left circumflex with mild luminal irregularities, non dominant RCA with mid 90% stenosis, and a diffusely disease and ectatic LAD with a 50% proximal lesion, 90 and 99% mid vessel lesions sequentially, and a 60% distal LAD lesion, undergoing cutting balloon angioplasty and stenting of the mid LAD lesions at that time. Recommendations at [facility] included utilization of aspirin and Brilinta without interruption x1 year, lifelong dual anti-platelet therapy. Most recent ECHO 05/2023 EF 55-60%, G1DDx. Mild aortic valve sclerosis without significant stenosis. No recent illness or signs of upper respiratory illness. Pt denies Owens, dizziness, visual or auditory changes (uses hearing aids), abdominal pain or tenderness, dysuria, hematochezia, N/V/D, other recent falls or trauma. 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 Appears he is able to anticipate and meet all of caw own ADL's independently. 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 Orthopedics had a nice conversation with the family regarding the possible change with his functioning state post op related to his parkinsons disease. This was reiterated with the family when I met with them and they expressed understanding. Patient will be admitted for further evaluation and management with Orthopedics consultation, fall precautions, Tylenol for pain control, ECG and type/screen pending surgery. Will add on BNP given RCRI value of 1. Plan for OR per Ortho for 12/14; will hold DAPT and keep NPO after MN. Admission Exam Per Admitting Provider Neuro: AAOx4, PERRLA, no aphagia, memory changes, CNII-XII grossly intact HEENT: head normocephalic, moist mucus membranes CV: S1/S2, (-) M/G/R, (-) edema, cap refill < 3 seconds Resp: Lungs CTA in all patel. On RA GI: Abdomen S/NT/ND, Ax4 bowel sounds, (-) CVA tenderness Musculoskeletal: 5/5 B/L UE strength, 5/5 B/L LE strength. uses a walker at baseline Skin: (-) rashes , (-) erythema. Psych: euthymic mood Principal Diagnosis Left femoral neck fracture Acute metabolic encephalopathy Dysphagia Parkinson's disease Acute Hypoxic Respiratory Failure with hypoxia Multifocal pneumonia Hypernatremia Acute Blood Loss Anemia Discharge Data Allergies Allergy/AdvReac Type Severity Reaction Status Date / Time adhesive tape Allergy Intermediate red welps Verified 12/15/24 09:06 codeine Allergy Intermediate shortness Verified 12/15/24 09:06 of breath ~ nervous latex Allergy Rash Verified 12/14/24 05:49 bacitracin AdvReac Intermediate blisters Verified 12/15/24 09:06 [From Neosporin ([id number])] neomycin AdvReac Intermediate blisters Verified 12/15/24 09:06 [From Neosporin ([id number])] polymyxin B AdvReac Intermediate blisters Verified 12/15/24 09:06 [From Neosporin ([id number])] Consultations 12/13/24 15:55 Consult Orthopedic Surgery Stat ED Decision to Admit Stat 12/17/24 13:15 Consult Neurology Routine 12/19/24 12:40 Consult Palliative Care Routine Procedures Performed Operation Date: 12/14/24 07:15 Actual Procedures p Left Anterior Hemiarthroplasty, prophylactic fixation left femoral neck, Fluoroscopy guidance greater than 1 hour(Left) - Ivan Ferrera DO Ordered Studies Laboratory Results WBC 6.34 K/ul (4.8-10.8) 12/19/24 06:30 RBC 3.21 M/uL (4.70-6.10) L 12/19/24 06:30 Hgb 8.4 g/dl (14.0-18.0) L 12/20/24 06:21 Hct 28.1 % (42.0-52.0) L 12/20/24 06:21 MCV 90.3 fL (80.0-100.0) 12/19/24 06:30 MCH 27.1 pg (25.0-34.0) 12/19/24 06:30 MCHC 30.0 g/dL (32.0-36.0) L 12/19/24 06:30 RDW Std Deviation 48.3 fL (36.4-46.3) H 12/19/24 06:30 RDW Coeff of Boaz 14.5 % (11.5-14.5) 12/19/24 06:30 Plt Count 182 K/uL (130-400) 12/19/24 06:30 MPV 10.5 fL (9.4-12.4) 12/19/24 06:30 Immature Gran % (Auto) 0.6 % 12/15/24 10:39 Neut % (Auto) 81.0 % 12/15/24 10:39 Lymph % (Auto) 8.1 % 12/15/24 10:39 [place] % (Auto) 7.5 % 12/15/24 10:39 Eos % (Auto) 2.6 % 12/15/24 10:39 Baso % (Auto) 0.2 % 12/15/24 10:39 Neut # (Auto) 7.11 K/uL (1.40-6.50) H 12/15/24 10:39 Lymph # (Auto) 0.71 K/uL (1.20-3.40) L 12/15/24 10:39 Highlands # (Auto) 0.66 K/uL (0.11-0.59) H 12/15/24 10:39 Eos # (Auto) 0.23 K/uL (0.00-0.50) 12/15/24 10:39 Baso # (Auto) 0.02 K/uL (0.00-0.20) 12/15/24 10:39 Immature Gran # (Auto) 0.05 K/uL (0.01-0.20) 12/15/24 10:39 PT 10.4 Seconds (9.0-12.0) 12/13/24 15:38 INR 1.0 (0.9-1.1) 12/13/24 15:38 APTT 27 Seconds (21-31) 12/13/24 15:38 PTT Ratio 1.0 12/13/24 15:38 ABG pH 7.48 (7.35-7.45) H 12/17/24 10:30 ABG pCO2 35 mmHg (35-46) 12/17/24 10:30 ABG pO2 121 mmHg (80-95) H 12/17/24 10:30 ABG HCO3 26 mmol/L (19-24) H 12/17/24 10:30 ABG O2 Saturation 95.6 % (90-95) H 12/17/24 10:30 ABG Base Excess 2.8 mEq/L (-9-1.8) H 12/17/24 10:30 Gene Test Pos (Pos) 12/17/24 10:30 VBG pH 7.41 (7.36-7.41) 12/15/24 10:39 VBG pCO2 44 mmHg (38-50) 12/15/24 10:39 VBG pO2 45 mmHg 12/15/24 10:39 VBG HCO3 28 mmol/L 12/15/24 10:39 VBG O2 Saturation 77.5 % 12/15/24 10:39 VBG Base Excess 2.7 mEq/L 12/15/24 10:39 Oxygen Given 10L 12/17/24 10:30 Sodium 150 mmol/L (136-145) H 12/20/24 06:21 Potassium 3.6 mmol/L (3.5-5.1) 12/20/24 06:21 Chloride 115 mmol/L (98-107) H 12/20/24 06:21 Carbon Dioxide 33 mmol/L (21-32) H 12/20/24 06:21 Anion Gap 2 (3-11) L 12/20/24 06:21 BUN 34 mg/dl (6-23) H 12/20/24 06:21 Creatinine 0.97 mg/dl (0.6-1.4) 12/20/24 06:21 Est Cr Clr Drug Dosing 52.0 ml/min 12/20/24 06:21 eGFR 78.43 12/20/24 06:21 BUN/Creatinine Ratio 35.1 (10-20) H 12/20/24 06:21 Glucose 102 mg/dl (70-99(Fasting)) H 12/20/24 06:21 POC Glucose 87 mg/dl (70-99) 12/17/24 14:45 Calcium 7.9 mg/dl (8.6-10.3) L 12/20/24 06:21 Magnesium 2.0 mg/dl (1.7-2.4) 12/20/24 06:21 Total Bilirubin 1.0 mg/dl (0.2-1.0) 12/14/24 16:00 Total Bilirubin 1.0 mg/dl (0.2-1.0) 12/14/24 16:00 Direct Bilirubin 0.1 mg/dl (0-0.2) 12/14/24 16:00 AST 16 U/L (13-39) 12/14/24 16:00 AST 17 U/L (13-39) 12/14/24 16:00 ALT 12 U/L (7-52) 12/14/24 16:00 ALT 12 U/L (7-52) 12/14/24 16:00 Alkaline Phosphatase 76 U/L (34-104) 12/14/24 16:00 Alkaline Phosphatase 76 U/L (34-104) 12/14/24 16:00 Lactate Dehydrogenase 182 U/L (86-244) 12/15/24 10:39 Troponin I High Sens 23.1 pg/ml (0-20) H 12/15/24 14:46 B-Natriuretic Peptide 512 pg/ml (0-100) H 12/13/24 15:38 Total Protein 5.3 gm/dl (6.0-8.3) L 12/14/24 16:00 Total Protein 5.3 gm/dl (6.0-8.3) L D 12/14/24 16:00 Albumin 2.8 gm/dl (3.4-5.0) L 12/14/24 16:00 Albumin 2.9 gm/dl (3.4-5.0) L 12/14/24 16:00 Globulin 2.5 gm/dl (2.5-4.0) 12/14/24 16:00 Albumin/Globulin Ratio 1.1 (0.9-2) 12/14/24 16:00 25-OH Vitamin D Total 32.9 ng/ml (30-100) 12/15/24 06:27 Procalcitonin 0.71 ng/ml (0-0.5) H 12/20/24 06:21 Urine Color Yellow 12/13/24 20:30 Urine Appearance Clear (Clear) 12/13/24 20:30 Urine pH 8.0 (4.5-7.5) H 12/13/24 20:30 Ur Specific [place] 1.014 (1.000-1.030) 12/13/24 20:30 Urine Protein Trace (Negative) H 12/13/24 20:30 Urine Glucose (UA) Negative (Negative) 12/13/24 20:30 Urine Ketones Negative (Negative) 12/13/24 20:30 Urine Blood Negative (Negative) 12/13/24 20:30 Urine Nitrite Negative (Negative) 12/13/24 20:30 Urine Bilirubin Negative (Negative) 12/13/24 20:30 Urine Urobilinogen Negative (Negative) 12/13/24 20:30 Ur Leukocyte Esterase Negative (Negative) 12/13/24 20:30 Urine WBC (Auto) 0-5 /hpf (0-5) 12/13/24 20:30 Urine RBC (Auto) 6-10 /hpf (0-2) H 12/13/24 20:30 U Hyaline Cast (Auto) 0-2 /lpf (0-2) 12/13/24 20:30 U Epithel Cells (Auto) 0-2 /hpf (0-2) 12/13/24 20:30 Urine Bacteria (Auto) None Seen (None Seen) 12/13/24 20:30 Nasal Screen MRSA (PCR) Negative (Negative) 12/18/24 10:45 Blood Type A Positive 12/13/24 17:21 Antibody Screen NEGATIVE 12/13/24 17:21 Impressions Femur X-Ray 12/13/24 16:23 EXAM: Radiographs of the Left Femur 2 Views INDICATION: Fall TECHNIQUE: Frontal and lateral views of the left femur. COMPARISON: No relevant prior studies available. FINDINGS: Bones/joints: There is age-indeterminate deformity of the left femoral neck with angulation. No dislocation. Femur otherwise intact. Soft tissues: No abnormality noted. No radiopaque foreign body noted. Vasculature: Catheter noted projecting over the bladder. Atherosclerosis noted diffusely. IMPRESSION: Age-indeterminate fracture of the left femoral neck. ACT 112: Negative or not required by law. Electronically signed by Sharmin Oquendo 12-13-2024 5:08 PM Hip X-Ray 12/14/24 00:00 FL hip LT 2-3V CLINICAL HISTORY: LEFT ANTERIOR HIP COMPARISON STUDY: Left hip radiographs 01/10/2025. FLUOROSCOPY TIME: 1 minute and 5 seconds. Ka,r: 4.1633 mGy FLUOROSCOPIC IMAGES: 3 FINDINGS: Fluoroscopy was provided during left hip arthroplasty. A femoral cerclage wire is in place. Alignment is anatomic. No periprosthetic fracture is identified. No unexpected radiopaque foreign bodies. Ferro catheter is incidentally noted. IMPRESSION: Fluoroscopy provided during left hip arthroplasty. ACT 112: Negative or not required by law. Electronically signed by: Javad Rubalcava M.D. 12/14/2024 11:51 AM Hip/Pelvis X-Ray 12/14/24 11:07 XR hip LT 2V w pelvis CLINICAL HISTORY: Postoperative evaluation. COMPARISON: Left hip radiographs December 13, 2024. FINDINGS: Alignment of the left hip arthroplasty is anatomic. There is no periprosthetic fracture or unexpected radiopaque foreign body. Cerclage wire is in place. Ferro catheter is incidentally noted. IMPRESSION: Expected findings following left hip arthroplasty. ACT 112: Negative or not required by law. Electronically signed by: Javad Rubalcava M.D. 12/14/2024 12:[address] 12/17/24 10:25 CT OF THE HEAD WITHOUT CONTRAST CLINICAL HISTORY: altered mental status COMPARISON STUDY: Head CT December 15, 2024. CT DOSE: 688.24 mGy.cm TECHNIQUE: Helical axial images of the head were obtained without IV contrast. Automated exposure control was utilized for the study. A dose lowering technique was utilized adhering to the principles of ALARA. FINDINGS: No acute intracranial hemorrhage, midline shift or mass effect is present. The ventricular system is stable. White matter hypodensities are unchanged and favor small vessel disease. The basal cisterns are patent. No extra-axial collections are present. There are no findings to suggest acute dural sinus thrombosis or acute territorial infarct. No significant calvarial abnormalities are present. There is trace fluid within the left mastoid air cells. IMPRESSION: No acute intracranial findings. ACT 112: Negative or not required by law. Electronically signed by: Javad Rubalcava M.D. 12/17/2024 10:54 AM Chest CTA 12/17/24 14:55 EXAM: CT angio chest PE protocol CLINICAL HISTORY: PE TECHNIQUE: Spiral axial continuous cuts were taken through the chest with multiplanar reformatting and with intravenous administration of contrast material (Pulmonary embolism protocol). OPTIRAY 320 120ML intravenous contrast was administered.One of the following dose reduction techniques was utilized for this exam.Automated exposure control, adjustment of the mA and/or kV according to patient size, and use of iterative reconstruction. One of these 3D techniques was utilized: Maximum Intensity Pixel (MIP), 3D Reconstructed Images, Volume Rendered Images, Surface Shaded Rendering. DLP 716.05 COMPARISON: CR 12/15/2024 FINDINGS: Normal course and caliber of the main pulmonary trunk, right and left pulmonary arteries with adequate opacification. No evidence of intraluminal filling defects impressive of pulmonary embolism, no evidence of mural calcification or aneurismal dilatation. Patchy airspace opacities are seen at the anterior segment of the right upper lung lobe and middle lobe. Lobar consolidation of most of the left lower lung lobe, with relative sparing of the apical segment. Segmental consolidation of the posterior basal segment of the right lower lung lobe. The vascular pattern appears normal with no evidence of bronchovascular distortion. No significant hilar or mediastinal lymph destinee enlargement. Enlarged cardiac size with mild pericardial effusion. The visualized pleural sacs, chest wall and axillary spaces display normal appearance. Bone window settings showed degenerative changes of the throacic spine and osteopenia, yet no evidence of destructive bony lesions. Scanned upper abdominal cuts revealed axial hiatus hernia, left renal cyst and small left adrenal gland nodules versus artifactual (due to motion). IMPRESSION: 1. Normal CT angiography of the pulmonary artery and its branches with no evidence of pulmonary embolism. 2. Bilateral lower lobe consolidation and right upper and middle lobe airspace infiltration suggesting acute infection. Clinical correlation and follow-up are advised. New finding. Electronically signed by Vasyl Romeo 12-17-2024 5:14 PM Chest X-Ray 12/20/24 07:00 EXAM: XR chest 1V portable CLINICAL HISTORY: Pneumonia TECHNIQUE: An X-ray image of the chest is obtained in AP projection. COMPARISON: 12/17/2024 FINDINGS: Pulmonary Parenchyma: A slight interval increase of left basilar opacity silhouetting the left cardiac border and left hemidiaphragm denoting left lower lobe consolidation collapse due to an ongoing infectious process. Left lower lung zone, atlectatic bands. Gross interval regression of previously noted left-sided pleural effusion. Right, basilar reticulation with atlectatic band denoting lung scarring. No evidence of pleural effusion or pleural thickening. Heart and Mediastinum: Heart size and shape are normal. No mediastinal widening or masses. No hilar or mediastinal lymphadenopathy. Bony Thorax: Bony thorax appears intact without fractures or deformities. Soft Tissues: Soft tissues overlying the chest wall are unremarkable. IMPRESSION: 1. Slight increase in left basilar opacity. This raises the possibility of left lower lobe atelectasis/collapse. Pneumonia or aspiration pneumonitis could appear similar. 2. Newly developed left lower lung zone, atlectatic bands. 3. Resolution of previously noted left-sided pleural effusion. 4. Stable mild right basilar opacities which could represent atelectasis or pneumonia. 5. No interval changes Electronically signed by Vasyl Romeo 12-20-2024 07:50 AM Hospital Course (1) Fracture of femoral neck, left: (2) Fall from standing: (3) Hypertension: (4) CKD (chronic kidney disease), stage III: (5) Parkinsons disease: (6) Coronary artery disease: (7) Benign prostatic hyperplasia with urinary obstruction: (8) Acoustic neuroma: Plan Mr. Hunter is an 79 year old male that was at [employer] and lost his footing and had a ground level fall; likely induced from his Parkinsons Disease. Denies hitting his head or having LOC. He describes that he was talking with his online advertising director and not watching where he was walking with his walker. He was brought to the [facility] via EMS and had a hip/pelvis X-ray performed revealing an acute left femoral neck fracture. He has a PMH that includes: hyperlipidemia, CAD s/p stent x2 (2006 and 2021 - at [facility]), history of NSTEMI, HTN, macular degeneration, Meckel's diverticulum, BPH, chronic kidney stage III, bilateral lower extremity edema, Parkinson's disease, right acoustic neuroma. Most recent ECHO 05/2023 EF 55-60%, G1DDx. Mild aortic valve sclerosis without significant stenosis. He will be admitted for further evaluation and management with Ortho consult, fall precautions, Tylenol for pain control, ECG and type/screen pending surgery. Will add on BNP given RCRI value of 1. Plan for OR per Ortho for 12/14; will hold DAPT and keep NPO after MN. Fracture of femoral neck, left: Ground level fall from standing: -Likely related to Parkinson's disease symptoms --S/P left hip hemiarthroplasty with prophylactic fixation of femoral neck Touchdown weightbearing left lower extremity as able PT OT, fall precautions Appreciate orthopedics input Continue local wound care Needs follow-up with orthopedics on discharge Pain is controlled Plan to discharge home with home hospice today Acute Metabolic Encephalopathy -likely in setting of anesthesia, significant comorbid conditions, hypoactive delirium -CT head: No acute intracranial findings. Delirium precautions -Received thiamine, folic acid Appreciate neurology input Avoid sedating medications Mental status seem to be back to baseline Dysphagia Ongoing issue for about 6 years per family In setting of Parkinson's disease likely progressing --Video Swallow Study:Aspirated thin, thickened liquids, and puree Patient failed swallow study Discussed with patient/patient's family members extensively on multiple occasions Patient preferred no PEG placement Appreciate speech therapy to help Appreciate palliative care input After extensive conversation, patient and patient's family preferred to transition to comfort measures only. Goal is comfort at this time They prefer no aggressive measures/heroic interventions. Plan to discharge home with home hospice Permissive aspiration as requested by patient/family. They understand the risks and complications and agree with current management Acute Hypoxic Respiratory Failure with hypoxia Multifocal pneumonia Possible aspiration --Chest CTA:Normal CT angiography of the pulmonary artery and its branches with no evidence of pulmonary embolism. Bilateral lower lobe consolidation and right upper and middle lobe airspace infiltration suggesting acute infection. -- Blood cultures: Negative to date Continue Unasyn for now Aspiration precautions Continue supplemental oxygen for comfort Transition to oral antibiotics on discharge per patient's preference Hypernatremia Likely due to dehydration/poor oral Received IV fluids Hypotension Resolved CAD: HTN: -Discharge history of BMS to LAD x 2 (2006 and 2021). -Takes baby aspirin and Plavix;-Most recent ECHO: 05/2023 EF 55-60%, G1DDx and mild aortic valve sclerosis without significant stenosis -Was on aspirin, Plavix Parkinson's disease: -Chronic -Takes Sinemet QID; continue -Uses a walker at baseline TESSA on CKD, resolved Creatinine back to baseline Monitor Avoid nephrotoxic agents as able Acute Blood Loss Anemia -likely 2/2 procedure and dilutional in setting of fluids Monitor CBC HLD: -Chronic -Most recent lipid panel: 11/07/24: TG 154, HDL 49, LDL 121 -Was on atorvastatin Acoustic neuroma: -stable DVT Px: Heparin SQ--discontinue CODE STATUS DNI DNR Disposition Home with home hospice Total Time Total Time Spent Total Time Spent (In Minutes): 43 minutes Discharge Plan Discharge Items Patient Disposition: Hospice - Home Reason For Visit: LEFT HIP FRACTURE Discharge Diagnosis: Left femoral neck fracture Acute metabolic encephalopathy Dysphagia Parkinson's disease Acute Hypoxic Respiratory Failure with hypoxia Multifocal pneumonia Hypernatremia Acute Blood Loss Anemia Activity: Per Instructions section Non-emergency contact: Primary Care Provider and Surgeon Call non-emergency contact if: you have any medication questions Follow-up/Referrals: Edilia George MD [Primary Care Provider] - Diet: Regular Addtl Attending Provider Instructions: Follow-up with your hospice physician as advised Follow-up with your orthopedic surgeon Dr. Ivan Ferrera as advised Please call if you have any questions or problems. You can reach a [facility] hospitalist on duty at [facility] 24 hours a day by calling [phone] Pending Studies at Discharge: Yes Stand-Alone Forms: My [facility] Medications and DC Order Prescriptions: Continued doxazosin 2 mg tablet 2 mg PO HS Qty: 90 3RF dutasteride [Avodart] 0.5 mg capsule 0.5 mg PO DAILY Qty: 90 3RF clopidogrel [Plavix] 75 mg tablet 75 mg PO DAILY multivitamin Tablet 1 tab PO QAM aspirin 81 mg tablet,delayed release (DR/EC) 81 mg PO HS metronidazole [MetroCream] 0.75 % cream 1 applic TOPICAL QAM carbidopa-levodopa [Sinemet] 25-100 mg tablet 1 tab PO QID PreserVision AREDS-2 250-90-40-1 mg Capsule 1 tab PO DAILY atorvastatin 40 mg tablet 40 mg PO QAM loteprednol etabonate [Alrex] 0.2 % Drops,Suspension 1 drp OPHTHALMIC (EYE) QID PRN (Reason: Dry Eye(S)) polyethylene glycol 3350 [Miralax] 17 gram Powder In Packet 17 g PO DAILY PRN (Reason: Constipation) triamcinolone acetonide 0.1 % cream 1 applic TOPICAL BID PRN (Reason: flare ups) nitroglycerin [Nitro-Dur] 0.4 mg/hr Patch 24 Hour 1 patch transdermal QAM Qty: 30 0RF metoprolol succinate 25 mg tablet extended release 24 hr 25 mg PO BID Qty: 60 0RF escitalopram oxalate 10 mg tablet 10 mg PO DAILY baclofen 10 mg tablet 10 mg PO UD pantoprazole 40 mg tablet,delayed release (DR/EC) 40 mg PO DAILY Discharge Orders: Discharge Order (Routine); Ordered 12/21/24 Ordered By: Taran Laureano Admission Data Admit Date/Time: 12/13/24 16:10 Attending Provider: Taran Laureano Admit Provider: Josue Lama Primary Care Provider: Edilia George Other Providers: Ivan Ferrera; Josue Lama; Cosmo Hemphill; Chaparrita Gonzalez; Aamir Pop; Chaparrita Meza; Bret Miller; Corby Thompson; Zak Mckeon; Catarino Acevedo; Melissa Juan; Justice Condon; Ethan Lemos; Mendoza Madrid; Ivan Mcneil; Adore Casper; Aarti Roberts; Catarino Kevin; Olimpia David; Maryellen Caba; Juliette Kaufman; [facility]
== END 2024-12-21 15:10 | disposition hospice, home (50) | DRG 521 ==
LOC: ED 14:26 → SUATTDRO 16:10 → 3E 16:10